=== PATIENT | female | born 1950 | race Caucasian/White ===

== ENCOUNTER 2020-04-09 02:31 | Emergency (ER) | payer OTHER, SELFPAY ==
--- NOTE | ~2020-04-09 | XR_ITS ---
XR chest 1V portable 04/09/2020 03:16 Indication: Midsternal chest pain Procedure: AP portable chest Comparison: 09/28/2016 Findings: Heart size normal. Shallow inspiration. No focal air space disease, pulmonary edema, pleura l effusion or suspected pneumothorax. Impression: 1: No acute cardiopulmonary disease. Reviewed, dictated and finalized at location A. Impression: 1: No acute cardiopulmonary disease.
[2020-04-09 02:35] VITALS: BP 103/73; PULSE 100; RESP 18; TEMP 36.3; O2SAT 99
--- NOTE | 2020-04-09 02:39 | ECG_ITS ---
Measurements Intervals [place] Rate: 94 P: 70 MS: 160 QRS: -9 QRSD: 154 T: 108 QT: 347 QTc: 434 Interpretive Statements SINUS RHYTHM LEFT BUNDLE BRANCH BLOCK BASELINE WANDER- V6 ABNORMAL ECG Electronically Signed On 04-09-2020 7:41:33 CDT by Rick Ibarra D.O.
[2020-04-09 02:54] LABS: Basophils Percent Auto 0.4 % (0.2-1.2); Eosinophils Absolute Auto 0.1 K/mm3 (0-0.3); Eosinophils Percent Auto 1.7 % (0-4.4); Hemoglobin 14.9 g/dL (12.0-15.0); Immature Granulocyte Absolute 0.04 K/mm3 (0.00-0.031); Immature Granulocyte Percent A 0.5 % (0-0.5); Lymphocytes Absolute Auto 1.58 K/mm3 (0.9-3.2); Lymphocytes Percent Auto 18.8 % (18.3-44.2); Mean Corpuscular HGB Conc 33.1 g/dl (32-36); Mean Corpuscular Hemoglobin 30.5 pg (26-34); Mean Platelet Volume 10.3 fl (7.4-10.4); Monocytes Absolute Auto 0.7 K/mm3 (0.1-0.6); Monocytes Percent Auto 8.1 % (2.6-8.5); Neutrophils Absolute Auto 5.9 K/mm3 (1.3-6.7); Neutrophils Percent Auto 70.5 % (45.5-73.1); Platelet Count Result 167 k/mm3 (150-375); Red Blood Count 4.89 M/mm3 (4.2-5.4); Red Cell Distribution Width 13.2 % (11.5-14.5); White Blood Count 8.4 K/mm3 (4.5-10.0)
--- NOTE | 2020-04-09 02:56 | ED.CHESTPAIN ---
HPI - Chest Pain General Chief Complaint: Chest Pain Stated Complaint: chest pain Time Seen by Provider: 04/09/20 02:33 History of Present Illness HPI narrative: Awoken from sleep by epigastric pain radiating into her chest around 0130 today. Feels like indigetion, which is not abnormal for her. She tried pepcid. She became concerned when it did not relieve her symptoms. On my evaluation her symptoms have resolved. No SOB. Related Data Home Medications Medication Instructions Recorded Confirmed Calcium 600 + D(3) 1,000 mg PO 04/09/20 alendronate-vitamin D3 1 tablet PO WEEKLY 04/09/20 hydrochlorothiazide 25 mg PO DAILY 04/09/20 lisinopril 40 mg PO DAILY 04/09/20 magnesium 400 mg PO DAILY 04/09/20 metformin mg PO 04/09/20 metoprolol succinate 50 mg PO DAILY 04/09/20 pyridoxine (vitamin B6) 100 mg PO DAILY 04/09/20 rosuvastatin 10 mg PO DAILY 04/09/20 vitamin B complex [B 1 tablet PO DAILY 04/09/20 Complex-Vitamin B12] Allergies Allergy/AdvReac Type Severity Reaction Status Date / Time No Known Allergies Allergy Verified 04/09/20 03:48 Review of Systems Review of Systems: All systems reviewed & are unremarkable except as noted in HPI and below Constitutional: Constitutional: Denies fever(s) and Denies weakness Cardiovascular: Cardiovascular: Reports chest pain and Denies radiating jaw, neck or arm pain Respiratory: Respiratory: Denies dyspnea Exam Const: General: healthy appearing, no acute distress and alert Orientation/consciousness: patient oriented x3 HENMT: Head: normal to inspection Neck: Neck: normal visual inspection and no lymphadenopathy Chest: Chest palpation & inspection: no tenderness Resp: Effort & Inspection: normal respiratory effort Auscultation: clear to auscultation bilaterally, no rales, no rhonchi and no wheezes Cardio: Jugular venous distension: no JVD Rate: regular rate Rhythm: regular rhythm Heart sounds: no murmurs GI: Inspection: non-distended GI Palp: Yes Soft to palpation and No Tenderness to palpation present (GI) Skin: General skin exam: normal color Neuro: General: patient oriented x3 and moves all extremities Speech: normal speech Extrem: General: no edema Psych: Appearance: well kempt Affect: normal affect Course Vital Signs Vital signs: Vital Signs Temperature 36.3 C L 04/09/20 02:35 Pulse Rate 100 04/09/20 02:35 Respiratory Rate 18 04/09/20 02:35 Blood Pressure 103/73 04/09/20 02:35 Pulse Oximetry 99 04/09/20 02:35 Temperature 36.3 C L 04/09/20 02:35 Pulse Rate 84 04/09/20 06:33 Respiratory Rate 20 04/09/20 06:33 Blood Pressure 118/74 04/09/20 06:33 Pulse Oximetry 98 04/09/20 06:33 MDM - Chest Pain MDM Narrative Medical decision making narrative: Pain resolved. EKG does not show anything acute. Troponin negative x2. Pain most likely GI in origin. Medical Records Data Attestation: I reviewed the patient's medical records. Lab Data Attestation: I reviewed the patient's lab results. Result diagrams: 04/09/20 02:46 04/09/20 02:46 Labs: Lab Results 04/09/20 04/09/20 04/09/20 Range/Units 02:46 02:46 05:27 WBC 8.4 (4.5-10.0) K/mm3 RBC 4.89 (4.2-5.4) M/mm3 Hgb 14.9 (12.0-15.0) g/dL Hct 45.0 (37.0-47.0) % MCV 92.0 (80-100) fl MCH 30.5 (26-34) pg MCHC 33.1 (32-36) g/dl RDW 13.2 (11.5-14.5) % Plt Count 167 (150-375) k/mm3 MPV 10.3 (7.4-10.4) fl Immature Gran % (Auto) 0.5 (0-0.5) % Neut % (Auto) 70.5 (45.5-73.1) % Lymph % (Auto) 18.8 (18.3-44.2) % [place] % (Auto) 8.1 (2.6-8.5) % Eos % (Auto) 1.7 (0-4.4) % Baso % (Auto) 0.4 (0.2-1.2) % Lymph # (Auto) 1.58 (0.9-3.2) K/mm3 [place] # (Auto) 0.7 H (0.1-0.6) K/mm3 Eos # (Auto) 0.1 (0-0.3) K/mm3 Baso # (Auto) 0.0 (0.0-0.1) K/mm3 Abs Immat Gran (auto) 0.04 H (0.00-0.031) K/mm3 Absolute Neuts (auto) 5.9 (1.3-6.7) K/mm3 Ab
[2020-04-09 03:10] LABS: Alanine Aminotransferase 34 U/L (4-35); Albumin Level 4.2 g/dL (3.5-5.1); Alkaline Phosphatase 54 U/L (38-126); Anion Gap 6 mmol/L (8-16); Aspartate Amino Transferase 24 U/L (14-36); Bilirubin,Total 0.4 mg/dL (0.2-1.3); Blood Urea Nitrogen 18 mg/dL (7-17); Calcium 9.9 mg/dL (8.4-10.2); Carbon Dioxide 30 mmol/L (22-30); Chloride 97 mmol/L (98-107); Estimated Glomerular Filt Rate > 60; Glucose 189 mg/dL (65-105); Potassium 3.7 mmol/L (3.4-5.0); Sodium 133 mmol/L (137-145)
[2020-04-09 03:21] LABS: Troponin I < 0.012 ng/mL (0.000-0.034)
[2020-04-09 04:33] VITALS: BP 128/50; PULSE 81; RESP 22; O2SAT 96
[2020-04-09 06:03] LABS: Troponin I < 0.012 ng/mL (0.000-0.034)
[2020-04-09 06:33] VITALS: BP 118/74; PULSE 84; RESP 20; O2SAT 98
== END 2020-04-09 06:45 | disposition home or self-care (01) ==
PROVIDERS: Emergency Provider Emergency Medicine
DX: R07.9 Chest pain, unspecified (principal)
CPT/HCPCS: 36415; 71045; 80053; 84484; 85025; 93005; 99284

== ENCOUNTER 2025-04-11 15:00 | Observation (INO) | payer OTHER, SELFPAY ==
--- OUTSIDE RECORDS SUMMARY | 2001-09-20 06:15 | XMS_ITS | Continuity of Care Document ---
Author Organization Located within [facility] Address [id number] [place] [address] [address] [place] [address] Phone Care Team Providers Care Newspaper Copy Editor Name Role Phone Kurtz OD, Jackson Unavailable Unavailable Advance Directives Directive Yes / No Effective Date File Name No Information Encounters Encounter Description Practice Location Reason(s) For Visit Diagnoses Date Provider Providers Copied on Encounter [facility], [address], [place], [place], [id number], [place] tel:[phone] [facility] No Information Aug- 3-200 2 Kurtz OD Jackson. [address] , [address], [place], [address], [place]. tel:[phone] Family History Family Member Type Diagnosis Age At Onset No Information Payers Payer name Insurance type Covered green party ID Authoriza tion(s) No Information Social History Type Description Quantity Date Captured Comments Sex Female Smoking Status No Information Chief Complaint And Reason For Visit No Information Reason For Referral Reason For Referral No Information History Of Present Illness Encounter Date Complaint History Of Prese nt Illness No Information Functional Status Date Functional Assessmen t No Information Instructions Date Instruction Additional Infor mation No Information Assessments Type Assessment Date No Information Patient Care Teams Name Effective Dates (start - stop) Status Members No Information
--- OUTSIDE RECORDS SUMMARY | 2001-09-20 06:15 | XMS_ITS | Continuity of Care Document ---
Author Organization [facility] Address [address] [place] [address] [address] [place] [address] Phone Care Team Providers Care Manufacturing Development Engineer Name Role Phone Kurtz OD, Jackson Unavailable Unavailable Advance Directives Directive Yes / No Effective Date File Name No Information Encounters Encounter Description Practice Location Reason(s) For Visit Diagnoses Date Provider Providers Copied on Encounter [facility], [address], [place], [place], [id number], [place] tel:[phone] [facility] No Information Aug- 3-200 2 Kurtz OD Jackson. [address] , [address], [place], [address], [place]. tel:[phone] Family History Family Member Type Diagnosis Age At Onset No Information Payers Payer name Insurance type Covered constitution party ID Authoriza tion(s) No Information Social [...]
--- OUTSIDE RECORDS SUMMARY | 2003-07-28 19:00 | XMS_ITS | Continuity of Care Document ---
Author Name [facility] Address [address] [place] [address] Organization [facility] Care Team Providers Care Software Sales Manager Name Role Phone [facility] Unavailable Unavailable Problems Problem Status Onset Date Problem Type Date of Resolution Comme nts Source Body mass index 30+ - obesity (finding) Active Condition
--- OUTSIDE RECORDS SUMMARY | 2003-07-28 19:00 | XMS_ITS | Continuity of Care Document ---
Author Name [facility] Address [address] [place] [address] Organization [facility] Care Team Providers Care Tester/Lift Trucker Name Role Phone [facility] Unavailable Unavailable Problems Problem Status Onset Date Problem Type Date of Resolution Comme nts Source Body mass index 30+ - obesity (finding) Active Condition
[2025-04-11] VITALS (31 sets, daily range): BP systolic 102–153; BP diastolic 52–74; PULSE 61–83; RESP 14–25; TEMP 36.7–36.8; O2SAT 92–99; BMI 27.4
--- NOTE | ~2025-04-11 | NM_ITS ---
EXAMINATION: NM chantale stress w perfusion DATE: 04/12/2025 12:33 INDICATION: Chest pain TECHNIQUE: Rest images were obtained following intravenous administration of 10.2 mCi Tc99m tetrofosmin (Myoview). The patient was infused intravenously with Lexiscan (Regadenoson). Then, 32.7 mCi Tc99m tetrofosmin (Myoview) was administered intravenously, and stress images were obtained. Data was madelaine nstructed into short axis and horizontal and vertical long axis SPECT images. Gated SPECT images were also obtained. COMPARISON: None. FINDINGS: Small mild nonreversible perfusion defect at the apical septal segment consistent with infarct and adjacent small mild reversible perfusion defect at the apex consistent with ischemia. There is normal left ventricular chamber size, wall motion and ejection fraction. Left ventricular ejection fraction measures >70%. IMPRESSION: 1. Mild reversible ischemia at the apical segment with small mild nonreversible infarct at the apical septal segment.. 2. Left ventricular ejection fraction measuring >70%. Reviewed, dictated and finalized at location A.
--- NOTE | ~2025-04-11 | XR_ITS ---
EXAMINATION: XR chest 2V, 04/11/2025 15:31 CDT HISTORY: CP COMPARISON: No comparisons available. Technique: 2 views obtained. Findings: The lungs are clear, no effusion. No pneumothorax. Heart is normal size. Mediastinal and hilar contours are within normal limits. Bony thorax no acute abnormality. Impression: No acute cardiopulmonary abnormality. Reviewed, dictated and finalized at location A. Impression: No acute cardiopulmonary abnormality.
--- NOTE | 2025-04-11 15:02 | ECG_ITS ---
Test Date: 2025-04-11 15:11:47 Measurements Intervals [place] Rate: 74 P: 63 NM: 174 QRS: -22 QRSD: 149 T: 101 QT: 402 QTc: 447 Interpretive Statements SINUS RHYTHM LEFT BUNDLE BRANCH BLOCK [120+ ms QRS DURATION, 80+ ms Q/S IN V1/V2, 85+ ms R IN I/aVL/V5/V6] ABNORMAL ECG No previous ECG available for comparison Electronically Signed On 04-12-2025 07:47:10 CDT by Enrico Rust M.D.
--- OUTSIDE RECORDS SUMMARY | 2025-04-11 15:02 | XMS_ITS | Encounter Summary ---
Author Organization [facility] Address [address] [facility] Attn: Epic Prelude ADT ENOCHROXY GUERREROBLANCA [address] Care Team Providers Care Manager Animation Name Role Phone Philipp Pizarro MD Primary Care Provid er Encounter Details Date Type Department Care Team (Late st Contact Info) Description 06/21/1997 Outpatient Historical Conversion, History Naldo Santos Social History Tobacco Use Types Packs/Day Years Used Date Smoking Tobacco: Never Assessed Comments Unknown Sex and Gender Information Value Date Recorded Sex Assigned at Not on file Legal Sex Female 3:43 AM BEEF CATTLE FARMER Gender Identity Not on file Sexual Orientation Not on file documented as of this encounter Plan of Treatment Upcoming Encounters Date Type Department Care Team (Late st Contact Info) Description 04/26/2025 1:20 PM CDT Office Visit [facility] Primary Care - [facility], [facility] [address] [address] [address] [address] Philipp Pizarro MD [address] [place] [address] [place] [address] documented as of this encounter Visit Diagnoses Not on filedocumented in this encounter Additional Health Concerns Infection Onset Date Last Indicated Resolved Time R/O COVID-19 03/07/2020 03/07/2020 03/09/2020 4:45 AM CDT COVID-19 07/31/2021 07/31/2021 08/30/2021 1:16 AM BEEF CATTLE FARMER documented as of this encounter Care Teams Manager Animation Relationship Specialty Start Date End Date Philipp Pizarro MD [address] [place] [phone] PCP - General Internal Medicine 08/21/13 documented as of this encounter
--- OUTSIDE RECORDS SUMMARY | 2025-04-11 15:02 | XMS_ITS | Encounter Summary ---
Author Organization [facility] Address [address] [place] [address] Care Team Providers Care Network Support Engineer Name Role Phone Philipp Pizarro MD Primary Care Provid er Encounter Details Date Type Department Care Team (Late st Contact Info) Description 12/20/2000 Outpatient Historical HIS [facility] Naldo Devine Social History Tobacco Use Types Packs/Day Years Used Date Smoking Tobacco: Never Assessed Comments Unknown Sex and Gender Information Value Date Recorded Sex Assigned at Not on file Legal Sex Female 3:43 AM OIL REFINER Gender Identity Not on file Sexual Orientation Not on file documented as of this encounter Plan of Treatment Upcoming Encounters Date Type Department Care Team (Late st Contact Info) Description 04/26/2025 1:20 PM CDT [facility] Visit [facility] Primary Care - [facility], [facility] [address] [place] [address] [address] [address] Philipp Pizarro MD [address] [place] [address] [place] [phone] documented as of this encounter Visit Diagnoses Not on filedocumented in this encounter Additional Health Concerns Infection Onset Date Last Indicated Resolved Time R/O COVID-19 03/07/2020 03/07/2020 03/09/2020 4:45 AM CDT COVID-19 07/31/2021 07/31/2021 08/30/2021 1:16 AM OIL REFINER documented as of this encounter Care Teams Network Support Engineer Relationship Specialty Start Date End Date Philipp Pizarro MD [address] [place] [phone] PCP - General Internal Medicine 08/21/13 documented as of this encounter
--- OUTSIDE RECORDS SUMMARY | 2025-04-11 15:02 | XMS_ITS | Encounter Summary ---
Author Organization [facility] Address 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 BASEBOARD HEATING INSTALLER Gender Identity Not on file Sexual Orientation Not on file documented as of this encounter Plan of Treatment Upcoming Encounters Date Type Department Care Team (Late st Contact Info) Description 04/26/2025 1:20 PM CDT Office Visit [facility] Primary Care - [facility], [facility] [address] [place] [address] [address] [address] Philipp Pizarro MD [address] [place] [address] [place] [phone] documented as of this encounter Visit Diagnoses Not on filedocumented in this encounter Additional Health Concerns Infection Onset Date Last Indicated Resolved Time R/O COVID-19 03/07/2020 03/07/2020 03/09/2020 4:45 AM CDT COVID-19 07/31/2021 07/31/2021 08/30/2021 1:16 AM BASEBOARD HEATING INSTALLER documented as of this encounter Care Teams Ticket Maker Relationship Specialty Start Date End Date Philipp Pizarro MD [address] [place] [phone] PCP - General Internal Medicine 08/21/13 documented as of this encounter
--- OUTSIDE RECORDS SUMMARY | 2025-04-11 15:02 | XMS_ITS | Encounter Summary ---
Author Organization [facility] Address [address] [place] [address] Care Team Providers Care Reducing Salon Attendant Name Role Phone Philipp Pizarro MD Primary Care Provid er Encounter Details Date Type Department Care Team (Latest Contact Info) Description 08/31/1998 Outpatient Historical HIS [facility] Naldo Santos Other and unspecified hyperlipidemia (Primary Dx) Social History Tobacco Use Types Packs/Day Years Used Date Smoking Tobacco: Never Assessed Comments Unknown Sex and Gender Information Value Date Recorded Sex Assigned at Not on file Legal Sex Female 3:43 AM INTEGRATED CIRCUIT IC LAYOUT DESIGNER Gender Identity Not on file Sexual Orientation Not on file documented as of this encounter Plan of Treatment Upcoming Encounters Date Type Department Care Team (Late st Contact Info) Description 04/26/2025 1:20 PM CDT Office Visit [facility] Primary Care - [facility], [address] [place] [address] [address] [address] Philipp Pizarro MD [address] [place] [address] [place] [phone] documented as of this encounter Visit Diagnoses Diagnosis Other and unspecified hyperlipidemia- Primary documented in this encounter Additional Health Concerns Infection Onset Date Last Indicated Resolved Time R/O COVID-19 03/07/2020 03/07/2020 03/09/2020 4:45 AM CDT COVID-19 07/31/2021 07/31/2021 08/30/2021 1:16 AM INTEGRATED CIRCUIT IC LAYOUT DESIGNER documented as of this encounter Care Teams Reducing Salon Attendant Relationship Specialty Start Date End Date Philipp Pizarro MD [address] [place] [phone] PCP - General Internal Medicine 08/21/13 documented as of this encounter
--- OUTSIDE RECORDS SUMMARY | 2025-04-11 15:02 | XMS_ITS | Encounter Summary ---
Author Organization [facility] Address [address] [facility] Attn: Epic Prelude ADT ENOCHROXY GUERREROBLANCA [address] Care Team Providers Care Nuclear Equipment Research Engineer Name Role Phone Philipp Pizarro MD Primary Care Provid er Encounter Details Date Type Department Care Team (Late st Contact Info) Description 01/21/1998 Outpatient Historical Conversion, History Naldo Santos Social History Tobacco Use Types Packs/Day Years Used Date Smoking Tobacco: Never Assessed Comments Unknown Sex and Gender Information Value Date Recorded Sex Assigned at Not on file Legal Sex Female 3:43 AM BLUE CRABBER Gender Identity Not on file Sexual Orientation Not on file documented as of this encounter Plan of Treatment Upcoming Encounters Date Type Department Care Team (Late st Contact Info) Description 04/26/2025 1:20 PM CDT Office Visit [facility] Primary Care - [facility], [facility] [address] [place] [address] [address] [address] Philipp Pizarro MD [address] [place] [address] [place] [phone] documented as of this encounter Visit Diagnoses Not on filedocumented in this encounter Additional Health Concerns Infection Onset Date Last Indicated Resolved Time R/O COVID-19 03/07/2020 03/07/2020 03/09/2020 4:45 AM CDT COVID-19 07/31/2021 07/31/2021 08/30/2021 1:16 AM BLUE CRABBER documented as of this encounter Care Teams Nuclear Equipment Research Engineer Relationship Specialty Start Date End Date Philipp Pizarro MD [address] [place] [phone] PCP - General Internal Medicine 08/21/13 documented as of this encounter
--- OUTSIDE RECORDS SUMMARY | 2025-04-11 15:02 | XMS_ITS | Encounter Summary ---
Author Organization [facility] Address [address] [facility] Attn: Epic Prelude ADT SAYRA [place] [address] Care Team Providers Care Belly Dump Driver Name Role Phone Philipp Pizarro MD Primary Care Provid er Encounter Details Date Type Department Care Team (Late st Contact Info) Description 06/21/1998 Outpatient Historical Naldo Santos Social History Tobacco Use Types Packs/Day Years Used Date Smoking Tobacco: Never Assessed Comments Unknown Sex and Gender Information Value Date Recorded Sex Assigned at Not on file Legal Sex Female 3:43 AM MAINTENANCE JOB TITLES Gender Identity Not on file Sexual Orientation Not on file documented as of this encounter Plan of Treatment Upcoming Encounters Date Type Department Care Team (Late st Contact Info) Description 04/26/2025 1:20 PM CDT Office Visit [facility] Primary Care - [facility], [facility] [address] [place] [address] [address] [address] Philipp Pizarro MD [address] [place] [address] [place] [phone] documented as of this encounter Visit Diagnoses Not on filedocumented in this encounter Additional Health Concerns Infection Onset Date Last Indicated Resolved Time R/O COVID-19 03/07/2020 03/07/2020 03/09/2020 4:45 AM CDT COVID-19 07/31/2021 07/31/2021 08/30/2021 1:16 AM MAINTENANCE JOB TITLES documented as of this encounter Care Teams Belly Dump Driver Relationship Specialty Start Date End Date Philipp Pizarro MD [address] [place] [phone] PCP - General Internal Medicine 08/21/13 documented as of this encounter
--- OUTSIDE RECORDS SUMMARY | 2025-04-11 15:02 | XMS_ITS | Encounter Summary ---
Author Organization [facility] Address [address] [place] [address] Care Team Providers Care Field Hockey Coach Name Role Phone Philipp Pizarro MD Primary Care Provid er Encounter Details Date Type Department Care Team (Late st Contact Info) Description 09/05/2001 Outpatient Historical HIS [facility] Naldo Devine Social History Tobacco Use Types Packs/Day Years Used Date Smoking Tobacco: Never Assessed Comments Unknown Sex and Gender Information Value Date Recorded Sex Assigned at Not on file Legal Sex Female 3:43 AM CADASTRAL ENGINEER Gender Identity Not on file Sexual Orientation Not on file documented as of this encounter Plan of Treatment Upcoming Encounters Date Type Department Care Team (Late st Contact Info) Description 04/26/2025 1:20 PM CDT Office Visit [facility] Primary Care - [facility], [facility] [address] [place] [address] [address] [address] Philipp Pizarro MD [address] [place] [address] [place] [phone] documented as of this encounter Visit Diagnoses Not on filedocumented in this encounter Additional Health Concerns Infection Onset Date Last Indicated Resolved Time R/O COVID-19 03/07/2020 03/07/2020 03/09/2020 4:45 AM CDT COVID-19 07/31/2021 07/31/2021 08/30/2021 1:16 AM CADASTRAL ENGINEER documented as of this encounter Care Teams Field Hockey Coach Relationship Specialty Start Date End Date Philipp Pizarro MD [address] [place] [phone] PCP - General Internal Medicine 08/21/13 documented as of this encounter
--- OUTSIDE RECORDS SUMMARY | 2025-04-11 15:02 | XMS_ITS | Encounter Summary ---
Author Organization [facility] Address [address] [place] [address] Care Team Providers Care Finisher Fine Diamond Dies Name Role Phone Philipp Pizarro MD Primary Care Provid er Encounter Details Date Type Department Care Team (Latest Contact Info) Description 12/20/2000 Outpatient Historical HIS [facility] Naldo Devine Other screening mammogram (Primary Dx) Social History Tobacco Use Types Packs/Day Years Used Date Smoking Tobacco: Never Assessed Comments Unknown Sex and Gender Information Value Date Recorded Sex Assigned at Not on file Legal Sex Female 3:43 AM RN TRANSITION Gender Identity Not on file Sexual Orientation Not on file documented as of this encounter Plan of Treatment Upcoming Encounters Date Type Department Care Team (Late st Contact Info) Description 04/26/2025 1:20 PM CDT Office Visit [facility] Primary Care - [facility], [facility] [address] [place] [address] [address] [address] hPilipp Pizarro MD [address] [place] [address] [place] [phone] documented as of this encounter Visit Diagnoses Diagnosis Other screening mammogram- Primary documented in this encounter Additional Health Concerns Infection Onset Date Last Indicated Resolved Time R/O COVID-19 03/07/2020 03/07/2020 03/09/2020 4:45 AM CDT COVID-19 07/31/2021 07/31/2021 08/30/2021 1:16 AM RN TRANSITION documented as of this encounter Care Teams Finisher Fine Diamond Dies Relationship Specialty Start Date End Date Philipp Pizarro MD [address] [place] [phone] PCP - General Internal Medicine 08/21/13 documented as of this encounter
--- OUTSIDE RECORDS SUMMARY | 2025-04-11 15:03 | XMS_ITS | Encounter Summary ---
Author Organization [facility] Address [address] [place] [address] Care Team Providers Care Exchange Teller Name Role Phone Philipp Pizarro MD Primary Care Provid er Encounter Details Date Type Department Care Team (Latest Contact Info) Description 08/20/2006 Outpatient Historical HIS CARDIOPULMONARY Naldo Santos Palpitations (Primary Dx) Social History Tobacco Use Types Packs/Day Years Used Date Smoking Tobacco: Never Assessed Comments Unknown Sex and Gender Information Value Date Recorded Sex Assigned at Not on file Legal Sex Female 3:43 AM CONSTRUCTION SAFETY CONSULTANT Gender Identity Not on file Sexual Orientation Not on file documented as of this encounter Plan of Treatment Upcoming Encounters Date Type Department Care Team (Late st Contact Info) Description 04/26/2025 1:20 PM CDT Office Visit [facility] Primary Care - [facility], [address] [place] [address] Rd[address] [place] [phone] Philipp Pizarro MD [address] [place] [address] [place] [phone] documented as of this encounter Procedures Procedure Name Priority Date/Time Associated Diagnosis Comments CBC WITH DIFFERENTIAL Routine 08/20/2006 11:55 AM CONSTRUCTION SAFETY CONSULTANT CBC WITH DIFFERENTIAL Routine 08/20/2006 11:55 AM CONSTRUCTION SAFETY CONSULTANT TSH Routine 08/20/2006 11:55 AM CONSTRUCTION SAFETY CONSULTANT COMPREHENSIVE METABOLIC PANEL Routine 08/20/2006 11:55 AM CONSTRUCTION SAFETY CONSULTANT documented in this encounter Results * CBC WITH DIFFERENTIAL (08/20/2006 11:55 AM CONSTRUCTION SAFETY CONSULTANT) NEUTROPHILS 60 45 - 70 % INTERFAC E SYSTEM LYMPHOCYTES 34 16 - 45 % INTERFAC E SYSTEM MONOCYTES 6 3 - 13 % INTERFACE SYSTEM EOSINOPHILS 1 0 - 7 % INTERFAC E SYSTEM BASOPHILS 0 0 - 2 % INTERFACE SYSTEM NEUTROPHIL ABSOLUTE 3.84 1.90 - 7.00 K/uL INTERFACE SYSTEM LYMPHOCYTE ABSOLUTE 2.16 0.70 - 4.50 K/uL INTERFACE SYSTEM MONOCYTE ABSOLUTE 0.37 0.10 - 1.30 K/uL INTERFACE SYSTEM EOSINOPHIL ABSOLUTE 0.04 0.00 - 0.70 K/uL INTERFACE SYSTEM BASOPHILS ABSOLUTE 0.01 0.00 - 0.20 K/uL INTERFACE SYSTEM 08/20/2006 11:5 5 AM CONSTRUCTION SAFETY CONSULTANT Naldo Santos HEMATOLOGY ORDERABLES Edited INTERFACE SYSTEM Refer to clinic/hospital department * (ABNORMAL) CBC WITH DIFFERENTIAL (08/20/2006 11:55 AM CONSTRUCTION SAFETY CONSULTANT) WBC 6.4 4.0 - 9.8 K/uL INTERFACE SYSTEM RBC 5.15(H) 3.90 - 4.90 M/uL INTERFACE SYSTEM HEMOGLOBIN 15.4(H) 11.8 - 14.8 g/dL INTERFACE SYSTEM HEMATOCRIT 44.1(H) 35.5 - 44.0 % INTERFACE SYSTEM MCV 85.6 82.0 - 99.0 fL INTERFACE SYSTEM MCH 29.9 27.2 - 32.6 pg INTERFACE SYSTEM MCHC 34.9 31.5 - 35.5 % INTERFACE SYSTEM RDW 12.3 11.5 - 14.5 % INTERFACE SYSTEM RDW-STDEV 38.5 37.1 - 48.7 fL INTERFACE SYSTEM PLATELETS 193 140 - 350 K/uL INTERFACE SYSTEM MPV 11.3 9.3 - 12.4 fL INTERFACE SYSTEM 08/20/2006 11:5 5 AM CONSTRUCTION SAFETY CONSULTANT Naldo Santos HEMATOLOGY ORDERABLES Edited INTERFACE SYSTEM Refer to clinic/hospital department * TSH (08/20/2006 11:55 AM CONSTRUCTION SAFETY CONSULTANT) TSH 2.43 0.27 - 4.20 uU/mL INTERFACE SYSTEM 08/20/2006 11:5 5 AM CONSTRUCTION SAFETY CONSULTANT Naldo Santos CHEMISTRY ORDERABLES Edited INTERFACE SYSTEM Refer to clinic/hospital department * (ABNORMAL) COMPREHENSIVE METABOLIC PANEL (08/20/2006 11:55 AM CONSTRUCTION SAFETY CONSULTANT) GLUCOSE 131(H) 65 - 99 mg/dL INTERFACE SYSTEM CREATININE 0.61 0.51 - 0.95 mg/dL INTERFACE SYSTEM CALCIUM 9.0 8.4 - 10.2 mg/dL INTERFACE SYSTEM ALKALINE PHOSPHATASE 76 35 - 104 U/L INTERFACE SYSTEM AST 24 12 - 32 U/L INTERFACE SYSTEM ALT 28 0 - 31 U/L INTERFACE SYSTEM TOTAL PROTEIN 7.9 6.3 - 8.6 g/dL INTERFACE SYSTEM ALBUMIN 4.9(H) 3.4 - 4.8 g/dL INTERFACE SYSTEM BILIRUBIN TOTAL 0.5 0.2 - 1.0 mg/dL INTERFACE SYSTEM BUN 9 6 - 20 mg/dL INTERFACE SYSTEM SODIUM 139 135 - 145 mmol/L INTERFACE SYSTEM POTASSIUM 4.1 3.5 - 4.9 mmol/L INTERFACE SYSTEM CHLORIDE 102 96 - 108 mmol/L INTERFACE SYSTEM CO2 28 22 - 30 mmol/L INTERFACE SYSTEM GFR, >60 >=60 mL/min/1. 7 sq meter INTERFACE SYSTEM GFR >60 >=60 mL/min/1. 7 sq meter INTERFACE SYSTEM Comment: Estimated GFR rate interpretative information for both Americans and non- Americans is available on the [facility] Intranet at: [email or web address] Select: Lab Policies and Procedures Select: Reference Ranges - GFR 08/20/2006 11:5 5 AM CONSTRUCTION SAFETY CONSULTANT us Naldo Santos CHEMISTRY ORDERABLES Edited INTERFACE SYSTEM Refer to clinic/hospital department documented in this encounter Visit Diagnoses Diagnosis Palpitations- Primary documented in this encounter Additional Health Concerns Infection Onset Date Last Indicated Resolved Time R/O COVID-19 03/07/2020 03/07/2020 03/09/2020 4:45 AM CDT COVID-19 07/31/2021 07/31/2021 08/30/2021 1:16 AM CONSTRUCTION SAFETY CONSULTANT documented as of this encounter Care Teams Exchange Teller Relationship Specialty Start Date End Date Philipp Pizarro MD [address] [place] [phone] PCP - General Internal Medicine 08/21/13 documented as of this encounter
--- OUTSIDE RECORDS SUMMARY | 2025-04-11 15:03 | XMS_ITS | Clinical Summary ---
Author Organization [facility] Address [address] [place] [address] Phone Care Team Providers Care Job Estimator Name Role Phone Philipp Pizarro MD Primary Care Provid er Allergies No known active allergies Medications aspirin (MICHELLE) 81 mg Oral Tab Take 81 mg by mouth daily. Active calcium-cholecalci ferol (OS-CARROLL 500+D) 500 mg(1,250mg) -200 unit tablet Take 1 Tablet by mouth 2 times daily with meals. Active psyllium (FIBER-CAP) 0.52 gram CapsuleIndications :Irregular bowel habits Take 1 Capsule by mouth daily. 30 Capsule 3 05/11/20 21 Active Additional Information Patient not taking.Reported on 04/24/2024 Cholecalciferol, Vitamin D3, 50 mcg (2,000 unit) CapsuleIndications :Hyperparathyroidi sm Take 4,000 Units by mouth daily. 90 Capsule 3 05/11/20 21 Active risedronate (ACTONEL) 150 mg TabletIndications: Age-related osteoporosis without current pathological fracture Take 1 Tablet (150 mg) by mouth every 30 days. 3 Tablet 3 04/24/20 24 Active rosuvastatin (CRESTOR) 10 mg tabletIndications: Mixed hyperlipidemia TAKE 1 TABLET BY MOUTH ON MONDAYS, WEDNESDAYS AND FRIDAYS 50 Tablet 3 04/24/20 24 Active metoprolol succinate (TOPROL XL) 50 mg Extended Release 24 hour tabletIndications: HTN (hypertension), benign take 1 tablet by mouth every day 100 Tablet 3 05/22/20 24 Active hydroCHLOROthiazid e 25 mg tabletIndications: HTN (hypertension), benign take 1 tablet by mouth daily 100 Tablet 3 05/22/20 24 Active lisinopriL (PRINIVIL) 40 mg tabletIndications: HTN (hypertension), benign take 1 tablet by mouth every day 100 Tablet 3 05/22/20 24 Active metFORMIN (GLUCOPHAGE XR) 500 mg Extended Release 24 hour tabletIndications: Type 2 diabetes mellitus without complication, without long-term current use of insulin ([facility]) TAKE 2 TABLETS BY MOUTH TWICE DAILY WITH MEALS 400 Tablet 3 08/20/19 25 Active Active Problems Problem Noted Date Diagnosed Date Hyperparathyroidism 08/07/2015 Colon polyp 08/21/2013 Anxiety state 01/04/2012 Essential hypertension 01/04/2012 Other left bundle branch block 01/04/2012 Unspecified arthropathy, ankle and foot 04/06/20 11 Type 2 diabetes mellitus with hyperglycemia 03/2011 Mixed dyslipidemia 04/06/2011 Resolved Problems Problem Noted Date Diagnosed Date Resolved Date Osteopenia 01/16/2016 07/17/2016 Encounters Date Type Department Care Team Description 03/24/2025 External Device Data STL ABSTRACTION Provider, Abstract 02/10/2025 External Device Data STL ABSTRACTION Provider, Abstract 02/10/2025 External Device Data STL ABSTRACTION Provider, Abstract 01/13/2025 External Device Data STL ABSTRACTION Provider, Abstract from Last 3 Months Immunizations Immunization Administration Dates Next Due (ADACEL/BOOSTRIX)(10 YR UP) TDAP VACCINE, 0.5ML, IM 09/26/2007 (PNEUMOVAX 23)(50 YRS UP) PN EUMOCOCCAL POLYSACCHARIDE (PPV23) 0.5 ML, IM 03/10/2014 (PREVNAR 13)(6 WKS UP) PNEUM OCOCCAL CONJUGATE (PCV13) 0.5 ML, IM 07/20/2015 (TDVAX)(7 YRS UP) TETANUS AN D DIPHTHERIA TOXOIDS, ADSORBED (2 LF OF TETANUS TOXOID AND 2 LF OF DIPHTHERIA TOXOID), 0.5ML (PF), IM 04/18/1995 INFLUENZA VACCINE HIGH DOSE QUADRIVALENT 65 YR UP PF IM 04/12/2023,05/11/2021,04/19/2020 INFLUENZA VACCINE QUADRIVALE NT 6 MOS UP PF IM 05/14/2022 Influenza Seasonal Unspecifi ed Formulation IM 05/19/2013,04/06/2011 Influenza Vaccine High Dose 65+ Yrs IM 9,03/28/2016,07/20/2015 Zoster Vaccine Live SQ 01/27/2013 Family History Medical History Relation Name Comments Colon Cancer Father Breast Cancer Maternal Grandmother late 7 0s Hypertension Maternal Grandmother Depression Mother Respiratory Disease Mother COPD Ovarian Cancer Neg Hx Relation Name Status Comments Father Maternal Grandmother Mother Social History Tobacco Use Types Packs/Day Years Used Date Smoking Tobacco: Former Cigarettes Q uit: 11/11/1983 Passive Smoke Exposure: Never Smokeless Tobacco: Never Tobacco Cessation:Counseling Given: Not Answered Alcohol Use Standard Drinks/Week Comments No 0 (1 standard drink = 0.6 oz pur e alcohol) Financial Resource Strain Answer Date R ecorded How hard is it for you to pa y for the very basics like food, housing, medical care, and heating? Not hard at all 04/12/2023 Food Insecurity Answer Date Recorded In the past 12 months, have you worried that your food would run out before you had money to buy more? Never true 2022 Ran Out of Food in the Last Year Not on file 04/12/2023 Transportation Needs Answer Date Record ed In the past 12 months, has l ack of transportation kept you from medical appointments or from getting medications? No 04/12/2023 Lack of Transportation (Non-Medical) Not on file 04/12/2023 Comments No Sex and Gender Information Value Date Recorded Sex Assigned at Not on file Legal Sex Female 3:43 AM FLAT BED OPERATOR Gender Identity Not on file Sexual Orientation Not on file Occupation Industry Job Start Date Job End Date Not on file Not on file Not on file Not on file Last Filed Vital Signs Vital Sign Reading Time Taken Comments Blood Pressure 126/78 06/02/2024 3:45 PM FLAT BED OPERATOR Pulse 76 04/24/2024 11:24 AM CDT Temperature 36.9 C (98.5 F) 04/24/2024 11:24 AM CDT Respiratory Rate 12 03/23/2013 12:43 PM CDT Oxygen Saturation 97% 04/24/2024 11:24 AM CDT Inhaled Oxygen Concentration - - Weight 70.8 kg (156 lb) 06/02/2024 3:45 PM FLAT BED OPERATOR Height 160 cm (5' 3) 06/02/2024 3:45 PM FLAT BED OPERATOR Body Mass Index 27.63 06/02/2024 3:45 PM FLAT BED OPERATOR Plan of Treatment Upcoming Encounters Date Type Department Care Team (Late st Contact Info) Description 04/26/2025 1:20 PM CDT Office Visit [facility] Care - [facility], [address] [place] [address] Philipp Pizarro MD [address] [facility] [address] [place] [address] Health Maintenance Due Date Last Done Comments ZOSTER VACCINE (2 of 3) 03/24/2013 01/27/2013 DTAP/TDAP/TD VACCINES (2 - T d or Tdap) 09/25/2017 09/26/2007, 04/18/1995 RSV VACCINE (60+ or ) (1 - 1-dose 75+ series) 11/02/2023 DIABETES ANNUAL RETINAL EXAM 05/22/2024, 05/22/2023, 04/11/2020, Additional history exists KHE eGFR (Auto Order) 07/29/2024 04/22/2024 , 01/22/2024, 01/22/2024, Additional history exists KHE uACR (Auto Order) 07/29/2024 10/22/2023 , 04/12/2023, 05/24/2022, Additional history exists Medicare Advantage ([place]) Preventative Visit/Annual Wellness Visit 07/29/2024 06/02/2024, 04/24/2024, 04/12/2023, Additional history exists DIABETES HBA1C Q 6 MONTHS 10/20/20242023, 01/22/2024, 10/22/2023, Additional history exists DIABETES MICROALBUMIN ANNUAL SCREEN 10/21/2024 10/22/2023, 04/12/2023, 05/24/2022, Additional history exists INFLUENZA VACCINE (#1) 2025 , 05/14/2022, 05/11/2021, Additional history exists DIABETES: A1C (Auto Order) 04/22/202504/22, 01/22/2024, 10/22/2023, Additional history exists LDL CHOLESTEROL ANNUAL 04/22/2025 4, 04/12/2023, 05/24/2022, Additional history exists DIABETES ANNUAL FOOT EXAM 04/24/20252023, 05/14/2022, 11/09/2021, Additional history exists COLORECTAL SCREENING 05/20/2029 05/20/2024, 04/05/2021, 04/05/2021, Additional history exists OSTEOPOROSIS SCREENING 06/02/2029 4, 12/06/2022, 12/06/2022, Additional history exists PNEUMOCOCCAL VACCINE 50+ YEARS Completed 07/20/2015 , 03/10/2014 Procedures Procedure Name Priority Date/Time Associated Diagnosis Comments XR DEXA BONE DENSITY AXIAL 1 OR MORE SITES Routine 06/02/2024 3:48 PM FLAT BED OPERATOR Age-related osteoporosis without current pathological fracture Encounter for bone density measurement for therapeutic drug monitoring Encounter for monitoring risedronate therapy Fracture Risk Assessment Score (FRAX) indicating greater than 3% risk for hip fracture Fracture Risk Assessment Score (FRAX) indicating greater than 20% risk for major osteoporosis-related fracture Family history of fracture of hip in mother COLONOSCOPY REPORT Routine 05/20/2024 3: 45 PM CDT COMPREHENSIVE METABOLIC PANEL Routine 04/22/2024 8:40 AM CDT Type 2 diabetes mellitus with hyperglycemia, without long-term current use of insulin ([facility]) LIPID PANEL Routine 04/22/2024 8:40 AM CDT Type 2 diabetes mellitus with hyperglycemia, without long-term current use of insulin ([facility]) HEMOGLOBIN A1C Routine 04/22/2024 8:40 AM CDT Type 2 diabetes mellitus with hyperglycemia, without long-term current use of insulin ([facility]) MICROALBUMIN/CREATINI NE RATIO, RANDOM UR Routine 10/22/2023 11:46 AM CDT Type 2 diabetes mellitus with hyperglycemia, without long-term current use of insulin ([facility]) DIABETES EYE EXAM Routine 05/22/2023 from Last 3 Months or Most Recently Relevant to Health Maintenance Results * XR DEXA BONE DENSITY AXIAL 1 OR MORE SITES (06/02/2024 3:48 PM FLAT BED OPERATOR) Anatomical Region Laterality Modality Computed Radiogr aphy Impressions 06/02/2024 3:54 PM FLAT BED OPERATOR : Patient has been on Actonel since August 2023 positive FRAX calculation. Her bone density is stable. She needs to discontinue the Actonel at the end of the year for a drug holiday. Repeat the bone density in 1 year and restart the medication then. us Skyler Vasques MD DIAGNOSTIC IMAGING ORDERABLE S Final Result * COLONOSCOPY REPORT (05/20/2024 3:45 PM CDT) us Abstract Provider GI PROCEDURE ORDERABLES Final Result Performing Organization Address City/State/[facility] Co de Phone Number [facility] [id number] [address] [place] [address], [address] [place] [address] * (ABNORMAL) HEMOGLOBIN A1C (04/22/2024 8:40 AM CDT) HEMOGLOBIN A1C 6.8(H) <5.7 % of total Hgb Angeline Borrego Comment: For someone without known diabetes, a hemoglobin A1c value of 6.5% or greater indicates that they may have diabetes and this should be confirmed with a follow-up test. For someone with known diabetes, a value <7% indicates that their diabetes is well controlled and a value greater than or equal to 7% indicates suboptimal control. A1c targets should be individualized based on duration of diabetes, age, comorbid conditions, and other considerations. Currently, no consensus exists regarding use of hemoglobin A1c for diagnosis of diabetes for children. ESTIMATED AVERAGE GLUCOSE (MG/DL) 148 mg/dL Angeline Borrego ESTIMATED AVERAGE GLUCOSE (MMOL/L) 8.2 mmol/L Angeline Borrego Comment: This test was performed on the Rashid feliciano c503 platform. Effective 10/14/23, a change in test platforms from the Carrasquillo Senior Animal Trainer to the Rashid feliciano c503 may have shifted HbA1c results compared to historical results. Based on laboratory validation testing conducted at [facility], the Rashid platform relative to the Carrasquillo platform had an average increase in HbA1c value of < or = 0.3%. This difference is within accepted variability established by the National Glycohemoglobin Standardization Program. Note that not all individuals will have had a shift in their results and direct comparisons between historical and current results for testing conducted on different platforms is not recommended. FASTING:YES FASTING: YES Test Performed at: [place] [address] [address] [id number] GayleJose Goldberg Vo Blood 04/22/2024 8:40 AM CDT 04/22/2024 8:41 AM CDT us Philipp Pizarro MD CHEMISTRY ORDERABLES Final Result [facility] [phone] [place] [address] [address] [id number] * (ABNORMAL) LIPID PANEL (04/22/2024 8:40 AM CDT) CHOLESTEROL 155 <200 mg/dL [facility]Doreen Borrego HDL 54 > OR = 50 mg/dL [facility] PulsantDoreen Borrego TRIGLYCERIDE 190(H) <150 mg/dL [facility] PulsantDoreen Borrego LDL CALCULATED 73 mg/dL (calc) [facility] TechnologiesDoreen Borrego Comment: Reference range: <100 Desirable range <100 mg/dL for primary prevention; <70 mg/dL for patients with CHD or diabetic patients with > or = 2 CHD risk factors. LDL-C is now calculated using the Danilo-Evan calculation, which is a validated novel method providing better accuracy than the Friedewald equation in the estimation of LDL-C. Danilo SS et al. MARIEL. 2013;310(19): 3354-7308 (http://education.[place]/faq/AJE417) CHOL/HDL RATIO 2.9 <5.0 (calc) [facility] TechnologiesMelissa Borrego NON-HDL CHOLESTEROL 101 <130 mg/dL (calc) [facility] TechnologiesMelissa Borrego Comment: For patients with diabetes plus 1 major ASCVD risk factor, treating to a non-HDL-C goal of <100 mg/dL (LDL-C of <70 mg/dL) is considered a therapeutic option. Test Performed at: [facility] [place] [address] [address] [id number] Moy Ibarra Blood 04/22/2024 8:40 AM CDT 04/22/2024 8:41 AM CDT us Philipp Pizarro MD CHEMISTRY ORDERABLES Final Result [facility] [phone] [place] [place] [address] [address] [id number] * (ABNORMAL) COMPREHENSIVE METABOLIC PANEL (04/22/2024 8:40 AM CDT) GLUCOSE 135(H) 65 - 99 mg/dL [facility] [place] Comment: Fasting reference interval For someone without known diabetes, a glucose value >125 mg/dL indicates that they may have diabetes and this should be confirmed with a follow-up test. BUN 15 7 - 25 mg/dL [facility] CREATININE 0.54(L) 0.60 - 1.00 mg/dL [email or web address] [place] GFR 96 > OR = 60 mL/min/1. 73m2 [facility] BUN/CREAT RATIO 28(H) 6 - 22 (calc) [email or web address] [place] SODIUM 138 135 - 146 mmol/L [facility] POTASSIUM 3.8 3.5 - 5.3 mmol/L [facility] [place] CHLORIDE 100 98 - 110 mmol/L [email or web address] [place] CO2 32 20 - 32 mmol/L [email or web address] [place] CALCIUM 10.1 8.6 - 10.4 mg/dL [facility] TOTAL PROTEIN 6.6 6.1 - 8.1 g/dL [facility] ALBUMIN 4.4 3.6 - 5.1 g/dL [email or web address] [place] GLOBULIN 2.2 1.9 - 3.7 g/dL (calc) [facility] ALBUMIN/GLOBULIN RATIO 2.0 1.0 - 2.5 (calc) [facility] carlin Borrego BILIRUBIN TOTAL 0.5 0.2 - 1.2 mg/dL [facility] Borreg[facility] ALKALINE PHOSPHATASE 40 37 - 153 U/L [facility] AST 15 10 - 35 U/L [facility] ALT 19 6 - 29 U/L [facility] Borrego Comment: FASTING:YES FASTING: YES Test Performed at: [facility] [place] [address] [place] [address] Moy Ibarra Blood 04/22/2024 8:40 AM CDT 04/22/2024 8:41 AM CDT Philipp Pizarro MD CHEMISTRY ORDERABLES Final Result Performing Organization Address City/[facility]/ZIP Code Phone Number [facility] [phone] [facility] [place] [address] [place] [address] * MICROALBUMIN/CREATININE RATIO, RANDOM UR (10/22/2023 11:46 AM CDT) Creatinine, Urine 36 20 - 275 mg/dL [facility] MICROALBUMIN, URINE 0.4 See Note: mg/dL [facility] Comment: Reference Range: Reference Range Not established MICROALBUMIN/CREAT RATIO, UR 11 <30 mg/g creat [facility] Comment: The ADA defines abnormalities in albumin excretion as follows: Albuminuria Category Result (mg/g creatinine) Normal to Mildly increased <30 Moderately increased 30-299 Severely increased > OR = 300 The ADA recommends that at least two of three specimens collected within a 3-6 month period be abnormal before considering a patient to be within a diagnostic category. FASTING:NO FASTING: NO Test Performed at: [facility] [address] [address] [address] Moy Ibarra MD Urine URINE SPECIMEN OBTAINED BY CLEAN CATCH PROCEDURE / Unknown 10/22/2023 11:46 AM CDT 10/22/2023 11:46 AM CDT us Iveth King INSPECTOR URINE ORDERABLES Final Res ult [facility] [phone] [facility] [address] [address] [phone] * (ABNORMAL) DIABETES EYE EXAM (05/22/2023) us Abstract Provider HEALTH MAINTENANCE Final Resul t [facility] [id number] [address] [place] [address], [address] [place] [address] from Last 3 Months or Most Recently Relevant to Health Maintenance Insurance [facility] PPO MCR Advance Directives For more information, please contact: [phone] * Full Code (Latest Code Status on File) Date Activated Date Inactivated Comments 02/22/2010 8:28 AM 02/23/2010 2:31 AM Care Teams Job Estimator Relationship Specialty Start Date End Date Philipp Pizarro MD [address] [place] [address] [place] [phone] PCP - General Internal Medicine 08/21/13
--- OUTSIDE RECORDS SUMMARY | 2025-04-11 15:03 | XMS_ITS | Encounter Summary ---
Author Organization [facility] Address [address] [place] [address] Care Team Providers Care Visitor Services Associate Name Role Phone Philipp Pizarro MD Primary Care Provid er Encounter Details Date Type Department Care Team (Latest Contact Info) Description 06/29/2004 Outpatient Historical HIS [facility] Naldo Devine SCREENING MAMM-MAILG NEOPL-OTHER (Primary Dx) Social History Tobacco Use Types Packs/Day Years Used Date Smoking Tobacco: Never Assessed Comments Unknown Sex and Gender Information Value Date Recorded Sex Assigned at Not on file Legal Sex Female 3:43 AM PERSONAL LOAN SPECIALIST Gender Identity Not on file Sexual Orientation Not on file documented as of this encounter Plan of Treatment Upcoming Encounters Date Type Department Care Team (Late st Contact Info) Description 04/26/2025 1:20 PM CDT Office Visit [facility] Primary Care - [facility], [address] [place] [address] [address] [address] Philipp Pizarro MD [address] [place] [address] [place] [phone] documented as of this encounter Visit Diagnoses Diagnosis Other screening mammogram- Primary documented in this encounter Additional Health Concerns Infection Onset Date Last Indicated Resolved Time R/O COVID-19 03/07/2020 03/07/2020 03/09/2020 4:45 AM CDT COVID-19 07/31/2021 07/31/2021 08/30/2021 1:16 AM PERSONAL LOAN SPECIALIST documented as of this encounter Care Teams Visitor Services Associate Relationship Specialty Start Date End Date Philipp Pizarro MD [address] [phone] PCP - General Internal Medicine 08/21/13 documented as of this encounter
--- OUTSIDE RECORDS SUMMARY | 2025-04-11 15:03 | XMS_ITS | Encounter Summary ---
Author Organization [facility] Address [address] [facility] Attn: Epic Prelude ADT [place] [address] Care Team Providers Care Deburrer Strip Name Role Phone Philipp Pizarro MD Primary Care Provid er Encounter Details Date Type Department Care Team (Late st Contact Info) Description 12/10/1995 Outpatient Historical Naldo Santos Social History Tobacco Use Types Packs/Day Years Used Date Smoking Tobacco: Never Assessed Comments Unknown Sex and Gender Information Value Date Recorded Sex Assigned at Not on file Legal Sex Female 3:43 AM MEDICAL APPOINTMENT SCHEDULER Gender Identity Not on file Sexual Orientation Not on file documented as of this encounter Plan of Treatment Upcoming Encounters Date Type Department Care Team (Late st Contact Info) Description 04/26/2025 1:20 PM CDT Office Visit [facility] Primary Care - [facility], [place] [address] [place] [address] [address] [address] Philipp Pizarro MD [address] [place] [address] [place] [phone] documented as of this encounter Visit Diagnoses Not on filedocumented in this encounter Additional Health Concerns Infection Onset Date Last Indicated Resolved Time R/O COVID-19 03/07/2020 03/07/2020 03/09/2020 4:45 AM CDT COVID-19 07/31/2021 07/31/2021 08/30/2021 1:16 AM MEDICAL APPOINTMENT SCHEDULER documented as of this encounter Care Teams Deburrer Strip Relationship Specialty Start Date End Date Philipp Pizarro MD [address] [place] [phone] PCP - General Internal Medicine 08/21/13 documented as of this encounter
--- OUTSIDE RECORDS SUMMARY | 2025-04-11 15:03 | XMS_ITS | Encounter Summary ---
Author Organization [facility] Address [address] [place] [address] Care Team Providers Care Wardrobe Manager Name Role Phone Philipp Pizarro MD Primary Care Provid er Encounter Details Date Type Department Care Team (Latest Contact Info) Description 09/26/2007 Outpatient Historical HIS [facility] Naldo Devine Other Screening Mammogram Social History Tobacco Use Types Packs/Day Years Used Date Smoking Tobacco: Never Assessed Comments Unknown Sex and Gender Information Value Date Recorded Sex Assigned at Not on file Legal Sex Female 3:43 AM TELEGRAPH PLANT MAINTAINER Gender Identity Not on file Sexual Orientation Not on file documented as of this encounter Plan of Treatment Upcoming Encounters Date Type Department Care Team (Late st Contact Info) Description 04/26/2025 1:20 PM CDT Office Visit [facility] Primary Care - [facility], Frank [address] [place] [address] Rd[address] [address] Philipp Pizarro MD [address] [place] [address] [place] [phone] documented as of this encounter Procedures Procedure Name Priority Date/Time Associated Diagnosis Comments MAMMO SCREEN BILAT W OR WO CAD Routine 09/26/2007 8:20 AM TELEGRAPH PLANT MAINTAINER documented in this encounter Results * MAMMO DIGITAL SCREEN BILAT (09/26/2007 8:20 AM TELEGRAPH PLANT MAINTAINER) Anatomical Region Laterality Modality Breast Bilateral Other 09/26/2007 8:20 AM TELEGRAPH PLANT MAINTAINER Narrative 09/26/2007 11:09 PM TELEGRAPH PLANT MAINTAINER [place] [address] [place], [place] [address] Admit Date: 09/26/2007 KRISTINA HUTSON Sex: F Admit Prov: NALDO SANTOS Date: 1950 Primary Care Prov: NALDO SANTOS; CMRN: [id number] NALDO SANTOS SSN: [id number] Room: MDB-A IMAGING SERVICES Ordering Prov: NALDO SANTOS Accession Number: [id number] Interpretation BILATERAL SCREENING DIGITAL MAMMOGRAMS WITH COMPUTER ASSISTED DIAGNOSIS 09/26/2007 Comparison mammograms dating back to 2003 Findings: The parenchyma is moderately dense bilaterally. There is no mass, malignant calcification, lymphadenopathy or other sign of malignancy. Summary: No mammographic evidence of malignancy. The films were reviewed using the CAD system. Assessment BIRADS: 1-Negative Recommendation: Normal interval follow-up Dictated by: SHELL CARRENO Electronically signed by: SHELL CARRENO 09/26/2007 23:09 Transcribed: 09/26/2007 19:50 AMK Procedure Note Shell Carreno MD - 09/26/[address] [address] Admit Date: 09/26/2007 KRISTINA HUTSON Sex: F Admit Prov: NALDO SANTOS J Date: 1950 Primary Care Prov: NALDO SANTOS; CMRN: [id number] NALDO SANTOS SSN: [id number] Room: [facility]DB-A IMAGING SERVICES Ordering Prov: NALDO SANTOS Interpretation BILATERAL SCREENING DIGITAL MAMMOGRAMS WITH COMPUTER ASSISTEDDIAGNOSIS 09/26/2007 Comparison mammograms dating back to 2003 Findings: The parenchyma is moderately dense bilaterally. There isno mass, malignant calcification, lymphadenopathy or other sign ofmalignancy. Summary: No mammographic evidence of malignancy. The films were reviewed using the CAD system. Assessment BIRADS: 1-Negative Recommendation: Normal interval follow-up Dictated by: SHELL CARRENO Electronically signed by: SHELL CARRENO 09/26/2007 23:09 Transcribed: 09/26/2007 19:50 AMK us Naldo Santos MAMMO ORDERABLES Final Result documented in this encounter Visit Diagnoses Diagnosis Other screening mammogram documented in this encounter Additional Health Concerns Infection Onset Date Last Indicated Resolved Time R/O COVID-19 03/07/2020 03/07/2020 03/09/2020 4:45 AM CDT COVID-19 07/31/2021 07/31/2021 08/30/2021 1:16 AM TELEGRAPH PLANT MAINTAINER documented as of this encounter Care Teams Wardrobe Manager Relationship Specialty Start Date End Date Philipp Pizarro MD [address] [place] [phone] PCP - General Internal Medicine 08/21/13 documented as of this encounter
--- OUTSIDE RECORDS SUMMARY | 2025-04-11 15:03 | XMS_ITS | Encounter Summary ---
Author Organization [facility] Address [address] [place] [address] Care Team Providers Care Non Cdl Driver Name Role Phone Philipp Pizarro MD Primary Care Provid er Reason for Visit * Reason Comments Needs Orders Written Encounter Details Date Type Department Care Team (Late st Contact Info) Description 02/07/2024 Telephone [facility] Primary Care - [facility], [address], [address] [place] [address] Philipp Pizarro MD [address] [place] [address] [place] [phone] Needs Orders Written Social History Tobacco Use Types Packs/Day Years Used Date Smoking Tobacco: Former Cigarettes Q uit: 11/11/1983 Passive Smoke Exposure: Never Smokeless Tobacco: Never Alcohol Use Standard Drinks/Week Comments No 0 [...] on file Legal Sex Female 3:43 AM SNOW GROOMER Gender Identity Not on file Sexual Orientation Not on file Occupation Industry Job Start Date Job End Date Not on file Not on file Not on file Not on file documented as of this encounter Miscellaneous Notes * Result Encounter Note - Margoth Tinoco FNP - 02/10/2024 3:29 PM CDT [facility] * Telephone Encounter - Ghazala Plummer RN - 02/07/2024 4:31 PM CDT Spoke w/ pt re: provider notes. Pt verbalized understanding. Pt denies any respiratory symptoms, states I feel good!. * Telephone Encounter - Jaycee Bryant ANP - 02/07/2024 4:28 PM CDT Can you please let Jessica know that the coronary calcium total score was 79? This is considered mildly increased risk for developing coronary artery stenosis. The score is less than 100, so it's perfectly reasonable to continue her statin at the current dose. There's mild calcification of the thoracic aorta (not uncommon!), so I do recommend continuing the aspirin at this time. The imaging incidentally captured some signs of inflammation in the lower lobes. This is not anything we need to address further unless she is having symptoms (cough, windedness, wheezes, etc). Please let me know if questions/concerns! * Telephone Encounter - Nilsa Singh FNP - 02/07/2024 11:03 AM CDT U/A ordered. * Telephone Encounter - Ghazala Plummer, RN - 02/07/2024 10:56 AM CDT Spoke w/ pt who states she was out of town at the time she was last treated. Pt happy to proceed toQuest. Please place orders. * Telephone Encounter - Nilsa Singh FNP - 02/07/2024 10:49 AM CDT She needs to submit a U/A. She was just treated with no U/A or culture, so we need to see what is growing and what ABx will cover. Thanks. * Telephone Encounter - Annette Lucas - 02/07/2024 9:38 AM CDT Copied from [facility] #[id number]. Topic: CPA Information Request - Order or Referral Request >> Feb 07, 2024 9:36 AM Annette Barksdale wrote: Caller is requesting: New Lab Systems Designer Name: Jessica Saldana Patient/Caregiver Callback Number: [phone] (home) Order: Urinalysis Reason for Request: Patient stated that her UTI came back. Patient stated that she has pressure andfrequent urination. Please advise documented in this encounter Plan of Treatment Upcoming Encounters Date Type Department Care Team (Late st Contact Info) Description 04/26/2025 1:20 PM CDT Office Visit [facility] Care - [facility], [address] [place] [phone] Philipp Pizarro MD 1000 [facility] [address] [place] [phone] documented as of this encounter Procedures Procedure Name Priority Date/Time Associated Diagnosis Comments URINALYSIS WITH REFLEX CULTURE Routine 02/07/2024 2:13 PM CDT UTI symptoms URINE CULTURE Routine 02/07/2024 2:13 PM CDT documented in this encounter Results * URINE CULTURE (02/07/2024 2:13 PM CDT) URINE CULTURE SEE NOTE [employer] carlin Borrego Comment: CULTURE, URINE, ROUTINE Micro Number: [id number] Test Status: Final Specimen Source: Urine Specimen Quality: Adequate Result: Mixed genital esteban isolated. These superficial bacteria are not indicative of a urinary tract infection. No further organism identification is warranted on this specimen. If clinically indicated, recollect clean-catch, mid-stream urine and transfer immediately to Urine Culture Transport Tube. FASTING:NO FASTING: NO Test Performed at: [place] [address] [address] [place] [phone] [facility] Vo 02/07/2024 2:13 PM CDT 02/07/2024 2:14 PM CDT Nilsa Singh EQUINE SCIENCE INSTRUCTOR MICROBIOLOGY - GENERAL ORDERABLES Final Result [facility] [phone] [employer] [facility] [address] [address] [place] [id number] * (ABNORMAL) URINALYSIS WITH REFLEX CULTURE (02/07/2024 2:13 PM CDT) COLOR UA YELLOW YELLOW [employer] CLARITY UA CLOUDY(A) CLEAR [employer] SPECIFIC GRAVITY UA 1.017 1.001 - 1.035 [employer] PH UA 6.0 5.0 - 8.0 [employer] GLUCOSE UA 3+(A) NEGATIVE [employer] BILIRUBIN UA NEGATIVE NEGATIVE [employer] KETONES UA NEGATIVE NEGATIVE [employer] [facility] BLOOD UA 2+(A) NEGATIVE [facility] PROTEIN UA 1+(A) NEGATIVE [facility] NITRITE UA NEGATIVE NEGATIVE [facility] LEUKOCYTE ESTERASE UA 2+(A) NEGATIVE [facility] WBC UA > OR = 60(A) < OR = 5 /HPF [facility] RBC UA 3-10(A) < OR = 2 /HPF [facility] EPITHELIAL CELLS, URINE 20-40(A) < OR = 5 /HPF [facility] BACTERIA UA NONE SEEN NONE SEEN /HPF [facility] HYALINE CAST NONE SEEN NONE SEEN /LPF [facility] URINE NOTE [facility] Comment: This urine was analyzed for the presence of WBC, RBC, bacteria, casts, and other formed elements. Only those elements seen were reported. URINE CULTURE [facility] Comment: CULTURE INDICATED - RESULTS TO FOLLOW FASTING:NO FASTING: NO HARESH JESSICA R [address] [place] [address] Urine URINE SPECIMEN OBTAINED BY CLEAN CATCH PROCEDURE / Unknown 02/07/2024 2:13 PM CDT 02/07/2024 2:14 PM CDT Nilsa Singh EQUINE SCIENCE INSTRUCTOR URINE ORDERABLES Final Result [facility] [phone] [facility] [address] [place] [address] documented in this encounter Visit Diagnoses Diagnosis UTI symptoms- Primary documented in this encounter Additional Health Concerns Assessment Noted Time PHQ-9 Depression Total Score: 1 10/22/19 24 11:05 AM CDT documented as of this encounter Care Teams Non Cdl Driver Relationship Specialty Start Date End Date Philipp Pizarro MD [address] [place] [address] [place] [phone] PCP - General Internal Medicine 08/21/13 documented as of this encounter
--- OUTSIDE RECORDS SUMMARY | 2025-04-11 15:03 | XMS_ITS | Encounter Summary ---
Author Organization [facility] Address [address] [place] [address] Care Team Providers Care Survey Chief Name Role Phone Philipp Pizarro MD Primary Care Provid er Reason for Visit * Reason Comments Medication Assistance Encounter Details Date Type Department Care Team (Late st Contact Info) Description 01/31/2024 Telephone [facility] Primary Care - [facility], [place] [address] [place] [address], [address] [address] Philipp Pizarro MD [address] [place] [address] [place] [phone] Medication Assistance Social History Tobacco Use Types Packs/Day Years [...] on file Legal Sex Female 3:43 AM MAPPER Gender Identity Not on file Sexual Orientation Not on file Occupation Industry Job Start Date Job End Date Not on file Not on file Not on file Not on file documented as of this encounter Miscellaneous Notes * Telephone Encounter - Ghazala Plummer RN - 02/03/2024 9:46 AM CDT Spoke w/ pt reporting symp resolution w/ 3 days of abx. Advised to c/b for symp return and stressed the importance of U/A. Pt verbalized understanding. * Telephone Encounter - Misty Jha RN - 01/31/2024 10:58 AM CDT Left message on preferred line @ [phone] asking pt to contact office at earliest convenience. * Telephone Encounter - Margoth Tinoco FNP - 01/31/2024 10:52 AM CDT What symptoms is she having? Will send in abx but if no improvement in symptoms, seek care at local near where she is * Telephone Encounter - Sandy Goodwin - 01/31/2024 9:43 AM CDT Copied from [facility] #[id number]. Topic: Medication Request >> Jan 31, 2024 9:40 AM Sandy Ann wrote: Caller is requesting: Medication - New Request (Not Currently Taking) Medication (Ask patient/caregiver to spell if possible): MED FOR UTI Preferred Pharmacy: [address] [place] [address] [address] [facility] [place] [address] Patient/Caregiver Callback Number: Telephone Information: Call Notes: states she is out of town and cannot come in but wants a prescription sent to pharmacy for uti. documented in this encounter Plan of Treatment Upcoming Encounters Date Type Department Care Team (Late st Contact Info) Description 04/26/2025 1:20 PM CDT Office Visit [facility] Primary Care - [facility], [address] [place] [address] Philipp Pizarro MD [address] [place] [address] [place] [phone] documented as of this encounter Visit Diagnoses Not on filedocumented in this encounter Additional Health Concerns Assessment Noted Time PHQ-9 Depression Total Score: 1 10/22/19 24 11:05 AM CDT documented as of this encounter Care Teams Survey Chief Relationship Specialty Start Date End Date Philipp Pizarro MD [address] [place] [address] [place] [phone] PCP - General Internal Medicine 08/21/13 documented as of this encounter
--- OUTSIDE RECORDS SUMMARY | 2025-04-11 15:03 | XMS_ITS | Encounter Summary ---
Author Organization [facility] Address [address] [place] [address] Care Team Providers Care Building Custodial Supervisor Name Role Phone Philipp Pizarro MD Primary Care Provid er Encounter Details Date Type Department Care Team (Latest Contact Info) Description 09/11/2002 Outpatient Historical [facility] Naldo Santos SCREENING FOR OSTEOPOROSIS (Primary Dx) Social History Tobacco Use Types Packs/Day Years Used Date Smoking Tobacco: Never Assessed Comments Unknown Sex and Gender Information Value Date Recorded Sex Assigned at Not on file Legal Sex Female 3:43 AM FLAVORING MAKER Gender Identity Not on file Sexual Orientation Not on file documented as of this encounter Plan of Treatment Upcoming Encounters Date Type Department Care Team (Late st Contact Info) Description 04/26/2025 1:20 PM CDT Office Visit [facility] Primary Care - [facility], [place] [address] [place] [address] [address] [address] Philipp Pizarro MD [address] [place] [address] [place] [phone] documented as of this encounter Visit Diagnoses Diagnosis Special screening for osteoporosis- Primary documented in this encounter Additional Health Concerns Infection Onset Date Last Indicated Resolved Time R/O COVID-19 03/07/2020 03/07/2020 03/09/2020 4:45 AM CDT COVID-19 07/31/2021 07/31/2021 08/30/2021 1:16 AM FLAVORING MAKER documented as of this encounter Care Teams Building Custodial Supervisor Relationship Specialty Start Date End Date Philipp Pizarro MD [address] [place] [phone] PCP - General Internal Medicine 08/21/13 documented as of this encounter
--- OUTSIDE RECORDS SUMMARY | 2025-04-11 15:03 | XMS_ITS | Encounter Summary ---
Author Organization [facility] Address [address] [facility] Attn: Epic Prelude ADT [place] [address] Care Team Providers Care Panel Machine Operator Name Role Phone Philipp Pizarro MD Primary Care Provid er Encounter Details Date Type Department Care Team (Late st Contact Info) Description 02/19/1992 Outpatient Historical Naldo Santos Social History Tobacco Use Types Packs/Day Years Used Date Smoking Tobacco: Never Assessed Comments Unknown Sex and Gender Information Value Date Recorded Sex Assigned at Not on file Legal Sex Female 3:43 AM LIFE SUPPORT TECHNICIAN Gender Identity Not on file Sexual Orientation Not on file documented as of this encounter Plan of Treatment Upcoming Encounters Date Type Department Care Team (Late st Contact Info) Description 04/26/2025 1:20 PM CDT Office Visit [facility] Primary Care - [facility] [address] [place] [address] [address] [address] Philipp Pizarro MD [address] [place] [address] [place] [phone] documented as of this encounter Visit Diagnoses Not on filedocumented in this encounter Additional Health Concerns Infection Onset Date Last Indicated Resolved Time R/O COVID-19 03/07/2020 03/07/2020 03/09/2020 4:45 AM CDT COVID-19 07/31/2021 07/31/2021 08/30/2021 1:16 AM LIFE SUPPORT TECHNICIAN documented as of this encounter Care Teams Panel Machine Operator Relationship Specialty Start Date End Date Philipp Pizarro MD [address] [place] [phone] PCP - General Internal Medicine 08/21/13 documented as of this encounter
--- OUTSIDE RECORDS SUMMARY | 2025-04-11 15:03 | XMS_ITS | Encounter Summary ---
Author Organization [facility] Address [address] [place] [address] Care Team Providers Care Fire Control Technician G Name Role Phone Philipp Pizarro MD Primary Care Provid er Encounter Details Date Type Department Care Team (Late st Contact Info) Description 09/25/2002 Outpatient Historical [facility] Pino Parry MD [address] [place] [address] SCREENING MAL NEOP-COLON (Primary Dx) Social History Tobacco Use Types Packs/Day Years Used Date Smoking Tobacco: Never Assessed Comments Unknown Sex and Gender Information Value Date Recorded Sex Assigned at Not on file Legal Sex Female 3:43 AM LIBRARY ACQUISITIONS TECHNICIAN Gender Identity Not on file Sexual Orientation Not on file documented as of this encounter Plan of Treatment Upcoming Encounters Date Type Department Care Team (Late st Contact Info) Description 04/26/2025 1:20 PM CDT Office Visit [facility] Primary Care - [facility], [address] [place] [address] Philipp Pizarro MD [address] [facility] [address] [place] [address] documented as of this encounter Visit Diagnoses Diagnosis Special screening for malignant neoplasms, colon- Primary documented in this encounter Additional Health Concerns Infection Onset Date Last Indicated Resolved Time R/O COVID-19 03/07/2020 03/07/2020 03/09/2020 4:45 AM CDT COVID-19 07/31/2021 07/31/2021 08/30/2021 1:16 AM LIBRARY ACQUISITIONS TECHNICIAN documented as of this encounter Care Teams Fire Control Technician G Relationship Specialty Start Date End Date Philipp Pizarro MD [address] [place] [phone] PCP - General Internal Medicine 08/21/13 documented as of this encounter
--- OUTSIDE RECORDS SUMMARY | 2025-04-11 15:03 | XMS_ITS | Encounter Summary ---
Author Organization [facility] Address [address] [place] [address] Care Team Providers Care Wage And Salary Administrator Name Role Phone Philipp Pizarro MD Primary Care Provid er Encounter Details Date Type Department Care Team (Late st Contact Info) Description 08/20/2006 Outpatient Historical [facility] [place] [facility] ([facility]t Cardiology-[facility]) [address] [place] [address] David Mckeon MD [address] [address] Social History Tobacco Use Types Packs/Day Years Used Date Smoking Tobacco: Never Assessed Comments Unknown Sex and Gender Information Value Date Recorded Sex Assigned at Not on file Legal Sex Female 3:43 AM ENGINE MONITOR Gender Identity Not on file Sexual Orientation Not on file documented as of this encounter Plan of Treatment Upcoming Encounters Date Type Department Care Team (Late st Contact Info) Description 04/26/2025 1:20 PM CDT Office Visit [facility] Primary Care - [facility], [address] [place] [address] Philipp Pizarro MD [address] [facility] [address] [place] [address] documented as of this encounter Visit Diagnoses Not on filedocumented in this encounter Additional Health Concerns Infection Onset Date Last Indicated Resolved Time R/O COVID-19 03/07/2020 03/07/2020 03/09/2020 4:45 AM CDT COVID-19 07/31/2021 07/31/2021 08/30/2021 1:16 AM ENGINE MONITOR documented as of this encounter Care Teams Wage And Salary Administrator Relationship Specialty Start Date End Date Philipp Pizarro MD [address] [place] [phone] PCP - General Internal Medicine 08/21/13 documented as of this encounter
--- OUTSIDE RECORDS SUMMARY | 2025-04-11 15:03 | XMS_ITS | Encounter Summary ---
Author Organization [facility] Address [address] [place] [address] Care Team Providers Care Rotary Drum Tanner Name Role Phone Philipp Pizarro MD Primary Care Provid er Encounter Details Date Type Department Care Team (Latest Contact Info) Description 11/21/1999 Outpatient Historical HIS [facility] Naldo Devine Nonspecific abnormal findings on radiological or other examinations of the breast (Primary Dx) Social History Tobacco Use Types Packs/Day Years Used Date Smoking Tobacco: Never Assessed Comments Unknown Sex and Gender Information Value Date Recorded Sex Assigned at Not on file Legal Sex Female 3:43 AM EDITORIAL SPECIALIST Gender Identity Not on file Sexual Orientation Not on file documented as of this encounter Plan of Treatment Upcoming Encounters Date Type Department Care Team (Late st Contact Info) Description 04/26/2025 1:20 PM CDT Office Visit [facility] Primary Care - [facility], [address] [place] [address] [address] [address] Philipp Pizarro MD [address] [place] [address] [place] [address] documented as of this encounter Visit Diagnoses Diagnosis Nonspecific abnormal findings on radiological or other examinations of the breast- Primary documented in this encounter Additional Health Concerns Infection Onset Date Last Indicated Resolved Time R/O COVID-19 03/07/2020 03/07/2020 03/09/2020 4:45 AM CDT COVID-19 07/31/2021 07/31/2021 08/30/2021 1:16 AM EDITORIAL SPECIALIST documented as of this encounter Care Teams Rotary Drum Tanner Relationship Specialty Start Date End Date Philipp Pizarro MD [address] [place] [phone] PCP - General Internal Medicine 08/21/13 documented as of this encounter
--- OUTSIDE RECORDS SUMMARY | 2025-04-11 15:03 | XMS_ITS | Encounter Summary ---
Author Organization [facility] Address [address] [facility] Attn: Epic Prelude ADT SAYRA [place] [address] Care Team Providers Care Firing Pin Gauger Name Role Phone Philipp Pizarro MD Primary Care Provid er Encounter Details Date Type Department Care Team (Late st Contact Info) Description 04/18/1995 Outpatient Historical Naldo Santos Social History Tobacco Use Types Packs/Day Years Used Date Smoking Tobacco: Never Assessed Comments Unknown Sex and Gender Information Value Date Recorded Sex Assigned at Not on file Legal Sex Female 3:43 AM BABY NURSE Gender Identity Not on file Sexual Orientation Not on file documented as of this encounter Plan of Treatment Upcoming Encounters Date Type Department Care Team (Late st Contact Info) Description 04/26/2025 1:20 PM CDT Office Visit [facility] Primary Care - [facility], [facility] [address] [place] [address] [address] [address] Philipp Pizarro MD [address] [place] [address] [place] [address] documented as of this encounter Visit Diagnoses Not on filedocumented in this encounter Additional Health Concerns Infection Onset Date Last Indicated Resolved Time R/O COVID-19 03/07/2020 03/07/2020 03/09/2020 4:45 AM CDT COVID-19 07/31/2021 07/31/2021 08/30/2021 1:16 AM BABY NURSE documented as of this encounter Care Teams Firing Pin Gauger Relationship Specialty Start Date End Date Philipp Pizarro MD [address] [place] [phone] PCP - General Internal Medicine 08/21/13 documented as of this encounter
--- OUTSIDE RECORDS SUMMARY | 2025-04-11 15:03 | XMS_ITS | Encounter Summary ---
Author Organization [facility] Address [address] [facility] Attn: Epic Prelude ADT ENOCHROXY [place]ERRERO[place] [address] Care Team Providers Care Delivery Consultant Name Role Phone Philipp Pizarro MD Primary Care Provid er Encounter Details Date Type Department Care Team (Late st Contact Info) Description 11/17/1996 Outpatient Historical Conversion, History Naldo Santos Social History Tobacco Use Types Packs/Day Years Used Date Smoking Tobacco: Never Assessed Comments Unknown Sex and Gender Information Value Date Recorded Sex Assigned at Not on file Legal Sex Female 3:43 AM ADVISOR ADVOC[employer] FOUNDER Gender Identity Not on file Sexual Orientation Not on file documented as of this encounter Plan of Treatment Upcoming Encounters Date Type Department Care Team (Late st Contact Info) Description 04/26/2025 1:20 PM CDT Office Visit [facility] Primary Care - [facility], [facility] [address] [place] [address] [address] [address] Philipp Pizarro MD [address] [place] [address] [place] [address] documented as of this encounter Visit Diagnoses Not on filedocumented in this encounter Additional Health Concerns Infection Onset Date Last Indicated Resolved Time R/O COVID-19 03/07/2020 03/07/2020 03/09/2020 4:45 AM CDT COVID-19 07/31/2021 07/31/2021 08/30/2021 1:16 AM ADVISOR [employer] documented as of this encounter Care Teams Delivery Consultant Relationship Specialty Start Date End Date Philipp Pizarro MD [address] [place] [phone] PCP - General Internal Medicine 08/21/13 documented as of this encounter
--- OUTSIDE RECORDS SUMMARY | 2025-04-11 15:03 | XMS_ITS | Encounter Summary ---
Author Organization [facility] Address [address] [place] [address] Care Team Providers Care Freight Delivery Driver Name Role Phone Philipp Pizarro MD Primary Care Provid er Encounter Details Date Type Department Care Team (Latest Contact Info) Description 12/02/2007 Outpatient Historical [facility] Al[facility] Carvalho, [address] [place] [address] DM w/o Complication Type II (CMS/HCC) Social History Tobacco Use Types Packs/Day Years Used Date Smoking Tobacco: Never Assessed Comments Unknown Sex and Gender Information Value Date Recorded Sex Assigned at Not on file Legal Sex Female 3:43 AM TOE CLOSING MACHINE TENDER Gender Identity Not on file Sexual Orientation Not on file documented as of this encounter Plan of Treatment Upcoming Encounters Date Type Department Care Team (Late st Contact Info) Description 04/26/2025 1:20 PM CDT Office Visit [facility] Primary Care - [facility], [address] [place] [address] Philipp Pizarro MD [address] [facility] [address] [place] [address] documented as of this encounter Visit Diagnoses Diagnosis Type II or unspecified type diabetes mellitus without mention of complication, not stated as uncontrolled documented in this encounter Additional Health Concerns Infection Onset Date Last Indicated Resolved Time R/O COVID-19 03/07/2020 03/07/2020 03/09/2020 4:45 AM CDT COVID-19 07/31/2021 07/31/2021 08/30/2021 1:16 AM TOE CLOSING MACHINE TENDER documented as of this encounter Care Teams Freight Delivery Driver Relationship Specialty Start Date End Date Philipp Pizarro MD [address] [place] [phone] PCP - General Internal Medicine 08/21/13 documented as of this encounter
--- OUTSIDE RECORDS SUMMARY | 2025-04-11 15:03 | XMS_ITS | Encounter Summary ---
Author Organization [facility] Address [address] [facility] Attn: Epic Prelude ADT SAYRA [place] [address] Care Team Providers Care Radiology Equipment Servicer Name Role Phone Philipp Pizarro MD Primary Care Provid er Encounter Details Date Type Department Care Team (Late st Contact Info) Description 03/11/1989 Outpatient Historical Naldo Santos Social History Tobacco Use Types Packs/Day Years Used Date Smoking Tobacco: Never Assessed Comments Unknown Sex and Gender Information Value Date Recorded Sex Assigned at Not on file Legal Sex Female 3:43 AM DIE ENGRAVING SUPERVISOR Gender Identity Not on file Sexual Orientation Not on file documented as of this encounter Plan of Treatment Upcoming Encounters Date Type Department Care Team (Late st Contact Info) Description 04/26/2025 1:20 PM CDT Office Visit [facility] Primary Care - [facility], [facility] [address] [place] [address] [address] [address] Philipp Pizarro MD [address] [place] [address] [place] [phone] documented as of this encounter Visit Diagnoses Not on filedocumented in this encounter Additional Health Concerns Infection Onset Date Last Indicated Resolved Time R/O COVID-19 03/07/2020 03/07/2020 03/09/2020 4:45 AM CDT COVID-19 07/31/2021 07/31/2021 08/30/2021 1:16 AM DIE ENGRAVING SUPERVISOR documented as of this encounter Care Teams Radiology Equipment Servicer Relationship Specialty Start Date End Date Philipp Pizarro MD [address] [place] [phone] PCP - General Internal Medicine 08/21/13 documented as of this encounter
--- OUTSIDE RECORDS SUMMARY | 2025-04-11 15:03 | XMS_ITS | Encounter Summary ---
Author Organization [facility] Address [address] [place] [address] Care Team Providers Care Community Action Worker Name Role Phone Philipp Pizarro MD Primary Care Provid er Encounter Details Date Type Department Care Team (Late st Contact Info) Description 05/02/1999 Outpatient Historical [facility] Social History Tobacco Use Types Packs/Day Years Used Date Smoking Tobacco: Never Assessed Comments Unknown Sex and Gender Information Value Date Recorded Sex Assigned at Not on file Legal Sex Female 3:43 AM DETECTIVE CHIEF Gender Identity Not on file Sexual Orientation Not on file documented as of this encounter Plan of Treatment Upcoming Encounters Date Type Department Care Team (Late st Contact Info) Description 04/26/2025 1:20 PM CDT Office Visit [facility] Primary Care - [facility], [facility] [address] [place] [address] [address] [address] Philipp Pizarro MD [address] [place] [address] [place] [address] documented as of this encounter Visit Diagnoses Not on filedocumented in this encounter Additional Health Concerns Infection Onset Date Last Indicated Resolved Time R/O COVID-19 03/07/2020 03/07/2020 03/09/2020 4:45 AM CDT COVID-19 07/31/2021 07/31/2021 08/30/2021 1:16 AM DETECTIVE CHIEF documented as of this encounter Care Teams Community Action Worker Relationship Specialty Start Date End Date Philipp Pizarro MD [address] [place] [phone] PCP - General Internal Medicine 08/21/13 documented as of this encounter
--- OUTSIDE RECORDS SUMMARY | 2025-04-11 15:03 | XMS_ITS | Encounter Summary ---
Author Organization [facility] Address [address] [place] [address] Care Team Providers Care Breaster Name Role Phone Philipp Pizarro MD Primary Care Provid er Encounter Details Date Type Department Care Team (Latest Contact Info) Description 08/28/2005 Outpatient Historical HIS [facility] Naldo Devine SCREENING MAMM-MALIG NEOPL-HI RISK (Primary Dx) Social History Tobacco Use Types Packs/Day Years Used Date Smoking Tobacco: Never Assessed Comments Unknown Sex and Gender Information Value Date Recorded Sex Assigned at Not on file Legal Sex Female 3:43 AM TEACHER [place]ER[place]ARTEN Gender Identity Not on file Sexual Orientation Not on file documented as of this encounter Plan of Treatment Upcoming Encounters Date Type Department Care Team (Late st Contact Info) Description 04/26/2025 1:20 PM CDT Office Visit [facility] Primary Care - [facility], [address] [place] [address] [address] [address] Philipp Pizarro MD [address] [place] [address] [place] [address] documented as of this encounter Visit Diagnoses Diagnosis Screening mammogram for high-risk patient- Primary documented in this encounter Additional Health Concerns Infection Onset Date Last Indicated Resolved Time R/O COVID-19 03/07/2020 03/07/2020 03/09/2020 4:45 AM CDT COVID-19 07/31/2021 07/31/2021 08/30/2021 1:16 AM TEACHER KINDER[place]ARTEN documented as of this encounter Care Teams Breaster Relationship Specialty Start Date End Date Philipp Pizarro MD [address] [place] [phone] PCP - General Internal Medicine 08/21/13 documented as of this encounter
--- OUTSIDE RECORDS SUMMARY | 2025-04-11 15:03 | XMS_ITS | Encounter Summary ---
Author Organization [employer] Address [address] [place] [address] Care Team Providers Care Manufacturing Quality Engineer Name Role Phone Philipp Pizarro MD Primary Care Provid er Encounter Details Date Type Department Care Team (Late st Contact Info) Description 04/16/2015 Nurse Triage Report [facility]STRACTION Petty Rueda, RN Social History Tobacco Use Types Packs/Day Years Used Date Smoking Tobacco: Former Cigarettes Q uit: 11/11/1983 Smokeless Tobacco: Never Alcohol Use Standard Drinks/Week Comments No 0 (1 standard drink = 0.6 oz pur e alcohol) Comments No Sex and Gender Information Value Date Recorded Sex Assigned at Not on file Legal Sex Female 3:43 AM CHEESE PROCESSOR Gender Identity Not on file Sexual Orientation Not on file Occupation Industry Job Start Date Job End Date Not on file Not on file Not on file Not on file documented as of this encounter Progress Notes * Petty Rueda, RN - 04/16/2015 11:38 AM CDT CHART DOCUMENTATION ONLY Call Type: Triage Call Presenting Problem: , Ghulam Saldana She needs a refill of her Lisinopril. Report feedback to Dr. Philipp Pizarro <<<<<<<< TRIAGE NOTE >>>>>>>> Triage Note: Animal Cop Petty Rueda added this note on Apr 16 2015 11:37AM: Patients states he went to get wifes prescription and when he got there he was told Dr Pizarro was no longer at the clinic.Called pharmacy and they state they received a refusal for Lisinopril because Provider not part of this practice or location Assured them Dr Pizarro is still this patients PCP at [facility]. Resend and they will fill. <<<<<<<< TRIAGE/OUTCOME >>>>>>>> Guideline Title: Medication Questions - Adult Recommended Disposition: Call Dispensing Pharmacy or Provider Immediately Original Inclination: Call Provider/See in 24 Intended Action: Self Management Physician Contacted: No Unable to obtain prescribed medication related to available resources AND situation poses immediate clinical risk ? YES documented in this encounter Plan of Treatment Upcoming Encounters Date Type Department Care Team (Late st Contact Info) Description 04/26/2025 1:20 PM CDT Office Visit [facility] Primary Care - [facility], [address] [place] [address] [address] [place] [address] Philipp Pizarro MD [address] [facility] [address] [place] [address] documented as of this encounter Visit Diagnoses Not on filedocumented in this encounter Additional Health Concerns Infection Onset Date Last Indicated Resolved Time R/O COVID-19 03/07/2020 03/07/2020 03/09/2020 4:45 AM CDT COVID-19 07/31/2021 07/31/2021 08/30/2021 1:16 AM CHEESE PROCESSOR documented as of this encounter Care Teams Manufacturing Quality Engineer Relationship Specialty Start Date End Date Philipp Pizarro MD [address] [address] PCP - General Internal Medicine 08/21/13 documented as of this encounter
--- OUTSIDE RECORDS SUMMARY | 2025-04-11 15:03 | XMS_ITS | Encounter Summary ---
Author Organization [facility] Address [address] [place] [address] Care Team Providers Care Health And Safety Consultant Name Role Phone Philipp Pizarro MD Primary Care Provid er Encounter Details Date Type Department Care Team (Latest Contact Info) Description 11/13/1999 Outpatient Historical HIS [facility] Naldo Devine Other screening mammogram (Primary Dx) Social History Tobacco Use Types Packs/Day Years Used Date Smoking Tobacco: Never Assessed Comments Unknown Sex and Gender Information Value Date Recorded Sex Assigned at Not on file Legal Sex Female 3:43 AM INTERMEDIATE MANAGER Gender Identity Not on file Sexual Orientation Not on file documented as of this encounter Plan of Treatment Upcoming Encounters Date Type Department Care Team (Late st Contact Info) Description 04/26/2025 1:20 PM CDT Office Visit [facility] Primary Care - [facility], [facility] [address] [place] [address] [address] [address] Philipp Pizarro MD [address] [place] [address] [place] [address] documented as of this encounter Visit Diagnoses Diagnosis Other screening mammogram- Primary documented in this encounter Additional Health Concerns Infection Onset Date Last Indicated Resolved Time R/O COVID-19 03/07/2020 03/07/2020 03/09/2020 4:45 AM CDT COVID-19 07/31/2021 07/31/2021 08/30/2021 1:16 AM INTERMEDIATE MANAGER documented as of this encounter Care Teams Health And Safety Consultant Relationship Specialty Start Date End Date Philipp Pizarro MD [address] [place] [phone] PCP - General Internal Medicine 08/21/13 documented as of this encounter
--- OUTSIDE RECORDS SUMMARY | 2025-04-11 15:03 | XMS_ITS | Encounter Summary ---
Author Organization [facility] Address [address] [place] [address] Care Team Providers Care Pulmonary Specialist Name Role Phone Philipp Pizarro MD Primary Care Provid er Encounter Details Date Type Department Care Team (Late st Contact Info) Description 05/15/2006 Outpatient Historical [facility], [address] Naldo Santos Social History Tobacco Use Types Packs/Day Years Used Date Smoking Tobacco: Never Assessed Comments Unknown Sex and Gender Information Value Date Recorded Sex Assigned at Not on file Legal Sex Female 3:43 AM PSYCHIATRIC AIDE Gender Identity Not on file Sexual Orientation Not on file documented as of this encounter Plan of Treatment Upcoming Encounters Date Type Department Care Team (Late st Contact Info) Description 04/26/2025 1:20 PM CDT Office Visit [facility] Primary Care - [facility], [facility] [address] [place] [address] [address] [address] Philipp Pizarro MD [address] [place] [address] [place] [address] documented as of this encounter Procedures Procedure Name Priority Date/Time Associated Diagnosis Comments LIPID PANEL Routine 05/15/2006 10:55 AM CDT COMPREHENSIVE METABOLIC PANEL Routine 05/15/2006 10:55 AM CDT documented in this encounter Results * (ABNORMAL) LIPID PANEL (05/15/2006 10:55 AM CDT) CHOLESTEROL 249(H) 100 - 199 mg/dL INTERFACE SYSTEM TRIGLYCERIDE 206(H) 10 - 149 mg/dL INTERFACE SYSTEM HDL 55 40 - 59 mg/dL INTERFACE SYSTEM CHOL/HDL RATIO 4.5 2.0 - 5.0 INTER FACE SYSTEM LDL CALCULATED 153(H) <=99 mg/dL INTERFACE SYSTEM LIPID PANEL COMMENT See Below INTERFACE SYSTEM Comment: The adult ATP and pediatric NCEP classifications for lipids are available on the [facility] Intranet at: [email or web address] Select: Lab Policies and Procedures Select: Reference Ranges - Lipids 05/15/2006 10:5 5 AM CDT Naldo Santos CHEMISTRY ORDERABLES Final Resu lt INTERFACE SYSTEM Refer to clinic/hospital department * (ABNORMAL) COMPREHENSIVE METABOLIC PANEL (05/15/2006 10:55 AM CDT) GLUCOSE 125(H) 65 - 99 mg/dL INTERFACE SYSTEM CREATININE 0.6 0.4 - 1.2 mg/dL INTERFACE SYSTEM CALCIUM 8.7 8.4 - 10.2 mg/dL INTERFACE SYSTEM ALKALINE PHOSPHATASE 64 35 - 104 U/L INTERFACE SYSTEM AST 23 12 - 32 U/L INTERFACE SYSTEM ALT 35(H) 0 - 31 U/L INTERFACE SYSTEM TOTAL PROTEIN 7.4 6.3 - 8.6 g/dL INTERFACE SYSTEM ALBUMIN 4.4 3.4 - 4.8 g/dL INTERFACE SYSTEM BILIRUBIN TOTAL 0.5 0.2 - 1.0 mg/dL INTERFACE SYSTEM BUN 9 6 - 20 mg/dL INTERFACE SYSTEM SODIUM 140 135 - 145 mmol/L INTERFACE SYSTEM POTASSIUM 3.7 3.5 - 4.9 mmol/L INTERFACE SYSTEM CHLORIDE 105 96 - 108 mmol/L INTERFACE SYSTEM CO2 26 22 - 30 mmol/L INTERFACE SYSTEM 05/15/2006 10:5 5 AM CDT us Naldo Santos CHEMISTRY ORDERABLES Final Resu lt INTERFACE SYSTEM Refer to clinic/hospital department documented in this encounter Visit Diagnoses Not on filedocumented in this encounter Additional Health Concerns Infection Onset Date Last Indicated Resolved Time R/O COVID-19 03/07/2020 03/07/2020 03/09/2020 4:45 AM CDT COVID-19 07/31/2021 07/31/2021 08/30/2021 1:16 AM PSYCHIATRIC AIDE documented as of this encounter Care Teams Pulmonary Specialist Relationship Specialty Start Date End Date Philipp Pizarro MD [address] [place] [address] [place] [phone] PCP - General Internal Medicine 08/21/13 documented as of this encounter
--- OUTSIDE RECORDS SUMMARY | 2025-04-11 15:03 | XMS_ITS | Encounter Summary ---
Author Organization [employer] [facility] Address [address] [place] [address] Care Team Providers Care Snack Bar Cook Name Role Phone Philipp Pizarro MD Primary Care Provid er Encounter Details Date Type Department Care Team (Latest Contact Info) Description 10/24/2007 Outpatient Historical [facility] Alma O[address], [address] [place] [address] DM w/o Complication Type II (CMS/HCC) Social History Tobacco Use Types Packs/Day Years Used Date Smoking Tobacco: Never Assessed Comments Unknown Sex and Gender Information Value Date Recorded Sex Assigned at Not on file Legal Sex Female 3:43 AM MIXED LIVESTOCK FARMER Gender Identity Not on file Sexual Orientation Not on file documented as of this encounter Plan of Treatment Upcoming Encounters Date Type Department Care Team (Late st Contact Info) Description 04/26/2025 1:20 PM CDT Office Visit [facility] Primary Care - [facility], [address] [place] [phone] Philipp Pizarro MD [address] [facility] [address] [place] [phone] documented as of this encounter Visit Diagnoses Diagnosis Type II or unspecified type diabetes mellitus without mention of complication, not stated as uncontrolled documented in this encounter Additional Health Concerns Infection Onset Date Last Indicated Resolved Time R/O COVID-19 03/07/2020 03/07/2020 03/09/2020 4:45 AM CDT COVID-19 07/31/2021 07/31/2021 08/30/2021 1:16 AM MIXED LIVESTOCK FARMER documented as of this encounter Care Teams Snack Bar Cook Relationship Specialty Start Date End Date Philipp Pizarro MD [address] [place] [phone] PCP - General Internal Medicine 08/21/13 documented as of this encounter
--- OUTSIDE RECORDS SUMMARY | 2025-04-11 15:03 | XMS_ITS | Encounter Summary ---
Author Organization [facility] Address [address] [place] [address] Care Team Providers Care Sealing Machine Operator Name Role Phone Philipp Pizarro MD Primary Care Provid er Encounter Details Date Type Department Care Team (Late st Contact Info) Description 08/28/2005 Outpatient Historical [facility], [address] Naldo Santos Social History Tobacco Use Types Packs/Day Years Used Date Smoking Tobacco: Never Assessed Comments Unknown Sex and Gender Information Value Date Recorded Sex Assigned at Not on file Legal Sex Female 3:43 AM TUNNEL KILN REPAIRER Gender Identity Not on file Sexual Orientation Not on file documented as of this encounter Plan of Treatment Upcoming Encounters Date Type Department Care Team (Late st Contact Info) Description 04/26/2025 1:20 PM CDT Office Visit [facility] Primary Care - [facility], [facility] [address] [place] [address] [address] [address] Philipp Pizarro MD [address] [place] [address] [place] [phone] documented as of this encounter Procedures Procedure Name Priority Date/Time Associated Diagnosis Comments CBC WITH DIFFERENTIAL Routine 08/28/2005 10:45 AM TUNNEL KILN REPAIRER CBC WITH DIFFERENTIAL Routine 08/28/2005 10:45 AM TUNNEL KILN REPAIRER TSH Routine 08/28/2005 10:45 AM TUNNEL KILN REPAIRER LIPID PANEL Routine 08/28/2005 10:45 AM TUNNEL KILN REPAIRER COMPREHENSIVE METABOLIC PANEL Routine 08/28/2005 10:45 AM TUNNEL KILN REPAIRER documented in this encounter Results * CBC WITH DIFFERENTIAL (08/28/2005 10:45 AM TUNNEL KILN REPAIRER) NEUTROPHILS 57 45 - 70 % INTERFAC E SYSTEM LYMPHOCYTES 35 16 - 45 % INTERFAC E SYSTEM MONOCYTES 7 3 - 13 % INTERFACE SYSTEM EOSINOPHILS 1 0 - 7 % INTERFAC E SYSTEM BASOPHILS 0 0 - 2 % INTERFACE SYSTEM NEUTROPHIL ABSOLUTE 3.22 1.90 - 7.00 K/uL INTERFACE SYSTEM LYMPHOCYTE ABSOLUTE 2.01 0.70 - 4.50 K/uL INTERFACE SYSTEM MONOCYTE ABSOLUTE 0.38 0.10 - 1.30 K/uL INTERFACE SYSTEM EOSINOPHIL ABSOLUTE 0.04 0.00 - 0.70 K/uL INTERFACE SYSTEM BASOPHILS ABSOLUTE 0.02 0.00 - 0.20 K/uL INTERFACE SYSTEM 08/28/2005 10:4 5 AM TUNNEL KILN REPAIRER Naldo Santos HEMATOLOGY ORDERABLES Final Res ult INTERFACE SYSTEM Refer to clinic/hospital department * (ABNORMAL) CBC WITH DIFFERENTIAL (08/28/2005 10:45 AM TUNNEL KILN REPAIRER) WBC 5.7 4.0 - 9.8 K/uL INTERFACE SYSTEM RBC 5.14(H) 3.90 - 4.90 M/uL INTERFACE SYSTEM HEMOGLOBIN 15.5(H) 11.8 - 14.8 g/dL INTERFACE SYSTEM HEMATOCRIT 44.1(H) 35.5 - 44.0 % INTERFACE SYSTEM MCV 85.8 82.0 - 99.0 fL INTERFACE SYSTEM MCH 30.2 27.2 - 32.6 pg INTERFACE SYSTEM MCHC 35.1 31.5 - 35.5 % INTERFACE SYSTEM RDW 12.5 11.5 - 14.5 % INTERFACE SYSTEM RDW-STDEV 39.1 37.1 - 48.7 fL INTERFACE SYSTEM PLATELETS 166 140 - 350 K/uL INTERFACE SYSTEM MPV 11.3 9.3 - 12.4 fL INTERFACE SYSTEM 08/28/2005 10:4 5 AM TUNNEL KILN REPAIRER Naldo Santos HEMATOLOGY ORDERABLES Final Res ult Performing Organization Address [facility]/ZIP Co de Phone Number INTERFACE SYSTEM Refer to clinic/hospital department * TSH (08/28/2005 10:45 AM TUNNEL KILN REPAIRER) TSH 1.97 0.27 - 4.20 uU/mL INTERFACE SYSTEM 08/28/2005 10:4 5 AM TUNNEL KILN REPAIRER us aNldo Santos CHEMISTRY ORDERABLES Final Resu lt Performing Organization Address [facility] de Phone Number INTERFACE SYSTEM Refer to clinic/hospital department * (ABNORMAL) LIPID PANEL (08/28/2005 10:45 AM TUNNEL KILN REPAIRER) LIPID PANEL COMMENT See below INTERFACE SYSTEM Comment: Adult ATP III Classifications: Cholesterol (mg/dL) Triglyceride (mg/dL) Desirable <200 Normal <150 Borderline 200 - 239 Borderline High 150 - 199 High >=240 High 200 - 499 Very High >=500 HDL Cholesterol (mg/dL) LDL (mg/dL) Low (increased risk) <40 Optimal <100 High (reduced risk) >=60 Near or above optimal 100 - 129 Borderline 130 - 159 High 160 - 189 Very High >=190 LDL calculation is not accurate if Triglycerides are greater than 400 mg /dL Pediatric NCEP Classifications: Cholesterol(<20 years),(mg/dL) Triglyceride Desirable <170 Pediatric classification Borderline 170 - 199 not defined. High >=200 HDL (<5 years) LDL (mg/dL) No Reference Range Established Desirable <110 Borderline 110 - 129 High >=130 CHOLESTEROL 167 100 - 199 mg/dL INTERFACE SYSTEM TRIGLYCERIDE 151(H) 10 - 149 mg/dL INTERFACE SYSTEM HDL 60(H) 40 - 59 mg/dL INTERFACE SYSTEM LDL CALCULATED 77 <=99 mg/dL INTERFACE SYSTEM CHOL/HDL RATIO 2.8 2.0 - 5.0 INTER FACE SYSTEM Comment:See interpretive yony a section for risk classifications. 08/28/2005 10:4 5 AM TUNNEL KILN REPAIRER Naldo Santos CHEMISTRY ORDERABLES Final Resu lt Performing Organization Address [facility] Phone Number INTERFACE SYSTEM Refer to clinic/hospital department * (ABNORMAL) COMPREHENSIVE METABOLIC PANEL (08/28/2005 10:45 AM TUNNEL KILN REPAIRER) GLUCOSE 117(H) 65 - 109 mg/dL INTERFACE SYSTEM CREATININE 0.7 0.4 - 1.2 mg/dL INTERFACE SYSTEM CALCIUM 9.0 8.6 - 10.2 mg/dL INTERFACE SYSTEM AST 21 12 - 32 U/L INTERFACE SYSTEM ALKALINE PHOSPHATASE 65 35 - 104 U/L INTERFACE SYSTEM BILIRUBIN TOTAL 0.4 0.2 - 1.0 mg/dL INTERFACE SYSTEM ALBUMIN 4.4 3.4 - 4.8 g/dL INTERFACE SYSTEM TOTAL PROTEIN 7.4 6.3 - 8.6 g/dL INTERFACE SYSTEM ALT 34(H) 0 - 31 U/L INTERFACE SYSTEM BUN 12 6 - 20 mg/dL INTERFACE SYSTEM SODIUM 140 135 - 145 mmol/L INTERFACE SYSTEM POTASSIUM 3.7 3.5 - 4.9 mmol/L INTERFACE SYSTEM CHLORIDE 103 96 - 108 mmol/L INTERFACE SYSTEM CO2 27 22 - 30 mmol/L INTERFACE SYSTEM 08/28/2005 10:4 5 AM TUNNEL KILN REPAIRER Naldo Santos CHEMISTRY ORDERABLES Final Resu Performing Organization Address [facility] Phone Number INTERFACE SYSTEM Refer to clinic/hospital department documented in this encounter Visit Diagnoses Not on filedocumented in this encounter Additional Health Concerns Infection Onset Date Last Indicated Resolved Time R/O COVID-19 03/07/2020 03/07/2020 03/09/2020 4:45 AM CDT COVID-19 07/31/2021 07/31/2021 08/30/2021 1:16 AM TUNNEL KILN REPAIRER documented as of this encounter Care Teams Sealing Machine Operator Relationship Specialty Start Date End Date Philipp Pizarro MD [address] [place] [address] [place] [phone] PCP - General Internal Medicine 08/21/13 documented as of this encounter
--- OUTSIDE RECORDS SUMMARY | 2025-04-11 15:03 | XMS_ITS | Encounter Summary ---
Author Organization [facility] Address [address] [place] [address] Care Team Providers Care Construction Technician Name Role Phone Philipp Pizarro MD Primary Care Provid er Encounter Details Date Type Department Care Team (Late st Contact Info) Description 09/13/2004 Outpatient Historical [facility], [address] Naldo Santos Social History Tobacco Use Types Packs/Day Years Used Date Smoking Tobacco: Never Assessed Comments Unknown Sex and Gender Information Value Date Recorded Sex Assigned at Not on file Legal Sex Female 3:43 AM MORGUE TECHNICIAN Gender Identity Not on file Sexual Orientation Not on file documented as of this encounter Plan of Treatment Upcoming Encounters Date Type Department Care Team (Late st Contact Info) Description 04/26/2025 1:20 PM CDT [facility] Visit [facility] Care - [facility], [facility] [address] [place] [address] [address] [address] Philipp Pizarro MD [address] [place] [address] [place] [phone] documented as of this encounter Procedures Procedure Name Priority Date/Time Associated Diagnosis Comments URINALYSIS WITH MICROSCOPIC Routine 09/13/2004 10:55 AM MORGUE TECHNICIAN documented in this encounter Results * (ABNORMAL) URINALYSIS WITH MICROSCOPIC (09/13/2004 10:55 AM MORGUE TECHNICIAN) COLOR UA Yellow INTERFACE SYSTEM CLARITY UA Clear Clear INTERFACE SYSTEM SPECIFIC GRAVITY UA 1.020 1.001 - 1.035 INTERFACE SYSTEM PH UA 7.0 5.0 - 8.0 INTERFACE SYSTEM LEUKOCYTE ESTERASE UA Negative Negative INTERFACE SYSTEM NITRITE UA Negative Negative INTERFACE SYSTEM PROTEIN UA Negative Negative INTERFACE SYSTEM GLUCOSE UA Trace(A) Negative INTERFACE SYSTEM KETONES UA Negative Negative INTERFACE SYSTEM UROBILINOGEN UA <1 <1 EU INTE RFACE SYSTEM BILIRUBIN UA Negative Negative INTERFA CE SYSTEM BLOOD UA Negative Negative INTERFACE SYSTEM WBC UA 1 0 - 5 /HPF INTERFACE SYSTEM RBC UA 1 0 - 4 /HPF INTERFACE SYSTEM EPITHELIAL CELLS, URINE 5-10 /HPF INTERFACE SYSTEM 09/13/2004 10:5 5 AM MORGUE TECHNICIAN us Naldo Santos URINE ORDERABLES Final Result INTERFACE SYSTEM Refer to clinic/hospital department documented in this encounter Visit Diagnoses Not on filedocumented in this encounter Additional Health Concerns Infection Onset Date Last Indicated Resolved Time R/O COVID-19 03/07/2020 03/07/2020 03/09/2020 4:45 AM CDT COVID-19 07/31/2021 07/31/2021 08/30/2021 1:16 AM MORGUE TECHNICIAN documented as of this encounter Care Teams Construction Technician Relationship Specialty Start Date End Date Philipp Pizarro MD [address] [place] [phone] PCP - General Internal Medicine 08/21/13 documented as of this encounter
--- OUTSIDE RECORDS SUMMARY | 2025-04-11 15:03 | XMS_ITS | Encounter Summary ---
Author Organization [facility] Address [address] Attn: Epic Prelude ADT [place] [address] Care Team Providers Care Millinery Designer Name Role Phone Philipp Pizarro MD Primary Care Provid er Encounter Details Date Type Department Care Team (Late st Contact Info) Description 05/30/1990 Outpatient Historical Naldo Santos Social History Tobacco Use Types Packs/Day Years Used Date Smoking Tobacco: Never Assessed Comments Unknown Sex and Gender Information Value Date Recorded Sex Assigned at Not on file Legal Sex Female 3:43 AM STAFF CLIMATE SCIENTIST Gender Identity Not on file Sexual Orientation Not on file documented as of this encounter Plan of Treatment Upcoming Encounters Date Type Department Care Team (Late st Contact Info) Description 04/26/2025 1:20 PM CDT Office Visit [facility] Primary Care - [facility], [facility] [address] [place] [address] [address] [address] Philipp Pizarro MD [address] [place] [address] [place] [phone] documented as of this encounter Visit Diagnoses Not on filedocumented in this encounter Additional Health Concerns Infection Onset Date Last Indicated Resolved Time R/O COVID-19 03/07/2020 03/07/2020 03/09/2020 4:45 AM CDT COVID-19 07/31/2021 07/31/2021 08/30/2021 1:16 AM STAFF CLIMATE SCIENTIST documented as of this encounter Care Teams Millinery Designer Relationship Specialty Start Date End Date Philipp Pizarro MD [address] [place] [phone] PCP - General Internal Medicine 08/21/13 documented as of this encounter
--- OUTSIDE RECORDS SUMMARY | 2025-04-11 15:03 | XMS_ITS | Encounter Summary ---
Author Organization [facility] Address [address] [place] [address] Care Team Providers Care Cement Mason Apprentice Name Role Phone Philipp Pizarro MD Primary Care Provid er Encounter Details Date Type Department Care Team (Late st Contact Info) Description 09/26/2007 Outpatient Historical HIS [facility] Naldo Devine Lumbago Social History Tobacco Use Types Packs/Day Years Used Date Smoking Tobacco: Never Assessed Comments Unknown Sex and Gender Information Value Date Recorded Sex Assigned at Not on file Legal Sex Female 3:43 AM ZINC FURNACE CHARGER Gender Identity Not on file Sexual Orientation Not on file documented as of this encounter Plan of Treatment Upcoming Encounters Date Type Department Care Team (Late st Contact Info) Description 04/26/2025 1:20 PM CDT Office Visit [facility] Primary Care - [facility], [address] [place] [address] [address] [address] Philipp Pizarro MD [address] [place] [address] [place] [phone] documented as of this encounter Procedures Procedure Name Priority Date/Time Associated Diagnosis Comments XR LUMBAR SPINE 4+ VW Routine 09/26/2007 9:59 AM ZINC FURNACE CHARGER documented in this encounter Results * XR LUMBAR SPINE 4+ VW (09/26/2007 9:59 AM ZINC FURNACE CHARGER) Anatomical Region Laterality Modality Spine Other 09/26/2007 9:59 AM ZINC FURNACE CHARGER Narrative 09/26/2007 10:10 AM ZINC FURNACE CHARGER [place] [address] [place], [place] [address] Admit Date: 09/26/2007 KRISTINA HUTSON Sex: F Admit Prov: NALDO SANTOS Date: 1950 Primary Care Prov: NALDO SANTOS; CMRN: [id number] NALDO SANTOS SSN: [id number] Room: [facility] Ordering Prov: N/A Accession Number: [id number] Interpretation Examination: Lumbar spine 5 views Clinical History: Back pain. Findings: Examination of the lumbar spine fails to demonstrate fracture, dislocation, or subluxation. The disk spaces are preserved. The posterior elements are normal. Impression: Radiographically normal lumbar spine. . Dictated by: David RAIN 09/26/2007 10:10 Electronically signed by: David RAIN 09/26/2007 10:10 Procedure Note Provider, Historical - 09/26/[address] [address] Admit Date: 09/26/2007 KRISTINA HUTSON Sex: F Admit Prov: NALDO SANTOS Date: 1950 Primary Care Prov: NALDO SANTOS; CMRN: [id number] NALDO SANTOS SSN: [id number] Room: [facility] Ordering Prov: N/A Interpretation Examination: Lumbar spine 5 views Clinical History: Back pain. Findings: Examination of the lumbar spine fails to demonstratefracture, dislocation, or subluxation. The disk spaces are preserved. Theposterior elements are normal. Impression: Radiographically normal lumbar spine. . Dictated by: David RAIN 09/26/2007 10:10 Electronically signed by: David RAIN 09/26/2007 10:10 us Naldo Santos DIAGNOSTIC IMAGING ORDERABLES F inal Result documented in this encounter Visit Diagnoses Diagnosis Lumbago documented in this encounter Additional Health Concerns Infection Onset Date Last Indicated Resolved Time R/O COVID-19 03/07/2020 03/07/2020 03/09/2020 4:45 AM CDT COVID-19 07/31/2021 07/31/2021 08/30/2021 1:16 AM ZINC FURNACE CHARGER documented as of this encounter Care Teams Cement Mason Apprentice Relationship Specialty Start Date End Date Philipp Pizarro MD [address] [place] [phone] PCP - General Internal Medicine 08/21/13 documented as of this encounter
--- OUTSIDE RECORDS SUMMARY | 2025-04-11 15:03 | XMS_ITS | Encounter Summary ---
[facility] Organization [facility] Address [address] [place] [address] Care Team Providers Care Patient Relations Liaison Name Role Phone Philipp Pizarro MD Primary Care Provid er Encounter Details Date Type Department Care Team (Latest Contact Info) Description 09/26/2007 Outpatient Historical [facility], [address] Naldo Santos Mononeuritis of Unspecified Site; Lumbago Social History Tobacco Use Types Packs/Day Years Used Date Smoking Tobacco: Never Assessed Comments Unknown Sex and Gender Information Value Date Recorded Sex Assigned at Not on file Legal Sex Female 3:43 AM MANAGER CRITICAL CARE Gender Identity Not on file Sexual Orientation Not on file documented as of this encounter Plan of Treatment Upcoming Encounters Date Type Department Care Team (Late st Contact Info) Description 04/26/2025 1:20 PM CDT Office Visit [facility] Primary Care - [facility], Frank [address] [place] [address] [address] [address] Philipp Pizarro MD [address] [place] [address] [place] [phone] documented as of this encounter Procedures Procedure Name Priority Date/Time Associated Diagnosis Comments CBC WITH DIFFERENTIAL Routine 09/26/2007 10:36 AM MANAGER CRITICAL CARE TSH Routine 09/26/2007 10:36 AM MANAGER CRITICAL CARE HEMOGLOBIN A1C Routine 09/26/2007 10:36 AM MANAGER CRITICAL CARE VITAMIN B12 LEVEL Routine 09/26/2007 10: 36 AM MANAGER CRITICAL CARE LIPID PANEL Routine 09/26/2007 10:36 AM MANAGER CRITICAL CARE COMPREHENSIVE METABOLIC PANEL Routine 09/26/2007 10:36 AM MANAGER CRITICAL CARE documented in this encounter Results * VITAMIN B12 (09/26/2007 10:36 AM MANAGER CRITICAL CARE) VITAMIN B12 727 211 - 946 pg/mL [facility] Comment: It has been reported that between 5 to 10% of patients with values between 200 and 400 pg/mL may experience neuropsychiatric and hematologic abnormalities due to occult B12 deficiency. Less than 1% of patients with values above 400 pg/mL will have symptoms. Blood specimen (specimen) 09/26/2007 10:36 AM MANAGER CRITICAL CARE 09/26/2007 10:37 AM MANAGER CRITICAL CARE us Naldo Santos CHEMISTRY ORDERABLES Edited Performing Organization Address City/[facility]/ZIP Co de Phone Number [facility] [address] [facility] [place] [address] * TSH (09/26/2007 10:36 AM MANAGER CRITICAL CARE) TSH 2.01 0.27 - 4.20 uU/mL [facility] Blood specimen (specimen) 09/26/2007 10:36 AM MANAGER CRITICAL CARE 09/26/2007 10:36 AM MANAGER CRITICAL CARE Naldo Santos CHEMISTRY ORDERABLES Final Resu lt Performing Organization Address City/[facility]/ZIP Co de Phone Number [facility] [address] [facility] [place] [address] * (ABNORMAL) HEMOGLOBIN A1C (09/26/2007 10:36 AM MANAGER CRITICAL CARE) GLUCOSE, MEAN BLOOD 172 mg/dL [facility] HEMOGLOBIN A1C 7.0(H) 4.1 - 6.1 % of Hgb [facility] Blood specimen (specimen) 09/26/2007 10:36 AM MANAGER CRITICAL CARE 09/26/2007 10:36 AM MANAGER CRITICAL CARE Naldo Santos CHEMISTRY ORDERABLES Final Resu lt [facility] [address] [place], [place] [address] * (ABNORMAL) CBC WITH DIFFERENTIAL (09/26/2007 10:36 AM MANAGER CRITICAL CARE) [facility] RDW-STDEV 38.9 37.1 - 48.7 fL [facility] RBC 5.17(H) 3.90 - 4.90 M/uL [facility] MCHC 35.3 31.5 - 35.5 % [facility] MCV 85.5 82.0 - 99.0 fL [facility] PLATELETS 184 140 - 350 K/uL [facility] HEMOGLOBIN 15.6(H) 11.8 - 14.8 g/dL [facility] RDW 12.7 11.5 - 14.5 % [facility] WBC 5.9 4.0 - 9.8 K/uL [facility] MCH 30.2 27.2 - 32.6 pg [facility] MPV 11.0 9.3 - 12.4 fL [facility] HEMATOCRIT 44.2(H) 35.5 - 44.0 % [facility] MONOCYTES 7 3 - 13 % [facility] MONOCYTE ABSOLUTE 0.39 0.10 - 1.30 K/uL [facility] NEUTROPHILS 55 45 - 70 % [facility] NEUTROPHIL ABSOLUTE 3.23 1.90 - 7.00 K/uL [facility] EOSINOPHILS 2 0 - 7 % [facility] EOSINOPHIL ABSOLUTE 0.09 0.00 - 0.70 K/uL [facility] LYMPHOCYTES 37 16 - 45 % [facility] LYMPHOCYTE ABSOLUTE 2.16 0.70 - 4.50 K/uL [facility] BASOPHILS 0 0 - 2 % [facility] BASOPHILS ABSOLUTE 0.02 0.00 - 0.20 K/uL [facility] Blood specimen (specimen) 09/26/2007 10:36 AM MANAGER CRITICAL CARE 09/26/2007 10:36 AM MANAGER CRITICAL CARE us Naldo Santos HEMATOLOGY ORDERABLES Edited INTERFACE SYSTEM Refer to clinic/hospital department [facility] [address] [place] [address] * (ABNORMAL) LIPID PANEL (09/26/2007 10:36 AM MANAGER CRITICAL CARE) CHOL/HDL RATIO 4.5 2.0 - 5.0 [facility] HDL 56 40 - 59 mg/dL [facility] CHOLESTEROL 250(H) 100 - 199 mg/dL [facility] TRIGLYCERIDE 148 10 - 149 mg/dL [facility] LDL CALCULATED 164(H) <=99 mg/dL [facility] LIPID PANEL COMMENT See Below [facility] Comment: The adult ATP and pediatric NCEP classifications for lipids are available on the [facility] Intranet at: [email or web address] Select: Lab Policies and Procedures,Current Select: Lipid Panel Interpretation Blood specimen (specimen) 09/26/2007 10:36 AM MANAGER CRITICAL CARE 09/26/2007 10:36 AM MANAGER CRITICAL CARE us Naldo Santos CHEMISTRY ORDERABLES Edited [facility] [address] [place] [address] * (ABNORMAL) COMPREHENSIVE METABOLIC PANEL (09/26/2007 10:36 AM MANAGER CRITICAL CARE) POTASSIUM 3.7 3.5 - 4.9 mmol/L [facility] TOTAL PROTEIN 7.5 6.3 - 8.6 g/dL [facility] GLUCOSE 160(H) 65 - 99 mg/dL [facility] AST 23 12 - 32 U/L [facility] BUN 12 6 - 20 mg/dL [facility] CALCIUM 8.7 8.4 - 10.2 mg/dL [facility] ALBUMIN 4.6 3.4 - 4.8 g/dL [facility] CHLORIDE 102 96 - 108 mmol/L [facility] CREATININE 0.53 0.51 - 0.95 mg/dL [facility] ALT 35(H) 0 - 31 U/L [facility] SODIUM 138 135 - 145 mmol/L [facility] ALKALINE PHOSPHATASE 63 35 - 104 U/L [facility] CO2 25 22 - 30 mmol/L [facility] BILIRUBIN TOTAL 0.6 0.2 - 1.0 mg/dL [facility] GFR, >60 >=60 mL/min/1. 7 sq meter [facility] GFR >60 >=60 mL/min/1. 7 sq meter [facility] Comment: Estimated GFR rate interpretative information for both Americans and non- Americans is available on the [facility] Intranet at: [email or web address] Select: Lab Policies and Procedures Select: Reference Ranges - GFR Blood specimen (specimen) 09/26/2007 10:36 AM MANAGER CRITICAL CARE 09/26/2007 10:36 AM MANAGER CRITICAL CARE us Naldo Santos CHEMISTRY ORDERABLES Edited [facility] [address] [place] [address] documented in this encounter Visit Diagnoses Diagnosis Mononeuritis of unspecified site Lumbago documented in this encounter Additional Health Concerns Infection Onset Date Last Indicated Resolved Time R/O COVID-19 03/07/2020 03/07/2020 03/09/2020 4:45 AM CDT COVID-19 07/31/2021 07/31/2021 08/30/2021 1:16 AM MANAGER CRITICAL CARE documented as of this encounter Care Teams Patient Relations Liaison Relationship Specialty Start Date End Date Philipp Pizarro MD [address] [place] [address] [place] [phone] PCP - General Internal Medicine 08/21/13 documented as of this encounter
--- OUTSIDE RECORDS SUMMARY | 2025-04-11 15:03 | XMS_ITS | Encounter Summary ---
Author Organization [facility] Address [address] [place] [address] Care Team Providers Care Lawyers Name Role Phone Philipp Pizarro MD Primary Care Provid er Encounter Details Date Type Department Care Team (Late st Contact Info) Description 05/21/2006 Outpatient Historical [facility] Naldo Santos Goiter, Unspecified (Primary Dx) Social History Tobacco Use Types Packs/Day Years Used Date Smoking Tobacco: Never Assessed Comments Unknown Sex and Gender Information Value Date Recorded Sex Assigned at Not on file Legal Sex Female 3:43 AM COMMISSIONER CONSERVATION OF RESOURCES Gender Identity Not on file Sexual Orientation Not on file documented as of this encounter Plan of Treatment Upcoming Encounters Date Type Department Care Team (Late st Contact Info) Description 04/26/2025 1:20 PM CDT Office Visit [facility] Primary Care - [facility], [facility] [address] [place] [address] [address] [address] Philipp Pizarro MD [address] [place] [address] [place] [phone] documented as of this encounter Visit Diagnoses Diagnosis Goiter, unspecified- Primary documented in this encounter Additional Health Concerns Infection Onset Date Last Indicated Resolved Time R/O COVID-19 03/07/2020 03/07/202003/09/2020 4:45 AM CDT COVID-19 07/31/2021 07/31/2021 08/30/2021 1:16 AM COMMISSIONER CONSERVATION OF RESOURCES documented as of this encounter Care Teams Lawyers Relationship Specialty Start Date End Date Philipp Pizarro MD [address] [place] [phone] PCP - General Internal Medicine 08/21/13 documented as of this encounter
--- OUTSIDE RECORDS SUMMARY | 2025-04-11 15:03 | XMS_ITS | Encounter Summary ---
Author Organization [facility] Address [address] [place] [address] Care Team Providers Care Chief Fundraising Officer Name Role Phone Philipp Pizarro MD Primary Care Provid er Encounter Details Date Type Department Care Team (Latest Contact Info) Description 12/31/2002 Outpatient Historical HIS [facility] Naldo Devine SCREENING MAMM-MAILG NEOPL-OTHER (Primary Dx) Social History Tobacco Use Types Packs/Day Years Used Date Smoking Tobacco: Never Assessed Comments Unknown Sex and Gender Information Value Date Recorded Sex Assigned at Not on file Legal Sex Female 3:43 AM SHEET MUSIC SALESPERSON Gender Identity Not on file Sexual Orientation Not on file documented as of this encounter Plan of Treatment Upcoming Encounters Date Type Department Care Team (Late st Contact Info) Description 04/26/2025 1:20 PM CDT Office Visit [facility] Primary Care - [facility], Frank [address] [place] [address] [address] [address] Philipp Pizarro MD [address] [place] [address] [place] [phone] documented as of this encounter Visit Diagnoses Diagnosis Other screening mammogram- Primary documented in this encounter Additional Health Concerns Infection Onset Date Last Indicated Resolved Time R/O COVID-19 03/07/2020 03/07/2020 03/09/2020 4:45 AM CDT COVID-19 07/31/2021 07/31/2021 08/30/2021 1:16 AM SHEET MUSIC SALESPERSON documented as of this encounter Care Teams Chief Fundraising Officer Relationship Specialty Start Date End Date Philipp Pizarro MD [address] [phone] PCP - General Internal Medicine 08/21/13 documented as of this encounter
--- OUTSIDE RECORDS SUMMARY | 2025-04-11 15:03 | XMS_ITS | Encounter Summary ---
Author Organization [facility] Address [address] [place] [address] Care Team Providers Care Food Sales Clerk Name Role Phone Philipp Pizarro MD Primary Care Provid er Encounter Details Date Type Department Care Team (Latest Contact Info) Description 09/11/2002 Outpatient Historical HIS [facility] Naldo Devine BACKACHE NOS (Primary Dx) Social History Tobacco Use Types Packs/Day Years Used Date Smoking Tobacco: Never Assessed Comments Unknown Sex and Gender Information Value Date Recorded Sex Assigned at Not on file Legal Sex Female 3:43 AM FERTILIZER APPLICATOR Gender Identity Not on file Sexual Orientation Not on file documented as of this encounter Plan of Treatment Upcoming Encounters Date Type Department Care Team (Late st Contact Info) Description 04/26/2025 1:20 PM CDT Office Visit [facility] Primary Care - [facility], Frank [address] [place] [address] [address] [address] Philipp Pizarro MD [address] [place] [address] [place] [phone] documented as of this encounter Visit Diagnoses Diagnosis Backache, unspecified- Primary documented in this encounter Additional Health Concerns Infection Onset Date Last Indicated Resolved Time R/O COVID-19 03/07/2020 03/07/2020 03/09/2020 4:45 AM CDT COVID-19 07/31/2021 07/31/2021 08/30/2021 1:16 AM FERTILIZER APPLICATOR documented as of this encounter Care Teams Food Sales Clerk Relationship Specialty Start Date End Date Philipp Pizarro MD [address] [place] [phone] PCP - General Internal Medicine 08/21/13 documented as of this encounter
--- OUTSIDE RECORDS SUMMARY | 2025-04-11 15:03 | XMS_ITS | Encounter Summary ---
Author Organization [facility] Address [address] [facility] Attn: Epic Prelude ADT [place] [address] Care Team Providers Care Chief Service Dispatcher Name Role Phone Philipp Pizarro MD Primary Care Provid er Encounter Details Date Type Department Care Team (Late st Contact Info) Description 11/30/1993 Outpatient Historical Naldo Santos Social History Tobacco Use Types Packs/Day Years Used Date Smoking Tobacco: Never Assessed Comments Unknown Sex and Gender Information Value Date Recorded Sex Assigned at Not on file Legal Sex Female 3:43 AM CATERING STAFF MEMBER Gender Identity Not on file Sexual Orientation Not on file documented as of this encounter Plan of Treatment Upcoming Encounters Date Type Department Care Team (Late st Contact Info) Description 04/26/2025 1:20 PM CDT Office Visit [facility] Primary Care - [facility] [address] [place] [address] [address] [address] Philipp Pizarro MD [address] [place] [address] [place] [phone] documented as of this encounter Visit Diagnoses Not on filedocumented in this encounter Additional Health Concerns Infection Onset Date Last Indicated Resolved Time R/O COVID-19 03/07/2020 03/07/2020 03/09/2020 4:45 AM CDT COVID-19 07/31/2021 07/31/2021 08/30/2021 1:16 AM CATERING STAFF MEMBER documented as of this encounter Care Teams Chief Service Dispatcher Relationship Specialty Start Date End Date Philipp Pizarro MD [address] [place] [phone] PCP - General Internal Medicine 08/21/13 documented as of this encounter
--- OUTSIDE RECORDS SUMMARY | 2025-04-11 15:03 | XMS_ITS | Encounter Summary ---
Author Organization [facility] Address [address] [place] [address] Care Team Providers Care Ventilated Rib Fitter Name Role Phone Philipp Pizarro MD Primary Care Provid er Encounter Details Date Type Department Care Team (Late st Contact Info) Description 09/30/2007 Outpatient Historical [facility] Pino Parry MD [address] [place] [address] Social History Tobacco Use Types Packs/Day Years Used Date Smoking Tobacco: Never Assessed Comments Unknown Sex and Gender Information Value Date Recorded Sex Assigned at Not on file Legal Sex Female 3:43 AM MICROFILM CAMERA OPERATOR Gender Identity Not on file Sexual Orientation Not on file documented as of this encounter Plan of Treatment Upcoming Encounters Date Type Department Care Team (Late st Contact Info) Description 04/26/2025 1:20 PM CDT Office Visit [facility] Primary Care - [facility], Frank. [address] [place] [address] Philipp Pizarro MD [address] [facility] [address] [place] [address] documented as of this encounter Procedures Procedure Name Priority Date/Time Associated Diagnosis Comments POC GLUCOSE Routine 09/30/2007 8:44 AM MICROFILM CAMERA OPERATOR documented in this encounter Results * (ABNORMAL) POC GLUCOSE (09/30/2007 8:44 AM MICROFILM CAMERA OPERATOR) GLUCOSE POC 158(H) 65 - 99 mg/dL [facility] Venous blood specimen (specimen) 09/30/2007 8:44 AM MICROFILM CAMERA OPERATOR 09/30/2007 8:44 AM MICROFILM CAMERA OPERATOR us Pino Parry MD POINT OF CARE TESTING Final R esult [facility] [address] [facility] [place] [address] documented in this encounter Visit Diagnoses Not on filedocumented in this encounter Additional Health Concerns Infection Onset Date Last Indicated Resolved Time R/O COVID-19 03/07/2020 03/07/2020 03/09/2020 4:45 AM CDT COVID-19 07/31/2021 07/31/2021 08/30/2021 1:16 AM MICROFILM CAMERA OPERATOR documented as of this encounter Care Teams Ventilated Rib Fitter Relationship Specialty Start Date End Date Philipp Pizarro MD [address] [place] [address] [place], [place] [address], [place] [phone] PCP - General Internal Medicine 08/21/13 documented as of this encounter
--- OUTSIDE RECORDS SUMMARY | 2025-04-11 15:03 | XMS_ITS | Encounter Summary ---
Author Organization [facility] Address [address] [place] [address] Care Team Providers Care Etcher Aircraft Name Role Phone Philipp Pizarro MD Primary Care Provid er Encounter Details Date Type Department Care Team (Late st Contact Info) Description 09/13/2004 Outpatient Historical [facility], [address] Naldo Santos Social History Tobacco Use Types Packs/Day Years Used Date Smoking Tobacco: Never Assessed Comments Unknown Sex and Gender Information Value Date Recorded Sex Assigned at Not on file Legal Sex Female 3:43 AM AIRPORT BAGGAGE SCREENER Gender Identity Not on file Sexual Orientation Not on file documented as of this encounter Plan of Treatment Upcoming Encounters Date Type Department Care Team (Late st Contact Info) Description 04/26/2025 1:20 PM CDT Office Visit [facility] Primary Care - [facility], [facility] [address] [place] [address] [address] [phone] Philipp Pizarro MD [address] [place] [address] [place] [phone] documented as of this encounter Procedures Procedure Name Priority Date/Time Associated Diagnosis Comments CBC WITH DIFFERENTIAL Routine 09/13/2004 10:55 AM AIRPORT BAGGAGE SCREENER CBC WITH DIFFERENTIAL Routine 09/13/2004 10:55 AM AIRPORT BAGGAGE SCREENER LIPID PANEL Routine 09/13/2004 10:55 AM AIRPORT BAGGAGE SCREENER COMPREHENSIVE METABOLIC PANEL Routine 09/13/2004 10:55 AM AIRPORT BAGGAGE SCREENER documented in this encounter Results * CBC WITH DIFFERENTIAL (09/13/2004 10:55 AM AIRPORT BAGGAGE SCREENER) NEUTROPHILS 66 45 - 70 % INTERFAC E SYSTEM LYMPHOCYTES 27 16 - 45 % INTERFAC E SYSTEM MONOCYTES 7 3 - 13 % INTERFACE SYSTEM EOSINOPHILS 1 0 - 7 % INTERFAC E SYSTEM BASOPHILS 0 0 - 2 % INTERFACE SYSTEM NEUTROPHIL ABSOLUTE 4.45 1.90 - 7.00 K/uL INTERFACE SYSTEM LYMPHOCYTE ABSOLUTE 1.80 0.70 - 4.50 K/uL INTERFACE SYSTEM MONOCYTE ABSOLUTE 0.45 0.10 - 1.30 K/uL INTERFACE SYSTEM EOSINOPHIL ABSOLUTE 0.06 0.00 - 0.70 K/uL INTERFACE SYSTEM BASOPHILS ABSOLUTE 0.02 0.00 - 0.20 K/uL INTERFACE SYSTEM 09/13/2004 10:5 5 AM AIRPORT BAGGAGE SCREENER us Naldo Santos HEMATOLOGY ORDERABLES Final Res ult INTERFACE SYSTEM Refer to clinic/hospital department * CBC WITH DIFFERENTIAL (09/13/2004 10:55 AM AIRPORT BAGGAGE SCREENER) WBC 6.8 4.0 - 9.8 K/uL INTERFACE SYSTEM RBC 4.82 3.90 - 4.90 M/uL INTERFACE SYSTEM HEMOGLOBIN 14.8 11.8 - 14.8 g/dL INTERFACE SYSTEM HEMATOCRIT 43.4 35.5 - 44.0 % INTERFACE SYSTEM MCV 90.0 82.0 - 99.0 fL INTERFACE SYSTEM MCH 30.7 27.2 - 32.6 pg INTERFACE SYSTEM MCHC 34.1 31.5 - 35.5 % INTERFACE SYSTEM RDW 12.9 11.5 - 14.5 % INTERFACE SYSTEM RDW-STDEV 42.3 37.1 - 48.7 fL INTERFACE SYSTEM PLATELETS 184 140 - 350 K/uL INTERFACE SYSTEM MPV 11.2 9.3 - 12.4 fL INTERFACE SYSTEM 09/13/2004 10:5 5 AM AIRPORT BAGGAGE SCREENER us Naldo Santos HEMATOLOGY ORDERABLES Final Res ult INTERFACE SYSTEM Refer to clinic/hospital department * (ABNORMAL) LIPID PANEL (09/13/2004 10:55 AM AIRPORT BAGGAGE SCREENER) CHOLESTEROL 204(H) 100 - 199 mg/dL INTERFACE SYSTEM TRIGLYCERIDE 272(H) 10 - 149 mg/dL INTERFACE SYSTEM HDL 59 40 - 59 mg/dL INTERFACE SYSTEM LDL CALCULATED 91 <=99 mg/dL INTERFACE SYSTEM CHOL/HDL RATIO 3.5 2.0 - 5.0 INTER FACE SYSTEM Comment:See interpretive yony a section for risk classifications. LIPID PANEL COMMENT See below INTERFACE SYSTEM [...] <110 Borderline 110 - 129 High >=130 09/13/2004 10:5 5 AM AIRPORT BAGGAGE SCREENER us Naldo Santos CHEMISTRY ORDERABLES Final Resu lt Performing Organization Address City/[facility]/ZIP Co de Phone Number INTERFACE SYSTEM Refer to clinic/hospital department * (ABNORMAL) COMPREHENSIVE METABOLIC PANEL (09/13/2004 10:55 AM AIRPORT BAGGAGE SCREENER) GLUCOSE 114(H) 65 - 109 mg/dL INTERFACE SYSTEM CREATININE 0.7 0.4 - 1.2 mg/dL INTERFACE SYSTEM CALCIUM 9.1 8.6 - 10.2 mg/dL INTERFACE SYSTEM AST 22 12 - 32 U/L INTERFACE SYSTEM ALKALINE PHOSPHATASE 65 35 - 104 U/L INTERFACE SYSTEM BUN 11 6 - 20 mg/dL INTERFACE SYSTEM BILIRUBIN TOTAL 0.4 0.2 - 1.0 mg/dL INTERFACE SYSTEM ALBUMIN 4.6 3.4 - 4.8 g/dL INTERFACE SYSTEM TOTAL PROTEIN 7.8 6.3 - 8.6 g/dL INTERFACE SYSTEM ALT 37(H) 0 - 31 U/L INTERFACE SYSTEM SODIUM 140 135 - 145 mmol/L INTERFACE SYSTEM POTASSIUM 3.9 3.5 - 4.9 mmol/L INTERFACE SYSTEM CHLORIDE 105 96 - 108 mmol/L INTERFACE SYSTEM CO2 28 22 - 30 mmol/L INTERFACE SYSTEM 09/13/2004 10:5 5 AM AIRPORT BAGGAGE SCREENER us Naldo Santos CHEMISTRY ORDERABLES Final Resu lt INTERFACE SYSTEM Refer to clinic/hospital department documented in this encounter Visit Diagnoses Not on filedocumented in this encounter Additional Health Concerns Infection Onset Date Last Indicated Resolved Time R/O COVID-19 03/07/2020 03/07/2020 03/09/2020 4:45 AM CDT COVID-19 07/31/2021 07/31/2021 08/30/2021 1:16 AM AIRPORT BAGGAGE SCREENER documented as of this encounter Care Teams Etcher Aircraft Relationship Specialty Start Date End Date Philipp Pizarro MD [address] [place] [phone] PCP - General Internal Medicine 08/21/13 documented as of this encounter
--- OUTSIDE RECORDS SUMMARY | 2025-04-11 15:03 | XMS_ITS | Patient Health Record ---
Author Organization Facebook Address [address] [facility] [address] [place] [address] Care Team Providers Care Accounts Specialist Name Role Phone Philipp Pizarro MD Primary Care Provider Michelet garzonNavdeep De La Rosav Unavailable [phone] Results Component Value Reference Range Notes Pathology Report Reviewed date:06/11/2024 09:00:16 PM Interpretation: Performing Lab: Notes/Report: DIAGNOSES A. Ascending Colon Polyp, Snare: -Tubular adenoma. CLINICAL HISTORY Personal history of polyp. GROSSING DESCRIPTION A. The specimen is received in a Formalin-filled container labeled with the patient's name and designated Ascending Colon Polyp It contains 1 fragment of hancock tissue that measures 3x2x1 mm. The specimen was entirely submitted into a single cassette for processing. MICROSCOPIC DESCRIPTION Complete 100 microscopic examination is performed. The findings are included in the diagnosis rendered. Specimen A was evaluated with H&E stain. Textual Pathology Report SEE NOTES Reason For Referral No Information Medications Medication SIG (Take, Route, Fr equency, Duration) Notes Start Date End Date Status Suflave 178.7 GM ML Orally twice a da y, Follow Physician Instructions. for 1 days 04/20/2024 Active Problems Problem Type SNOMED Code ICD Code Onset Dates Problem Status W/U Status Risk Notes Problem [id number] Diverticulosis o f large intestine without perforation or abscess without bleeding (K57.30) Active confirmed Problem History of polyp of colon (situation) (427190342) History of colon polyps (Z86.010) Active confirmed Encounters Encounter Location Date Provider Diagnosis [address] [place] [phone] 05/20/2024 Rios Reza Encounter for screening for malignant neoplasm of colon Z12.11 ; Personal history of adenomatous and serrated colon polyps Z86.0101 ; Polyp of colon K63.5 and Diverticulosis of large intestine without perforation or abscess without bleeding K57.30 [facility] [place] [phone] 04/20/2024 [facility] [place] [address] 05/05/2024 Rios Reza Assessments Encounter Date Diagnosis (ICD Code) Assessment Notes Treatment Notes Treatment Clinical Notes Section Notes 05/20/2024 Encounter for screening for malignant neoplasm of colon (ICD-10 - Z12.11) 05/20/2024 Personal history of adenomatous and serrated colon polyps (ICD-10 - Z86.0101) 05/20/2024 Polyp of colon (ICD-10 - K63.5) 05/20/2024 Diverticulosis of large intestine without perforation or abscess without bleeding (ICD-10 - K57.30) Plan Of Treatment No Information Insurance Providers Payer Name Payer Address Payer Phone Subscriber Number Group Number Insured Name Patient Relationship to Insured Coverage Start Date Coverage End Date [employer] PPO [address] [place] [address] [id number] Jessica Saldana Self - patient is the insured Medical (General) History Medical History History ICD Code Hypertension Diabetes Colon Polyps
--- OUTSIDE RECORDS SUMMARY | 2025-04-11 15:03 | XMS_ITS | Encounter Summary ---
Author Organization [facility] Address [address] [place] [address] Care Team Providers Care Customer Service Attendant Name Role Phone Philipp Pizarro MD Primary Care Provid er Encounter Details Date Type Department Care Team (Latest Contact Info) Description 01/09/2002 Outpatient Historical [facility] Naldo Devine SCREENING MAMM-MAILG NEOPL-OTHER (Primary Dx) Social History Tobacco Use Types Packs/Day Years Used Date Smoking Tobacco: Never Assessed Comments Unknown Sex and Gender Information Value Date Recorded Sex Assigned at Not on file Legal Sex Female 3:43 AM JAW SKINNER Gender Identity Not on file Sexual Orientation Not on file documented as of this encounter Plan of Treatment Upcoming Encounters Date Type Department Care Team (Late st Contact Info) Description 04/26/2025 1:20 PM CDT Office Visit [facility] Primary Care - [facility] [place], [address] [place] [address] [address] [address] Philipp Pizarro MD [address] [place] [address] [place] [phone] documented as of this encounter Visit Diagnoses Diagnosis Other screening mammogram- Primary documented in this encounter Additional Health Concerns Infection Onset Date Last Indicated Resolved Time R/O COVID-19 03/07/2020 03/07/2020 03/09/2020 4:45 AM CDT COVID-19 07/31/2021 07/31/2021 08/30/2021 1:16 AM JAW SKINNER documented as of this encounter Care Teams Customer Service Attendant Relationship Specialty Start Date End Date Philipp Pizarro MD [address] [phone] PCP - General Internal Medicine 08/21/13 documented as of this encounter
--- OUTSIDE RECORDS SUMMARY | 2025-04-11 15:03 | XMS_ITS | Encounter Summary ---
Author Organization [facility] Address [address] [place] [address] Care Team Providers Care General Engineer Name Role Phone Philipp Pizarro MD Primary Care Provid er Encounter Details Date Type Department Care Team (Late st Contact Info) Description 09/11/2002 Outpatient Historical [facility] [address] Naldo Santos Social History Tobacco Use Types Packs/Day Years Used Date Smoking Tobacco: Never Assessed Comments Unknown Sex and Gender Information Value Date Recorded Sex Assigned at Not on file Legal Sex Female 3:43 AM DESIGN ENG Gender Identity Not on file Sexual Orientation Not on file documented as of this encounter Plan of Treatment Upcoming Encounters Date Type Department Care Team (Late st Contact Info) Description 04/26/2025 1:20 PM CDT Office Visit [facility] Primary Care - [facility] [address] [place] [address] [address] [address] Philipp Pizarro MD [address] [place] [address] [place] [phone] documented as of this encounter Visit Diagnoses Not on filedocumented in this encounter Additional Health Concerns Infection Onset Date Last Indicated Resolved Time R/O COVID-19 03/07/2020 03/07/2020 03/09/2020 4:45 AM CDT COVID-19 07/31/2021 07/31/2021 08/30/2021 1:16 AM DESIGN ENG documented as of this encounter Care Teams General Engineer Relationship Specialty Start Date End Date Philipp Pizarro MD [address] [place] [phone] PCP - General Internal Medicine 08/21/13 documented as of this encounter
--- OUTSIDE RECORDS SUMMARY | 2025-04-11 15:04 | XMS_ITS | Encounter Summary ---
Author Organization [facility] Address [address] [place] [address] Care Team Providers Care Mechanic Helper Name Role Phone Philipp Pizarro MD Primary Care Provid er Reason for Visit * Reason Comments Needs Orders Written Encounter Details Date Type Department Care Team (Late st Contact Info) Description 04/20/2024 Telephone [facility] Primary Care - [facility], [address], [place] [place] [phone] Philipp Pizarro MD [address] [place] [address] [place] [phone] Needs Orders Written Social History Tobacco [...] on file Legal Sex Female 3:43 AM YARD SPOTTER Gender Identity Not on file Sexual Orientation Not on file Occupation Industry Job Start Date Job End Date Not on file Not on file Not on file Not on file documented as of this encounter Miscellaneous Notes * Telephone Encounter - Philipp Pizarro MD - 04/20/2024 12:58 PM CDT Ordered * Telephone Encounter - Pato Simon - 04/20/2024 12:51 PM CDT Copied from [facility] #[id number]. Topic: CPA Information Request - Order or Referral Request >> Apr 20, 2024 12:50 PM Pato Campos wrote: Caller is requesting: New Lab Line Palletizer Name: Jessica Saldana Patient/Caregiver Callback Number: Telephone Information: Order: Blood work Reason for Request: For upcoming appointment on 04/24/24 documented in this encounter Plan of Treatment Upcoming Encounters Date Type Department Care Team (Late st Contact Info) Description 04/26/2025 1:20 PM CDT Office Visit [facility] Primary Care - [facility], [place] [place] [place] [address] Philipp Pizarro MD 1000 [facility] [address] [place], [place] documented as of this encounter Procedures Procedure Name Priority Date/Time Associated Diagnosis Comments TSH REFLEXIVE Routine 04/22/2024 8:40 AM CDT Type 2 diabetes mellitus with hyperglycemia, without long-term current use of insulin (CMS/HCC) CBC WITH DIFFERENTIAL Routine 04/22/2024 8:40 AM CDT Type 2 diabetes mellitus with hyperglycemia, without long-term current use of insulin ([facility]/HCC) HEMOGLOBIN A1C Routine 04/22/2024 8:40 AM CDT Type 2 diabetes mellitus with hyperglycemia, without long-term current use of insulin ([facility]) LIPID PANEL Routine 04/22/2024 8:40 AM CDT Type 2 diabetes mellitus with hyperglycemia, without long-term current use of insulin ([facility]) COMPREHENSIVE METABOLIC PANEL Routine 04/22/2024 8:40 AM CDT Type 2 diabetes mellitus with hyperglycemia, without long-term current use of insulin ([facility]) documented in this encounter Results * TSH REFLEXIVE (04/22/2024 8:40 AM CDT) TSH 2.61 0.40 - 4.50 mIU/L [facility] Comment: FASTING:YES FASTING: YES Test Performed at: [place] [address] [address] [place] [id number] Moy Goldberg Blood 04/22/2024 8:40 AM CDT 04/22/2024 8:41 AM CDT us Philipp Pizarro MD CHEMISTRY ORDERABLES Final Result [facility] [phone] [place] [address] [address] [place] [id number] * (ABNORMAL) LIPID PANEL (04/22/2024 8:40 AM CDT) CHOLESTEROL 155 <200 mg/dL [facility] HDL 54 > OR = 50 mg/dL [facility] TRIGLYCERIDE 190(H) <150 mg/dL [facility] LDL CALCULATED 73 mg/dL (calc) [facility] Comment: Reference range: <100 Desirable range <100 mg/dL for primary prevention; <70 mg/dL for patients with CHD or diabetic patients with > or = 2 CHD risk factors. LDL-C is now calculated using the Shamir calculation, which is a validated novel method providing better accuracy than the Friedewald equation in the estimation of LDL-C. Danilo MARIE et al. MARIEL. 2013;310(19): 8211-1148 (http://education.SIFTSORT.COM/faq/PSL115) CHOL/HDL RATIO 2.9 <5.0 (calc) [facility] Borrego NON-HDL CHOLESTEROL 101 <130 mg/dL (calc) [facility] Comment: For patients with diabetes plus 1 major ASCVD risk factor, treating to a non-HDL-C goal of <100 mg/dL (LDL-C of <70 mg/dL) is considered a therapeutic option. Test Performed at: [place] [address] [address] [place] [id number] Moy Goldberg Blood 04/22/2024 8:40 AM CDT 04/22/2024 8:41 AM CDT Philipp Pizarro MD CHEMISTRY ORDERABLES Final Result [facility] [phone] [place] [address] [address] [place] [id number] * (ABNORMAL) HEMOGLOBIN A1C (04/22/2024 8:40 AM CDT) HEMOGLOBIN A1C 6.8(H) <5.7 % of total Hgb [facility] carlin Borrego Comment: For someone without known diabetes, [...] children. ESTIMATED AVERAGE GLUCOSE (MG/DL) 148 mg/dL [facility]issa [facility] ESTIMATED AVERAGE GLUCOSE (MMOL/L) 8.2 mmol/L [facility] Comment: This test was performed on the Rashid feliciano c503 platform. Effective 10/14/23, a change in test platforms from the Carrasquillo C Python Developer to the Rashid feliciano c503 may have shifted HbA1c results compared to historical results. Based on laboratory validation testing conducted at [facility], the Rashid platform relative to the Carrasquillo [...] recommended. FASTING:YES FASTING: YES Test Performed at: [place] [address] [address] [place] [id number] Moy Ibarra Blood 04/22/2024 8:40 AM CDT 04/22/2024 8:41 AM CDT Philipp Pizarro MD CHEMISTRY ORDERABLES Final Result [facility] [phone] [place] [address] [address] [place] [id number] * (ABNORMAL) COMPREHENSIVE METABOLIC PANEL (04/22/2024 8:40 AM CDT) GLUCOSE 135(H) 65 - 99 mg/dL [facility] Borrego Comment: Fasting reference interval For someone without known diabetes, a glucose value >125 mg/dL indicates that they may have diabetes and this should be confirmed with a follow-up test. BUN 15 7 - 25 mg/dL [facility] CREATININE 0.54(L) 0.60 - 1.00 mg/dL [facility] GFR 96 > OR = 60 mL/min/1. 73m2 [facility] Bor[facility] BUN/CREAT RATIO 28(H) 6 - 22 (calc) [facility] SODIUM 138 135 - 146 mmol/L [facility] POTASSIUM 3.8 3.5 - 5.3 mmol/L [facility] CHLORIDE 100 98 - 110 mmol/L [facility] CO2 32 20 - 32 mmol/L [facility] CALCIUM 10.1 8.6 - 10.4 mg/dL [facility] TOTAL PROTEIN 6.6 6.1 - 8.1 g/dL [facility] ALBUMIN 4.4 3.6 - 5.1 g/dL [facility] GLOBULIN 2.2 1.9 - 3.7 g/dL (calc) [facility] ALBUMIN/GLOBULIN RATIO 2.0 1.0 - 2.5 (calc) [facility] BILIRUBIN TOTAL 0.5 0.2 - 1.2 mg/dL [facility] ALKALINE PHOSPHATASE 40 37 - 153 U/L [facility] AST 15 10 - 35 U/L [facility] ALT 19 6 - 29 U/L [facility] Bor[facility] Comment: FASTING:YES FASTING: YES Test Performed at: [facility] [place] [address] [place] [address] Moy Ibarra Blood 04/22/2024 8:40 AM CDT 04/22/2024 8:41 AM CDT Philipp Pizarro MD CHEMISTRY ORDERABLES Final Result [facility] [phone] [facility] [place] [address] [place] [address] * CBC WITH DIFFERENTIAL (04/22/2024 8:40 AM CDT) WBC 6.2 3.8 - 10.8 Thousand/u L [facility] RBC 4.67 3.80 - 5.10 Million/uL [facility] HEMOGLOBIN 14.3 11.7 - 15.5 g/dL [facility] [place] HEMATOCRIT 44.2 35.0 - 45.0 % [facility] MCV 94.6 80.0 - 100.0 fL [facility] MCH 30.6 27.0 - 33.0 pg [facility] MCHC 32.4 32.0 - 36.0 g/dL [facility] RDW 12.6 11.0 - 15.0 % [facility] PLATELETS 187 140 - 400 Thousand/u L [facility] MPV 10.7 7.5 - 12.5 fL [facility] NEUTROPHIL ABSOLUTE 3,652 1,500 - 7,800 cells/uL [facility] LYMPHOCYTE ABSOLUTE 1,854 850 - 3,900 cells/uL [facility] MONOCYTE ABSOLUTE 465 200 - 950 cells/uL [facility] EOSINOPHIL ABSOLUTE 211 15 - 500 cells/uL [facility] BASOPHILS ABSOLUTE 19 0 - 200 cells/uL [facility] NEUTROPHIL 58.9 % [facility] LYMPHOCYTES 29.9 % [facility] MONOCYTE 7.5 % [facility] EOSINOPHILS 3.4 % [facility] BASOPHILS 0.3 % [facility] Comment: FASTING:YES FASTING: YES Test Performed at: [place] [address] [place] [address] Moy Ibarra Blood 04/22/2024 8:40 AM CDT 04/22/2024 8:41 AM CDT us Philipp Pizarro MD HEMATOLOGY ORDERABLE S Final Result [facility] [phone] [place] [address] [place] [address] documented in this encounter Visit Diagnoses Diagnosis Type 2 diabetes mellitus with hyperglycemia, without long-term current use of insulin ([facility])- Primary documented in this encounter Additional Health Concerns Assessment Noted Time PHQ-9 Depression Total Score: 1 10/22/19 24 11:05 AM CDT documented as of this encounter Care Teams Mechanic Helper Relationship Specialty Start Date End Date Philipp Pizarro MD [address] [place] [phone] PCP - General Internal Medicine 08/21/13 documented as of this encounter
--- OUTSIDE RECORDS SUMMARY | 2025-04-11 15:04 | XMS_ITS | Encounter Summary ---
Author Organization [facility] Healthcare Address [address] [place] [address] Care Team Providers Care Video Game Creator Name Role Phone Philipp Pizarro MD Primary Care Provid er Encounter Details Date Type Department Care Team (Late st Contact Info) Description 04/11/[address] [facility] Medical Group [facility] [address] [place] [address] Obinna Sullivan NP 2 [facility] [address] [place], [place] [phone] Social History Tobacco Use Types Packs/Day Years Used Date Smoking Tobacco: Never Assessed Comments Unknown Sex and Gender Information Value Date Recorded Sex Assigned at Not on file Legal Sex Female 5:01 PM ASTROPHYSICS PROFESSOR Gender Identity Not on file Sexual Orientation Not on file documented as of this encounter Plan of Treatment Not on file documented as of this encounter Visit Diagnoses Not on filedocumented in this encounter Care Teams Video Game Creator Relationship Specialty Start Date End Date Philipp Pizarro MD [address] [facility] [address] [place] [address] PCP - General Internal Medicine 10/13/23 documented as of this encounter
--- OUTSIDE RECORDS SUMMARY | 2025-04-11 15:04 | XMS_ITS | Clinical Summary ---
Author Organization [facility] [address] Address [address] [place] [address] Care Team Providers Care Tombstone Erector Name Role Phone Philipp Pizarro MD Primary Care Provid er Allergies No known active allergies Medications calcium carbonate-vitami n D3 1,250mg (500mg elemental) - 5 mcg (200 units) per tablet Take 1 tablet by mouth Active cholecalciferol (VITAMIN D-3) 2000 unit capsule Take 2 capsules (4,000 Units total) by mouth daily 1 Active hydroCHLOROthiaz walker (HYDRODIURIL) 25 mg tablet Take 1 tablet (25 mg total) by mouth daily Active lisinopriL (PRINIVIL,ZESTRI L) 40 mg tablet Take 1 tablet (40 mg total) by mouth daily Active metFORMIN XR (GLUCOPHAGE XR) 500 mg 24 hr tablet Take 2 tablets (1,000 mg total) by mouth 3 Active metoprolol XL (TOPROL-XL) 50 mg extended release tablet Take 1 tablet (50 mg total) by mouth daily Active predniSONE (DELTASONE) 5 mg tablet Take 1 tablet (5 mg) by mouth 4 Active psyllium 0.52 gram capsule Take 1 capsule (0.52 g total) by mouth daily 1 Active risedronate (ACTONEL) 150 mg tablet Take 1 tablet (150 mg total) by mouth every 4 (four) weeks 3 Active rosuvastatin (CRESTOR) 10 mg tablet TAKE 1 TABLET BY MOUTH ON MONDAYS, WEDNESDAYS AND Fridays 4 Active cephalexin (KEFLEX) 500 mg capsule 4 Active empagliflozin (JARDIANCE) 25 mg tablet Take 1 tablet (25 mg total) by mouth daily 4 Active nitrofurantoin monohydrate (MACROBID) 100 mg capsule 4 Active Active Problems Problem Noted Date Diagnosed Date COVID-19 08/01/2021 Hyperparathyroidism 08/07/2015 Colon polyp 08/21/2013 Anxiety state 01/04/2012 Essential hypertension 01/04/2012 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 Mixed dyslipidemia 04/06/2011 Type 2 diabetes mellitus with hyperglycemia 03/2011 Encounters Date Type Department Care Team Description 04/11/2025 Telephone [facility] Medical Group [facility] at [address] [address] Obinna Sullivan NP from Last 3 Months Social History Tobacco Use Types Packs/Day Years Used Date Smoking Tobacco: Never Assessed Comments Unknown Sex and Gender Information Value Date Recorded Sex Assigned at Not on file Legal Sex Female 5:01 PM TELETYPEWRITER INSTALLER Gender Identity Not on file Sexual Orientation Not on file Obstetrics History Last Filed Vital Signs Vital Sign Reading Time Taken Comments Blood Pressure 140/76 10/26/2024 1:54 PM CDT Pulse 71 10/26/2024 1:54 PM CDT Temperature 36.6 C (97.8 F) 10/26/2024 1:54 PM CDT Respiratory Rate 20 10/26/2024 1:54 PM CDT Oxygen Saturation 97% 10/26/2024 1:54 PM CDT Inhaled Oxygen Concentration - - Weight 71.2 kg (157 lb) 10/26/2024 1:54 PM CDT Height 160 cm (5' 3) 02/22/2024 4:33 PM CDT Body Mass Index 27.81 02/22/2024 4:33 PM CDT Plan of Treatment Health Maintenance Due Date Last Done Comments Albumin Creatinine Ratio, Urine 1948 Depression Screening 1948 Fall Risk Assessment 1948 Hepatitis C Screening 1950 eGFR 1948 Dilated Eye Exam 1948 Foot Exam 1948 Lipid Panel 1948 Hepatitis B Screening 1966 Zoster Vaccine (2 of 3) 03/24/2013 01/27/2013 Well Visit 65+ 2013 DTaP/Tdap/Td Vaccine (2 - Td or Tdap) 09/25/2017 09/26/2007, 04/18/1995 Hemoglobin A1C 10/20/2024 04/22/2024, 12/28, 10/22/2023, Additional history exists Covid-19 Vaccine (3 - 2024-2 6 season) 2025 11/19/2020, 09/29/2020 Influenza Vaccine (#1) 2025 , 05/11/2021, 07/04/2019, Additional history exists Osteoporosis Screening-Bone Density Scan 06/02/2026 06/02/2024, 06/02/2024, 12/06/2022, Additional history exists Pneumococcal vaccine 65+ Completed 07/20/2015, 02/26 Breast Cancer Screening-Mammogram Discontinued 05/18/2024, 03/05/2023, 03/05/2023, Additional history exists Insurance [employer] PPO Care Teams Tombstone Erector Relationship Specialty Start Date End Date Philipp Pizarro MD [address] [address] PCP - General Internal Medicine 10/13/23
--- OUTSIDE RECORDS SUMMARY | 2025-04-11 15:04 | XMS_ITS | Encounter Summary ---
Author Organization [facility] Address [address] [place] [address] Care Team Providers Care Bucket Operator Name Role Phone Philipp Pizarro MD Primary Care Provid er Reason for Visit * Reason Onset Date Comments Results 02/01/2017 Encounter Details Date Type Department Care Team (Late st Contact Info) Description 02/01/2017 Telephone [facility] Endocrinology [address] [place] [address] Debra Roe MD [address] [place] [address] Results Social History Tobacco Use Types Packs/Day Years Used Date Smoking Tobacco: Former Cigarettes Q uit: 11/11/1983 Smokeless Tobacco: Never Alcohol Use Standard Drinks/Week Comments No 0 (1 standard drink = 0.6 oz pur e alcohol) Comments No Sex and Gender Information Value Date Recorded Sex Assigned at Not on file Legal Sex Female 3:43 AM FOREST PRODUCTS GATHERER Gender Identity Not on file Sexual Orientation Not on file Occupation Industry Job Start Date Job End Date Not on file Not on file Not on file Not on file documented as of this encounter Miscellaneous Notes * Telephone Encounter - Roxie Handleyskye Langford - 02/01/2017 3:41 PM CDT Talked to pt about results * Telephone Encounter - Donna Handley - 02/01/2017 3:40 PM CDT ----- Message from Debra Roe MD sent at 02/01/2017 3:20 PM CDT ----- Urine test for adrenal hormones not elevated . documented in this encounter Plan of Treatment Upcoming Encounters Date Type Department Care Team (Late st Contact Info) Description 04/26/2025 1:20 PM CDT Office Visit [facility] Primary Care - [facility], [address] [address] Philipp Pizarro MD [address] [place] [address] documented as of this encounter Visit Diagnoses Not on filedocumented in this encounter Additional Health Concerns Infection Onset Date Last Indicated Resolved Time R/O COVID-19 03/07/2020 03/07/2020 03/09/2020 4:45 AM CDT COVID-19 07/31/2021 07/31/2021 08/30/2021 1:16 AM FOREST PRODUCTS GATHERER documented as of this encounter Care Teams Bucket Operator Relationship Specialty Start Date End Date Philipp Pizarro MD [address] [place] [phone] PCP - General Internal Medicine 08/21/13 documented as of this encounter
[2025-04-11 15:28] LABS: Hematocrit 44.6 % (37.0-47.0); Hemoglobin 14.9 g/dL (12.0-15.0); Immature Granulocyte Percent A 0.3 % (0-0.5); Lymphocytes Absolute Auto 2.76 K/mm3 (0.9-3.2); Mean Corpuscular HGB Conc 33.4 g/dl (32-36); Mean Corpuscular Hemoglobin 30.1 pg (26-34); Mean Corpuscular Volume 90.1 fl (80-100); Nucleated Red Blood Cells Absolute Auto 0.000 K/mm3 (0.0-0.012); Nucleated Red Blood Cells Perc 0.0 % (0.0-0.2); Platelet Count Result 202 k/mm3 (150-375); Red Blood Count 4.95 M/mm3 (4.2-5.4); White Blood Count 7.9 K/mm3 (4.5-10.0)
[2025-04-11 15:44] LABS: INR 1.0; Prothrombin Time 12.9 Seconds (11.1-14.7)
[2025-04-11 15:45] LABS: Partial Thromboplastin Time 29.9 Seconds (22.3-36.8)
[2025-04-11 15:47] LABS: Alanine Aminotransferase 22 U/L (6-35); Albumin Level 4.6 g/dL (3.5-5.1); Alkaline Phosphatase 68 U/L (38-126); Anion Gap 7 mmol/L (4-12); Aspartate Amino Transferase 24 U/L (14-36); Bilirubin,Total 0.5 mg/dL (0.2-1.3); Blood Urea Nitrogen 13 mg/dL (7-17); Calcium 10.4 mg/dL (8.4-10.2); Carbon Dioxide 29 mmol/L (22-30); Chloride 101 mmol/L (98-107); Estimated CRCL calculation 66 ml/min; Estimated Glomerular Filt Rate > 60; Glucose 133 mg/dL (65-110); Lipase 91 U/L (23-300); Potassium 3.6 mmol/L (3.4-5.0); Sodium 137 mmol/L (137-145); Total Protein 7.7 g/dL (6.3-8.2)
--- OUTSIDE RECORDS SUMMARY | 2025-04-11 15:54 | XMS_ITS | Encounter Summary ---
Author Organization [facility] Address [address] [facility] Attn: Epic Prelude ADT SAYRA GUERRERO BLANCA [address] Care Team Providers Care Skate Maker Name Role Phone Philipp Pizarro MD Primary Care Provid er Encounter Details Date Type Department Care Team (Late st Contact Info) Description 06/21/1998 Outpatient Historical Naldo Santos Social History Tobacco Use Types Packs/Day Years Used Date Smoking Tobacco: Never Assessed Comments Unknown Sex and Gender Information Value Date Recorded Sex Assigned at Not on file Legal Sex Female 3:43 AM BERRY PICKER MACHINE OPERATOR Gender Identity Not on file Sexual Orientation Not on file documented as of this encounter Plan of Treatment Upcoming Encounters Date Type Department Care Team (Late st Contact Info) Description 04/26/2025 1:20 PM CDT Office Visit [facility] Primary Care - [facility], [facility] [address] [place] [address] [address] [address] Philipp Pizarro MD [address] [place] [address] [place] [phone] documented as of this encounter Visit Diagnoses Not on filedocumented in this encounter Additional Health Concerns Infection Onset Date Last Indicated Resolved Time R/O COVID-19 03/07/2020 03/07/2020 03/09/2020 4:45 AM CDT COVID-19 07/31/2021 07/31/2021 08/30/2021 1:16 AM BERRY PICKER MACHINE OPERATOR documented as of this encounter Care Teams Skate Maker Relationship Specialty Start Date End Date Philipp Pizarro MD [address] [place] [phone] PCP - General Internal Medicine 08/21/13 documented as of this encounter
--- OUTSIDE RECORDS SUMMARY | 2025-04-11 15:54 | XMS_ITS | Encounter Summary ---
Author Organization [email or web address] Address [address] [place] [address] Care Team Providers Care Information Strategist Name Role Phone Philipp Pizarro MD Primary Care Provid er Encounter Details Date Type Department Care Team (Late st Contact Info) Description 09/13/2004 Outpatient Historical [facility], [address] Naldo Santos Social History Tobacco Use Types Packs/Day Years Used Date Smoking Tobacco: Never Assessed Comments Unknown Sex and Gender Information Value Date Recorded Sex Assigned at Not on file Legal Sex Female 3:43 AM TOY PARTS FORMER SUPERVISOR Gender Identity Not on file Sexual Orientation Not on file documented as of this encounter Plan of Treatment Upcoming Encounters Date Type Department Care Team (Late st Contact Info) Description 04/26/2025 1:20 PM CDT Office Visit [facility] Primary Care - [facility], [facility] [address] [place] [address] [address] [address] Philipp Pizarro MD [address] [place] [address] [place] [phone] documented as of this encounter Procedures Procedure Name Priority Date/Time Associated Diagnosis Comments CBC WITH DIFFERENTIAL Routine 09/13/2004 10:55 AM TOY PARTS FORMER SUPERVISOR CBC WITH DIFFERENTIAL Routine 09/13/2004 10:55 AM TOY PARTS FORMER SUPERVISOR LIPID PANEL Routine 09/13/2004 10:55 AM TOY PARTS FORMER SUPERVISOR COMPREHENSIVE METABOLIC PANEL Routine 09/13/2004 10:55 AM TOY PARTS FORMER SUPERVISOR documented in this encounter Results * CBC WITH DIFFERENTIAL (09/13/2004 10:55 AM TOY PARTS FORMER SUPERVISOR) NEUTROPHILS 66 45 - 70 % INTERFAC [...] K/uL INTERFACE SYSTEM 09/13/2004 10:5 5 AM TOY PARTS FORMER SUPERVISOR us Naldo Santos HEMATOLOGY ORDERABLES Final Res ult INTERFACE SYSTEM Refer to clinic/hospital department * CBC WITH DIFFERENTIAL (09/13/2004 10:55 AM TOY PARTS FORMER SUPERVISOR) WBC 6.8 4.0 - 9.8 K/uL INTERFACE [...] fL INTERFACE SYSTEM 09/13/2004 10:5 5 AM TOY PARTS FORMER SUPERVISOR us Naldo Santos HEMATOLOGY ORDERABLES Final Res ult INTERFACE SYSTEM Refer to clinic/hospital department * (ABNORMAL) LIPID PANEL (09/13/2004 10:55 AM TOY PARTS FORMER SUPERVISOR) CHOLESTEROL 204(H) 100 - 199 mg/dL INTERFACE [...] 129 High >=130 09/13/2004 10:5 5 AM TOY PARTS FORMER SUPERVISOR us Naldo Santos CHEMISTRY ORDERABLES Final Resu lt Performing Organization Address City/[facility]/ZIP Co de Phone Number INTERFACE SYSTEM Refer to clinic/hospital department * (ABNORMAL) COMPREHENSIVE METABOLIC PANEL (09/13/2004 10:55 AM TOY PARTS FORMER SUPERVISOR) GLUCOSE 114(H) 65 - 109 mg/dL INTERFACE [...] mmol/L INTERFACE SYSTEM 09/13/2004 10:5 5 AM TOY PARTS FORMER SUPERVISOR us Naldo Santos CHEMISTRY ORDERABLES Final Resu lt INTERFACE SYSTEM Refer to clinic/hospital department documented in this encounter Visit Diagnoses Not on filedocumented in this encounter Additional Health Concerns Infection Onset Date Last Indicated Resolved Time R/O COVID-19 03/07/2020 03/07/2020 03/09/2020 4:45 AM CDT COVID-19 07/31/2021 07/31/2021 08/30/2021 1:16 AM TOY PARTS FORMER SUPERVISOR documented as of this encounter Care Teams Information Strategist Relationship Specialty Start Date End Date Philipp Pizarro MD [address] [place] [phone] PCP - General Internal Medicine 08/21/13 documented as of this encounter
--- OUTSIDE RECORDS SUMMARY | 2025-04-11 15:54 | XMS_ITS | Encounter Summary ---
Author Organization [facility] Address [address] [place] [address] Care Team Providers Care Wood Heel Flap Trimmer Name Role Phone Philipp Pizarro MD Primary Care Provid er Encounter Details Date Type Department Care Team (Late st Contact Info) Description 09/13/2004 Outpatient Historical [facility], [address] Naldo Santos Social History Tobacco Use Types Packs/Day Years Used Date Smoking Tobacco: Never Assessed Comments Unknown Sex and Gender Information Value Date Recorded Sex Assigned at Not on file Legal Sex Female 3:43 AM GIS MAPPING TECHNICIAN Gender Identity Not on file Sexual Orientation Not on file documented as of this encounter Plan of Treatment Upcoming Encounters Date Type Department Care Team (Late st Contact Info) Description 04/26/2025 1:20 PM CDT Office Visit [facility] Primary Care - [facility], [facility] [address] [place] [address] Rd[address] [address] Philipp Pizarro MD [address] [place] [address] [place] [phone] documented as of this encounter Procedures Procedure Name Priority Date/Time Associated Diagnosis Comments URINALYSIS WITH MICROSCOPIC Routine 09/13/2004 10:55 AM GIS MAPPING TECHNICIAN documented in this encounter Results * (ABNORMAL) URINALYSIS WITH MICROSCOPIC (09/13/2004 10:55 AM GIS MAPPING TECHNICIAN) COLOR UA Yellow INTERFACE SYSTEM CLARITY [...] /HPF INTERFACE SYSTEM 09/13/2004 10:5 5 AM GIS MAPPING TECHNICIAN us Naldo Santos URINE ORDERABLES Final Result INTERFACE SYSTEM Refer to clinic/hospital department documented in this encounter Visit Diagnoses Not on filedocumented in this encounter Additional Health Concerns Infection Onset Date Last Indicated Resolved Time R/O COVID-19 03/07/2020 03/07/2020 03/09/2020 4:45 AM CDT COVID-19 07/31/2021 07/31/2021 08/30/2021 1:16 AM GIS MAPPING TECHNICIAN documented as of this encounter Care Teams Wood Heel Flap Trimmer Relationship Specialty Start Date End Date Philipp Pizarro MD [address] [place] [phone] PCP - General Internal Medicine 08/21/13 documented as of this encounter
--- OUTSIDE RECORDS SUMMARY | 2025-04-11 15:54 | XMS_ITS | Encounter Summary ---
Author Organization [facility] Address [address] [place] [address] Care Team Providers Care Die Maintenance Name Role Phone Philipp Pizarro MD Primary Care Provid er Encounter Details Date Type Department Care Team (Latest Contact Info) Description 12/31/2002 Outpatient Historical HIS [facility] Naldo Devine SCREENING MAMM-MAILG NEOPL-OTHER (Primary Dx) Social History Tobacco Use Types Packs/Day Years Used Date Smoking Tobacco: Never Assessed Comments Unknown Sex and Gender Information Value Date Recorded Sex Assigned at Not on file Legal Sex Female 3:43 AM RADIOLOGICAL EQUIPMENT SPECIALIST Gender Identity Not on file Sexual Orientation Not on file documented as of this encounter Plan of Treatment Upcoming Encounters Date Type Department Care Team (Late st Contact Info) Description 04/26/2025 1:20 PM CDT Office Visit [facility] Primary Care - [facility], Frank [address] [place] [address] [address] [address] Philipp Pizarro MD [address] [place] [address] [place] [phone] documented as of this encounter Visit Diagnoses Diagnosis Other screening mammogram- Primary documented in this encounter Additional Health Concerns Infection Onset Date Last Indicated Resolved Time R/O COVID-19 03/07/2020 03/07/2020 03/09/2020 4:45 AM CDT COVID-19 07/31/2021 07/31/2021 08/30/2021 1:16 AM RADIOLOGICAL EQUIPMENT SPECIALIST documented as of this encounter Care Teams Die Maintenance Relationship Specialty Start Date End Date Philipp Pizarro MD [address] [phone] PCP - General Internal Medicine 08/21/13 documented as of this encounter
--- OUTSIDE RECORDS SUMMARY | 2025-04-11 15:54 | XMS_ITS | Encounter Summary ---
Author Organization [facility] Address [address] [place] [address] Care Team Providers Care Crowd Controller Name Role Phone Philipp Pizarro MD Primary Care Provid er Encounter Details Date Type Department Care Team (Latest Contact Info) Description 08/28/2005 Outpatient Historical HIS [facility] Naldo Devine SCREENING MAMM-MALIG NEOPL-HI RISK (Primary Dx) Social History Tobacco Use Types Packs/Day Years Used Date Smoking Tobacco: Never Assessed Comments Unknown Sex and Gender Information Value Date Recorded Sex Assigned at Not on file Legal Sex Female 3:43 AM BOBBIN MARKER Gender Identity Not on file Sexual Orientation Not on file documented as of this encounter Plan of Treatment Upcoming Encounters Date Type Department Care Team (Late st Contact Info) Description 04/26/2025 1:20 PM CDT Office Visit [facility] Primary Care - [facility], Frank [address] [place] [address] Rd[address] [address] Philipp Pizarro MD [address] [place] [address] [place] [phone] documented as of this encounter Visit Diagnoses Diagnosis Screening mammogram for high-risk patient- Primary documented in this encounter Additional Health Concerns Infection Onset Date Last Indicated Resolved Time R/O COVID-19 03/07/2020 03/07/2020 03/09/2020 4:45 AM CDT COVID-19 07/31/2021 07/31/2021 08/30/2021 1:16 AM BOBBIN MARKER documented as of this encounter Care Teams Crowd Controller Relationship Specialty Start Date End Date Philipp Pizarro MD [address] [place] [phone] PCP - General Internal Medicine 08/21/13 documented as of this encounter
--- OUTSIDE RECORDS SUMMARY | 2025-04-11 15:54 | XMS_ITS | Encounter Summary ---
Author Organization [facility] Address [address] [place] [address] Care Team Providers Care Surgical Services Director Name Role Phone Philipp Pizarro MD Primary Care Provid er Encounter Details Date Type Department Care Team (Latest Contact Info) Description 12/20/2000 Outpatient Historical HIS [facility] Naldo Devine Other screening mammogram (Primary Dx) Social History Tobacco Use Types Packs/Day Years Used Date Smoking Tobacco: Never Assessed Comments Unknown Sex and Gender Information Value Date Recorded Sex Assigned at Not on file Legal Sex Female 3:43 AM BANK PRESIDENT Gender Identity Not on file Sexual Orientation Not on file documented as of this encounter Plan of Treatment Upcoming Encounters Date Type Department Care Team (Late st Contact Info) Description 04/26/2025 1:20 PM CDT Office Visit [facility] Primary Care - [facility], [place] [address] [place] [address] [address] [address] Philipp Pizarro MD [address] [place] [address] [place] [phone] documented as of this encounter Visit Diagnoses Diagnosis Other screening mammogram- Primary documented in this encounter Additional Health Concerns Infection Onset Date Last Indicated Resolved Time R/O COVID-19 03/07/2020 03/07/2020 03/09/2020 4:45 AM CDT COVID-19 07/31/2021 07/31/2021 08/30/2021 1:16 AM BANK PRESIDENT documented as of this encounter Care Teams Surgical Services Director Relationship Specialty Start Date End Date Philipp Pizarro MD [address] [place] [phone] PCP - General Internal Medicine 08/21/13 documented as of this encounter
--- OUTSIDE RECORDS SUMMARY | 2025-04-11 15:54 | XMS_ITS | Encounter Summary ---
Author Organization [facility] Address [address] [place] [address] Care Team Providers Care Network Operations Center Technician Name Role Phone Philipp Pizarro MD Primary Care Provid er Encounter Details Date Type Department Care Team (Latest Contact Info) Description 09/11/2002 Outpatient Historical [facility] Naldo Santos SCREENING FOR OSTEOPOROSIS (Primary Dx) Social History Tobacco Use Types Packs/Day Years Used Date Smoking Tobacco: Never Assessed Comments Unknown Sex and Gender Information Value Date Recorded Sex Assigned at Not on file Legal Sex Female 3:43 AM CAREER TECHNICAL EDUCATION TEACHER Gender Identity Not on file Sexual Orientation Not on file documented as of this encounter Plan of Treatment Upcoming Encounters Date Type Department Care Team (Late st Contact Info) Description 04/26/2025 1:20 PM CDT Office Visit [facility] Primary Care - [facility], Frank [address] [place] [address] [address] [address] Philipp Pizarro MD [address] [place] [address] [place] [phone] documented as of this encounter Visit Diagnoses Diagnosis Special screening for osteoporosis- Primary documented in this encounter Additional Health Concerns Infection Onset Date Last Indicated Resolved Time R/O COVID-19 03/07/2020 03/07/2020 03/09/2020 4:45 AM CDT COVID-19 07/31/2021 07/31/2021 08/30/2021 1:16 AM CAREER TECHNICAL EDUCATION TEACHER documented as of this encounter Care Teams Network Operations Center Technician Relationship Specialty Start Date End Date Philipp Pizarro MD [address] [place] [phone] PCP - General Internal Medicine 08/21/13 documented as of this encounter
--- OUTSIDE RECORDS SUMMARY | 2025-04-11 15:54 | XMS_ITS | Encounter Summary ---
Author Organization [facility] Address [address] [facility] Attn: Epic Prelude ADT SAYRA GUERRERO BLANCA [address] Care Team Providers Care Interior Horticulturist Name Role Phone Philipp Pizarro MD Primary Care Provid er Encounter Details Date Type Department Care Team (Late st Contact Info) Description 04/18/1995 Outpatient Historical Naldo Santos Social History Tobacco Use Types Packs/Day Years Used Date Smoking Tobacco: Never Assessed Comments Unknown Sex and Gender Information Value Date Recorded Sex Assigned at Not on file Legal Sex Female 3:43 AM GROUND EQUIPMENT MECHANIC Gender Identity Not on file Sexual Orientation Not on file documented as of this encounter Plan of Treatment Upcoming Encounters Date Type Department Care Team (Late st Contact Info) Description 04/26/2025 1:20 PM CDT Office Visit [facility] Primary [facility] - [facility] [address] [place] [address] [address] [address] Philipp Pizarro MD [address] [place] [address] [place] [phone] documented as of this encounter Visit Diagnoses Not on filedocumented in this encounter Additional Health Concerns Infection Onset Date Last Indicated Resolved Time R/O COVID-19 03/07/2020 03/07/2020 03/09/2020 4:45 AM CDT COVID-19 07/31/2021 07/31/2021 08/30/2021 1:16 AM GROUND EQUIPMENT MECHANIC documented as of this encounter Care Teams Interior Horticulturist Relationship Specialty Start Date End Date Philipp Pizarro MD [address] [place] [phone] PCP - General Internal Medicine 08/21/13 documented as of this encounter
--- OUTSIDE RECORDS SUMMARY | 2025-04-11 15:54 | XMS_ITS | Encounter Summary ---
Author Organization [facility] Address [address] [place] [address] Care Team Providers Care Nuclear Unit Operator Name Role Phone Philipp Pizarro MD Primary Care Provid er Encounter Details Date Type Department Care Team (Latest Contact Info) Description 09/26/2007 Outpatient Historical [facility], [address] Naldo Santos Mononeuritis of Unspecified Site; Lumbago Social History Tobacco Use Types Packs/Day Years Used Date Smoking Tobacco: Never Assessed Comments Unknown Sex and Gender Information Value Date Recorded Sex Assigned at Not on file Legal Sex Female 3:43 AM HOSPITALIST NOCTURNIST PHYSICIAN Gender Identity Not on file Sexual Orientation Not on file documented as of this encounter Plan of Treatment Upcoming Encounters Date Type Department Care Team (Late st Contact Info) Description 04/26/2025 1:20 PM CDT Office Visit [facility] Primary Care - [facility], [address] [place] [address] [address] [address] Philipp Pizarro MD [address] [place] [address] [place] [phone] documented as of this encounter Procedures Procedure Name Priority Date/Time Associated Diagnosis Comments CBC WITH DIFFERENTIAL Routine 09/26/2007 10:36 AM HOSPITALIST NOCTURNIST PHYSICIAN TSH Routine 09/26/2007 10:36 AM HOSPITALIST NOCTURNIST PHYSICIAN HEMOGLOBIN A1C Routine 09/26/2007 10:36 AM HOSPITALIST NOCTURNIST PHYSICIAN VITAMIN B12 LEVEL Routine 09/26/2007 10: 36 AM HOSPITALIST NOCTURNIST PHYSICIAN LIPID PANEL Routine 09/26/2007 10:36 AM HOSPITALIST NOCTURNIST PHYSICIAN COMPREHENSIVE METABOLIC PANEL Routine 09/26/2007 10:36 AM HOSPITALIST NOCTURNIST PHYSICIAN documented in this encounter Results * VITAMIN B12 (09/26/2007 10:36 AM HOSPITALIST NOCTURNIST PHYSICIAN) VITAMIN B12 727 211 - 946 pg/mL [facility] Comment: It has been reported that between 5 to 10% of patients with values between 200 and 400 pg/mL may experience neuropsychiatric and hematologic abnormalities due to occult B12 deficiency. Less than 1% of patients with values above 400 pg/mL will have symptoms. Blood specimen (specimen) 09/26/2007 10:36 AM HOSPITALIST NOCTURNIST PHYSICIAN 09/26/2007 10:37 AM HOSPITALIST NOCTURNIST PHYSICIAN us Naldo Santos CHEMISTRY ORDERABLES Edited Performing Organization Address City/[facility]/ZIP Co de Phone Number [facility] [address] [facility] [place] [address] * TSH (09/26/2007 10:36 AM HOSPITALIST NOCTURNIST PHYSICIAN) TSH 2.01 0.27 - 4.20 uU/mL [facility] Blood specimen (specimen) 09/26/2007 10:36 AM HOSPITALIST NOCTURNIST PHYSICIAN 09/26/2007 10:36 AM HOSPITALIST NOCTURNIST PHYSICIAN Naldo Santos CHEMISTRY ORDERABLES Final Resu lt Performing Organization Address City/[facility]/ZIP Co de Phone Number [facility] [address] [facility] [place] [address] * (ABNORMAL) HEMOGLOBIN A1C (09/26/2007 10:36 AM HOSPITALIST NOCTURNIST PHYSICIAN) GLUCOSE, MEAN BLOOD 172 mg/dL [facility] HEMOGLOBIN A1C 7.0(H) 4.1 - 6.1 % of Hgb [facility] Blood specimen (specimen) 09/26/2007 10:36 AM HOSPITALIST NOCTURNIST PHYSICIAN 09/26/2007 10:36 AM HOSPITALIST NOCTURNIST PHYSICIAN Naldo Santos CHEMISTRY ORDERABLES Final Resu lt [facility] [address] [place], [place] [address] * (ABNORMAL) CBC WITH DIFFERENTIAL (09/26/2007 10:36 AM HOSPITALIST NOCTURNIST PHYSICIAN) [facility] RDW-STDEV 38.9 37.1 - 48.7 fL [facility] RBC 5.17(H) 3.90 - 4.90 M/uL [facility] MCHC 35.3 31.5 - 35.5 % [facility] MCV 85.5 82.0 - 99.0 fL [facility] PLATELETS 184 140 - 350 K/uL [facility] HEMOGLOBIN 15.6(H) 11.8 - 14.8 g/dL [facility] RDW 12.7 11.5 - 14.5 % [facility] WBC 5.9 4.0 - 9.8 K/uL [facility] MCH 30.2 27.2 - 32.6 pg [facility] MPV 11.0 9.3 - 12.4 fL [facility] HEMATOCRIT 44.2(H) 35.5 - 44.0 % [facility] MONOCYTES 7 3 - 13 % [facility] MONOCYTE ABSOLUTE 0.39 0.10 - 1.30 K/uL [facility] NEUTROPHILS 55 45 - 70 % [facility] NEUTROPHIL ABSOLUTE 3.23 1.90 - 7.00 K/uL [facility] EOSINOPHILS 2 0 - 7 % [facility] EOSINOPHIL ABSOLUTE 0.09 0.00 - 0.70 K/uL [facility] LYMPHOCYTES 37 16 - 45 % [facility] LYMPHOCYTE ABSOLUTE 2.16 0.70 - 4.50 K/uL [facility] BASOPHILS 0 0 - 2 % [facility] BASOPHILS ABSOLUTE 0.02 0.00 - 0.20 K/uL [facility] Blood specimen (specimen) 09/26/2007 10:36 AM HOSPITALIST NOCTURNIST PHYSICIAN 09/26/2007 10:36 AM HOSPITALIST NOCTURNIST PHYSICIAN us Naldo Santos HEMATOLOGY ORDERABLES Edited INTERFACE SYSTEM Refer to clinic/hospital department [facility] [address] [place] [address] * (ABNORMAL) LIPID PANEL (09/26/2007 10:36 AM HOSPITALIST NOCTURNIST PHYSICIAN) CHOL/HDL RATIO 4.5 2.0 - 5.0 [facility] HDL 56 40 - 59 mg/dL [facility] CHOLESTEROL 250(H) 100 - 199 mg/dL [facility] TRIGLYCERIDE 148 10 - 149 mg/dL [facility] LDL CALCULATED 164(H) <=99 mg/dL [facility] LIPID PANEL COMMENT See Below [facility] Comment: The adult ATP and pediatric NCEP classifications for lipids are available on the [facility] Intranet at: [email or web address] Select: Lab Policies and Procedures,Current Select: Lipid Panel Interpretation Blood specimen (specimen) 09/26/2007 10:36 AM HOSPITALIST NOCTURNIST PHYSICIAN 09/26/2007 10:36 AM HOSPITALIST NOCTURNIST PHYSICIAN us Naldo Santos CHEMISTRY ORDERABLES Edited [facility] [address] [place] [address] * (ABNORMAL) COMPREHENSIVE METABOLIC PANEL (09/26/2007 10:36 AM HOSPITALIST NOCTURNIST PHYSICIAN) POTASSIUM 3.7 3.5 - 4.9 mmol/L [facility] TOTAL PROTEIN 7.5 6.3 - 8.6 g/dL [facility] GLUCOSE 160(H) 65 - 99 mg/dL [facility] AST 23 12 - 32 U/L [facility] BUN 12 6 - 20 mg/dL [facility] CALCIUM 8.7 8.4 - 10.2 mg/dL [facility] ALBUMIN 4.6 3.4 - 4.8 g/dL [facility] CHLORIDE 102 96 - 108 mmol/L [facility] CREATININE 0.53 0.51 - 0.95 mg/dL [facility] ALT 35(H) 0 - 31 U/L [facility] SODIUM 138 135 - 145 mmol/L [facility] ALKALINE PHOSPHATASE 63 35 - 104 U/L [facility] CO2 25 22 - 30 mmol/L [facility] BILIRUBIN TOTAL 0.6 0.2 - 1.0 mg/dL [facility] GFR, >60 >=60 mL/min/1. 7 sq meter [facility] GFR >60 >=60 mL/min/1. 7 sq meter [facility] Comment: Estimated GFR rate interpretative information for both Americans and non- Americans is available on the [facility] Intranet at: [email or web address] Select: Lab Policies and Procedures Select: Reference Ranges - GFR Blood specimen (specimen) 09/26/2007 10:36 AM HOSPITALIST NOCTURNIST PHYSICIAN 09/26/2007 10:36 AM HOSPITALIST NOCTURNIST PHYSICIAN us Naldo Santos CHEMISTRY ORDERABLES Edited [facility] [address] [place] [address] documented in this encounter Visit Diagnoses Diagnosis Mononeuritis of unspecified site Lumbago documented in this encounter Additional Health Concerns Infection Onset Date Last Indicated Resolved Time R/O COVID-19 03/07/2020 03/07/2020 03/09/2020 4:45 AM CDT COVID-19 07/31/2021 07/31/2021 08/30/2021 1:16 AM HOSPITALIST NOCTURNIST PHYSICIAN documented as of this encounter Care Teams Nuclear Unit Operator Relationship Specialty Start Date End Date Philipp Pizarro MD [address] [place] [address] [place] [phone] PCP - General Internal Medicine 08/21/13 documented as of this encounter
--- OUTSIDE RECORDS SUMMARY | 2025-04-11 15:54 | XMS_ITS | Encounter Summary ---
Author Organization [facility] Address [address] [place] [address] Care Team Providers Care Hospital Security Officer Name Role Phone Philipp Pizarro MD Primary Care Provid er Encounter Details Date Type Department Care Team (Latest Contact Info) Description 09/26/2007 Outpatient Historical HIS [facility] Naldo Devine Other Screening Mammogram Social History Tobacco Use Types Packs/Day Years Used Date Smoking Tobacco: Never Assessed Comments Unknown Sex and Gender Information Value Date Recorded Sex Assigned at Not on file Legal Sex Female 3:43 AM MDS NURSE Gender Identity Not on file Sexual Orientation Not on file documented as of this encounter Plan of Treatment Upcoming Encounters Date Type Department Care Team (Late st Contact Info) Description 04/26/2025 1:20 PM CDT Office Visit [facility] Primary Care - [facility], [address] [place] [address] [address] [address] Philipp Pizarro MD [address] [place] [address] [place] [phone] documented as of this encounter Procedures Procedure Name Priority Date/Time Associated Diagnosis Comments MAMMO SCREEN BILAT W OR WO CAD Routine 09/26/2007 8:20 AM MDS NURSE documented in this encounter Results * MAMMO DIGITAL SCREEN BILAT (09/26/2007 8:20 AM MDS NURSE) Anatomical Region Laterality Modality Breast Bilateral Other 09/26/2007 8:20 AM MDS NURSE Narrative 09/26/2007 11:09 PM MDS NURSE [place] [address] [place], [place] [address] Admit Date: 09/26/2007 KRISTINA HUTSON Sex: F Admit Prov: NALOD SANTOS Date: 1950 Primary Care Prov: NALDO SANTOS; CMRN: [id number] NALDO SANTOS SSN: [id number] Room: [facility] Ordering Prov: NALDO SANTOS Accession Number: [id number] Interpretation BILATERAL SCREENING DIGITAL MAMMOGRAMS WITH COMPUTER [...] Procedure Note Shell Carreno MD - 09/26/[address] [address] Admit Date: 09/26/2007 KRISTINA HUTSON Sex: F Admit Prov: NALDO SANTOS J Date: 1950 Primary Care Prov: NALDO SANTOS; CMRN: [id number] NALDO SANTOS SSN: [id number] Room: [facility] Ordering Prov: NALDO [...] CDT COVID-19 07/31/2021 07/31/2021 08/30/2021 1:16 AM MDS NURSE documented as of this encounter Care Teams Hospital Security Officer Relationship Specialty Start Date End Date Philipp Pizarro MD [address] [place] [phone] PCP - General Internal Medicine 08/21/13 documented as of this encounter
--- OUTSIDE RECORDS SUMMARY | 2025-04-11 15:54 | XMS_ITS | Encounter Summary ---
Author Organization [facility] Address [address] [place] [address] Care Team Providers Care Clinical Services Manager Name Role Phone Philipp Pizarro MD Primary Care Provid er Encounter Details Date Type Department Care Team (Latest Contact Info) Description 09/11/2002 Outpatient Historical HIS [facility] Naldo Devine BACKACHE NOS (Primary Dx) Social History Tobacco Use Types Packs/Day Years Used Date Smoking Tobacco: Never Assessed Comments Unknown Sex and Gender Information Value Date Recorded Sex Assigned at Not on file Legal Sex Female 3:43 AM MODELING ANALYST Gender Identity Not on file Sexual Orientation Not on file documented as of this encounter Plan of Treatment Upcoming Encounters Date Type Department Care Team (Late st Contact Info) Description 04/26/2025 1:20 PM CDT Office Visit [facility] Primary Care - [facility], [address] [place] [address] [address] [address] Philipp Pizarro MD [address] [place] [address] [place] [phone] documented as of this encounter Visit Diagnoses Diagnosis Backache, unspecified- Primary documented in this encounter Additional Health Concerns Infection Onset Date Last Indicated Resolved Time R/O COVID-19 03/07/2020 03/07/2020 03/09/2020 4:45 AM CDT COVID-19 07/31/2021 07/31/2021 08/30/2021 1:16 AM MODELING ANALYST documented as of this encounter Care Teams Clinical Services Manager Relationship Specialty Start Date End Date Philipp Pizarro MD [address] [place] [phone] PCP - General Internal Medicine 08/21/13 documented as of this encounter
--- OUTSIDE RECORDS SUMMARY | 2025-04-11 15:54 | XMS_ITS | Encounter Summary ---
Author Organization [facility] Address [address] [place] [address] Care Team Providers Care Rigging Loft Mechanic Name Role Phone Philipp Pizarro MD Primary Care Provid er Encounter Details Date Type Department Care Team (Latest Contact Info) Description 12/02/2007 Outpatient Historical [facility] Naldo [place] Al[address], [address] [place] [address] DM w/o Complication Type II (CMS/HCC) Social History Tobacco Use Types Packs/Day Years Used Date Smoking Tobacco: Never Assessed Comments Unknown Sex and Gender Information Value Date Recorded Sex Assigned at Not on file Legal Sex Female 3:43 AM JOURNEYMAN POWERHOUSE OPERATOR Gender Identity Not on file Sexual Orientation Not on file documented as of this encounter Plan of Treatment Upcoming Encounters Date Type Department Care Team (Late st Contact Info) Description 04/26/2025 1:20 PM CDT Office Visit [facility] Primary Care - [facility], [address] [place] [address] Philipp Pizarro MD [address] [facility] [address] [place] [address] documented as of this encounter Visit Diagnoses Diagnosis Type II or unspecified type diabetes mellitus without mention of complication, not stated as uncontrolled documented in this encounter Additional Health Concerns Infection Onset Date Last Indicated Resolved Time R/O COVID-19 03/07/2020 03/07/2020 03/09/2020 4:45 AM CDT COVID-19 07/31/2021 07/31/2021 08/30/2021 1:16 AM JOURNEYMAN POWERHOUSE OPERATOR documented as of this encounter Care Teams Rigging Loft Mechanic Relationship Specialty Start Date End Date Philipp Pizarro MD [address] [place] [phone] PCP - General Internal Medicine 08/21/13 documented as of this encounter
--- OUTSIDE RECORDS SUMMARY | 2025-04-11 15:54 | XMS_ITS | Encounter Summary ---
Author Organization [facility] Address [address] [place] [address] Care Team Providers Care Lidder Name Role Phone Philipp Pizarro MD Primary Care Provid er Encounter Details Date Type Department Care Team (Late st Contact Info) Description 09/26/2007 Outpatient Historical HIS [facility] Naldo Devine Lumbago Social History Tobacco Use Types Packs/Day Years Used Date Smoking Tobacco: Never Assessed Comments Unknown Sex and Gender Information Value Date Recorded Sex Assigned at Not on file Legal Sex Female 3:43 AM HIGH SCHOOL BIOLOGY TEACHER Gender Identity Not on file Sexual Orientation Not on file documented as of this encounter Plan of Treatment Upcoming Encounters Date Type Department Care Team (Late st Contact Info) Description 04/26/2025 1:20 PM CDT Office Visit [facility] Primary Care - [facility], [address] [place] [address] [address] [address] Philipp Pizarro MD [address] [place] [address] [place] [phone] documented as of this encounter Procedures Procedure Name Priority Date/Time Associated Diagnosis Comments XR LUMBAR SPINE 4+ VW Routine 09/26/2007 9:59 AM HIGH SCHOOL BIOLOGY TEACHER documented in this encounter Results * XR LUMBAR SPINE 4+ VW (09/26/2007 9:59 AM HIGH SCHOOL BIOLOGY TEACHER) Anatomical Region Laterality Modality Spine Other 09/26/2007 9:59 AM HIGH SCHOOL BIOLOGY TEACHER Narrative 09/26/2007 10:10 AM HIGH SCHOOL BIOLOGY TEACHER [place] [address] [address] [place], [place] [address] Admit Date: 09/26/2007 KRISTINA HUTSON Sex: F Admit Prov: NALDO SANTOS Date: 1950 Primary Care Prov: NALDO SANTOS; CMRN: [id number] NALDO SANTOS SSN: [id number] Room: [facility] Ordering Prov: N/A Accession Number: [id number] Interpretation Examination: Lumbar spine 5 views Clinical History: Back pain. Findings: Examination of the lumbar spine fails to demonstrate fracture, dislocation, or subluxation. The disk spaces are preserved. The posterior elements are normal. Impression: Radiographically normal lumbar spine. . Dictated by: David RAIN 09/26/2007 10:10 Electronically signed by: David RAIN 09/26/2007 10:10 Procedure Note Provider, Historical - 09/26/[address] [address] Admit Date: 09/26/2007 KRISTINA HUTSON Sex: F Admit Prov: NALDO SANTOS Date: 1950 Primary Care Prov: NALDO SANTOS; CMRN: [id number] NALDO SANTOS SSN: [id number] Room: [facility] Ordering Prov: N/A Interpretation Examination: [...] CDT COVID-19 07/31/2021 07/31/2021 08/30/2021 1:16 AM HIGH SCHOOL BIOLOGY TEACHER documented as of this encounter Care Teams Lidder Relationship Specialty Start Date End Date Philipp Pizarro MD [address] [place] [phone] PCP - General Internal Medicine 08/21/13 documented as of this encounter
--- OUTSIDE RECORDS SUMMARY | 2025-04-11 15:54 | XMS_ITS | Encounter Summary ---
Author Organization [facility] Address [address] [place] [address] Care Team Providers Care Wind Turbine Mechanic Name Role Phone Philipp Pizarro MD Primary Care Provid er Encounter Details Date Type Department Care Team (Latest Contact Info) Description 10/24/2007 Outpatient Historical [facility] [address], [address] [place] [address] DM w/o Complication Type II (CMS/HCC) Social History Tobacco Use Types Packs/Day Years Used Date Smoking Tobacco: Never Assessed Comments Unknown Sex and Gender Information Value Date Recorded Sex Assigned at Not on file Legal Sex Female 3:43 AM BYPRODUCTS EXTRACTOR Gender Identity Not on file Sexual Orientation Not on file documented as of this encounter Plan of Treatment Upcoming Encounters Date Type Department Care Team (Late st Contact Info) Description 04/26/2025 1:20 PM CDT Office Visit [facility] Primary Care - [facility], [address] [place] [phone] Philipp Pizarro MD [address] [facility] [address] [place] [phone] documented as of this encounter Visit Diagnoses Diagnosis Type II or unspecified type diabetes mellitus without mention of complication, not stated as uncontrolled documented in this encounter Additional Health Concerns Infection Onset Date Last Indicated Resolved Time R/O COVID-19 03/07/2020 03/07/2020 03/09/2020 4:45 AM CDT COVID-19 07/31/2021 07/31/2021 08/30/2021 1:16 AM BYPRODUCTS EXTRACTOR documented as of this encounter Care Teams Wind Turbine Mechanic Relationship Specialty Start Date End Date Philipp Pizarro MD [address] [place] [phone] PCP - General Internal Medicine 08/21/13 documented as of this encounter
--- OUTSIDE RECORDS SUMMARY | 2025-04-11 15:54 | XMS_ITS | Encounter Summary ---
Author Organization [facility] Address [address] [place] [address] Care Team Providers Care Welding Process Specialist Name Role Phone Philipp Pizarro MD Primary Care Provid er Encounter Details Date Type Department Care Team (Late st Contact Info) Description 05/02/1999 Outpatient Historical [facility],NON-PATIENT DanielleNaldo Social History Tobacco Use Types Packs/Day Years Used Date Smoking Tobacco: Never Assessed Comments Unknown Sex and Gender Information Value Date Recorded Sex Assigned at Not on file Legal Sex Female 3:43 AM FOUNDRY HELPER Gender Identity Not on file Sexual Orientation Not on file documented as of this encounter Plan of Treatment Upcoming Encounters Date Type Department Care Team (Late st Contact Info) Description 04/26/2025 1:20 PM CDT Office Visit [facility] Primary Care - [facility] [address] [place] [address] [address] [address] Philipp Pizarro MD [address] [place] [address] [place] [phone] documented as of this encounter Visit Diagnoses Not on filedocumented in this encounter Additional Health Concerns Infection Onset Date Last Indicated Resolved Time R/O COVID-19 03/07/2020 03/07/2020 03/09/2020 4:45 AM CDT COVID-19 07/31/2021 07/31/2021 08/30/2021 1:16 AM FOUNDRY HELPER documented as of this encounter Care Teams Welding Process Specialist Relationship Specialty Start Date End Date Philipp Pizarro MD [address] [place] [phone] PCP - General Internal Medicine 08/21/13 documented as of this encounter
--- OUTSIDE RECORDS SUMMARY | 2025-04-11 15:54 | XMS_ITS | Encounter Summary ---
Author Organization [facility] Address [address] [place] [address] Care Team Providers Care Staff Antisubmarine Officer Name Role Phone Philipp Pizarro MD Primary Care Provid er Encounter Details Date Type Department Care Team (Latest Contact Info) Description 08/31/1998 Outpatient Historical HIS [facility] Nalod Santos Other and unspecified hyperlipidemia (Primary Dx) Social History Tobacco Use Types Packs/Day Years Used Date Smoking Tobacco: Never Assessed Comments Unknown Sex and Gender Information Value Date Recorded Sex Assigned at Not on file Legal Sex Female 3:43 AM CIGARETTE TESTER Gender Identity Not on file Sexual Orientation Not on file documented as of this encounter Plan of Treatment Upcoming Encounters Date Type Department Care Team (Late st Contact Info) Description 04/26/2025 1:20 PM CDT Office Visit [facility] Primary Care - [facility], [address] [place] [address] [address] [address] Philipp Pizarro MD [address] [place] [address] [place] [phone] documented as of this encounter Visit Diagnoses Diagnosis Other and unspecified hyperlipidemia- Primary documented in this encounter Additional Health Concerns Infection Onset Date Last Indicated Resolved Time R/O COVID-19 03/07/2020 03/07/2020 03/09/2020 4:45 AM CDT COVID-19 07/31/2021 07/31/2021 08/30/2021 1:16 AM CIGARETTE TESTER documented as of this encounter Care Teams Staff Antisubmarine Officer Relationship Specialty Start Date End Date Philipp Pizarro MD [address] [place] [phone] PCP - General Internal Medicine 08/21/13 documented as of this encounter
--- OUTSIDE RECORDS SUMMARY | 2025-04-11 15:54 | XMS_ITS | Encounter Summary ---
Author Organization [facility] Address [address] [place] [address] Care Team Providers Care Couture Alterations Dressmaker Name Role Phone Philipp Pizarro MD Primary Care Provid er Encounter Details Date Type Department Care Team (Latest Contact Info) Description 11/21/1999 Outpatient Historical HIS [facility] Naldo Devine Nonspecific abnormal findings on radiological or other examinations of the breast (Primary Dx) Social History Tobacco Use Types Packs/Day Years Used Date Smoking Tobacco: Never Assessed Comments Unknown Sex and Gender Information Value Date Recorded Sex Assigned at Not on file Legal Sex Female 3:43 AM FLOTATION OPERATOR Gender Identity Not on file Sexual Orientation Not on file documented as of this encounter Plan of Treatment Upcoming Encounters Date Type Department Care Team (Late st Contact Info) Description 04/26/2025 1:20 PM CDT Office Visit [facility] Primary Care - [facility], Frank [address] [place] [address] [address] [address] Philipp Pizarro MD [address] [place] [address] [place] [address] documented as of this encounter Visit Diagnoses Diagnosis Nonspecific abnormal findings on radiological or other examinations of the breast- Primary documented in this encounter Additional Health Concerns Infection Onset Date Last Indicated Resolved Time R/O COVID-19 03/07/2020 03/07/2020 03/09/2020 4:45 AM CDT COVID-19 07/31/2021 07/31/2021 08/30/2021 1:16 AM FLOTATION OPERATOR documented as of this encounter Care Teams Couture Alterations Dressmaker Relationship Specialty Start Date End Date Phliipp Pizarro MD [address] [place] [phone] PCP - General Internal Medicine 08/21/13 documented as of this encounter
--- OUTSIDE RECORDS SUMMARY | 2025-04-11 15:54 | XMS_ITS | Encounter Summary ---
Author Organization [facility] Address [address] [facility] Attn: Epic Prelude ADT ENO[place]ROXY [place]ERR[place] [address] Care Team Providers Care Dining Room Hostess Name Role Phone Philipp Pizarro MD Primary Care Provid er Encounter Details Date Type Department Care Team (Late st Contact Info) Description 01/21/1998 Outpatient Historical Conversion, History Naldo Santos Social History Tobacco Use Types Packs/Day Years Used Date Smoking Tobacco: Never Assessed Comments Unknown Sex and Gender Information Value Date Recorded Sex Assigned at Not on file Legal Sex Female 3:43 AM APARTMENT MAINTENANCE WORKER Gender Identity Not on file Sexual Orientation Not on file documented as of this encounter Plan of Treatment Upcoming Encounters Date Type Department Care Team (Late st Contact Info) Description 04/26/2025 1:20 PM CDT Office Visit [facility] Primary Care - [facility], [facility] [address] [place] [address] [address] [address] Philipp Pizarro MD [address] [place] [address] [place] [phone] documented as of this encounter Visit Diagnoses Not on filedocumented in this encounter Additional Health Concerns Infection Onset Date Last Indicated Resolved Time R/O COVID-19 03/07/2020 03/07/2020 03/09/2020 4:45 AM CDT COVID-19 07/31/2021 07/31/2021 08/30/2021 1:16 AM APARTMENT MAINTENANCE WORKER documented as of this encounter Care Teams Dining Room Hostess Relationship Specialty Start Date End Date Philipp Pizarro MD [address] [place] [phone] PCP - General Internal Medicine 08/21/13 documented as of this encounter
--- OUTSIDE RECORDS SUMMARY | 2025-04-11 15:54 | XMS_ITS | Encounter Summary ---
Author Organization [facility] Address [address] [place] [address] Care Team Providers Care Commutator Tester Name Role Phone Philipp Pizarro MD Primary Care Provid er Encounter Details Date Type Department Care Team (Late st Contact Info) Description 08/28/2005 Outpatient Historical [facility], [address] Naldo Santos Social History Tobacco Use Types Packs/Day Years Used Date Smoking Tobacco: Never Assessed Comments Unknown Sex and Gender Information Value Date Recorded Sex Assigned at Not on file Legal Sex Female 3:43 AM PURIFICATION OPERATOR HELPER Gender Identity Not on file Sexual Orientation Not on file documented as of this encounter Plan of Treatment Upcoming Encounters Date Type Department Care Team (Late st Contact Info) Description 04/26/2025 1:20 PM CDT Office Visit [facility] Primary Care - [facility], [facility] [address] [place] [address] [address] [address] Philipp Pizarro MD [address] [place] [address] [place] [phone] documented as of this encounter Procedures Procedure Name Priority Date/Time Associated Diagnosis Comments CBC WITH DIFFERENTIAL Routine 08/28/2005 10:45 AM PURIFICATION OPERATOR HELPER CBC WITH DIFFERENTIAL Routine 08/28/2005 10:45 AM PURIFICATION OPERATOR HELPER TSH Routine 08/28/2005 10:45 AM PURIFICATION OPERATOR HELPER LIPID PANEL Routine 08/28/2005 10:45 AM PURIFICATION OPERATOR HELPER COMPREHENSIVE METABOLIC PANEL Routine 08/28/2005 10:45 AM PURIFICATION OPERATOR HELPER documented in this encounter Results * CBC WITH DIFFERENTIAL (08/28/2005 10:45 AM PURIFICATION OPERATOR HELPER) NEUTROPHILS 57 45 - 70 % INTERFAC [...] K/uL INTERFACE SYSTEM 08/28/2005 10:4 5 AM PURIFICATION OPERATOR HELPER Naldo Santos HEMATOLOGY ORDERABLES Final Res ult INTERFACE SYSTEM Refer to clinic/hospital department * (ABNORMAL) CBC WITH DIFFERENTIAL (08/28/2005 10:45 AM PURIFICATION OPERATOR HELPER) WBC 5.7 4.0 - 9.8 K/uL INTERFACE [...] fL INTERFACE SYSTEM 08/28/2005 10:4 5 AM PURIFICATION OPERATOR HELPER Naldo Satnos HEMATOLOGY ORDERABLES Final Res ult Performing Organization Address City/[facility]/ZIP Co de Phone Number INTERFACE SYSTEM Refer to clinic/hospital department * TSH (08/28/2005 10:45 AM PURIFICATION OPERATOR HELPER) TSH 1.97 0.27 - 4.20 uU/mL INTERFACE SYSTEM 08/28/2005 10:4 5 AM PURIFICATION OPERATOR HELPER us Naldo Santos CHEMISTRY ORDERABLES Final Resu lt Performing Organization Address [facility] de Phone Number INTERFACE SYSTEM Refer to clinic/hospital department * (ABNORMAL) LIPID PANEL (08/28/2005 10:45 AM PURIFICATION OPERATOR HELPER) LIPID PANEL COMMENT See below INTERFACE SYSTEM [...] for risk classifications. 08/28/2005 10:4 5 AM PURIFICATION OPERATOR HELPER Naldo Santos CHEMISTRY ORDERABLES Final Resu lt Performing Organization Address [facility] Phone Number INTERFACE SYSTEM Refer to clinic/hospital department * (ABNORMAL) COMPREHENSIVE METABOLIC PANEL (08/28/2005 10:45 AM PURIFICATION OPERATOR HELPER) GLUCOSE 117(H) 65 - 109 mg/dL INTERFACE [...] mmol/L INTERFACE SYSTEM 08/28/2005 10:4 5 AM PURIFICATION OPERATOR HELPER Naldo Santos CHEMISTRY ORDERABLES Final Resu Performing Organization Address [facility] Phone Number INTERFACE SYSTEM Refer to clinic/hospital department documented in this encounter Visit Diagnoses Not on filedocumented in this encounter Additional Health Concerns Infection Onset Date Last Indicated Resolved Time R/O COVID-19 03/07/2020 03/07/2020 03/09/2020 4:45 AM CDT COVID-19 07/31/2021 07/31/2021 08/30/2021 1:16 AM PURIFICATION OPERATOR HELPER documented as of this encounter Care Teams Commutator Tester Relationship Specialty Start Date End Date Philipp Pizarro MD [address] [place] [address] [place] [phone] PCP - General Internal Medicine 08/21/13 documented as of this encounter
--- OUTSIDE RECORDS SUMMARY | 2025-04-11 15:54 | XMS_ITS | Encounter Summary ---
Author Organization [facility] Address [address] [place] [address] Care Team Providers Care Fur Sorter Name Role Phone Philipp Pizarro MD Primary Care Provid er Encounter Details Date Type Department Care Team (Late st Contact Info) Description 08/20/2006 Outpatient Historical [facility] [address] [place] [address] David Mckeon MD [address] [address] Social History Tobacco Use Types Packs/Day Years Used Date Smoking Tobacco: Never Assessed Comments Unknown Sex and Gender Information Value Date Recorded Sex Assigned at Not on file Legal Sex Female 3:43 AM DISHWASHER BUSSER Gender Identity Not on file Sexual Orientation Not on file documented as of this encounter Plan of Treatment Upcoming Encounters Date Type Department Care Team (Late st Contact Info) Description 04/26/2025 1:20 PM CDT Office Visit [facility] Primary Care - [facility], Frank. [address] [place] [address] Philipp Pizarro MD [address] [facility] [address] [place] [address] documented as of this encounter Visit Diagnoses Not on filedocumented in this encounter Additional Health Concerns Infection Onset Date Last Indicated Resolved Time R/O COVID-19 03/07/2020 03/07/2020 03/09/2020 4:45 AM CDT COVID-19 07/31/2021 07/31/2021 08/30/2021 1:16 AM DISHWASHER BUSSER documented as of this encounter Care Teams Fur Sorter Relationship Specialty Start Date End Date Philipp Pizarro MD [address] [place] [phone] PCP - General Internal Medicine 08/21/13 documented as of this encounter
--- OUTSIDE RECORDS SUMMARY | 2025-04-11 15:54 | XMS_ITS | Encounter Summary ---
Author Organization [email or web address] Address [address] [place] [address] Care Team Providers Care Auto Headlight Mechanic Name Role Phone Philipp Pizarro MD [...] on file Legal Sex Female 3:43 AM RADIATION CONTROL TECHNICIAN Gender Identity Not on file Sexual [...] Pizarro <<<<<<<< TRIAGE NOTE >>>>>>>> Triage Note: Mechanical Door Repairer Petty Rueda added this note on Apr 16 2015 11:37AM: Patients states he went to get wifes prescription and when he got there he was told Dr Pizarro was no longer at the clinic.Called pharmacy and they state they received a refusal for Lisinopril because Provider not part of this practice or location Assured them Dr Pizarro is still this patients PCP at [facility]. Resend and they will fill. <<<<<<<< [...] Visit [facility] Primary Care - [facility], Frank. [address] [place] [address] Rd[address] [place] [address] Philipp Pizarro MD 1000 [facility] [address] [place] [address] documented as of this encounter Visit Diagnoses Not on filedocumented in this encounter Additional Health Concerns Infection Onset Date Last Indicated Resolved Time R/O COVID-19 03/07/2020 03/07/2020 03/09/2020 4:45 AM CDT COVID-19 07/31/2021 07/31/2021 08/30/2021 1:16 AM RADIATION CONTROL TECHNICIAN documented as of this encounter Care Teams Auto Headlight Mechanic Relationship Specialty Start Date End Date Philipp Pizarro MD [address] [phone] PCP - General Internal Medicine 08/21/13 documented as of this encounter
--- OUTSIDE RECORDS SUMMARY | 2025-04-11 15:54 | XMS_ITS | Encounter Summary ---
Author Organization [facility] Address [address] [place] [address] Care Team Providers Care Mold Engraver Name Role Phone Philipp Pizarro MD Primary Care Provid er Encounter Details Date Type Department Care Team (Latest Contact Info) Description 11/13/1999 Outpatient Historical HIS [facility] Naldo Devine Other screening mammogram (Primary Dx) Social History Tobacco Use Types Packs/Day Years Used Date Smoking Tobacco: Never Assessed Comments Unknown Sex and Gender Information Value Date Recorded Sex Assigned at Not on file Legal Sex Female 3:43 AM EQUAL OPPORTUNITY ASSISTANT Gender Identity Not on file Sexual Orientation Not on file documented as of this encounter Plan of Treatment Upcoming Encounters Date Type Department Care Team (Late st Contact Info) Description 04/26/2025 1:20 PM CDT Office Visit [facility] Primary Care - [facility], [facility] [address] [place] [address] [address] [address] Philipp Pizarro MD [address] [place] [address] [place] [address] documented as of this encounter Visit Diagnoses Diagnosis Other screening mammogram- Primary documented in this encounter Additional Health Concerns Infection Onset Date Last Indicated Resolved Time R/O COVID-19 03/07/2020 03/07/2020 03/09/2020 4:45 AM CDT COVID-19 07/31/2021 07/31/2021 08/30/2021 1:16 AM EQUAL OPPORTUNITY ASSISTANT documented as of this encounter Care Teams Mold Engraver Relationship Specialty Start Date End Date Philipp Pizarro MD [address] [place] [phone] PCP - General Internal Medicine 08/21/13 documented as of this encounter
--- OUTSIDE RECORDS SUMMARY | 2025-04-11 15:54 | XMS_ITS | Encounter Summary ---
Author Organization [facility] Address [address] [place] [address] Care Team Providers Care Medical Superintendent Name Role Phone Philipp Pizarro MD Primary [...] on file Legal Sex Female 3:43 AM CHART READER Gender Identity Not on file Sexual Orientation Not on file documented as of this encounter Plan of Treatment Upcoming Encounters Date Type Department Care Team (Late st Contact Info) Description 04/26/2025 1:20 PM CDT Office Visit [facility] Primary Care - [facility], Frank [address] [place] [address] [address] [place] [address] Philipp Pizarro MD [address] [place] [address] [place] [phone] documented as of this encounter Procedures Procedure Name Priority Date/Time Associated Diagnosis Comments CBC WITH DIFFERENTIAL Routine 08/20/2006 11:55 AM CHART READER CBC WITH DIFFERENTIAL Routine 08/20/2006 11:55 AM CHART READER TSH Routine 08/20/2006 11:55 AM CHART READER COMPREHENSIVE METABOLIC PANEL Routine 08/20/2006 11:55 AM CHART READER documented in this encounter Results * CBC WITH DIFFERENTIAL (08/20/2006 11:55 AM CHART READER) NEUTROPHILS 60 45 - 70 % INTERFAC [...] K/uL INTERFACE SYSTEM 08/20/2006 11:5 5 AM CHART READER Naldo Santos HEMATOLOGY ORDERABLES Edited INTERFACE SYSTEM Refer to clinic/hospital department * (ABNORMAL) CBC WITH DIFFERENTIAL (08/20/2006 11:55 AM CHART READER) WBC 6.4 4.0 - 9.8 K/uL INTERFACE [...] fL INTERFACE SYSTEM 08/20/2006 11:5 5 AM CHART READER Naldo Santos HEMATOLOGY ORDERABLES Edited INTERFACE SYSTEM Refer to clinic/hospital department * TSH (08/20/2006 11:55 AM CHART READER) TSH 2.43 0.27 - 4.20 uU/mL INTERFACE SYSTEM 08/20/2006 11:5 5 AM CHART READER Naldo Santos CHEMISTRY ORDERABLES Edited INTERFACE SYSTEM Refer to clinic/hospital department * (ABNORMAL) COMPREHENSIVE METABOLIC PANEL (08/20/2006 11:55 AM CHART READER) GLUCOSE 131(H) 65 - 99 mg/dL INTERFACE [...] and non- Americans is available on the [facility] Intranet at: [email or web address] Select: Lab Policies and Procedures Select: Reference Ranges - GFR 08/20/2006 11:5 5 AM CHART READER us Naldo Santos CHEMISTRY ORDERABLES Edited INTERFACE SYSTEM Refer to clinic/hospital department documented in this encounter Visit Diagnoses Diagnosis Palpitations- Primary documented in this encounter Additional Health Concerns Infection Onset Date Last Indicated Resolved Time R/O COVID-19 03/07/2020 03/07/2020 03/09/2020 4:45 AM CDT COVID-19 07/31/2021 07/31/2021 08/30/2021 1:16 AM CHART READER documented as of this encounter Care Teams Medical Superintendent Relationship Specialty Start Date End Date Philipp Pizarro MD [address] [place] [phone] PCP - General Internal Medicine 08/21/13 documented as of this encounter
--- OUTSIDE RECORDS SUMMARY | 2025-04-11 15:54 | XMS_ITS | Encounter Summary ---
Author Organization [facility] Address [address] [place] [address] Care Team Providers Care Steam Engineer Name Role Phone Philipp Pizarro MD Primary Care Provid er Encounter Details Date Type Department Care Team (Late st Contact Info) Description 09/05/2001 Outpatient Historical HIS [facility] Naldo Devine Social History Tobacco Use Types Packs/Day Years Used Date Smoking Tobacco: Never Assessed Comments Unknown Sex and Gender Information Value Date Recorded Sex Assigned at Not on file Legal Sex Female 3:43 AM DREDGE PIPE INSTALLER Gender Identity Not on file Sexual Orientation Not on file documented as of this encounter Plan of Treatment Upcoming Encounters Date Type Department Care Team (Late st Contact Info) Description 04/26/2025 1:20 PM CDT Office Visit [facility] Primary Care - [facility], [facility] [address] [place] [address] [address] [address] Philipp Pizarro MD [address] [place] [address] [place] [phone] documented as of this encounter Visit Diagnoses Not on filedocumented in this encounter Additional Health Concerns Infection Onset Date Last Indicated Resolved Time R/O COVID-19 03/07/2020 03/07/2020 03/09/2020 4:45 AM CDT COVID-19 07/31/2021 07/31/2021 08/30/2021 1:16 AM DREDGE PIPE INSTALLER documented as of this encounter Care Teams Steam Engineer Relationship Specialty Start Date End Date Philipp Pizarro MD [address] [place] [phone] PCP - General Internal Medicine 08/21/13 documented as of this encounter
--- OUTSIDE RECORDS SUMMARY | 2025-04-11 15:54 | XMS_ITS | Encounter Summary ---
Author Organization [facility] Address [address] [place] [address] Care Team Providers Care Roll Forming Supervisor Name Role Phone Philipp Pizarro MD Primary Care Provid er Encounter Details Date Type Department Care Team (Late st Contact Info) Description 01/09/2002 Outpatient Historical HIS [facility] Naldo Devine Social History Tobacco Use Types Packs/Day Years Used Date Smoking Tobacco: Never Assessed Comments Unknown Sex and Gender Information Value Date Recorded Sex Assigned at Not on file Legal Sex Female 3:43 AM UPSTREAM BIOMANUFACTURING TECHNICIAN Gender Identity Not on file Sexual Orientation Not on file documented as of this encounter Plan of Treatment Upcoming Encounters Date Type Department Care Team (Late st Contact Info) Description 04/26/2025 1:20 PM CDT Office Visit [facility] Primary Care - [facility], [facility] [address] [place] [address] [address] [address] Philipp Pizarro MD [address] [place] [address] [place] [phone] documented as of this encounter Visit Diagnoses Not on filedocumented in this encounter Additional Health Concerns Infection Onset Date Last Indicated Resolved Time R/O COVID-19 03/07/2020 03/07/2020 03/09/2020 4:45 AM CDT COVID-19 07/31/2021 07/31/2021 08/30/2021 1:16 AM UPSTREAM BIOMANUFACTURING TECHNICIAN documented as of this encounter Care Teams Roll Forming Supervisor Relationship Specialty Start Date End Date Philipp Pizarro MD [address] [place] [phone] PCP - General Internal Medicine 08/21/13 documented as of this encounter
--- OUTSIDE RECORDS SUMMARY | 2025-04-11 15:54 | XMS_ITS | Encounter Summary ---
Author Organization [facility] Address [address] [place] [address] Care Team Providers Care Art Manager Name Role Phone Philipp Pizarro MD Primary Care Provid er Encounter Details Date Type Department Care Team (Latest Contact Info) Description 01/09/2002 Outpatient Historical HIS [facility] Naldo Devine SCREENING MAMM-MAILG NEOPL-OTHER (Primary Dx) Social History Tobacco Use Types Packs/Day Years Used Date Smoking Tobacco: Never Assessed Comments Unknown Sex and Gender Information Value Date Recorded Sex Assigned at Not on file Legal Sex Female 3:43 AM BIOFUELS PRODUCT DEVELOPMENT MANAGER Gender Identity Not on file Sexual Orientation Not on file documented as of this encounter Plan of Treatment Upcoming Encounters Date Type Department Care Team (Late st Contact Info) Description 04/26/2025 1:20 PM CDT Office Visit [facility] Primary Care - [facility], Frank [address] [place] [address] [address] [address] Philipp Pizarro MD [address] [place] [address] [place] [phone] documented as of this encounter Visit Diagnoses Diagnosis Other screening mammogram- Primary documented in this encounter Additional Health Concerns Infection Onset Date Last Indicated Resolved Time R/O COVID-19 03/07/2020 03/07/2020 03/09/2020 4:45 AM CDT COVID-19 07/31/2021 07/31/2021 08/30/2021 1:16 AM BIOFUELS PRODUCT DEVELOPMENT MANAGER documented as of this encounter Care Teams Art Manager Relationship Specialty Start Date End Date Philipp Pizarro MD [address] [phone] PCP - General Internal Medicine 08/21/13 documented as of this encounter
--- OUTSIDE RECORDS SUMMARY | 2025-04-11 15:54 | XMS_ITS | Encounter Summary ---
Author Organization [facility] Address [address] [place] [address] Care Team Providers Care Waiter/Waitress Take Out Name Role Phone Philipp Pizarro MD Primary Care Provid er Encounter Details Date Type Department Care Team (Latest Contact Info) Description 06/29/2004 Outpatient Historical HIS [facility] Naldo Devine SCREENING MAMM-MAILG NEOPL-OTHER (Primary Dx) Social History Tobacco Use Types Packs/Day Years Used Date Smoking Tobacco: Never Assessed Comments Unknown Sex and Gender Information Value Date Recorded Sex Assigned at Not on file Legal Sex Female 3:43 AM HADOOP CONSULTANT Gender Identity Not on file Sexual Orientation Not on file documented as of this encounter Plan of Treatment Upcoming Encounters Date Type Department Care Team (Late st Contact Info) Description 04/26/2025 1:20 PM CDT Office Visit [facility] Primary Care - [facility], Frank [address] [place] [address] [address] [address] Philipp Pizarro MD [address] [place] [address] [place] [phone] documented as of this encounter Visit Diagnoses Diagnosis Other screening mammogram- Primary documented in this encounter Additional Health Concerns Infection Onset Date Last Indicated Resolved Time R/O COVID-19 03/07/2020 03/07/2020 03/09/2020 4:45 AM CDT COVID-19 07/31/2021 07/31/2021 08/30/2021 1:16 AM HADOOP CONSULTANT documented as of this encounter Care Teams Waiter/Waitress Take Out Relationship Specialty Start Date End Date Philipp Pizarro MD [address] [phone] PCP - General Internal Medicine 08/21/13 documented as of this encounter
--- OUTSIDE RECORDS SUMMARY | 2025-04-11 15:54 | XMS_ITS | Encounter Summary ---
Author Organization [facility] Address [address] [place] [address] Care Team Providers Care Conference Services Director Name Role Phone Philipp Pizarro MD Primary Care Provid er Encounter Details Date Type Department Care Team (Late st Contact Info) Description 09/11/2002 Outpatient Historical [facility], [address] Naldo Santos Social History Tobacco Use Types Packs/Day Years Used Date Smoking Tobacco: Never Assessed Comments Unknown Sex and Gender Information Value Date Recorded Sex Assigned at Not on file Legal Sex Female 3:43 AM LABORATORY EQUIPMENT CLEANER Gender Identity Not on file Sexual Orientation Not on file documented as of this encounter Plan of Treatment Upcoming Encounters Date Type Department Care Team (Late st Contact Info) Description 04/26/2025 1:20 PM CDT Office Visit [facility] Primary Care - [facility], [facility] [address] [place] [address] [address] [address] Philipp Pizarro MD [address] [place] [address] [place] [address] documented as of this encounter Visit Diagnoses Not on filedocumented in this encounter Additional Health Concerns Infection Onset Date Last Indicated Resolved Time R/O COVID-19 03/07/2020 03/07/2020 03/09/2020 4:45 AM CDT COVID-19 07/31/2021 07/31/2021 08/30/2021 1:16 AM LABORATORY EQUIPMENT CLEANER documented as of this encounter Care Teams Conference Services Director Relationship Specialty Start Date End Date Philipp Pizarro MD [address] [place] [phone] PCP - General Internal Medicine 08/21/13 documented as of this encounter
--- OUTSIDE RECORDS SUMMARY | 2025-04-11 15:54 | XMS_ITS | Encounter Summary ---
Author Organization [facility] Address [address] [place] [address] Care Team Providers Care Training And Development Head Name Role Phone Philipp Pizarro MD Primary Care Provid er Encounter Details Date Type Department Care Team (Late st Contact Info) Description 09/30/2007 Outpatient Historical [facility] Pino Parry MD [address] [facility] [address] [place] [address] Social History Tobacco Use Types Packs/Day Years Used Date Smoking Tobacco: Never Assessed Comments Unknown Sex and Gender Information Value Date Recorded Sex Assigned at Not on file Legal Sex Female 3:43 AM SOLICITOR PATENT Gender Identity Not on file Sexual Orientation Not on file documented as of this encounter Plan of Treatment Upcoming Encounters Date Type Department Care Team (Late st Contact Info) Description 04/26/2025 1:20 PM CDT Office Visit [facility] Primary Care - [facility], [address] [place] [address] [place] [address] Philipp Pizarro MD [address] [facility] [address] [place] [address] documented as of this encounter Procedures Procedure Name Priority Date/Time Associated Diagnosis Comments POC GLUCOSE Routine 09/30/2007 8:44 AM SOLICITOR PATENT documented in this encounter Results * (ABNORMAL) POC GLUCOSE (09/30/2007 8:44 AM SOLICITOR PATENT) GLUCOSE POC 158(H) 65 - 99 mg/dL [facility] Venous blood specimen (specimen) 09/30/2007 8:44 AM SOLICITOR PATENT 09/30/2007 8:44 AM SOLICITOR PATENT us Pino Parry MD POINT OF CARE TESTING Final R esult [facility] [address] [facility] [place] [address] documented in this encounter Visit Diagnoses Not on filedocumented in this encounter Additional Health Concerns Infection Onset Date Last Indicated Resolved Time R/O COVID-19 03/07/2020 03/07/2020 03/09/2020 4:45 AM CDT COVID-19 07/31/2021 07/31/2021 08/30/2021 1:16 AM SOLICITOR PATENT documented as of this encounter Care Teams Training And Development Head Relationship Specialty Start Date End Date Philipp Pizarro MD [address] [place] [address] [place], [place] [address] [phone] PCP - General Internal Medicine 08/21/13 documented as of this encounter
--- OUTSIDE RECORDS SUMMARY | 2025-04-11 15:54 | XMS_ITS | Clinical Summary ---
Author Organization [facility] Address [address] [place] [address] Phone Care Team Providers Care Ben Day Artist Name Role Phone Philipp Pizarro MD Primary [...] complication, without long-term current use of insulin ([facility]) TAKE 2 TABLETS BY MOUTH TWICE DAILY [...] on file Legal Sex Female 3:43 AM COMPENSATION ADJUSTER Gender Identity Not on file Sexual Orientation Not on file Occupation Industry Job Start Date Job End Date Not on file Not on file Not on file Not on file Last Filed Vital Signs Vital Sign Reading Time Taken Comments Blood Pressure 126/78 06/02/2024 3:45 PM COMPENSATION ADJUSTER Pulse 76 04/24/2024 11:24 AM CDT Temperature 36.9 C (98.5 F) 04/24/2024 11:24 AM CDT Respiratory Rate 12 03/23/2013 12:43 PM CDT Oxygen Saturation 97% 04/24/2024 11:24 AM CDT Inhaled Oxygen Concentration - - Weight 70.8 kg (156 lb) 06/02/2024 3:45 PM COMPENSATION ADJUSTER Height 160 cm (5' 3) 06/02/2024 3:45 PM COMPENSATION ADJUSTER Body Mass Index 27.63 06/02/2024 3:45 PM COMPENSATION ADJUSTER Plan of Treatment Upcoming Encounters Date Type Department Care Team (Late st Contact Info) Description 04/26/2025 1:20 PM CDT Office Visit [facility] Care - [facility], [address] [place] [address] Philipp Pizarro MD [address] [facility] [address] [place] [address] Health Maintenance Due Date Last [...] OR MORE SITES Routine 06/02/2024 3:48 PM COMPENSATION ADJUSTER Age-related osteoporosis without current pathological fracture Encounter [...] hyperglycemia, without long-term current use of insulin ([facility]) LIPID PANEL Routine 04/22/2024 8:40 AM CDT Type 2 diabetes mellitus with hyperglycemia, without long-term current use of insulin ([facility]) HEMOGLOBIN A1C Routine 04/22/2024 8:40 AM CDT Type 2 diabetes mellitus with hyperglycemia, without long-term current use of insulin ([facility]) MICROALBUMIN/CREATINI NE RATIO, RANDOM UR Routine 10/22/2023 11:46 AM CDT Type 2 diabetes mellitus with hyperglycemia, without long-term current use of insulin ([facility]) DIABETES EYE EXAM Routine 05/22/2023 from Last 3 Months or Most Recently Relevant to Health Maintenance Results * XR DEXA BONE DENSITY AXIAL 1 OR MORE SITES (06/02/2024 3:48 PM COMPENSATION ADJUSTER) Anatomical Region Laterality Modality Computed Radiogr aphy Impressions 06/02/2024 3:54 PM COMPENSATION ADJUSTER : Patient has been on Actonel since [...] PROCEDURE ORDERABLES Final Result Performing Organization Address City/State/[facility] Co de Phone Number [facility] [id number] [address] [place] [address], [address] [place] [address] * (ABNORMAL) HEMOGLOBIN A1C (04/22/2024 8:40 AM [...] change in test platforms from the Carrasquillo Nut Tightener to the Rashid feliciano c503 may have shifted HbA1c results compared to historical results. Based on laboratory validation testing conducted at [facility], the Rashid platform relative to [...] recommended. FASTING:YES FASTING: YES Test Performed at: [place] [address] [address] [place] [id number] GayleJose Goldberg Vo Blood 04/22/2024 8:40 AM CDT 04/22/2024 8:41 AM CDT us Philipp Pizarro MD CHEMISTRY ORDERABLES Final Result [facility] [phone] [place] [address] [address] [place] [id number] * (ABNORMAL) LIPID PANEL (04/22/2024 8:40 AM CDT) CHOLESTEROL 155 <200 mg/dL [facility] HDL 54 > OR = 50 mg/dL [facility] PlatformDoreen Borrego TRIGLYCERIDE 190(H) <150 mg/dL [facility] PlatformDoreen Borrego LDL CALCULATED 73 mg/dL (calc) [facility]oreen Borrego Comment: Reference range: <100 Desirable range <100 mg/dL for primary prevention; <70 mg/dL for patients with CHD or diabetic patients with > or = 2 CHD risk factors. LDL-C is now calculated using the Danilo-Evan calculation, which is a validated novel method providing better accuracy than the Friedewald equation in the estimation of LDL-C. Danilo SS et al. MARIEL. 2013;310(19): 6874-4754 (http://education.Fileforce/faq/NUA529) CHOL/HDL RATIO 2.9 <5.0 (calc) [facility]rapeuticsMelissa Borrego NON-HDL CHOLESTEROL 101 <130 mg/dL (calc) [facility]Melissa Borrego Comment: For patients with diabetes plus 1 major ASCVD risk factor, treating to a non-HDL-C goal of <100 mg/dL (LDL-C of <70 mg/dL) is considered a therapeutic option. Test Performed at: [facility] [place] [address] [address] [place] [id number] Moy Ibarra Blood 04/22/2024 8:40 AM CDT 04/22/2024 8:41 AM CDT us Philipp Pizarro MD CHEMISTRY ORDERABLES Final Result [facility] [phone] [facility] [address] [address] [place] [id number] * (ABNORMAL) COMPREHENSIVE METABOLIC PANEL (04/22/2024 8:40 AM CDT) GLUCOSE 135(H) 65 - 99 mg/dL [facility] Comment: Fasting reference interval For someone without known diabetes, a glucose value >125 mg/dL indicates that they may have diabetes and this should be confirmed with a follow-up test. BUN 15 7 - 25 mg/dL [facility] CREATININE 0.54(L) 0.60 - 1.00 mg/dL [facility] GFR 96 > OR = 60 mL/min/1. 73m2 [facility] BUN/CREAT RATIO 28(H) 6 - 22 (calc) [facility] SODIUM 138 135 - 146 mmol/L [facility] POTASSIUM 3.8 3.5 - 5.3 mmol/L [facility] CHLORIDE 100 98 - 110 mmol/L [facility] CO2 32 20 - 32 mmol/L [facility] CALCIUM 10.1 8.6 - 10.4 mg/dL [facility] TOTAL PROTEIN 6.6 6.1 - 8.1 g/dL [facility] ALBUMIN 4.4 3.6 - 5.1 g/dL [facility] GLOBULIN 2.2 1.9 - 3.7 g/dL (calc) [facility] ALBUMIN/GLOBULIN RATIO 2.0 1.0 - 2.5 (calc) Active EndpointsS carlin Borrego BILIRUBIN TOTAL 0.5 0.2 - 1.2 mg/dL [facility] Borreg[facility] ALKALINE PHOSPHATASE 40 37 - 153 U/L [facility] AST 15 10 - 35 U/L [facility] ALT 19 6 - 29 U/L [facility] Comment: FASTING:YES FASTING: YES Test Performed at: [employer] [place] [address] [place] [address] Moy Ibarra Blood 04/22/2024 8:40 AM CDT 04/22/2024 8:41 AM CDT Philipp Pizarro MD CHEMISTRY ORDERABLES Final Result Performing Organization Address City/[facility]/ZIP Code Phone Number [facility] [phone] [facility] [place] [address] [place] [address] * MICROALBUMIN/CREATININE RATIO, RANDOM UR (10/22/2023 11:46 AM CDT) Creatinine, Urine 36 20 - 275 mg/dL [facility] MICROALBUMIN, URINE 0.4 See Note: mg/dL [...] category. FASTING:NO FASTING: NO Test Performed at: [facility] [place] [address] [address] [address] Moy Ibarra MD Urine URINE SPECIMEN OBTAINED BY CLEAN CATCH PROCEDURE / Unknown 10/22/2023 11:46 AM CDT 10/22/2023 11:46 AM CDT us Iveth King SOLID WASTE DIVISION SUPERVISOR URINE ORDERABLES Final Res ult [facility] [phone] [facility] [address] [address] [phone] * (ABNORMAL) DIABETES EYE EXAM (05/22/2023) us Abstract Provider HEALTH MAINTENANCE Final Resul t [facility] [id number] [address] [place] [address], [address] [place] [address] from Last 3 Months or Most Recently Relevant to Health Maintenance Insurance [facility] PPO MCR Advance Directives For more information, please contact: [phone] * Full Code (Latest Code Status on File) Date Activated Date Inactivated Comments 02/22/2010 8:28 AM 02/23/2010 2:31 AM Care Teams Ben Day Artist Relationship Specialty Start Date End Date Philipp Pizarro MD [address] [place] [address] [place] [phone] PCP - General Internal Medicine 08/21/13
--- OUTSIDE RECORDS SUMMARY | 2025-04-11 15:54 | XMS_ITS | Encounter Summary ---
Author Organization [facility] Address [address] [place] [address] Care Team Providers Care Vamp Throater Name Role Phone Philipp Pizarro MD Primary Care Provid er Encounter Details Date Type Department Care Team (Late st Contact Info) Description 09/25/2002 Outpatient Historical [facility] Pino Parry MD [address] [place] [address] SCREENING MAL NEOP-COLON (Primary Dx) Social History Tobacco Use Types Packs/Day Years Used Date Smoking Tobacco: Never Assessed Comments Unknown Sex and Gender Information Value Date Recorded Sex Assigned at Not on file Legal Sex Female 3:43 AM COMMISSIONED SALES ASSOCIATE Gender Identity Not on file Sexual Orientation Not on file documented as of this encounter Plan of Treatment Upcoming Encounters Date Type Department Care Team (Late st Contact Info) Description 04/26/2025 1:20 PM CDT Office Visit [facility] Primary Care - [facility], [address] [place] [address] Philipp Pizarro MD [address] [facility] [address] [place] [address] documented as of this encounter Visit Diagnoses Diagnosis Special screening for malignant neoplasms, colon- Primary documented in this encounter Additional Health Concerns Infection Onset Date Last Indicated Resolved Time R/O COVID-19 03/07/2020 03/07/2020 03/09/2020 4:45 AM CDT COVID-19 07/31/2021 07/31/2021 08/30/2021 1:16 AM COMMISSIONED SALES ASSOCIATE documented as of this encounter Care Teams Vamp Throater Relationship Specialty Start Date End Date Philipp Pizarro MD [address] [place] [phone] PCP - General Internal Medicine 08/21/13 documented as of this encounter
--- OUTSIDE RECORDS SUMMARY | 2025-04-11 15:54 | XMS_ITS | Encounter Summary ---
Author Organization [facility] Address [address] [facility] Attn: Epic Prelude ADT [place] [address] Care Team Providers Care Embedded Systems Software Engineer Name Role Phone Philipp Pizarro MD Primary Care Provid er Encounter Details Date Type Department Care Team (Late st Contact Info) Description 06/21/1997 Outpatient Historical Conversion, History Naldo Santos Social History Tobacco Use Types Packs/Day Years Used Date Smoking Tobacco: Never Assessed Comments Unknown Sex and Gender Information Value Date Recorded Sex Assigned at Not on file Legal Sex Female 3:43 AM ORNAMENT STAPLER Gender Identity Not on file Sexual Orientation Not on file documented as of this encounter Plan of Treatment Upcoming Encounters Date Type Department Care Team (Late st Contact Info) Description 04/26/2025 1:20 PM CDT Office Visit [facility] - [facility] [address] [place] [address] [address] [address] Philipp Pizarro MD [address] [place] [address] [place] [address] documented as of this encounter Visit Diagnoses Not on filedocumented in this encounter Additional Health Concerns Infection Onset Date Last Indicated Resolved Time R/O COVID-19 03/07/2020 03/07/2020 03/09/2020 4:45 AM CDT COVID-19 07/31/2021 07/31/2021 08/30/2021 1:16 AM ORNAMENT STAPLER documented as of this encounter Care Teams Embedded Systems Software Engineer Relationship Specialty Start Date End Date Philipp Pizarro MD [address] [place] [phone] PCP - General Internal Medicine 08/21/13 documented as of this encounter
--- OUTSIDE RECORDS SUMMARY | 2025-04-11 15:54 | XMS_ITS | Encounter Summary ---
Author Organization [facility] Address [address] [place] [address] Care Team Providers Care Major Appliance Assembly Supervisor Name Role Phone Philipp Pizarro MD [...] on file Legal Sex Female 3:43 AM SOFTWARE SUPPORT ENGINEER Gender Identity Not on file Sexual Orientation Not on file documented as of this encounter Plan of Treatment Upcoming Encounters Date Type Department Care Team (Late st Contact Info) Description 04/26/2025 1:20 PM CDT Office Visit [facility] Primary Care - [facility], [facility] [address] [place] [address] [address] [address] Philipp Pizarro MD [address] [place] [address] [place] [address] documented as of this encounter Visit Diagnoses Diagnosis Goiter, unspecified- Primary documented in this encounter Additional Health Concerns Infection Onset Date Last Indicated Resolved Time R/O COVID-19 03/07/2020 03/07/202003/09/2020 4:45 AM CDT COVID-19 07/31/2021 07/31/2021 08/30/2021 1:16 AM SOFTWARE SUPPORT ENGINEER documented as of this encounter Care Teams Major Appliance Assembly Supervisor Relationship Specialty Start Date End Date Philipp Pizarro MD [address] [place] [phone] PCP - General Internal Medicine 08/21/13 documented as of this encounter
--- OUTSIDE RECORDS SUMMARY | 2025-04-11 15:54 | XMS_ITS | Encounter Summary ---
Author Organization [facility] Address [address] [place] [address] Care Team Providers Care Financial Brokers Name Role Phone Philipp Pizarro MD Primary Care Provid er Encounter Details Date Type Department Care Team (Late st Contact Info) Description 05/15/2006 Outpatient Historical [facility], [address] Naldo Santos Social History Tobacco Use Types Packs/Day Years Used Date Smoking Tobacco: Never Assessed Comments Unknown Sex and Gender Information Value Date Recorded Sex Assigned at Not on file Legal Sex Female 3:43 AM COMMISSIONING SPECIALIST Gender Identity Not on file Sexual Orientation Not on file documented as of this encounter Plan of Treatment Upcoming Encounters Date Type Department Care Team (Late st Contact Info) Description 04/26/2025 1:20 PM CDT Office Visit [facility] Primary Care - [facility] [address] [place] [address] [address] [address] Philipp Pizarro MD [address] [place] [address] [place] [address] documented as of this encounter Procedures [...] classifications for lipids are available on the [facility] Intranet at: [email or web address] Select: Lab Policies and Procedures Select: Reference [...] CDT COVID-19 07/31/2021 07/31/2021 08/30/2021 1:16 AM COMMISSIONING SPECIALIST documented as of this encounter Care Teams Financial Brokers Relationship Specialty Start Date End Date Philipp Pizarro MD [address] [place] [address] [place] [address] PCP - General Internal Medicine 08/21/13 documented as of this encounter
--- OUTSIDE RECORDS SUMMARY | 2025-04-11 15:55 | XMS_ITS | Encounter Summary ---
Author Organization [facility] Address [address] [place] [address] Care Team Providers Care Oyster Preparer Name Role Phone Philipp Pizarro MD Primary Care Provid er Reason for Visit * Reason Comments Medication Assistance Encounter Details Date Type Department Care Team (Late st Contact Info) Description 01/31/2024 Telephone [facility] Primary Care - [facility], [address] [place] [address], [address] [address] Philipp Pizarro MD [address] [place] [address] [place] [address] Medication Assistance Social History Tobacco Use [...] on file Legal Sex Female 3:43 AM EFFICIENCY MINER BLASTING Gender Identity Not on file Sexual Orientation [...] - 01/31/2024 9:43 AM CDT Copied from [facility] #[id number]. Topic: Medication Request >> Jan 31, 2024 9:40 AM Sandy Ann wrote: Caller is requesting: Medication - New Request (Not Currently Taking) Medication (Ask patient/caregiver to spell if possible): MED FOR UTI Preferred Pharmacy: [facility] [address] [place] [address] [address] [facility] [address] Patient/Caregiver Callback Number: Telephone Information: Call Notes: states she is out of town and cannot come in but wants a prescription sent to pharmacy for uti. documented in this encounter Plan of Treatment Upcoming Encounters Date Type Department Care Team (Late st Contact Info) Description 04/26/2025 1:20 PM CDT Office Visit [facility] Primary Care - [facility], [address] [place] [address] Philipp Pizarro MD [address] [place] [address] [place] [phone] documented as of this encounter Visit Diagnoses Not on filedocumented in this encounter Additional Health Concerns Assessment Noted Time PHQ-9 Depression Total Score: 1 10/22/19 24 11:05 AM CDT documented as of this encounter Care Teams Oyster Preparer Relationship Specialty Start Date End Date Philipp Pizarro MD [address] [place] [address] [place] [phone] PCP - General Internal Medicine 08/21/13 documented as of this encounter
--- OUTSIDE RECORDS SUMMARY | 2025-04-11 15:55 | XMS_ITS | Encounter Summary ---
Author Organization [facility] Address [address] [facility] Attn: Epic Prelude ADT [place] [address] Care Team Providers Care Pipe Caulker Name Role Phone Philipp Pizarro MD Primary Care Provid er Encounter Details Date Type Department Care Team (Late st Contact Info) Description 02/19/1992 Outpatient Historical Naldo Santos Social History Tobacco Use Types Packs/Day Years Used Date Smoking Tobacco: Never Assessed Comments Unknown Sex and Gender Information Value Date Recorded Sex Assigned at Not on file Legal Sex Female 3:43 AM DOG BOARDER Gender Identity Not on file Sexual Orientation Not on file documented as of this encounter Plan of Treatment Upcoming Encounters Date Type Department Care Team (Late st Contact Info) Description 04/26/2025 1:20 PM CDT Office Visit [facility] Primary Care - [facility], [facility] [address] [place] [address] [address] [address] Philipp Pizarro MD [address] [place] [address] [place] [address] documented as of this encounter Visit Diagnoses Not on filedocumented in this encounter Additional Health Concerns Infection Onset Date Last Indicated Resolved Time R/O COVID-19 03/07/2020 03/07/2020 03/09/2020 4:45 AM CDT COVID-19 07/31/2021 07/31/2021 08/30/2021 1:16 AM DOG BOARDER documented as of this encounter Care Teams Pipe Caulker Relationship Specialty Start Date End Date Philipp Pizarro MD [address] [place] [phone] PCP - General Internal Medicine 08/21/13 documented as of this encounter
--- OUTSIDE RECORDS SUMMARY | 2025-04-11 15:55 | XMS_ITS | Encounter Summary ---
Author Organization [facility] Address [address] [place] [address] Care Team Providers Care Patient Access Name Role Phone Philipp Pizarro MD Primary Care Provid er Reason for Visit * Reason Comments Needs Orders Written Encounter Details Date Type Department Care Team (Late st Contact Info) Description 02/07/2024 Telephone [facility] Primary [facility] - [facility], [address], [place] [place] [phone] Philipp Pizarro MD [address] [place] [address] [place] [phone] Needs Orders Written Social History Tobacco [...] on file Legal Sex Female 3:43 AM ANESTHESIOLOGIST PHYSICIAN Gender Identity Not on file Sexual Orientation Not on file Occupation Industry Job Start Date Job End Date Not on file Not on file Not on file Not on file documented as of this encounter Miscellaneous Notes * Result Encounter Note - Margoth Tinoco FNP - 02/10/2024 3:29 PM CDT Result received in [facility] * Telephone Encounter - Ghazala Plummer RN [...] - 02/07/2024 9:38 AM CDT Copied from [facility] #[id number]. Topic: CPA Information Request - Order or Referral Request >> Feb 07, 2024 9:36 AM Annette Barksdale wrote: Caller is requesting: New Lab Stock Counter Name: Jessica Saldana Patient/Caregiver Callback Number: [phone] (home) Order: Urinalysis Reason for Request: Patient stated that her UTI came back. Patient stated that she has pressure andfrequent urination. Please advise documented in this encounter Plan of Treatment Upcoming Encounters Date Type Department Care Team (Late st Contact Info) Description 04/26/2025 1:20 PM CDT Office Visit [facility] Care - [facility], [place] [place] [phone] Philipp Pizarro MD [address] [facility] [address] [place] [phone] documented as of this encounter Procedures Procedure Name Priority Date/Time Associated Diagnosis Comments URINALYSIS WITH REFLEX CULTURE Routine 02/07/2024 2:13 PM CDT UTI symptoms URINE CULTURE Routine 02/07/2024 2:13 PM CDT documented in this encounter Results * URINE CULTURE (02/07/2024 2:13 PM CDT) URINE CULTURE SEE NOTE [employer] carlin Borrego Comment: CULTURE, URINE, ROUTINE Micro Number: [id number] Test Status: Final Specimen Source: Urine Specimen Quality: Adequate Result: Mixed genital esteban isolated. These superficial bacteria are not indicative of a urinary tract infection. No further organism identification is warranted on this specimen. If clinically indicated, recollect clean-catch, mid-stream urine and transfer immediately to Urine Culture Transport Tube. FASTING:NO FASTING: NO Test Performed at: [facility] [place] [address] [address] [place] [id number] [facility] Vo 02/07/2024 2:13 PM CDT 02/07/2024 2:14 PM CDT Nilsa Singh HEALTH SCIENCE SPECIALIST MICROBIOLOGY - GENERAL ORDERABLES Final Result [facility] [phone] [facility] [address] [address] [place] [id number] * (ABNORMAL) URINALYSIS WITH REFLEX CULTURE (02/07/2024 2:13 PM CDT) COLOR UA YELLOW YELLOW [employer] [place] CLARITY UA CLOUDY(A) CLEAR [employer] [facility] SPECIFIC GRAVITY UA 1.017 1.001 - 1.035 [employer] [facility] PH UA 6.0 5.0 - 8.0 [employer] [place] GLUCOSE UA 3+(A) NEGATIVE [employer] [facility] BILIRUBIN UA NEGATIVE NEGATIVE [employer] [place] KETONES UA NEGATIVE NEGATIVE [employer] [place] BLOOD UA 2+(A) NEGATIVE [facility] PROTEIN UA 1+(A) NEGATIVE [facility] NITRITE UA NEGATIVE NEGATIVE [facility] LEUKOCYTE ESTERASE UA 2+(A) NEGATIVE [facility] WBC UA > OR = 60(A) < OR = 5 /HPF [facility] RBC UA 3-10(A) < OR = 2 /HPF [facility] EPITHELIAL CELLS, URINE 20-40(A) < OR = 5 /HPF [facility] BACTERIA UA NONE SEEN NONE SEEN /HPF [facility] HYALINE CAST NONE SEEN NONE SEEN /LPF [facility] URINE NOTE [facility] Comment: This urine was analyzed for the presence of WBC, RBC, bacteria, casts, and other formed elements. Only those elements seen were reported. URINE CULTURE [facility] Comment: CULTURE INDICATED - RESULTS TO FOLLOW FASTING:NO FASTING: NO HARESH JESSICA [address] [place] [address] Urine URINE SPECIMEN OBTAINED BY CLEAN CATCH PROCEDURE / Unknown 02/07/2024 2:13 PM CDT 02/07/2024 2:14 PM CDT Nilsa Singh HEALTH SCIENCE SPECIALIST URINE ORDERABLES Final Result [facility] [phone] [facility] [address] [place] [address] documented in this encounter Visit Diagnoses Diagnosis UTI symptoms- Primary documented in this encounter Additional Health Concerns Assessment Noted Time PHQ-9 Depression Total Score: 1 10/22/19 24 11:05 AM CDT documented as of this encounter Care Teams Patient Access Relationship Specialty Start Date End Date Philipp Pizarro MD [address] [place] [address] [place] [phone] PCP - General Internal Medicine 08/21/13 documented as of this encounter
--- OUTSIDE RECORDS SUMMARY | 2025-04-11 15:55 | XMS_ITS | Clinical Summary ---
Author Organization [facility] [address] Address [address] [place] [phone] Care Team Providers Care Bandmill Operator Name Role Phone Philipp Pizarro MD [...] Type Department Care Team Description 04/11/[address] [facility] Medical Group Convenient Care at [address] [phone] Obinna Sullivan NP from Last 3 Months Social History Tobacco Use Types Packs/Day Years Used Date Smoking Tobacco: Never Assessed Comments Unknown Sex and Gender Information Value Date Recorded Sex Assigned at Not on file Legal Sex Female 5:01 PM TRASH COLLECTOR Gender Identity Not on file Sexual Orientation [...] 05/18/2024, 03/05/2023, 03/05/2023, Additional history exists Insurance [employer] PPO Care Teams Bandmill Operator Relationship Specialty Start Date End Date Philipp Pizarro MD [address] [address] PCP - General Internal Medicine 10/13/23
--- OUTSIDE RECORDS SUMMARY | 2025-04-11 15:55 | XMS_ITS | Encounter Summary ---
Author Organization [facility] Address [address] [place] [address] Care Team Providers Care Corporate Trainer Name Role Phone Philipp Pizarro MD Primary Care Provid er Reason for Visit * Reason Onset Date Comments Results 02/01/2017 Encounter Details Date Type Department Care Team (Late st Contact Info) Description 02/01/2017 Telephone [facility] Endocrinology [address] [place] [address] Debra Roe MD [address] [place] [address] Results Social History Tobacco Use Types Packs/Day Years Used Date Smoking Tobacco: Former Cigarettes Q uit: 11/11/1983 Smokeless Tobacco: Never Alcohol Use Standard Drinks/Week Comments No 0 (1 standard drink = 0.6 oz pur e alcohol) Comments No Sex and Gender Information Value Date Recorded Sex Assigned at Not on file Legal Sex Female 3:43 AM TODDLER CAREGIVER Gender Identity Not on file Sexual Orientation [...] Visit [facility] Primary Care - [facility], [address] [address] Philipp Pizarro MD [address] [place] [phone] documented as of this encounter Visit Diagnoses Not on filedocumented in this encounter Additional Health Concerns Infection Onset Date Last Indicated Resolved Time R/O COVID-19 03/07/2020 03/07/2020 03/09/2020 4:45 AM CDT COVID-19 07/31/2021 07/31/2021 08/30/2021 1:16 AM TODDLER CAREGIVER documented as of this encounter Care Teams Corporate Trainer Relationship Specialty Start Date End Date Philipp Pizarro MD [address] [place] [phone] PCP - General Internal Medicine 08/21/13 documented as of this encounter
--- OUTSIDE RECORDS SUMMARY | 2025-04-11 15:55 | XMS_ITS | Encounter Summary ---
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 Gender Identity Not on file Sexual Orientation Not on file documented as of this encounter Plan of Treatment Upcoming Encounters Date Type Department Care Team (Late st Contact Info) Description 04/26/2025 1:20 PM CDT Office Visit [facility] Primary Care - [facility], [facility] [address] [place] [address] [address] [address] Philipp Pizarro MD [address] [place] [address] [place] [phone] documented as of this encounter Visit Diagnoses Not on filedocumented in this encounter Additional Health Concerns Infection Onset Date Last Indicated Resolved Time R/O COVID-19 03/07/2020 03/07/2020 03/09/2020 4:45 AM CDT COVID-19 07/31/2021 07/31/2021 08/30/2021 1:16 AM PAVING BED MAKER documented as of this encounter Care Teams Laboratory Asst Relationship Specialty Start Date End Date Philipp Pizarro MD [address] [place] [phone] PCP - General Internal Medicine 08/21/13 documented as of this encounter
--- OUTSIDE RECORDS SUMMARY | 2025-04-11 15:55 | XMS_ITS | Encounter Summary ---
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 Gender Identity Not on file Sexual Orientation Not on file documented as of this encounter Plan of Treatment Upcoming Encounters Date Type Department Care Team (Late st Contact Info) Description 04/26/2025 1:20 PM CDT Office Visit [facility] Primary Care - [facility], [facility] [address] [place] [address] [address] [address] Philipp Pizarro MD [address] [place] [address] [place] [phone] documented as of this encounter Visit Diagnoses Not on filedocumented in this encounter Additional Health Concerns Infection Onset Date Last Indicated Resolved Time R/O COVID-19 03/07/2020 03/07/2020 03/09/2020 4:45 AM CDT COVID-19 07/31/2021 07/31/2021 08/30/2021 1:16 AM CHEMISTRY LECTURER documented as of this encounter Care Teams Tool Crib Lead Relationship Specialty Start Date End Date Philipp Pizarro MD [address] [place] [phone] PCP - General Internal Medicine 08/21/13 documented as of this encounter
--- OUTSIDE RECORDS SUMMARY | 2025-04-11 15:55 | XMS_ITS | Encounter Summary ---
Author Organization [facility] Address [address] [facility] Attn: Epic Prelude ADT [address] [address] Care Team Providers Care Technical Illustrator Name Role Phone Philipp Pizarro MD Primary Care Provid er Encounter Details Date Type Department Care Team (Late st Contact Info) Description 03/11/1989 Outpatient Historical Naldo Santos Social History Tobacco Use Types Packs/Day Years Used Date Smoking Tobacco: Never Assessed Comments Unknown Sex and Gender Information Value Date Recorded Sex Assigned at Not on file Legal Sex Female 3:43 AM BROTH MIXER Gender Identity Not on file Sexual Orientation Not on file documented as of this encounter Plan of Treatment Upcoming Encounters Date Type Department Care Team (Late st Contact Info) Description 04/26/2025 1:20 PM CDT Office Visit [facility] Primary Care - [facility], [facility] [address] [place] [address] [address] [address] Philipp Pizarro MD [address] [place] [address] [place] [phone] documented as of this encounter Visit Diagnoses Not on filedocumented in this encounter Additional Health Concerns Infection Onset Date Last Indicated Resolved Time R/O COVID-19 03/07/2020 03/07/2020 03/09/2020 4:45 AM CDT COVID-19 07/31/2021 07/31/2021 08/30/2021 1:16 AM BROTH MIXER documented as of this encounter Care Teams Technical Illustrator Relationship Specialty Start Date End Date Philipp Pizarro MD [address] [place] [phone] PCP - General Internal Medicine 08/21/13 documented as of this encounter
--- OUTSIDE RECORDS SUMMARY | 2025-04-11 15:55 | XMS_ITS | Encounter Summary ---
Author Organization [facility] Address [address] [place] [address] Care Team Providers Care Pharmacy Assistant Name Role Phone Philipp Pizarro MD Primary Care Provid er Encounter Details Date Type Department Care Team (Late st Contact Info) Description 04/11/2025 Telephone [facility] Medical Group Convenient Care at [place] [address] [place] [address] Obinna Sullivan NP [address] [facility] [address] [place], [place] [phone] Social History Tobacco Use Types Packs/Day Years Used Date Smoking Tobacco: Never Assessed Comments Unknown Sex and Gender Information Value Date Recorded Sex Assigned at Not on file 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
--- OUTSIDE RECORDS SUMMARY | 2025-04-11 15:55 | XMS_ITS | Encounter Summary ---
Author Organization [facility] Address [address] [facility] Attn: Epic Prelude ADT [place] [address] Care Team Providers Care Alteration Tailor Apprentice Name Role Phone Philipp Pizarro MD Primary Care Provid er Encounter Details Date Type Department Care Team (Late st Contact Info) Description 11/17/1996 Outpatient Historical Conversion, History Naldo Santos Social History Tobacco Use Types Packs/Day Years Used Date Smoking Tobacco: Never Assessed Comments Unknown Sex and Gender Information Value Date Recorded Sex Assigned at Not on file Legal Sex Female 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 MARKETING SPECIALIST Gender Identity Not on file Sexual Orientation Not on file documented as of this encounter Plan of Treatment Upcoming Encounters Date Type Department Care Team (Late st Contact Info) Description 04/26/2025 1:20 PM CDT Office Visit [facility] Primary Care - [facility], [facility] [address] [place] [address] [address] [address] Philipp Pizarro MD [address] [place] [address] [place] [phone] documented as of this encounter Visit Diagnoses Not on filedocumented in this encounter Additional Health Concerns Infection Onset Date Last Indicated Resolved Time R/O COVID-19 03/07/2020 03/07/2020 03/09/2020 4:45 AM CDT COVID-19 07/31/2021 07/31/2021 08/30/2021 1:16 AM PRODUCT MARKETING SPECIALIST documented as of this encounter Care Teams Alteration Tailor Apprentice Relationship Specialty Start Date End Date Philipp Pizarro MD [address] [place] [phone] PCP - General Internal Medicine 08/21/13 documented as of this encounter
--- OUTSIDE RECORDS SUMMARY | 2025-04-11 15:55 | XMS_ITS | Encounter Summary ---
Author Organization [facility] Address [address] [place] [address] Care Team Providers Care Production Pattern Maker Name Role Phone Philipp Pizarro MD Primary Care Provid er Reason for Visit * Reason Comments Needs Orders Written Encounter Details Date Type Department Care Team (Late st Contact Info) Description 04/20/2024 Telephone [facility] Primary Care - [facility], [place] [address], 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 Topic: CPA Information Request - Order or Referral Request >> Apr 20, 2024 12:50 PM Pato Campso wrote: Caller is requesting: New Lab Electronic Component Processor Name: Jessica Saldana Patient/Caregiver Callback Number: Telephone Information: Order: Blood work Reason for Request: For upcoming appointment on 04/24/24 documented in this encounter Plan of Treatment Upcoming Encounters Date Type Department Care Team (Late st Contact Info) Description 04/26/2025 1:20 PM CDT Office Visit [facility] Primary Care - [facility], [place] [place] [place] [address] Philipp Pizarro MD [address] [facility] [address] [place], [place] documented as of this encounter Procedures Procedure Name Priority Date/Time Associated Diagnosis Comments TSH REFLEXIVE Routine 04/22/2024 8:40 AM CDT Type 2 diabetes mellitus with hyperglycemia, without long-term current use of insulin (CMS/HCC) CBC WITH DIFFERENTIAL Routine 04/22/2024 8:40 AM CDT Type 2 diabetes mellitus with hyperglycemia, without long-term current use of insulin ([facility]/HCC) HEMOGLOBIN A1C Routine 04/22/2024 8:40 AM CDT Type 2 diabetes mellitus with hyperglycemia, without long-term current use of insulin ([facility]) LIPID PANEL Routine 04/22/2024 8:40 AM CDT Type 2 diabetes mellitus with hyperglycemia, without long-term current use of insulin ([facility]) COMPREHENSIVE METABOLIC PANEL Routine 04/22/2024 8:40 AM CDT Type 2 diabetes mellitus with hyperglycemia, without long-term current use of insulin ([facility]) documented in this encounter Results * TSH REFLEXIVE (04/22/2024 8:40 AM CDT) TSH 2.61 0.40 - 4.50 mIU/L [facility] [employer] [facility] Plan[facility]oreen Borrego Comment: FASTING:YES FASTING: YES Test Performed at: [facility] [place] [address] [address] [place] [phone] Moy Goldberg Blood 04/22/2024 8:40 AM CDT 04/22/2024 8:41 AM CDT us Philipp Pizarro MD CHEMISTRY ORDERABLES Final Result [facility] [phone] [place] [address] [address] [place] [id number] * (ABNORMAL) LIPID PANEL (04/22/2024 8:40 AM CDT) CHOLESTEROL 155 <200 mg/dL [facility] Doctor[facility]issa Borrego HDL 54 > OR = 50 mg/dL [employer] [facility]-Doreen Borrego TRIGLYCERIDE 190(H) <150 mg/dL [employer] [facility]-Doreen Borrego LDL CALCULATED 73 mg/dL (calc) [facility] [employer] Comment: Reference range: <100 Desirable range <100 mg/dL for primary prevention; <70 mg/dL for patients with CHD or diabetic patients with > or = 2 CHD risk factors. LDL-C is now calculated using the Shamir calculation, which is a validated novel method providing better accuracy than the Friedewald equation in the estimation of LDL-C. Danilo MARIE et al. MARIEL. 2013;310(19): 3189-1533 (http://education.[employer]/faq/LKW351) CHOL/HDL RATIO 2.9 <5.0 (calc) [facility] [employer] Borrego NON-HDL CHOLESTEROL 101 <130 mg/dL (calc) [facility] [employer] Bor[facility] Comment: For patients with diabetes plus 1 major ASCVD risk factor, treating to a non-HDL-C goal of <100 mg/dL (LDL-C of <70 mg/dL) is considered a therapeutic option. Test Performed at: [facility] [facility] [place] [address] [address] [place] [id number] Moy Goldberg Blood 04/22/2024 8:40 AM CDT 04/22/2024 8:41 AM CDT Philipp Pizarro MD CHEMISTRY ORDERABLES Final Result [facility] [phone] [facility] [employer] [facility] [place] [address] [address] [place] [phone] * (ABNORMAL) HEMOGLOBIN A1C (04/22/2024 8:40 AM CDT) HEMOGLOBIN A1C 6.8(H) <5.7 % of total Hgb [facility] [employer]en carlin Borrego Comment: For someone without known [...] children. ESTIMATED AVERAGE GLUCOSE (MG/DL) 148 mg/dL [facility] [employer] [facility] PlanMelissa Borrego ESTIMATED AVERAGE GLUCOSE (MMOL/L) 8.2 mmol/L [facility] DoctorMel[facility] Borrego Comment: This test was performed on the Rashid feliciano c503 platform. Effective 10/14/23, a change in test platforms from the [employer] to the Rashid feliciano c503 may have shifted HbA1c results compared to historical results. Based on laboratory validation testing conducted at [facility], the Rashid platform relative to the [...] recommended. FASTING:YES FASTING: YES Test Performed at: [place] [address] [address] [place] [id number] Moy Ibarra Blood 04/22/2024 8:40 AM CDT 04/22/2024 8:41 AM CDT Philipp Pizarro MD CHEMISTRY ORDERABLES Final Result [facility] [phone] [place] [address] [address] [place] [phone] * (ABNORMAL) COMPREHENSIVE METABOLIC PANEL (04/22/2024 8:40 [...] RATIO 2.0 1.0 - 2.5 (calc) [facility] carlin Borrego BILIRUBIN TOTAL 0.5 0.2 - 1.2 mg/dL [employer] [facility]-S carlin Borrego ALKALINE PHOSPHATASE 40 37 - 153 U/L [employer] [facility]-S carlin Borrego AST 15 10 - 35 U/L [facility] carlin Borrego ALT 19 6 - 29 U/L [employer] [facility]-S carlin Borrego Comment: FASTING:YES FASTING: YES Test Performed at: [facility] [place] [address] [place] [phone] Moy Ibarra Blood 04/22/2024 8:40 AM CDT 04/22/2024 8:41 AM CDT Philipp Pizarro MD CHEMISTRY ORDERABLES Final Result [facility] [phone] [facility] [place] [address] [place] [phone] * CBC WITH DIFFERENTIAL (04/22/2024 8:40 AM CDT) WBC 6.2 3.8 - 10.8 Thousand/u L [facility] [employer] [facility]-S carlin Borrego RBC 4.67 3.80 - 5.10 Million/uL [facility] carlin Borrego HEMOGLOBIN 14.3 11.7 - 15.5 g/dL [facility] carlin Elmo HEMATOCRIT 44.2 35.0 - 45.0 % [facility] car[facility] [place] MCV 94.6 80.0 - 100.0 fL [facility] car[facility] MCH 30.6 27.0 - 33.0 pg [facility] car[facility] [place] MCHC 32.4 32.0 - 36.0 g/dL [facility] t [facility] RDW 12.6 11.0 - 15.0 [...] Comment: FASTING:YES FASTING: YES Test Performed at: [facility] [place] [address] [place] [phone] Moy Ibarra Blood 04/22/2024 8:40 AM CDT 04/22/2024 8:41 AM CDT us Philipp Pizarro MD HEMATOLOGY ORDERABLE S Final Result [facility] [phone] [facility] [employer] [employer] [facility] [place] [address] [place] [phone] documented in this encounter Visit Diagnoses Diagnosis Type 2 diabetes mellitus with hyperglycemia, without long-term current use of insulin ([facility])- Primary documented in this encounter Additional Health Concerns Assessment Noted Time PHQ-9 Depression Total Score: 1 10/22/19 24 11:05 AM CDT documented as of this encounter Care Teams Production Pattern Maker Relationship Specialty Start Date End Date Philipp Pizarro MD [address] [place] [phone] PCP - General Internal Medicine 08/21/13 documented as of this encounter
--- OUTSIDE RECORDS SUMMARY | 2025-04-11 15:55 | XMS_ITS | Encounter Summary ---
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 Gender Identity Not on file Sexual Orientation Not on file documented as of this encounter Plan of Treatment Upcoming Encounters Date Type Department Care Team (Late st Contact Info) Description 04/26/2025 1:20 PM CDT Office Visit [facility] Primary Care - [facility], [facility] [address] [place] [address] [address] [phone] Philipp Pizarro MD [address] [place] [address] [place] [phone] documented as of this encounter Visit Diagnoses Not on filedocumented in this encounter Additional Health Concerns Infection Onset Date Last Indicated Resolved Time R/O COVID-19 03/07/2020 03/07/2020 03/09/2020 4:45 AM CDT COVID-19 07/31/2021 07/31/2021 08/30/2021 1:16 AM FUR BLOWER OPERATOR documented as of this encounter Care Teams Beadworker Relationship Specialty Start Date End Date Philipp Pizarro MD [address] [place] [phone] PCP - General Internal Medicine 08/21/13 documented as of this encounter
[2025-04-11] MEDS: ASPIRIN 81 MG CHEWABLE TABLET 324 MG PO (15:58)
[2025-04-11 15:59] LABS: Troponin I < 0.012 ng/mL (0.000-0.034)
--- NOTE | 2025-04-11 15:59 | ED_ITS ---
HPI - Chest Pain General Chief Complaint: Chest Pain <Samantha Fair PA-C - Last Filed: 04/11/25 18:40> Stated Complaint: Chest pain since yesterday-intermittant <Samantha Fair PA-C - Last Filed: 04/11/25 18:40> Time Seen by Provider: 04/11/25 15:08 <ACOSTA Lechuga Last Filed: 04/11/25 18:40> Source: patient <ACOSTA Lechuga Last Filed: 04/11/25 18:40> Mode of arrival: ambulatory <ACOSTA Lechuga Last Filed: 04/11/25 18:40> Limitations: no limitations <ACOSTA Lechuga Last Filed: 04/11/25 18:40> History of Present Illness HPI narrative: Patient is a 74 y/o female, with PMH of HTN, HLD, DM, who presents to the ED with c/o CP. Patient reports she has had intermittent a left- sided/midsternal chest pain since yesterday. Pain resolved on its own last night, but began again around 9:00 a.m. today. Has been persistent since then. Described as a heaviness. Denies signficant aggravating or alleviating factors. Does feel the need to belch, states this feels somewhat like indigestion. She tried taking Tums without improvement. Denies shortness of breath, pain or swelling in legs, cough, fevers, hx of cardiac disease. <Samantha Fair PA-C - Last Filed: 04/11/25 18:40> Related Data Home Medications: Home Medications ?Medication ?Instructions ?Recorded ?Confirmed ?Last Taken ?Type Calcium 600 + D(3) 1,000 mg PO 04/09/20 Unknow n History alendronate 70 mg-cholecalciferol 1 tablet PO WEEKLY 0 04/09/20 Unknown History (vitamin D3) 2,800 unit tablet hydrochlorothiazide 25 mg tablet 25 mg PO DAILY Unknown History lisinopril 40 mg tablet 40 mg PO DAILY 04/09/20 Unk nown History magnesium 200 mg tablet 400 mg PO DAILY 04/09/20 Un known History metformin 500 mg tablet,extended mg PO 04/09/20 Unkno wn History release 24 hr metoprolol succinate 50 mg 50 mg PO DAILY 04/09/20 Un known History tablet,extended release 24 hr pyridoxine (vitamin B6) 100 mg 100 mg PO DAILY 0 Unknown History tablet rosuvastatin 10 mg tablet 10 mg PO DAILY 04/09/20 Unk nown History vitamin B complex (B 1 tablet PO DAILY 04/09/20 Unknown History Complex-Vitamin B12 tablet) <Samantha Fair PA-C - Last Filed: 04/11/25 18:40> Allergies/Adverse Reactions: Allergies Allergy/AdvReac Type Severity Reaction Status Date / Time No Known Allergies Allergy Verified 04/11/25 15:01 <Samantha Fair PA-C - Last Filed: 04/11/25 18:40> Review of Systems 2 Review of Systems: All systems reviewed & are unremarkable except as noted in HPI. <Samantha Fair PA-C - Last Filed: 04/11/25 18:40> All systems reviewed & are unremarkable except as noted in HPI and below < ACOSTA Lechuga Last Filed: 04/11/25 18:40> PMFSH Past Medical History Medical History: Medical History Diabetes Hyperlipidemia Hypertension <ACOSTA Lechuga Last Filed: 04/11/25 18:40> Exam 2 Narrative: GENERAL: Well appearing, well-nourished, non-toxic, in no acute distress. HEAD: Normocephalic, atraumatic. RESPIRATORY: Airway patent, respirations nonlabored. Clear to auscultation bilaterally, no rales, rhonchi, wheezing. CARDIOVASCULAR: Regular rate and rhythm without murmurs, rubs, or gallops. ABDOMINAL: Soft, nontender, nondistended. Normoactive BS. MUSCULOSKELETAL: Moves all extremities. No gross deformities. No peripheral edema. No chest wall tenderness to palpation. SKIN: Warm, dry, normal color. NEURO: A&O X3. Speech clear. Cranial nerves II-XII grossly intact. Steady gait. No ataxic movements. PSYCHIATRIC: Appropriate mood and affect. Normal interaction. <Samantha Fair PA-C - Last Filed: 04/11/25 18:40> Course HOT STAMP OPERATOR/PA Physician Supervision This visit was performed by both a physician and an APC. I performed all aspects of the MDM as documented. <Henok Santoyo MD - Last Filed: 04/11/25 20:00> Vital Signs Vital signs: Vital Signs Temperature 98.0 F 04/11/25 15:12 Pulse Rate 77 04/11/25 15:12 Respiratory Rate 19 04/11/25 15:12 Blood Pressure 153/69 H 04/11/25 15:12 Pulse Oximetry 98 04/11/25 15:12 Oxygen Delivery Room Air 04/11/25 15:12 Temperature 98.0 F 04/11/25 15:12 Pulse Rate 67 04/11/25 19:46 Respiratory Rate 17 04/11/25 19:46 Blood Pressure 113/64 04/11/25 19:46 Pulse Oximetry 95 04/11/25 19:46 Oxygen Delivery Room Air 04/11/25 15:21 <Samantha Fair PA-C - Last Filed: 04/11/25 18:40> Vital Signs Temperature 98.0 F 04/11/25 15:12 Pulse Rate 77 04/11/25 15:12 Respiratory Rate 19 04/11/25 15:12 Blood Pressure 153/69 H 04/11/25 15:12 Pulse Oximetry 98 04/11/25 15:12 Oxygen Delivery Room Air 04/11/25 15:12 Temperature 98.0 F 04/11/25 15:12 Pulse Rate 67 04/11/25 19:46 Respiratory Rate 17 04/11/25 19:46 Blood Pressure 113/64 04/11/25 19:46 Pulse Oximetry 95 04/11/25 19:46 Oxygen Delivery Room Air 04/11/25 15:21 <Henok Santoyo MD - Last Filed: 04/11/25 20:00> MDM - Chest Pain MDM Narrative Medical decision making narrative: EKG with left bundle-branch block, this appears chronic per previous records. Baseline troponin undetectable Chest x-ray clear Heart score 6 Initially tried a GI cocktail as patient reported pain felt somewhat similar to indigestion. She denies any improvement after GI cocktail. Persistent midsternal chest having given 2 doses of sublingual nitro reports pain has since resolved after 2nd dose. Will be admitted for further evaluation and cardiac eval. Discussed case with Elizabet Thompson NP hospitalist, accepted patient for admission. Patient and family in agreement with plan and admission. Will continue to trend troponins. <Samantha Fair PA-C - Last Filed: 04/11/25 18:40> Medical Records Data Attestation: I reviewed the patient's medical records. <Samantha Fair PA-C - Last Filed: 04/11/25 18:40> Lab Data Attestation: I reviewed the patient's lab results. <Samantha Fair PA-C - Last Filed: 04/11/25 18:40> Result diagrams: 04/11/25 15:19 04/11/25 15:19 <ACOSTA Lechuga Last Filed: 04/11/25 18:40> Labs: Lab Results 04/11/25 04/11/25 Range/Units 15:19 18:03 WBC 7.9 (4.5-10.0) K/mm3 RBC 4.95 (4.2-5.4) M/mm3 Hgb 14.9 (12.0-15.0) g/dL Hct 44.6 (37.0-47.0) % MCV 90.1 (80-100) fl MCH 30.1 (26-34) pg MCHC 33.4 (32-36) g/dl RDW 13.0 (11.5-14.5) % Plt Count 202 (150-375) k/mm3 MPV 10.5 H (7.4-10.4) fl Immature Gran % (Auto) 0.3 (0-0.5) % Neut % (Auto) 57.6 (45.5-73.1) % Lymph % (Auto) 34.8 (18.3-44.2) % [place] % (Auto) 6.0 (2.6-8.5) % Eos % (Auto) 0.9 (0-4.4) % Baso % (Auto) 0.4 (0.2-1.2) % Lymph # (Auto) 2.76 (0.9-3.2) K/mm3 [place] # (Auto) 0.5 (0.1-0.6) K/mm3 Eos # (Auto) 0.1 (0-0.3) K/mm3 Baso # (Auto) 0.0 (0.0-0.1) K/mm3 Abs Immat Gran (auto) 0.02 (0.00-0.031) K/mm3 Absolute Neuts (auto) 4.6 (1.3-6.7) K/mm3 Absolute Nucleated RBC 0.000 (0.0-0.012) K/mm3 Nucleated RBC % 0.0 (0.0-0.2) % PT 12.9 (11.1-14.7) Seconds INR 1.0 APTT 29.9 (22.3-36.8) Seconds Sodium 137 (137-145) mmol/L Potassium 3.6 (3.4-5.0) mmol/L Chloride 101 (98-107) mmol/L Carbon Dioxide 29 (22-30) mmol/L Anion Gap 7 (4-12) mmol/L BUN 13 D (7-17) mg/dL Creatinine 0.58 L (0.7-1.0) mg/dL Estim Creat Clear Calc 66 ml/min Estimated GFR > 60 (59 - ) Glucose 133 H (65-110) mg/dL Calcium 10.4 H (8.4-10.2) mg/dL Total Bilirubin 0.5 (0.2-1.3) mg/dL AST 24 (14-36) U/L ALT 22 (6-35) U/L Alkaline Phosphatase 68 (38-126) U/L Troponin I < 0.012 < 0.012 (0.000-0.034) ng/mL Total Protein 7.7 (6.3-8.2) g/dL Albumin 4.6 (3.5-5.1) g/dL Lipase 91 (23-300) U/L <Samantha Fair PA-C - Last Filed: 04/11/25 18:40> Lab Results 04/11/25 04/11/25 Range/Units 15:19 18:03 WBC 7.9 (4.5-10.0) K/mm3 RBC 4.95 (4.2-5.4) M/mm3 Hgb 14.9 (12.0-15.0) g/dL Hct 44.6 (37.0-47.0) % MCV 90.1 (80-100) fl MCH 30.1 (26-34) pg MCHC 33.4 (32-36) g/dl RDW 13.0 (11.5-14.5) % Plt Count 202 (150-375) k/mm3 MPV 10.5 H (7.4-10.4) fl Immature Gran % (Auto) 0.3 (0-0.5) % Neut % (Auto) 57.6 (45.5-73.1) % Lymph % (Auto) 34.8 (18.3-44.2) % [place] % (Auto) 6.0 (2.6-8.5) % Eos % (Auto) 0.9 (0-4.4) % Baso % (Auto) 0.4 (0.2-1.2) % Lymph # (Auto) 2.76 (0.9-3.2) K/mm3 [place] # (Auto) 0.5 (0.1-0.6) K/mm3 Eos # (Auto) 0.1 (0-0.3) K/mm3 Baso # (Auto) 0.0 (0.0-0.1) K/mm3 Abs Immat Gran (auto) 0.02 (0.00-0.031) K/mm3 Absolute Neuts (auto) 4.6 (1.3-6.7) K/mm3 Absolute Nucleated RBC 0.000 (0.0-0.012) K/mm3 Nucleated RBC % 0.0 (0.0-0.2) % PT 12.9 (11.1-14.7) Seconds INR 1.0 APTT 29.9 (22.3-36.8) Seconds Sodium 137 (137-145) mmol/L Potassium 3.6 (3.4-5.0) mmol/L Chloride 101 (98-107) mmol/L Carbon Dioxide 29 (22-30) mmol/L Anion Gap 7 (4-12) mmol/L BUN 13 D (7-17) mg/dL Creatinine 0.58 L (0.7-1.0) mg/dL Estim Creat Clear Calc 66 ml/min Estimated GFR > 60 (59 - ) Glucose 133 H (65-110) mg/dL Calcium 10.4 H (8.4-10.2) mg/dL Total Bilirubin 0.5 (0.2-1.3) mg/dL AST 24 (14-36) U/L ALT 22 (6-35) U/L Alkaline Phosphatase 68 (38-126) U/L Troponin I < 0.012 < 0.012 (0.000-0.034) ng/mL Total Protein 7.7 (6.3-8.2) g/dL Albumin 4.6 (3.5-5.1) g/dL Lipase 91 (23-300) U/L <Henok Santoyo MD - Last Filed: 04/11/25 20:00> Imaging Data Attestation: I personally reviewed and interpreted this imaging study as follows: < Samantha Fair PA-C - Last Filed: 04/11/25 18:40> Radiologist's impression: ITS Impressions Chest X-Ray 04/11/25 15:53 Impression: No acute cardiopulmonary abnormality. <Samantha Fair PA-C - Last Filed: 04/11/25 18:40> ECG Data EKG #1: Attestation: I personally reviewed and interpreted this ECG as follows: <Samantha Fair PA-C - Last Filed: 04/11/25 18:40> ECG completion date: 04/11/25 <Samantha Fair PA-C - Last Filed: 04/11/25 18:40> ECG completion time: 15:11 <Samantha Fair PA-C - Last Filed: 04/11/25 18:40> EKG Interpretation: normal rate (74), sinus rhythm, non-specific ST changes and LBBB (chronic per previous records) <Samantha Fair PA-C - Last Filed: 04/11/25 18:40> Discharge Plan Discharge Clinical Impression: LBBB (left bundle branch block) Chest pain Qualifiers: Chest pain type: unspecified Qualified Code(s): R07.9 - Chest pain, unspecified <Samantha Fair PA-C - Last Filed: 04/11/25 18:40> Patient Disposition: Still a Patient <Samantha Fair PA-C - Last Filed: 04/11/25 18:40> Condition: Stable <Samantha Fair PA-C - Last Filed: 04/11/25 18:40> Quality HEART score for chest pain patients History: moderately suspicious <Samantha Fair PA-C - Last Filed: 04/11/25 18:40> ECG: non specific repolarization disturbance/LBTB/PM <PETER Lechuga - Last Filed: 04/11/25 18:40> Age: > or = to 65 years <Samantha Fair PA-C - Last Filed: 04/11/25 18:40> Risk factors: > or = to 3 risk factors of atherosclerotic disease <Samantha Fair PA-C - Last Filed: 04/11/25 18:40> Troponin: < or = to 1x normal limit <Samantha Fair PA-C - Last Filed: 04/11/25 18:40> Heart score: 6 <Samantha Fair PA-C - Last Filed: 04/11/25 18:40> 6 <Henok Santoyo MD - Last Filed: 04/11/25 20:00>
[2025-04-11] MEDS: BELLADONNA ALK/PHENOB ELIX 10 ML, MAG HYDROX/ALUMINUM HYD/SIMETH 30 ML, LIDOCAINE 2% VI... PO (16:33)
[2025-04-11] MEDS: NITROGLYCERIN SL 0.4 MG TABLET SUBLINGUAL (17:40)
--- NOTE | 2025-04-11 17:48 | PC.NURSE ---
Second dose of Nitro given r/t chest chest pain. Not much relief with the fist dose.
--- NOTE | 2025-04-11 17:55 | ECG_ITS ---
Test Date: 2025-04-11 18:02:39 Measurements Intervals Amigo Rate: 60 P: 54 NE: 178 QRS: -19 QRSD: 149 T: 113 QT: 422 QTc: 422 Interpretive Statements SINUS RHYTHM LEFT BUNDLE BRANCH BLOCK [120+ ms QRS DURATION, 80+ ms Q/S IN V1/V2, 85+ ms R IN I/aVL/V5/V6] ABNORMAL ECG Compared to ECG 04/11/2025 15:11:47 No significant changes Electronically Signed On 04-12-2025 07:49:34 CDT by Enrico Rust M.D.
[2025-04-11 18:50] LABS: Troponin I < 0.012 ng/mL (0.000-0.034)
--- NOTE | 2025-04-11 19:05 | PM.IMHP ---
H&P: HPI History of Present Illness Date/Time: 04/11/25 19:05 Chief Complaint: Chest Pain Narrative: 74 y/o F with PMH of hypertension, hyperlipidemia, and diabetes presents here with chest pain. The patient presents here from home on 04/11 for further evaluation of chest pain. She reports onset of chest pain yesterday, early afternoon after she had gone to the movie while she was at home at rest. Chest pain initially resolved last night but returned this morning around 9:00 a.m. Pain is now more constant in nature, was intermittent yesterday. She described the chest pain as pressure, heaviness, indigestion (like she needed to belch), radiation into her back, and no aggravating or alleviating factors. She initially took Tylenol and 2 Tums to try to treat her symptoms, denies relief. She denies associated shortness of breath, nausea, vomiting, diaphoresis, dizziness, or palpitations. She does not typically have issues with acid reflux and rarely has to take Pepcid or Tums. In the emergency department she was given a GI cocktail x1, however this did not provide any relief. She was additional given sublingual nitro x2, initial dose did not provided relief and the 2nd dose helped her pain. Currently reporting chest pain/pressure like she needs to belch and now pain is back to a 5/10 which is where it was originally before the nitro. She denies any significant cardiac history or cardiac disease. Last stress test was 15+ years ago and normal. Initial VS at presentation: 98? F, HR 77, R 19, 153/69, and 98% on RA. ED workup showed: No leukocytosis, no anemia, normal coags, no significant electrolyte derangements, creatinine 0.58 and GFR >60, glucose 133, initial troponin negative x2. CXR showed no acute cardiopulmonary abnormality. EKG showed sinus rhythm, left bundle branch block, rate 74. Review of Systems Review of Systems: All systems reviewed & are unremarkable except as noted in HPI and below [facility] Past Medical History Medical History Diabetes Hyperlipidemia Hypertension Family History Family History (Updated 04/11/25 @ 22:11 by Asya Ching RN) Mother Acute myocardial infarction Father Cerebrovascular accident Social History Social History Smoking packs per day: 1 Smoking cigarettes per day: 20.0 Years smoked: 15 Smoking pack-years: 15.00 Smoking status: Former smoker Tobacco type: cigarettes Alcohol intake: never Substance use: never Lack of Transportation: No Lack of Food: Never True Current Housing: I Have Housing Concerned About Future Housing: No Difficulty Paying Gas/Electric Bills: No Difficulty Paying for Meds: No Currently Unemployed: No Education: High School Diploma/GED Difficulty w/ Childcare or Family Care: No Spiritual care concerns: No Meds Home Medications and Allergies Home Medications ?Medication ?Instructions ?Recorded ?Confirmed ?Type alendronate 70 mg-cholecalciferol 1 tablet PO WEEKLY 04/09/20 04/11/25 History (vitamin D3) 2,800 unit tablet hydrochlorothiazide 25 mg tablet 25 mg PO DAILY 04/09/20 04/11/25 History lisinopril 40 mg tablet 40 mg PO DAILY 04/09/20 04/11/25 History magnesium 200 mg tablet 400 mg PO DAILY 04/09/20 04/11/25 History metformin 500 mg tablet,extended 1,000 mg PO BID 04/09/20 04/11/25 History release 24 hr metoprolol succinate 50 mg 50 mg PO DAILY 04/09/20 04/11/25 History tablet,extended release 24 hr pyridoxine (vitamin B6) 100 mg 100 mg PO DAILY 04/09/20 04/11/25 History tablet rosuvastatin 10 mg tablet 10 mg PO .COMPLEX 04/09/20 04/11/25 History vitamin B complex (B 1 tablet PO DAILY 04/09/20 04/11/25 History Complex-Vitamin B12 tablet) aspirin 81 mg tablet,delayed 81 mg PO DAILY 04/11/25 04/11/25 History release (Adult Aspirin Regimen) Allergies Allergy/AdvReac Type Severity Reaction Status Date / Time No Known Allergies Allergy Verified 04/11/25 15:01 Vital Signs Vital Signs - 24 hr 04/11/25 15:12 04/11/25 15:13 04/11/25 15:14 Temperature 98.0 F Pulse Rate 77 Respiratory Rate 19 24 H 21 H Blood Pressure 153/69 H 153/69 H Pulse Oximetry 98 97 97 Oxygen Delivery Room Air 04/11/25 15:15 04/11/25 15:16 04/11/25 15:21 Temperature Pulse Rate 77 Respiratory Rate 17 20 Blood Pressure 130/74 Pulse Oximetry 98 97 Oxygen Delivery 04/11/25 15:21 04/11/25 15:37 04/11/25 15:45 Temperature Pulse Rate 77 Respiratory Rate 17 Blood Pressure Pulse Oximetry 99 97 95 Oxygen Delivery Room Air 04/11/25 16:00 04/11/25 16:15 04/11/25 16:30 Temperature Pulse Rate 83 69 70 Respiratory Rate 21 H 23 H 20 Blood Pressure Pulse Oximetry 97 95 98 Oxygen Delivery 04/11/25 16:45 04/11/25 16:46 04/11/25 17:00 Temperature Pulse Rate 74 69 68 Respiratory Rate 17 19 18 Blood Pressure 132/65 Pulse Oximetry 99 97 Oxygen Delivery 04/11/25 17:01 04/11/25 17:15 04/11/25 17:16 Temperature Pulse Rate 66 66 71 Respiratory Rate 19 18 16 Blood Pressure 124/58 L 123/60 Pulse Oximetry 93 94 96 Oxygen Delivery 04/11/25 17:30 04/11/25 17:31 04/11/25 17:44 Temperature Pulse Rate 70 70 82 Respiratory Rate 24 H 19 19 Blood Pressure 125/60 117/67 Pulse Oximetry 96 98 96 Oxygen Delivery 04/11/25 17:45 04/11/25 17:47 04/11/25 18:02 Temperature Pulse Rate 79 78 65 Respiratory Rate 25 H 21 H 17 Blood Pressure 125/70 Pulse Oximetry 92 95 97 Oxygen Delivery 04/11/25 18:56 Temperature Pulse Rate 72 Respiratory Rate 20 Blood Pressure 116/56 L Pulse Oximetry 96 Oxygen Delivery Exam Const: General: comfortable and no acute distress Other: , female, elderly, nontoxic appearance HENMT: Face/Nose/Sinus: Normal nares present Mouth: Yes moist mucous membranes Eyes: General: appearance normal, both eyes and all related structures Sclera: sclerae normal Pupils: Equal, round and reactive pupils present EOM: EOMs intact bilaterally Resp: Effort & Inspection: normal respiratory effort Auscultation: clear to auscultation bilaterally Cardio: Rate: regular rate Rhythm: regular rhythm Other: S1-S2 present without murmur, rub, ectopy GI: Other: Abdomen soft, nondistended, nontender. Normoactive bowel sounds in all quadrants. Skin: General skin exam: normal color and no rashes or lesions noted Wounds: no wounds Neuro: Speech: normal speech Motor exam (neuro): 5/5 motor strength present throughout Sensory Exam: normal sensation Other: A&O x4 Extrem: General: normal to inspection Psych: Mental Status: mental status grossly normal Affect: normal affect Other: Good insight and judgment, very pleasant H&P: Results Labs Labs: Short CBC 04/11/25 Range/Units 15:19 WBC 7.9 (4.5-10.0) K/mm3 Hgb 14.9 (12.0-15.0) g/dL Hct 44.6 (37.0-47.0) % Plt Count 202 (150-375) k/mm3 BMP 04/11/25 15:19 Sodium 137 Potassium 3.6 Chloride 101 Carbon Dioxide 29 BUN 13 D Creatinine 0.58 L Glucose 133 H Calcium 10.4 H Cardiac Enzymes 04/11/25 04/11/25 Range/Units 15:19 18:03 Troponin I < 0.012 < 0.012 (0.000-0.034) ng/mL Liver Function 04/11/25 Range/Units 15:19 Total Bilirubin 0.5 (0.2-1.3) mg/dL AST 24 (14-36) U/L ALT 22 (6-35) U/L Alkaline Phosphatase 68 (38-126) U/L Albumin 4.6 (3.5-5.1) g/dL Assessment and Plan Assessment and plan (1) Chest pain: Qualifiers: Chest pain type: unspecified Qualified Code(s): R07.9 - Chest pain, unspecified Code(s): R07.9 - Chest pain, unspecified Status: Acute Assessment and Plan: Initially experiencing intermittent chest pain yesterday (04/10) which resolved yesterday evening. Return today and has been more constant in nature. No change with Tums or GI cocktail. Was relieved with nitro SL x2. - EKG, initial: sinus rhythm, left bundle branch block, rate 74. (reviewed EKG impression compared to previous in 2019, unable to review image, similar read -> sinus rhythm, left bundle branch block, baseline water V6, rate 94) - EKG, repeat (1): No significant changes compared to prior EKG done earlier same day - CXR: No acute cardiopulmonary abnormality - Troponin: < 0.012 x3 - ASA 324 given, continue as 81 daily - SL nitro PRN - stress test ordered, if abnormal consult cardiology - no previous stress test, cardiac catheterization, or echo on file - differential does include uncontrolled GERD, however has no previous history of significant acid reflux. Starting PPI b.i.d.. - telemetry monitoring (2) Diabetes: Qualifiers: Diabetes mellitus complication status: without complication Diabetes mellitus exterminator termite insulin use: without exterminator termite use Diabetes mellitus type: type 2 Qualified Code(s): E11.9 - Type 2 diabetes mellitus without complications Code(s): E11.9 - Type 2 diabetes mellitus without complications Status: Chronic Assessment and Plan: - hypoglycemia protocol - POC blood glucose ACHS - home medication: Hold metformin in case of need for contrast - correct regimen ordered - moderate dose TIDWM, based off BMI (3) Hyperlipidemia: Qualifiers: Hyperlipidemia type: unspecified Qualified Code(s): E78.5 - Hyperlipidemia, unspecified Code(s): E78.5 - Hyperlipidemia, unspecified Status: Chronic Assessment and Plan: - continue rosuvastatin (4) Hypertension: Qualifiers: Hypertension type: primary hypertension Qualified Code(s): I10 - Essential (primary) hypertension Code(s): I10 - Essential (primary) hypertension Status: Chronic Assessment and Plan: - chronic, currently 116/56 - continue home medications: HCTZ, lisinopril, metoprolol - monitor Plan Diet: Heart healthy GI Prophylaxis: N/a DVT Prophylaxis: SCDs IV fluids: None Lines/Tubes: Peripheral IV Code Status: Full code Quality VTE Prophylaxis VTE prophylaxis: mechanical ordered Hospitalist MIPS Advance Care Plan I have confirmed that the patient's Advanced Care Plan is present, code status is documented, or surrogate decision maker is listed in patient medical record.: Yes Medication Reconciliation I have utilized all available resources to obtain, update and review the patients current medications (includes all prescriptions, OTC, herbals, cannabis, and nutritional supplements).: Yes
--- NOTE | 2025-04-11 19:16 | ECG_ITS ---
Test Date: 2025-04-12 09:03:50 Measurements Intervals [place] Rate: 61 P: 59 MA: 183 QRS: -22 QRSD: 148 T: 81 QT: 437 QTc: 441 Interpretive Statements SINUS RHYTHM LEFT BUNDLE BRANCH BLOCK [120+ ms QRS DURATION, 80+ ms Q/S IN V1/V2, 85+ ms R IN I/aVL/V5/V6] ABNORMAL ECG Compared to ECG 04/11/2025 18:02:39 No significant changes Electronically Signed On 04-12-2025 11:15:57 CDT by Enrico Rust M.D.
[2025-04-11 21:23] LABS: Troponin I < 0.012 ng/mL (0.000-0.034)
--- NOTE | 2025-04-11 22:00 | ADMGEN ---
This patient, Jessica Saldana, was admitted to IMU Room 211-01. Patient/family oriented to hospital policies and general routines including ID bracelet, bed and alarms, visiting hours, pain management, procedures, bathroom and other care routines, personal items, smoking policy, room service/diet, and visiting hours. Information on how to activate the Rapid Response Team has been discussed. Patient/Family are encouraged to report perceived risks to care and to ask questions if they do not understand what they are told or what they should do.
[2025-04-11] MEDS: PANTOPRAZOLE SODIUM IV 40 MG VIAL IV PUSH (23:25)
[2025-04-12] VITALS (11 sets, daily range): BP systolic 116–123; BP diastolic 49–65; PULSE 55–84; RESP 16; TEMP 36.4–37.1; O2SAT 96–97
--- NOTE | 2025-04-12 | EST_ITS ---
Patient Info Name: Jessica Saldana Age: 74 years : 1950 Gender: Female Ht: 63 in Wt: 154 lbs BSA: 1.78 m2 HR: 61 bpm BP: 142 / 77 mmHg Technical Quality: Good Exam Date: 04/12/2025 11:43 AM Patient Status: I Admit Date: 04/11/2025 Exam Type: CA stress chantale w NM A regadenoson stress test was performed. Staff Referring Physician: Elizabet Thompson Attending Provider: [place] [employer] Exercise Technologist: Maryam Keating Exercise Physician: Danika Coello Protocol: Lexiscan Stress ECG Details Stage: REST Duration (min): 0 min : 35 sec HR (bpm): 71 SBP (mmHg): 142 DBP (mmHg): 77 Stage: REST Duration (min): 0 min : 49 sec HR (bpm): 69 SBP (mmHg): 142 DBP (mmHg): 77 Stage: STAGE 1 Duration (min): 1 min : 0 sec HR (bpm): 98 SBP (mmHg): 144 DBP (mmHg): 81 Stage: RECOVERY Duration (min): 1 min : 0 sec HR (bpm): 111 SBP (mmHg): 144 DBP (mmHg): 81 Stage: RECOVERY Duration (min): 2 min : 0 sec HR (bpm): 92 SBP (mmHg): 144 DBP (mmHg): 81 Stage: RECOVERY Duration (min): 3 min : 0 sec HR (bpm): 92 SBP (mmHg): 159 DBP (mmHg): 68 Stage: RECOVERY Duration (min): 4 min : 0 sec HR (bpm): 85 SBP (mmHg): 159 DBP (mmHg): 68 Stage: RECOVERY Duration (min): 4 min : 2 sec HR (bpm): 84 SBP (mmHg): 159 DBP (mmHg): 68 Rest HR: 69 bpm Peak HR: 114 bpm Rest Sys BP: 142 mmHg Peak Sys BP: 159 mmHg Max Pred HR: 144 bpm % Max Pred HR: 79 % Target HR: 122 bpm Max RPP: 18,126 bpm*mmHg BP Response: Normal blood pressure response Termination Reason: Completed protocol Cardiac Symptoms: None Total Time: 1 min : 0 sec Rest Steinberg BP: 77 mmHg Peak Steinberg BP: 68 mmHg Total Dose: 0.4 mg Resting ECG Left bundle-branch block. Stress ECG Patient developed additional [address] segment depression in lateral leads. This is suggestive of ischemia but the specificity is reduced because of baseline ST segment changes correlate clinically. Arrhythmias None. Report Signatures
[2025-04-12 04:41] LABS: Hematocrit 41.4 % (37.0-47.0); Hemoglobin 13.7 g/dL (12.0-15.0); Immature Granulocyte Percent A 0.1 % (0-0.5); Lymphocytes Absolute Auto 2.93 K/mm3 (0.9-3.2); Mean Corpuscular HGB Conc 33.1 g/dl (32-36); Mean Corpuscular Hemoglobin 30.2 pg (26-34); Mean Corpuscular Volume 91.2 fl (80-100); Nucleated Red Blood Cells Absolute Auto 0.000 K/mm3 (0.0-0.012); Nucleated Red Blood Cells Perc 0.0 % (0.0-0.2); Platelet Count Result 171 k/mm3 (150-375); Red Blood Count 4.54 M/mm3 (4.2-5.4); White Blood Count 7.3 K/mm3 (4.5-10.0)
[2025-04-12 05:07] LABS: Anion Gap 6 mmol/L (4-12); Blood Urea Nitrogen 14 mg/dL (7-17); Calcium 10.1 mg/dL (8.4-10.2); Carbon Dioxide 31 mmol/L (22-30); Chloride 102 mmol/L (98-107); Estimated CRCL calculation 64 ml/min; Estimated Glomerular Filt Rate > 60; Glucose 106 mg/dL (65-110); Potassium 3.8 mmol/L (3.4-5.0); Sodium 139 mmol/L (137-145)
--- NOTE | 2025-04-12 08:42 | P.PNIM_ITS ---
Progress Note: A&P Assessment and Plan (1) Chest pain: Qualifiers: Chest pain type: unspecified Qualified Code(s): R07.9 - Chest pain, unspecified Code(s): R07.9 - Chest pain, unspecified Status: Acute Assessment and Plan: Initially experiencing intermittent chest pain yesterday (04/10) which resolved yesterday evening. Return today and has been more constant in nature. No change with Tums or GI cocktail. Was relieved with nitro SL x2. - EKG, initial: sinus rhythm, left bundle branch block, rate 74. (reviewed EKG impression compared to previous in 2019, unable to review image, similar read -> sinus rhythm, left bundle branch block, baseline water V6, rate 94) - EKG, repeat (1): No significant changes compared to prior EKG done earlier same day - CXR: No acute cardiopulmonary abnormality - Troponin: < 0.012 x3 - ASA 324 given, continue as 81 daily - SL nitro PRN - stress test ordered, if abnormal consult cardiology - no previous stress test, cardiac catheterization, or echo on file - differential does include uncontrolled GERD, however has no previous history of significant acid reflux. Starting PPI b.i.d.. - telemetry monitoring stress test and re eval (2) Diabetes: Qualifiers: Diabetes mellitus complication status: without complication Diabetes mellitus half-way insulin use: without long line teamster use Diabetes mellitus type: type 2 Qualified Code(s): E11.9 - Type 2 diabetes mellitus without complications Code(s): E11.9 - Type 2 diabetes mellitus without complications Status: Chronic Assessment and Plan: - hypoglycemia protocol - POC blood glucose ACHS - home medication: Hold metformin in case of need for contrast - correct regimen ordered - moderate dose TIDWM, based off BMI (3) Hyperlipidemia: Qualifiers: Hyperlipidemia type: unspecified Qualified Code(s): E78.5 - Hyperlipidemia, unspecified Code(s): E78.5 - Hyperlipidemia, unspecified Status: Chronic Assessment and Plan: - continue rosuvastatin she normaly takes it min sat may have to start daily to reduce ASCVD risk factors (4) Hypertension: Qualifiers: Hypertension type: primary hypertension Qualified Code(s): I10 - Essential (primary) hypertension Code(s): I10 - Essential (primary) hypertension Status: Chronic Assessment and Plan: - chronic, currently 116/56 - continue home medications: HCTZ, lisinopril, metoprolol - monitor Plan Diet: Heart healthy GI Prophylaxis: N/a DVT Prophylaxis: SCDs IV fluids: None Lines/Tubes: Peripheral IV Code Status: Full code Time Spent With Patient Time with patient: 25 - 35 minutes Subjective Date/time seen: 04/12/25 08:42 Interval history: 74 y/o F with PMH of hypertension, hyperlipidemia, and diabetes presents here with chest pain. The patient presents here from home on 04/11 for further evaluation of chest pain. She reports onset of chest pain yesterday, early afternoon after she had gone to the movie while she was at home at rest. Chest pain initially resolved last night but returned this morning around 9:00 a.m. Pain is now more constant in nature, was intermittent yesterday. She described the chest pain as pressure, heaviness, indigestion (like she needed to belch), radiation into her back, and no aggravating or alleviating factors. She initially took Tylenol and 2 Tums to try to treat her symptoms, denies relief. She denies associated shortness of breath, nausea, vomiting, diaphoresis, dizziness, or palpitations. She does not typically have issues with acid reflux and rarely has to take Pepcid or Tums. In the emergency department she was given a GI cocktail x1, however this did not provide any relief. She was additional given sublingual nitro x2, initial dose did not provided relief and the 2nd dose helped her pain. Currently reporting chest pain/pressure like she needs to belch and now pain is back to a 5/10 which is where it was originally before the nitro. She denies any significant cardiac history or cardiac disease. Last stress test was 15+ years ago and normal. Initial VS at presentation: 98? F, HR 77, R 19, 153/69, and 98% on RA. ED workup showed: No leukocytosis, no anemia, normal coags, no significant electrolyte derangements, creatinine 0.58 and GFR >60, glucose 133, initial troponin negative x2. CXR showed no acute cardiopulmonary abnormality. EKG showed sinus rhythm, left bundle branch block, rate 74. stress test to be done today. pt reports she has IBS and had been having issues with gerd lately. Review of Systems Review of Systems: All systems reviewed & are unremarkable except as noted in HPI and below Exam Const: General: comfortable and no acute distress Other: , female, elderly, nontoxic appearance HENMT: Face/Nose/Sinus: Normal nares present Mouth: Yes moist mucous membranes Eyes: General: appearance normal, both eyes and all related structures Sclera: sclerae normal Pupils: Equal, round and reactive pupils present EOM: EOMs intact bilaterally Resp: Effort & Inspection: normal respiratory effort Auscultation: clear to auscultation bilaterally Cardio: Rate: regular rate Rhythm: regular rhythm Other: S1-S2 present without murmur, rub, ectopy GI: Other: Abdomen soft, nondistended, nontender. Normoactive bowel sounds in all quadrants. Skin: General skin exam: normal color and no rashes or lesions noted Wounds: no wounds Neuro: Cranial nerves: Yes Equal, round and reactive pupils present Speech: normal speech Motor exam (neuro): 5/5 motor strength present throughout Sensory Exam: normal sensation Other: A&O x4 Extrem: General: normal to inspection Psych: Mental Status: mental status grossly normal Affect: normal affect Other: Good insight and judgment, very pleasant Objective Data Vital Signs Vital Signs: Vital Signs - 24 hr 04/11/25 15:12 04/11/25 15:13 04/11/25 15:14 Temperature 98.0 F Pulse Rate 77 Respiratory Rate 19 24 H 21 H Blood Pressure 153/69 H 153/69 H Pulse Oximetry 98 97 97 Oxygen Delivery Room Air 04/11/25 15:15 04/11/25 15:16 04/11/25 15:21 Temperature Pulse Rate 77 Respiratory Rate 17 20 Blood Pressure 130/74 Pulse Oximetry 98 97 Oxygen Delivery 04/11/25 15:21 04/11/25 15:37 04/11/25 15:45 Temperature Pulse Rate 77 Respiratory Rate 17 Blood Pressure Pulse Oximetry 99 97 95 Oxygen Delivery Room Air 04/11/25 16:00 04/11/25 16:15 04/11/25 16:30 Temperature Pulse Rate 83 69 70 Respiratory Rate 21 H 23 H 20 Blood Pressure Pulse Oximetry 97 95 98 Oxygen Delivery 04/11/25 16:45 04/11/25 16:46 04/11/25 17:00 Temperature Pulse Rate 74 69 68 Respiratory Rate 17 19 18 Blood Pressure 132/65 Pulse Oximetry 99 97 Oxygen Delivery 04/11/25 17:01 04/11/25 17:15 04/11/25 17:16 Temperature Pulse Rate 66 66 71 Respiratory Rate 19 18 16 Blood Pressure 124/58 L 123/60 Pulse Oximetry 93 94 96 Oxygen Delivery 04/11/25 17:30 04/11/25 17:31 04/11/25 17:44 Temperature Pulse Rate 70 70 82 Respiratory Rate 24 H 19 19 Blood Pressure 125/60 117/67 Pulse Oximetry 96 98 96 Oxygen Delivery 04/11/25 17:45 04/11/25 17:47 04/11/25 18:02 Temperature Pulse Rate 79 78 65 Respiratory Rate 25 H 21 H 17 Blood Pressure 125/70 Pulse Oximetry 92 95 97 Oxygen Delivery 04/11/25 18:17 04/11/25 18:31 04/11/25 18:56 Temperature Pulse Rate 65 66 72 Respiratory Rate 14 21 H 20 Blood Pressure 116/58 L 126/64 116/56 L Pulse Oximetry 98 96 96 Oxygen Delivery 04/11/25 19:46 04/11/25 19:55 04/11/25 20:02 Temperature 98.1 F Pulse Rate 67 64 65 Respiratory Rate 17 16 Blood Pressure 113/64 127/55 L Pulse Oximetry 95 97 Oxygen Delivery 04/11/25 20:30 04/11/25 22:00 04/11/25 23:53 Temperature 98.2 F Pulse Rate 62 61 Respiratory Rate 16 Blood Pressure 102/52 L Pulse Oximetry 95 Oxygen Delivery Room Air 04/12/25 00:00 04/12/25 00:00 04/12/25 02:00 Temperature Pulse Rate 64 58 L Respiratory Rate Blood Pressure Pulse Oximetry Oxygen Delivery Room Air 04/12/25 04:00 04/12/25 04:00 04/12/25 04:00 Temperature 98.4 F Pulse Rate 64 55 L Respiratory Rate 16 Blood Pressure 116/49 L Pulse Oximetry 96 Oxygen Delivery Room Air 04/12/25 06:00 04/12/25 07:54 Temperature 97.5 F L Pulse Rate 56 L 65 Respiratory Rate 16 Blood Pressure 123/65 Pulse Oximetry 96 Oxygen Delivery Intake/Output Intake/Output: Intake & Output 04/09/25 04/10/25 04/11/25 04/12/25 23:59 23:59 23:59 23:59 Intake Total 350 Balance 350 Meds/Results Medications: Active Medications Generic Name Dose Route Start Last Admin Trade Name Freq PRN Reason Stop Dose Admin Acetaminophen 650 mg 04/11/25 18:37 Acetaminophen 325 Mg Tablet PO Q4H PRN Mild Pain (1-3) or Fever Alendronate Sodium 70 mg 04/16/25 06:30 Alendronate Sodium 70 Mg Tablet PO Fr@0630 [facility] Aspirin 81 mg 04/12/25 09:00 Aspirin 81 Mg Enteric Tablet PO QAM [facility] Dextrose 12.5 gm 04/11/25 22:28 Dextrose 50% 25 Gm/50 Ml Syringe IV PUSH PRN PRN Hypoglycemia Protocol Glucagon 1 mg 04/11/25 22:28 Glucagon For Inj 1 Mg Vial IM PRN PRN Hypoglycemia Protocol Glucose 15 gm 04/11/25 22:28 Glucose Oral Gel 15 Gm Of Glucse In 37.5 Gm Tube PO PRN PRN Hypoglycemia Protocol Hydrochlorothiazide 25 mg 04/12/25 09:00 Hydrochlorothiazide 25 Mg Tablet PO DAILY [facility] Dextrose 1,000 mls @ 100 mls/hr 04/11/25 22:28 Dextrose 5% 1,000 Ml IVPB PRN PRN Hypoglycemia Protocol Insulin Aspart 3 - 6 units 04/12/25 08:00 Insulin Aspart (*Bkc) 100 Units/Ml SUB-Q TIDWM [facility] Protocol Lisinopril 40 mg 04/12/25 09:00 Lisinopril 20 Mg Tablet PO DAILY [facility] Magnesium Oxide 400 mg 04/12/25 09:00 Magnesium Oxide 400 Mg Tablet PO DAILY [facility] Metoprolol Succinate 50 mg 04/12/25 09:00 Metoprolol Succinate Ext Rel 50 Mg Tabcr PO DAILY [facility] Nitroglycerin 0.4 mg 04/11/25 18:37 Nitroglycerin Sl 0.4 Mg Tablet SUBLINGUAL Q5MIN PRN Chest Pain Ondansetron HCl 4 mg 04/11/25 19:17 Ondansetron Hcl Odt 4 Mg Tablet PO Q6H PRN Nausea And Vomiting Pantoprazole Sodium 40 mg 04/11/25 21:45 04/11/25 23:25 Pantoprazole Sodium Iv 40 Mg Vial IV PUSH 40 mg Q12HR [facility] Administration Pyridoxine HCl 100 mg 04/12/25 09:00 Pyridoxine Hcl 50 Mg Tablet PO QAM [facility] Rosuvastatin Calcium 10 mg 04/12/25 09:00 Rosuvastatin 10 Mg Tablet PO MoWeFr [facility] Vitamin B Complex 1 cap 04/12/25 09:00 Vitamin B Complex Capsule PO DAILY [facility] Vitamin D 50 mcg 04/16/25 06:30 Cholecalciferol (Vitamin D3) 25 Mcg (1,000 Units) Tablet PO Fr@0630 [facility] Vitamin D 20 mcg 04/16/25 06:30 Cholecalciferol (Vitamin D3) 10 Mcg (400 Units) Tablet PO Fr@0630 [facility] Radiology Results: ITS Impressions Chest X-Ray 04/11/25 15:53 Impression: No acute cardiopulmonary abnormality. Labs Labs: Laboratory Results - last 24 hr 04/11/25 04/11/25 04/11/25 15:19 18:03 20:53 WBC 7.9 RBC 4.95 Hgb 14.9 Hct 44.6 MCV 90.1 MCH 30.1 MCHC 33.4 RDW 13.0 Plt Count 202 MPV 10.5 H Immature Gran % (Auto) 0.3 Neut % (Auto) 57.6 Lymph % (Auto) 34.8 Sibley % (Auto) 6.0 Eos % (Auto) 0.9 Baso % (Auto) 0.4 Lymph # (Auto) 2.76 Sibley # (Auto) 0.5 Eos # (Auto) 0.1 Baso # (Auto) 0.0 Abs Immat Gran (auto) 0.02 Absolute Neuts (auto) 4.6 Absolute Nucleated RBC 0.000 Nucleated RBC % 0.0 PT 12.9 INR 1.0 APTT 29.9 Sodium 137 Potassium 3.6 Chloride 101 Carbon Dioxide 29 Anion Gap 7 BUN 13 D Creatinine 0.58 L Estim Creat Clear Calc 66 Estimated GFR > 60 Glucose 133 H Calcium 10.4 H Total Bilirubin 0.5 AST 24 ALT 22 Alkaline Phosphatase 68 Troponin I < 0.012 < 0.012 < 0.012 Total Protein 7.7 Albumin 4.6 Lipase 91 04/12/25 04:11 WBC 7.3 RBC 4.54 Hgb 13.7 Hct 41.4 MCV 91.2 MCH 30.2 MCHC 33.1 RDW 13.1 Plt Count 171 MPV 10.5 H Immature Gran % (Auto) 0.1 Neut % (Auto) 50.3 Lymph % (Auto) 40.1 Sibley % (Auto) 7.4 Eos % (Auto) 1.6 Baso % (Auto) 0.5 Lymph # (Auto) 2.93 Sibley # (Auto) 0.5 Eos # (Auto) 0.1 Baso # (Auto) 0.0 Abs Immat Gran (auto) 0.01 Absolute Neuts (auto) 3.7 Absolute Nucleated RBC 0.000 Nucleated RBC % 0.0 PT INR APTT Sodium 139 Potassium 3.8 Chloride 102 Carbon Dioxide 31 H Anion Gap 6 BUN 14 Creatinine 0.60 L Estim Creat Clear Calc 64 Estimated GFR > 60 Glucose 106 Calcium 10.1 Total Bilirubin AST ALT Alkaline Phosphatase Troponin I Total Protein Albumin Lipase Quality VTE Prophylaxis VTE prophylaxis: mechanical ordered
[2025-04-12] MEDS: ASPIRIN 81 MG ENTERIC TABLET PO (09:24)
[2025-04-12] MEDS: MAGNESIUM OXIDE 400 MG TABLET PO (09:24)
[2025-04-12] MEDS: VITAMIN B COMPLEX CAPSULE 1 CAP PO (09:24)
[2025-04-12] MEDS: METOPROLOL SUCCINATE EXT REL 50 MG TABCR PO (09:24)
[2025-04-12] MEDS: PANTOPRAZOLE SODIUM IV 40 MG VIAL IV PUSH (09:25)
[2025-04-12] MEDS: PYRIDOXINE HCL 50 MG TABLET 100 MG PO (09:28)
[2025-04-12] MEDS: ROSUVASTATIN 10 MG TABLET PO (09:29)
--- NOTE | 2025-04-12 17:38 | PC.NURSE ---
stress test resulted. discussed with imer WOODWARD. She agrees to d/c.
--- NOTE | 2025-04-13 08:01 | P.DS_ITS ---
DS: Admitting Diagnosis Discharge Date 04/12/25 Admitting Diagnosis chest pain DS: Discharge Diagnosis Discharge Diagnosis (1) Chest pain: Qualifiers: Chest pain type: unspecified Qualified Code(s): R07.9 - Chest pain, unspecified Code(s): R07.9 - Chest pain, unspecified Status: Acute (2) Diabetes: Qualifiers: Diabetes mellitus type: type 2 Diabetes mellitus continuous churn buttermaker insulin use: without continuous churn buttermaker use Diabetes mellitus complication status: without complication Qualified Code(s): E11.9 - Type 2 diabetes mellitus without complications Code(s): E11.9 - Type 2 diabetes mellitus without complications Status: Chronic (3) Hyperlipidemia: Qualifiers: Hyperlipidemia type: unspecified Qualified Code(s): E78.5 - Hyperlipidemia, unspecified Code(s): E78.5 - Hyperlipidemia, unspecified Status: Chronic (4) Hypertension: Qualifiers: Hypertension type: primary hypertension Qualified Code(s): I10 - Essential (primary) hypertension Code(s): I10 - Essential (primary) hypertension Status: Chronic DS: Summary Hospital Course Hospital Course: 74 y/o F with PMH of hypertension, hyperlipidemia, and diabetes presents here with chest pain. The patient presents here from home on 04/11 for further evaluation of chest pain. She reports onset of chest pain yesterday, early afternoon after she had gone to the movie while she was at home at rest. Chest pain initially resolved last night but returned this morning around 9:00 a.m. Pain is now more constant in nature, was intermittent yesterday. She described the chest pain as pressure, heaviness, indigestion (like she needed to belch), radiation into her back, and no aggravating or alleviating factors. She initially took Tylenol and 2 Tums to try to treat her symptoms, denies relief. She denies associated shortness of breath, nausea, vomiting, diaphoresis, dizziness, or palpitations. She does not typically have issues with acid reflux and rarely has to take Pepcid or Tums. In the emergency department she was given a GI cocktail x1, however this did not provide any relief. She was additional given sublingual nitro x2, initial dose did not provided relief and the 2nd dose helped her pain. Currently reporting chest pain/pressure like she needs to belch and now pain is back to a 5/10 which is where it was originally before the nitro. She denies any significant cardiac history or cardiac disease. Last stress test was 15+ years ago and normal. Initial VS at presentation: 98? F, HR 77, R 19, 153/69, and 98% on RA. ED workup showed: No leukocytosis, no anemia, normal coags, no significant electrolyte derangements, creatinine 0.58 and GFR >60, glucose 133, initial troponin negative x2. CXR showed no acute cardiopulmonary abnormality. EKG showed sinus rhythm, left bundle branch block, rate 74. Initially experiencing intermittent chest pain yesterday (04/10) which resolved yesterday evening. Return today and has been more constant in nature. No change with Tums or GI cocktail. Was relieved with nitro SL x2. - EKG, initial: sinus rhythm, left bundle branch block, rate 74. (reviewed EKG impression compared to previous in 2019, unable to review image, similar read -> sinus rhythm, left bundle branch block, baseline water V6, rate 94). So unchanged. - EKG, repeat (1): No significant changes compared to prior EKG done earlier same day - CXR: No acute cardiopulmonary abnormality - Troponin: < 0.012 x3 - ASA 324 given, continue as 81 daily - SL nitro PRN - stress test ordered- unremarkable. - no previous stress test, cardiac catheterization, or echo on file - differential does include uncontrolled GERD, however has no previous history of significant acid reflux. However does have IBS with no treatment Pt was pain free, stress test unremarkable, trop neg. Wants to go home with a close f/u with PCP. She is currently taking statin 3 times a week and was advised to take it daily. She would discuss it with her PCP. Continue ASA. Status at Discharge Functional status at discharge: independent ambulation Overall status at discharge: patient is back to baseline Time Spent with Patient Time attestation: Total time spent providing and/or coordinating discharge services: Time spent: Greater than 30 minutes Exam Const: General: comfortable and no acute distress Other: , female, elderly, nontoxic appearance HENMT: Face/Nose/Sinus: Normal nares present Mouth: Yes moist mucous membranes Eyes: General: appearance normal, both eyes and all related structures Sclera: sclerae normal Pupils: Equal, round and reactive pupils present EOM: EOMs intact bilaterally Resp: Effort & Inspection: normal respiratory effort Auscultation: clear to auscultation bilaterally Cardio: Rate: regular rate Rhythm: regular rhythm Other: S1-S2 present without murmur, rub, ectopy GI: Other: Abdomen soft, nondistended, nontender. Normoactive bowel sounds in all quadrants. Skin: General skin exam: normal color and no rashes or lesions noted Wounds: no wounds Neuro: Cranial nerves: Yes Equal, round and reactive pupils present Speech: normal speech Motor exam (neuro): 5/5 motor strength present throughout Sensory Exam: normal sensation Other: A&O x4 Extrem: General: normal to inspection Psych: Mental Status: mental status grossly normal Affect: normal affect Other: Good insight and judgment, very pleasant DS: Data Data Completed and Pending Labs on day of discharge: Labs from last 24 hours 04/12/25 04/12/25 16:27 07:23 POC Capillary Glucose 139 H 117 H Discharge Plan Discharge Attending physician on discharge: [facility] Consulting providers: Dinesh Gomez; Henok Santoyo; Enrico Rust; Elizabet Thompson; Judy Dubois; Jakob Delcid; Edy Aggarwal; Magdi Yepez Discharging Clinician: Devonte Saul Patient Disposition: Home Activity: as tolerated Diet: heart healthy Discharge Instructions: patient to follow up with her primary care provider as soon as possible, patient is instructed if any symptoms redevelop to go to nearest ER. Patient Instructions: Antibiotic Form, Nitroglycerin (By mouth), Chest Pain (GEN), Cardiac Stress Test (GEN) Patient Language: Turkish Stand Alone Forms: General Discharge Information Follow-up/Referrals: Philipp Pizarro [Other] Discharge Medications: New nitroglycerin [Nitrostat] 0.4 mg Tablet, Sublingual 0.4 mg sublingual Q5MIN PRN (Reason: Chest Pain) Qty: 26 0RF cholecalciferol (vitamin D3) 25 mcg (1,000 unit) Tablet 50 mcg PO Fr@0630 Qty: 30 0RF pantoprazole [Protonix] 40 mg tablet,delayed release (DR/EC) 40 mg PO BID Qty: 60 0RF Continued aspirin [Adult Aspirin Regimen] 81 mg tablet,delayed release (DR/EC) 81 mg PO DAILY metoprolol succinate 50 mg tablet extended release 24 hr 50 mg PO DAILY vitamin B complex [B Complex-Vitamin B12] Tablet 1 tablet PO DAILY hydrochlorothiazide 25 mg tablet 25 mg PO DAILY lisinopril 40 mg tablet 40 mg PO DAILY metformin 500 mg tablet extended release 24 hr 1,000 mg PO BID magnesium 200 mg Tablet 400 mg PO DAILY rosuvastatin 10 mg Tablet 10 mg PO .COMPLEX Patient Comments: Only takes M, W, F Rx Instructions: 10 mg orally 3 times a week alendronate-vitamin D3 70 mg- 2,800 unit Tablet 1 tablet PO WEEKLY Patient Comments: Fridays pyridoxine (vitamin B6) 100 mg Tablet 100 mg PO DAILY Date of admission: 04/11/25 18:37 Primary Care Provider: Philipp Pizarro Admitting Provider: [facility] Attending physician on admission: [place] [facility] Condition: Stable Quality VTE Prophylaxis VTE prophylaxis: mechanical ordered Hospitalist MIPS Heart Failure (Exclusion) Patient has history of Heart Transplant or Left Ventricular Assistive Device?: No IF YES, STOP HERE Heart Failure (Qualifier) Patient has current or prior documentation of LVEF less than or equal to 40%, or mod/servere depressed LVSF?: No IF NO, STOP HERE
== END 2025-04-12 18:04 | disposition home or self-care (01) ==
LOC: ANHED 19:31 → ANHIMU 19:35
PROVIDERS: Emergency Medicine; Student in an Organized Health Care Education/Training Program; Admitting Provider General Practice; Emergency Provider Physician Assistant; Visit Provider General Practice
DX: R07.9 Chest pain, unspecified (principal); I44.7 Left bundle-branch block, unspecified; I10 Essential (primary) hypertension; E78.5 Hyperlipidemia, unspecified; E11.9 Type 2 diabetes mellitus without complications; Z79.84 Long term (current) use of oral hypoglycemic drugs; Z79.899 Other long term (current) drug therapy; Z87.891 Personal history of nicotine dependence
CPT/HCPCS: 36415; 71046; 78452; 80048; 80053; 82948; 83690; 84484; 85025; 85610; 85730; 93005; 93017; 96374; 96375; 96376; 99285; A9270; A9502; G0378; J2470

== ENCOUNTER 2025-06-21 19:33 | Emergency (ER) | payer OTHER, SELFPAY ==
--- NOTE | ~2025-06-21 | CT_ITS ---
CT HEAD NON-CONTRAST Clinical History: HTN/headache Comparison: 08/19/2013 Technique: Unenhanced axial images skull base to vertex Coronal, sagittal reformats CT images acquired with automatic exposure control for dose reduction DLP: 605 mGy-cm Findings: Age-related atrophy and chronic white matter microvascular ischemic changes. Sulci, ventricles: Unremarkable. No intracerebral hemorrhage. No evidence acute territorial infarct. No mass effect, midline shift. Bony calvarium intact. Visualized paranasal sinuses: Clear. Mastoid air cells: Clear. IMPRESSION: 1. No acute intracranial findings. Reviewed, dictated and finalized at location [facility]
--- OUTSIDE RECORDS SUMMARY | 2025-06-21 19:36 | XMS_ITS | Encounter Summary ---
Author Organization [facility] Address [address] [place] [address] Care Team Providers Care Director Of Occupational Health Name Role Phone Philipp Pizarro MD Primary Care Provid er Encounter Details Date Type Department Care Team (Late st Contact Info) Description 09/26/2007 Outpatient Historical HIS [facility] Naldo Devine Lumbago Social History Tobacco Use Types Packs/Day Years Used Date Smoking Tobacco: Never Assessed Comments Unknown Sex and Gender Information Value Date Recorded Sex Assigned at Not on file Legal Sex Female 3:43 AM BOAT ASSEMBLER Gender Identity Female 06/16/2025 8:03 AM BOAT ASSEMBLER Sexual Orientation Not on file documented as of this encounter Plan of Treatment Upcoming Encounters Date Type Department Care Team (Late st Contact Info) Description 10/26/2025 2:40 PM CDT Office Visit [facility], [address] [place] [address] Philipp Pizarro MD [address] [facility] [address] [place] [address] 03/31/2026 1:00 PM CDT Office Visit [facility], [address] [place] [address] Philipp Pizarro MD [address] [facility] [address] [place] [address] documented as of this encounter Procedures Procedure Name Priority Date/Time Associated Diagnosis Comments XR LUMBAR SPINE 4+ VW Routine 09/26/2007 9:59 AM BOAT ASSEMBLER documented in this encounter Results * XR LUMBAR SPINE 4+ VW (09/26/2007 9:59 AM BOAT ASSEMBLER) Anatomical Region Laterality Modality Spine Other 09/26/2007 9:59 AM BOAT ASSEMBLER Narrative 09/26/2007 10:10 AM BOAT ASSEMBLER [address] [address] Admit Date: 09/26/2007 KRISTINA HUTSON Sex: F Admit Prov: NALDO SANTOS Date: 1950 Primary Care Prov: NALDO SANTOS; CMRN: [id number] NALDO SANTOS SSN: [id number] Room: [facility] Ordering Prov: N/A Accession Number: [id number] Interpretation Examination: Lumbar spine 5 views Clinical History: Back pain. Findings: Examination of the lumbar spine fails to demonstrate fracture, dislocation, or subluxation. The disk spaces are preserved. The posterior elements are normal. Impression: Radiographically normal lumbar spine. . Dictated by: David RAIN 09/26/2007 10:10 Electronically signed by: David RAIN 09/26/2007 10:10 Procedure Note Provider, Historical - 09/26/[address] [address] Admit Date: 09/26/2007 KRISTINA HUTSON Sex: F Admit Prov: NALDO SANTOS Date: 1950 Primary Care Prov: NALDO SANTOS; CMRN: [id number] NALDO SANTOS SSN: [id number] Room: [facility] Ordering Prov: N/A Interpretation Examination: Lumbar spine 5 views Clinical History: Back pain. Findings: Examination of the lumbar spine fails to demonstratefracture, dislocation, or subluxation. The disk spaces are preserved. Theposterior elements are normal. Impression: Radiographically normal lumbar spine. . Dictated by: David RAIN 09/26/2007 10:10 Electronically signed by: David RAIN 09/26/2007 10:10 Naldo Santos DIAGNOSTIC IMAGING ORDERABLES F inal Result documented in this encounter Visit Diagnoses Diagnosis Lumbago documented in this encounter Additional Health Concerns Infection Onset Date Last Indicated Resolved Time R/O COVID-19 03/07/2020 03/07/2020 03/09/2020 4:45 AM CDT COVID-19 07/31/2021 07/31/2021 08/30/2021 1:16 AM BOAT ASSEMBLER documented as of this encounter Care Teams Director Of Occupational Health Relationship Specialty Start Date End Date Philipp Pizarro MD [address] [place] [id number] PCP - General Internal Medicine 08/21/13 documented as of this encounter
--- OUTSIDE RECORDS SUMMARY | 2025-06-21 19:36 | XMS_ITS | Encounter Summary ---
Author Organization [facility] Address [address] [place] [address] Care Team Providers Care Automation Controls Engineer Name Role Phone Philipp Pizarro MD Primary Care Provid er Encounter Details Date Type Department Care Team (Latest Contact Info) Description 08/28/2005 Outpatient Historical HIS [facility] Naldo Devine SCREENING MAMM-MALIG NEOPL-HI RISK (Primary Dx) Social History Tobacco Use Types Packs/Day Years Used Date Smoking Tobacco: Never Assessed Comments Unknown Sex and Gender Information Value Date Recorded Sex Assigned at Not on file Legal Sex Female 3:43 AM CORPORATE SERVICES MANAGER Gender Identity Female 06/16/2025 8:03 AM CORPORATE SERVICES MANAGER Sexual Orientation Not on file documented as of this encounter Plan of Treatment Upcoming Encounters Date Type Department Care Team (Late st Contact Info) Description 10/26/2025 2:40 PM CDT Office Visit [facility], [address] [place] [address] Philipp Pizarro MD [address] [place] [address] [address] [place] [address] 03/31/2026 1:00 PM CDT Office Visit [facility], [address] [place] [address] Philipp Pizarro MD [address] [place] [address] [address] [place] [address] documented as of this encounter Visit Diagnoses Diagnosis Screening mammogram for high-risk patient- Primary documented in this encounter Additional Health Concerns Infection Onset Date Last Indicated Resolved Time R/O COVID-19 03/07/2020 03/07/2020 03/09/2020 4:45 AM CDT COVID-19 07/31/2021 07/31/2021 08/30/2021 1:16 AM CORPORATE SERVICES MANAGER documented as of this encounter Care Teams Automation Controls Engineer Relationship Specialty Start Date End Date Philipp Pizarro MD [address] [place] [phone] PCP - General Internal Medicine 08/21/13 documented as of this encounter
--- OUTSIDE RECORDS SUMMARY | 2025-06-21 19:36 | XMS_ITS | Encounter Summary ---
Author Organization [facility] Address [address] [facility] Attn: [place] [address] Care Team Providers Care Bale Sewer Name Role Phone Philipp Pizarro MD Primary Care Provid er Encounter Details Date Type Department Care Team (Late st Contact Info) Description 11/30/1993 Outpatient Historical Naldo Santos Social History Tobacco Use Types Packs/Day Years Used Date Smoking Tobacco: Never Assessed Comments Unknown Sex and Gender Information Value Date Recorded Sex Assigned at Not on file Legal Sex Female 3:43 AM CHILDREN'S INSTITUTION ATTENDANT Gender Identity Female 06/16/2025 8:03 AM CHILDREN'S INSTITUTION ATTENDANT Sexual Orientation Not on file documented as of this encounter Plan of Treatment Upcoming Encounters Date Type Department Care Team (Late st Contact Info) Description 10/26/2025 2:40 PM CDT Office Visit [facility], [address] [place] [address] Philipp Pizarro MD [address] [facility] [address] [place] [address] 03/31/2026 1:00 PM CDT Office Visit [facility], [address] [place] [address] Philipp Pizarro MD [address] [place] [phone] documented as of this encounter Visit Diagnoses Not on filedocumented in this encounter Additional Health Concerns Infection Onset Date Last Indicated Resolved Time R/O COVID-19 03/07/2020 03/07/2020 03/09/2020 4:45 AM CDT COVID-19 07/31/2021 07/31/2021 08/30/2021 1:16 AM CHILDREN'S INSTITUTION ATTENDANT documented as of this encounter Care Teams Bale Sewer Relationship Specialty Start Date End Date Philipp Pizarro MD [address] [place] [phone] PCP - General Internal Medicine 08/21/13 documented as of this encounter
--- OUTSIDE RECORDS SUMMARY | 2025-06-21 19:36 | XMS_ITS | Encounter Summary ---
Author Organization [facility] Address [address] [facility] Attn: [place] [address] Care Team Providers Care Computer Consultant Name Role Phone Philipp Pizarro MD Primary Care Provid er Encounter Details Date Type Department Care Team (Late st Contact Info) Description 06/21/1997 Outpatient Historical Conversion, History Naldo Santos Social History Tobacco Use Types Packs/Day Years Used Date Smoking Tobacco: Never Assessed Comments Unknown Sex and Gender Information Value Date Recorded Sex Assigned at Not on file Legal Sex Female 3:43 AM DAY HABILITATION SPECIALIST Gender Identity Female 06/16/2025 8:03 AM DAY HABILITATION SPECIALIST Sexual Orientation Not on file documented as of this encounter Plan of Treatment Upcoming Encounters Date Type Department Care Team (Late st Contact Info) Description 10/26/2025 2:40 PM CDT Office Visit [facility], [address] [place] [address] Philipp Pizarro MD [address] [place] [address] 03/31/2026 1:00 PM CDT Office Visit [facility], [address] [place] [address] Philipp Pizarro MD [address] [place] [address] [address] [place] [address] documented as of this encounter Visit Diagnoses Not on filedocumented in this encounter Additional Health Concerns Infection Onset Date Last Indicated Resolved Time R/O COVID-19 03/07/2020 03/07/2020 03/09/2020 4:45 AM CDT COVID-19 07/31/2021 07/31/2021 08/30/2021 1:16 AM DAY HABILITATION SPECIALIST documented as of this encounter Care Teams Computer Consultant Relationship Specialty Start Date End Date Philipp Pizarro MD [address] [place] [phone] PCP - General Internal Medicine 08/21/13 documented as of this encounter
--- OUTSIDE RECORDS SUMMARY | 2025-06-21 19:36 | XMS_ITS | Encounter Summary ---
Author Organization [facility] Address [address] [facility] Attn: [place] [address] Care Team Providers Care Kiss Mixer Name Role Phone Philipp Pizarro MD Primary Care Provid er Encounter Details Date Type Department Care Team (Late st Contact Info) Description 06/21/1998 Outpatient Historical Naldo Santos Social History Tobacco Use Types Packs/Day Years Used Date Smoking Tobacco: Never Assessed Comments Unknown Sex and Gender Information Value Date Recorded Sex Assigned at Not on file Legal Sex Female 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ION EXPEDITER Gender Identity Female 06/16/2025 8:03 AM PRODUCTION EXPEDITER Sexual Orientation Not on file documented as of this encounter Plan of Treatment Upcoming Encounters Date Type Department Care Team (Late st Contact Info) Description 10/26/2025 2:40 PM CDT Office Visit [facility], [address] [place] [address] Philipp Pizarro MD [address] [facility] [address] [place] [address] 03/31/2026 1:00 PM CDT Office Visit [facility], [address] [place] [address] Philipp Pizarro MD [address] [place] [address] documented as of this encounter Visit Diagnoses Not on filedocumented in this encounter Additional Health Concerns Infection Onset Date Last Indicated Resolved Time R/O COVID-19 03/07/2020 03/07/2020 03/09/2020 4:45 AM CDT COVID-19 07/31/2021 07/31/2021 08/30/2021 1:16 AM PRODUCTION EXPEDITER documented as of this encounter Care Teams Kiss Mixer Relationship Specialty Start Date End Date Philipp Pizarro MD [address] [place] [phone] PCP - General Internal Medicine 08/21/13 documented as of this encounter
--- OUTSIDE RECORDS SUMMARY | 2025-06-21 19:36 | XMS_ITS | Encounter Summary ---
Author Organization [facility] Address [address] [place] [address] Care Team Providers Care Wicker Molded Candles Name Role Phone Philipp Pizarro MD Primary Care Provid er Encounter Details Date Type Department Care Team (Late st Contact Info) Description 05/02/1999 Outpatient Historical [facility]-PATIENT Naldo Santos J Social History Tobacco Use Types Packs/Day Years Used Date Smoking Tobacco: Never Assessed Comments Unknown Sex and Gender Information Value Date Recorded Sex Assigned at Not on file Legal Sex Female 3:43 AM EVENT MARKETING ASSISTANT Gender Identity Female 06/16/2025 8:03 AM EVENT MARKETING ASSISTANT Sexual Orientation Not on file documented as of this encounter Plan of Treatment Upcoming Encounters Date Type Department Care Team (Late st Contact Info) Description 10/26/2025 2:40 PM CDT Office Visit [facility], [address] [place] [address] Philipp Pizarro MD [address] [facility] [address] [place] [address] 03/31/2026 1:00 PM CDT Office Visit [facility], [address] [place] [address] Philipp Pizarro MD [address] [place] [address] documented as of this encounter Visit Diagnoses Not on filedocumented in this encounter Additional Health Concerns Infection Onset Date Last Indicated Resolved Time R/O COVID-19 03/07/2020 03/07/2020 03/09/2020 4:45 AM CDT COVID-19 07/31/2021 07/31/2021 08/30/2021 1:16 AM EVENT MARKETING ASSISTANT documented as of this encounter Care Teams Wicker Molded Candles Relationship Specialty Start Date End Date Philipp Pizarro MD [address] [place] [phone] PCP - General Internal Medicine 08/21/13 documented as of this encounter
--- OUTSIDE RECORDS SUMMARY | 2025-06-21 19:36 | XMS_ITS | Encounter Summary ---
Author Organization [facility] Address [address] [facility] Attn: [place] [address] Care Team Providers Care Appraisal Technician Name Role Phone Philipp Pizarro MD Primary Care Provid er Encounter Details Date Type Department Care Team (Late st Contact Info) Description 05/30/1990 Outpatient Historical Naldo Santos Social History Tobacco Use Types Packs/Day Years Used Date Smoking Tobacco: Never Assessed Comments Unknown Sex and Gender Information Value Date Recorded Sex Assigned at Not on file Legal Sex Female 3:43 AM INDEPENDENT LIVING SPECIALIST Gender Identity Female 06/16/2025 8:03 AM INDEPENDENT LIVING SPECIALIST Sexual Orientation Not on file documented as of this encounter Plan of Treatment Upcoming Encounters Date Type Department Care Team (Late st Contact Info) Description 10/26/2025 2:40 PM CDT Office Visit [facility], [address] [place] [address] Philipp Pizarro MD [address] [facility] [address] [place] [address] 03/31/2026 1:00 PM CDT Office Visit [facility], [address] [place] [address] Philipp Pizarro MD [address] [place] [address] documented as of this encounter Visit Diagnoses Not on filedocumented in this encounter Additional Health Concerns Infection Onset Date Last Indicated Resolved Time R/O COVID-19 03/07/2020 03/07/2020 03/09/2020 4:45 AM CDT COVID-19 07/31/2021 07/31/2021 08/30/2021 1:16 AM INDEPENDENT LIVING SPECIALIST documented as of this encounter Care Teams Appraisal Technician Relationship Specialty Start Date End Date Philipp Pizarro MD [address] [place] [phone] PCP - General Internal Medicine 08/21/13 documented as of this encounter
--- OUTSIDE RECORDS SUMMARY | 2025-06-21 19:36 | XMS_ITS | Encounter Summary ---
Author Organization [facility] Address [address] [facility] Attn: [place] [address] Care Team Providers Care Litigation Support Analyst Name Role Phone Philipp Pizarro MD Primary Care Provid er Encounter Details Date Type Department Care Team (Late st Contact Info) Description 02/19/1992 Outpatient Historical Naldo Santos Social History Tobacco Use Types Packs/Day Years Used Date Smoking Tobacco: Never Assessed Comments Unknown Sex and Gender Information Value Date Recorded Sex Assigned at Not on file Legal Sex Female 3:43 AM VICE PRESIDENT SAFETY Gender Identity Female 06/16/2025 8:03 AM VICE PRESIDENT SAFETY Sexual Orientation Not on file documented as of this encounter Plan of Treatment Upcoming Encounters Date Type Department Care Team (Late st Contact Info) Description 10/26/2025 2:40 PM CDT Office Visit [facility], [address] [place] [address] Philipp Pizarro MD [address] [facility] [address] [place] [address] 03/31/2026 1:00 PM CDT Office Visit [facility], [address] [place] [address] Philipp Pizarro MD [address] [place] [address] documented as of this encounter Visit Diagnoses Not on filedocumented in this encounter Additional Health Concerns Infection Onset Date Last Indicated Resolved Time R/O COVID-19 03/07/2020 03/07/2020 03/09/2020 4:45 AM CDT COVID-19 07/31/2021 07/31/2021 08/30/2021 1:16 AM VICE PRESIDENT SAFETY documented as of this encounter Care Teams Litigation Support Analyst Relationship Specialty Start Date End Date Philipp Pizarro MD [address] [place] [phone] PCP - General Internal Medicine 08/21/13 documented as of this encounter
--- OUTSIDE RECORDS SUMMARY | 2025-06-21 19:36 | XMS_ITS | Clinical Summary ---
Author Organization [facility] [address] [place] Address [address] [place] [address] Care Team Providers Care Computer Systems Security Administrator Name Role Phone Philipp Pizarro MD [...] Type Department Care Team Description 04/11/2025 Telephone [facility] at [address] [address] Obinna Sullivan NP from Last 3 Months Social History Tobacco Use Types Packs/Day Years Used Date Smoking Tobacco: Never Assessed Comments Unknown Sex and Gender Information Value Date Recorded Sex Assigned at Not on file Legal Sex Female 5:01 PM OVAL OR CIRCULAR GLASS CUTTER Gender Identity Not on file Sexual Orientation Not on file Last Filed Vital Signs [...] 05/18/2024, 03/05/2023, 03/05/2023, Additional history exists Insurance [employer] CHO[employer] PPO Care Teams Computer Systems Security Administrator Relationship Specialty Start Date End Date Philipp Pizarro MD [address] [facility] [address] [address] PCP - General Internal Medicine 10/13/23
--- OUTSIDE RECORDS SUMMARY | 2025-06-21 19:36 | XMS_ITS | Encounter Summary ---
Author Organization [facility] Address [address] [place] [address] Care Team Providers Care Carpentry Foreman Name Role Phone Philipp Pizarro MD Primary [...] on file Legal Sex Female 3:43 AM POWER SYSTEM OPERATOR Gender Identity Female 06/16/2025 8:03 AM POWER SYSTEM OPERATOR Sexual Orientation Not on file documented as of this encounter Plan of Treatment Upcoming Encounters Date Type Department Care Team (Late st Contact Info) Description 10/26/2025 2:40 PM CDT Office Visit [facility], [address] [place] [address] Philipp Pizarro MD [address] [facility] [address] [place] [address] 03/31/2026 1:00 PM CDT Office Visit [facility], [address] [place] [address] Philipp Pizarro MD [address] [place] [address] [address] [place] [address] documented as of this encounter Visit Diagnoses Diagnosis Goiter, unspecified- Primary documented in this encounter Additional Health Concerns Infection Onset Date Last Indicated Resolved Time R/O COVID-19 03/07/2020 03/07/2020 03/09/2020 4:45 AM CDT COVID-19 07/31/2021 07/31/2021 08/30/2021 1:16 AM POWER SYSTEM OPERATOR documented as of this encounter Care Teams Carpentry Foreman Relationship Specialty Start Date End Date Philipp Pizarro MD [address] [place] [address] PCP - General Internal Medicine 08/21/13 documented as of this encounter
--- OUTSIDE RECORDS SUMMARY | 2025-06-21 19:36 | XMS_ITS | Encounter Summary ---
Author Organization [facility] Address [address] [place] [address] Care Team Providers Care Casino Dealer Name Role Phone Phiilpp Pizarro MD Primary Care Provid er Encounter Details Date Type Department Care Team (Late st Contact Info) Description 04/16/2015 Nurse Triage Report [facility]STRACTION Petty Rueda, RN Social History Tobacco Use Types Packs/Day Years Used Date Smoking Tobacco: Former Cigarettes 0 Q uit: 11/11/1983 Smokeless Tobacco: Never Alcohol Use Standard Drinks/Week Comments No 0 (1 standard drink = 0.6 oz pur e alcohol) Comments No Sex and Gender Information Value Date Recorded Sex Assigned at Not on file Legal Sex Female 3:43 AM FIREBOAT OPERATOR Gender Identity Female 06/16/2025 8:03 AM FIREBOAT OPERATOR Sexual Orientation Not on file Occupation Industry [...] Pizarro <<<<<<<< TRIAGE NOTE >>>>>>>> Triage Note: Electric Well Logging Operator Petty Rueda added this note on Apr 16 2015 11:37AM: Patients states he went to get wifes prescription and when he got there he was told Dr Pizarro was no longer at the clinic.Called pharmacy and they state they received a refusal for Lisinopril because Provider not part of this practice or location Assured them Dr Pizarro is still this patients PCP at [facility]. Resend and they will fill. <<<<<<<< TRIAGE/OUTCOME [...] Description 10/26/2025 2:40 PM CDT Office Visit [facility], [address] [place] [address] Philipp Pizarro MD [address] [place] [address] [place] [address] 03/31/2026 1:00 PM CDT Office Visit [facility], [address] [place] [address] Philipp Pizarro MD [address] [place] [address] [place] [phone] documented as of this encounter Visit Diagnoses Not on filedocumented in this encounter Additional Health Concerns Infection Onset Date Last Indicated Resolved Time R/O COVID-19 03/07/2020 03/07/2020 03/09/2020 4:45 AM CDT COVID-19 07/31/2021 07/31/2021 08/30/2021 1:16 AM FIREBOAT OPERATOR documented as of this encounter Care Teams Casino Dealer Relationship Specialty Start Date End Date Philipp Pizarro MD [address] [place] [address] [place] [phone] PCP - General Internal Medicine 08/21/13 documented as of this encounter
--- OUTSIDE RECORDS SUMMARY | 2025-06-21 19:36 | XMS_ITS | Clinical Summary ---
Author Organization [facility] Address [address] [place] [address] Phone Care Team Providers Care Mortgage Protection Sales Name Role Phone Philipp Pizarro MD Primary Care Provid er Allergies No known active allergies Medications calcium-cholecalc iferol (OS-CARROLL 500+D) 500 mg(1,250mg) -200 unit tablet Take 1 Tablet by mouth 2 times daily with meals. Active Cholecalciferol, Vitamin D3, 50 mcg (2,000 unit) CapsuleIndication s:Hyperparathyroi dism Take 4,000 Units by mouth daily. 90 Capsule 3 021 Active aspirin (MICHELLE) 81 mg Tablet Take 1 Tablet (81 mg) by mouth daily. 100 Tablet 3 025 Active lisinopriL (PRINIVIL) 40 mg tabletIndications :HTN (hypertension), benign Take 1 Tablet (40 mg) by mouth daily. 100 Tablet 3 025 Active metFORMIN (GLUCOPHAGE XR) 500 mg Extended Release 24 hour tabletIndications :Type 2 diabetes mellitus without complication, without long-term current use of insulin (CMS/HCC) Take 2 Tablets (1,000 mg) by mouth 2 times daily with meals. 400 Tablet 3 025 Active metoprolol succinate (TOPROL XL) 50 mg Extended Release 24 hour tabletIndications :HTN (hypertension), benign Take 1 Tablet (50 mg) by mouth daily. 100 Tablet 3 025 Active risedronate (ACTONEL) 150 mg TabletIndications :Age-related osteoporosis without current pathological fracture Take 1 Tablet (150 mg) by mouth every 30 days. 3 Tablet 3 025 Active rosuvastatin (CRESTOR) 10 mg tabletIndications :Mixed hyperlipidemia TAKE 1 TABLET BY MOUTH ON MONDAYS, WEDNESDAYS AND FRIDAYS 50 Tablet 3 025 Active Blood-Glucose Sensor (Dexcom G7 Sensor) DeviceIndications :Type 2 diabetes mellitus without complication, without long-term current use of insulin ([facility]) Use to monitor glucose continuously. Replace sensor every 10 days. 9 Each 3 Active Additional Information Patient not taking.Reported on 06/16/2025 Blood-Glucose Meter,Continuous (Dexcom G7 Irrigator Overhead)Indicati ons:Type 2 diabetes mellitus without complication, without long-term current use of insulin ([facility]) Use with sensor to monitor glucose continuously. 1 Each Active Additional Information Patient not taking.Reported on 06/16/2025 hydroCHLOROthiazi de 50 mg tabletIndications :HTN (hypertension), benign Take 1 Tablet (50 mg) by mouth daily. 100 Tablet 3 025 Active hydroCHLOROthiazi de 25 mg tabletIndications :HTN (hypertension), benign Take 1 Tablet (25 mg) by mouth daily. 100 Tablet 3 025 2024 Discontinued Active Problems Problem Noted Date Diagnosed Date Hyperparathyroidism 08/07/2015 Colon polyp 08/21/2013 Anxiety state 01/04/2012 Essential hypertension 01/04/2012 Other left bundle branch block 01/04/2012 Unspecified arthropathy, ankle and foot 04/06/20 11 Type 2 diabetes mellitus with hyperglycemia 03/2011 Mixed dyslipidemia 04/06/2011 Resolved Problems Problem Noted Date Diagnosed Date Resolved Date Osteopenia 01/16/2016 07/17/2016 Encounters Date Type Department Care Team Description 06/21/2025 Nurse Triage [facility] Care - [facility] [address] [place] [address] Rd[address] [place] [address] Philipp Pizarro MD HTN (hypertension), benign 06/16/2025 2:00 PM DELI COOK Office Visit [facility], [address] [place] [address] Marck Yanez NP HTN (hypertension), benign (Primary Dx); Mixed hyperlipidemia; Atherosclerosis of aorta 06/16/2025 Orders Only [facility] [address] [place] [address] Aditi Alarcon RN 06/16/2025 Nurse Triage [facility], [address] [place] [address] Philipp Pizarro MD 06/16/2025 Patient Self-Triage [place] [address] [address] [place] [address] 04/30/2025 Abstract STL ABSTRACTION Provider, Abstract 04/27/2025 Results Follow-Up [facility], [address] [place] [address] Philipp Pizarro MD HEMOGLOBIN A1C, COMPREHENSIVE METABOLIC PANEL, CBC WITH DIFFERENTIAL, Additional followed-up results: 4 04/26/2025 1:20 PM CDT Office Visit [facility], [address] [place] [address] Philipp Pizarro MD Encounter for routine adult health examination with abnormal findings (Primary Dx); HTN (hypertension), benign; Type 2 diabetes mellitus without complication, without long-term current use of insulin ([facility]); Age-related osteoporosis without current pathological fracture; Mixed hyperlipidemia; Family history of fragile X syndrome 04/13/2025 External Device Data STL ABSTRACTION Provider, Abstract 03/24/2025 External Device Data STL ABSTRACTION Provider, [...] History Relation Name Comments Colon Cancer Father Jeremi Breast Cancer Maternal Grandmother Angela late 7 0s Hypertension Maternal Grandmother Angela Depression Mother Thania andres Respiratory Disease Mother Thania andres COPD Breast Cancer Paternal Grandmother Katerina Sweeney Ovarian Cancer Neg Hx Relation Name Status Comments Father Jeremi Maternal Grandmother Angela Mother Thania andres Paternal Grandmother Katerina Sweeney Alive Social History Tobacco Use Types Packs/Day Years Used Date Smoking Tobacco: Former Cigarettes 0 Q uit: 11/11/1983 Passive Smoke Exposure: Never [...] on file Legal Sex Female 3:43 AM DELI COOK Gender Identity Female 06/16/2025 8:03 AM DELI COOK Sexual Orientation Not on file Occupation Industry Job Start Date Job End Date Not on file Not on file Not on file Not on file Last Filed Vital Signs Vital Sign Reading Time Taken Comments Blood Pressure 158/82 06/16/2025 2:10 PM DELI COOK Pulse 69 06/16/2025 1:55 PM DELI COOK Temperature 36.6 C (97.9 F) 06/16/2025 1:55 PM DELI COOK Respiratory Rate 12 03/23/2013 12:43 PM CDT Oxygen Saturation 98% 06/16/2025 1:55 PM DELI COOK Inhaled Oxygen Concentration - - Weight 71.7 kg (158 lb) 06/16/2025 1:55 PM DELI COOK Height 160 cm (5' 3) 06/16/2025 1:55 PM DELI COOK Body Mass Index 27.99 06/16/2025 1:55 PM DELI COOK Plan of Treatment Upcoming Encounters Date Type Department Care Team (Late st Contact Info) Description 10/26/2025 2:40 PM CDT Office Visit [facility], [address] [place] [address] Philipp Pizarro MD [address] [place] [address] [place] [phone] 03/31/2026 1:00 PM CDT Office Visit [facility], [address] [place] [address] Philipp Pizarro MD [address] [place] [address] [place] [phone] Health Maintenance Due Date Last Done Comments ZOSTER VACCINE (2 of 3) 03/24/2013 01/27/2013 DTAP/TDAP/TD VACCINES (2 - T d or Tdap) 09/25/2017 09/26/2007, 04/18/1995 RSV VACCINE (60+ or ) (1 - 1-dose 75+ series) 11/02/2023 INFLUENZA VACCINE (#1) 2025 3, 05/14/2022, 05/11/2021, Additional history exists DIABETES ANNUAL RETINAL EXAM 10/13/2025, 05/22/2023, 05/22/2023, Additional history exists DIABETES HBA1C Q 6 MONTHS 10/24/20252024, 04/22/2024, 01/22/2024, Additional history exists DIABETES ANNUAL FOOT EXAM 04/26/20262024, 04/24/2024, 05/14/2022, Additional history exists DIABETES MICROALBUMIN ANNUAL SCREEN 04/26/2026 04/26/2025, 10/22/2023, 04/12/2023, Additional history exists DIABETES: A1C (Auto Order) 04/26/202604/26, 04/22/2024, 01/22/2024, Additional history exists LDL CHOLESTEROL ANNUAL 04/26/2026 , 04/22/2024, 04/12/2023, Additional history exists COLORECTAL SCREENING 05/20/2029 05/20/2024, 04/05/2021, 04/05/2021, Additional history exists OSTEOPOROSIS SCREENING 06/02/2029 , 12/06/2022, 12/06/2022, Additional history exists PNEUMOCOCCAL VACCINE 50+ YEARS Completed 07/20/2015 , 03/10/2014 KHE eGFR (Auto Order) Completed 04/26/2025 , 04/22/2024, 01/22/2024, Additional history exists KHE uACR (Auto Order) Completed 04/26/2025 , 10/22/2023, 04/12/2023, Additional history exists Medicare Advantage ([place]) Preventative Visit/Annual Wellness Visit Completed 04/26/2025, 06/02/2024, 04/24/2024, Additional history exists Procedures Procedure Name Priority Date/Time Associated Diagnosis Comments MICROALBUMIN/CREATINI NE RATIO, RANDOM UR Routine 04/26/2025 2:28 PM CDT Type 2 diabetes mellitus without complication, without long-term current use of insulin (CMS/HCC) VITAMIN D 25 HYDROXY Routine 04/26/2025 2:25 PM CDT Age-related osteoporosis without current pathological fracture TSH REFLEXIVE Routine 04/26/2025 2:25 PM CDT Type 2 diabetes mellitus without complication, without long-term current use of insulin (CMS/HCC) LIPID PANEL Routine 04/26/2025 2:25 PM CDT Type 2 diabetes mellitus without complication, without long-term current use of insulin (CMS/HCC) CBC WITH DIFFERENTIAL Routine 04/26/2025 2:25 PM CDT Type 2 diabetes mellitus without complication, without long-term current use of insulin (CMS/HCC) COMPREHENSIVE METABOLIC PANEL Routine 04/26/2025 2:25 PM CDT Type 2 diabetes mellitus without complication, without long-term current use of insulin (CMS/HCC) HEMOGLOBIN A1C Routine 04/26/2025 2:25 PM CDT Type 2 diabetes mellitus without complication, without long-term current use of insulin (CMS/HCC) HM DIABETES EYE EXAM Routine 10/13/2024 XR DEXA BONE DENSITY AXIAL 1 OR MORE SITES Routine 06/02/2024 3:48 PM DELI COOK Age-related osteoporosis without current pathological fracture Encounter for bone density measurement for therapeutic drug monitoring Encounter for monitoring risedronate therapy Fracture Risk Assessment Score (FRAX) indicating greater than 3% risk for hip fracture Fracture Risk Assessment Score (FRAX) indicating greater than 20% risk for major osteoporosis-related fracture Family history of fracture of hip in mother COLONOSCOPY REPORT Routine 05/20/2024 3: 45 PM CDT from Last 3 Months or Most Recently Relevant to Health Maintenance Results * MICROALBUMIN/CREATININE RATIO, RANDOM UR (04/26/2025 2:28 PM CDT) CREATININE, URINE 72 20 - 275 mg/dL [facility] ALBUMIN, URINE 0.7 See Note: mg/dL [facility] Comment: Reference Range: Reference Range Not established ALB/CREAT RATIO, URINE 10 <30 mg/g creat [facility] Comment: The ADA defines abnormalities in albumin excretion as follows: Albuminuria Category Result (mg/g creatinine) Normal to Mildly increased <30 Moderately increased 30-299 Severely increased > OR = 300 The ADA recommends that at least two of three specimens collected within a 3-6 month period be abnormal before considering a patient to be within a diagnostic category. Test Performed at: [facility] [place] [address] [address] [facility] [place] [address] Moy Ibarra MD Urine URINE SPECIMEN OBTAINED BY CLEAN CATCH PROCEDURE / Unknown 04/26/2025 2:28 PM CDT 04/26/2025 2:29 PM CDT Philipp Pizarro MD URINE ORDERABLES Fin al Result [facility] [phone] [facility] [address] [place] [address] * TSH REFLEXIVE (04/26/2025 2:25 PM CDT) Pathologist [facility] TSH 1.32 0.40 - 4.50 mIU/L [facility] Comment: FASTING:NO FASTING: NO Test Performed at: [employer] [place] [address] [place] [address] Moy Ibarra Blood 04/26/2025 2:25 PM CDT 04/26/2025 2:27 PM CDT Philipp Pizarro MD CHEMISTRY ORDERABLES Final Result [facility] [phone] [place] [address] [place] [address] * (ABNORMAL) CBC WITH DIFFERENTIAL (04/26/2025 2:25 PM CDT) WBC 5.9 3.8 - 10.8 Thousand/ uL [facility] RBC 4.90 3.80 - 5.10 Million/u L [facility] HEMOGLOBIN 15.1 11.7 - 15.5 g/dL [facility] HEMATOCRIT 46.0(H) 35.0 - 45.0 % [facility] MCV 93.9 80.0 - 100.0 fL [facility] MCH 30.8 27.0 - 33.0 pg [facility] MCHC 32.8 32.0 - 36.0 g/dL [facility] Comment: For adults, a slight decrease in the calculated MCHC value (in the range of 30 to 32 g/dL) is most likely not clinically significant; however, it should be interpreted with caution in correlation with other red cell parameters and the patient's clinical condition. RDW 13.0 11.0 - 15.0 % [facility] PLATELETS 235 140 - 400 Thousand/ uL [facility] MPV 10.4 7.5 - 12.5 fL [facility] NEUTROPHIL ABSOLUTE 3,133 1,500 - 7,800 cells/uL [facility] LYMPHOCYTE ABSOLUTE 2,207 850 - 3,900 cells/uL [facility] MONOCYTE ABSOLUTE 419 200 - 950 cells/uL [facility] EOSINOPHIL ABSOLUTE 100 15 - 500 cells/uL [facility] BASOPHILS ABSOLUTE 41 0 - 200 cells/uL [facility] NEUTROPHIL 53.1 % [facility] LYMPHOCYTES 37.4 % [facility] MONOCYTE 7.1 % [facility] EOSINOPHILS 1.7 % [facility] BASOPHILS 0.7 % [facility] Comment: FASTING:NO FASTING: NO Test Performed at: [facility] [address] [place] [address] Moy Ibarra Blood 04/26/2025 2:25 PM CDT 04/26/2025 2:27 PM CDT us Philipp Pizarro MD HEMATOLOGY ORDERABLE S Final Result [facility] [phone] [facility] [address] [place] [address] * VITAMIN D 25 HYDROXY (04/26/2025 2:25 PM CDT) VITAMIN D, 25 OH, TOTAL 34 30 - 100 ng/mL [facility] Comment: Vitamin D Status 25-OH Vitamin D: Deficiency: <20 ng/mL Insufficiency: 20 - 29 ng/mL Optimal: > or = 30 ng/mL For 25-OH Vitamin D testing on patients on D2-supplementation and patients for whom quantitation of D2 and D3 fractions is required, the [facility]TM) 25-OH VIT D, (D2,D3), LC/MS/MS is recommended: order code 18495 (patients >2yrs). See Note 1 Note 1 For additional information, please refer to http://education.Decisyon/faq/MRR578 (This link is being provided for informational/ educational purposes only.) FASTING:NO FASTING: NO Test Performed at: [facility] [id number] [address] [phone] Moy Ibarra MD Blood 04/26/2025 2:25 PM CDT 04/26/2025 2:27 PM CDT us Philipp Pizarro MD CHEMISTRY ORDERABLES Final Result Performing Organization Address City/State/ZIP Co al Phone Number [facility] [phone] [facility] [address] [address] [place] [address] * (ABNORMAL) HEMOGLOBIN A1C (04/26/2025 2:25 PM CDT) HEMOGLOBIN A1C 6.3(H) <5.7 % of total Hgb [facility] Comment: For someone without known diabetes, a hemoglobin A1c value between 5.7% and 6.4% is consistent with prediabetes and should be confirmed with a follow-up test. For someone with known diabetes, a value <7% indicates that their diabetes is well controlled. A1c targets should be individualized based on duration of diabetes, age, comorbid conditions, and other considerations. This assay result is consistent with an increased risk of diabetes. Currently, no consensus exists regarding use of hemoglobin A1c for diagnosis of diabetes for children. ESTIMATED AVERAGE GLUCOSE (MG/DL) 134 mg/dL [facility] ESTIMATED AVERAGE GLUCOSE (MMOL/L) 7.4 mmol/L [facility] Comment: FASTING:NO FASTING: NO Test Performed at: [facility] [address] [place] [address] GayleJose Ibarra Blood 04/26/2025 2:25 PM CDT 04/26/2025 2:27 PM CDT us Philipp Pizarro MD CHEMISTRY ORDERABLES Final Result [facility] [phone] [facility] [address] [place] [address] * (ABNORMAL) LIPID PANEL (04/26/2025 2:25 PM CDT) CHOLESTEROL 212(H) <200 mg/dL [facility] HDL 63 > OR = 50 mg/dL [facility] TRIGLYCERIDE 512(H) <150 mg/dL [facility] Comment: If a non-fasting specimen was collected, consider repeat triglyceride testing on a fasting specimen if clinically indicated. Moralez et al. J. of Clin. Lipidol. 2015;9:129-169. There is increased risk of pancreatitis when the triglyceride concentration is very high (> or = 500 mg/dL, especially if > or = 1000 mg/dL). Moralez et al. J. of Clin. Lipidol. 2015;9:129-169. LDL CALCULATED mg/dL (calc) [facility] Comment: LDL cholesterol not calculated. Triglyceride levels greater than 400 mg/dL invalidate calculated LDL results. Reference range: <100 Desirable range <100 mg/dL for primary prevention; <70 mg/dL for patients with CHD or diabetic patients with > or = 2 CHD risk factors. LDL-C is now calculated using the Danilo-Gordon calculation, which is a validated novel method providing better accuracy than the Friedewald equation in the estimation of LDL-C. Danilo SS et al. MARIEL. 2013;310(19): 7752-3691 (http://education.Decisyon/faq/YNU256) CHOL/HDL RATIO 3.4 <5.0 (calc) [facility] [place] NON-HDL CHOLESTEROL 149(H) <130 mg/dL (calc) [facility] Comment: For patients with diabetes plus 1 major ASCVD risk factor, treating to a non-HDL-C goal of <100 mg/dL (LDL-C of <70 mg/dL) is considered a therapeutic option. Test Performed at: [place] [address] [place] [address] Moy Ibarra Blood 04/26/2025 2:25 PM CDT 04/26/2025 2:27 PM CDT us Philipp Pizarro MD CHEMISTRY ORDERABLES Final Result [facility] [phone] [place] [address] [address] [place] [phone] * (ABNORMAL) COMPREHENSIVE METABOLIC PANEL (04/26/2025 2:25 PM CDT) GLUCOSE 180(H) 65 - 139 mg/dL [facility] [place] Comment: Non-fasting reference interval BUN 11 7 - 25 mg/dL [facility] CREATININE 0.52(L) 0.60 - 1.00 mg/dL [facility] GFR 96 > OR = 60 mL/min/1. 73m2 [facility] BUN/CREAT RATIO 21 6 - 22 (calc) [facility] [place] SODIUM 139 135 - 146 mmol/L [facility] [place] POTASSIUM 3.8 3.5 - 5.3 mmol/L [facility] [place] CHLORIDE 101 98 - 110 mmol/L [facility] CO2 29 20 - 32 mmol/L [facility] [place] CALCIUM 10.9(H) 8.6 - 10.4 mg/dL [facility] [place] TOTAL PROTEIN 6.9 6.1 - 8.1 g/dL [employer] [facility] ALBUMIN 4.8 3.6 - 5.1 g/dL [facility] GLOBULIN 2.1 1.9 - 3.7 g/dL (calc) [facility] ALBUMIN/GLOBULIN RATIO 2.3 1.0 - 2.5 (calc) [facility] BILIRUBIN TOTAL 0.3 0.2 - 1.2 mg/dL [facility] [place] ALKALINE PHOSPHATASE 56 37 - 153 U/L [facility] AST 16 10 - 35 U/L [facility] ALT 18 6 - 29 U/L [facility] Comment: FASTING:NO FASTING: NO Test Performed at: [place] [address] [place] [address] Moy Ibarra Blood 04/26/2025 2:25 PM CDT 04/26/2025 2:27 PM CDT Philipp Pizarro MD CHEMISTRY ORDERABLES Final Result Performing Organization Address City/[facility] Phone Number [facility] [phone] [place] [address] [place] [address] * (ABNORMAL) DIABETES EYE EXAM (10/13/2024) DIABETIC RETINOPATHY SCREENING Positive [facility] Abstract Provider HEALTH MAINTENANCE Final Resul t Performing Organization Address City/[facility] Phone Number [facility] [id number] [address] [place] [address], [address] [place] [address] * XR DEXA BONE DENSITY AXIAL 1 OR MORE SITES (06/02/2024 3:48 PM DELI COOK) Anatomical Region Laterality Modality Computed Radiogr aphy Impressions 06/02/2024 3:54 PM DELI COOK : Patient has been on Actonel since [...] Abstract Provider GI PROCEDURE ORDERABLES Final Result [facility] [id number] [address] [place] [address], [address] [place] [phone] from Last 3 Months or Most Recently Relevant to Health Maintenance Insurance [facility] Advance Directives For more information, please contact: [phone] * Full Code (Latest Code Status on File) Date Activated Date Inactivated Comments 02/22/2010 8:28 AM 02/23/2010 2:31 AM Care Teams Mortgage Protection Sales Relationship Specialty Start Date End Date Philipp Pizarro MD [address] [place] [address] [place] [phone] PCP - General Internal Medicine 08/21/13
--- OUTSIDE RECORDS SUMMARY | 2025-06-21 19:36 | XMS_ITS | Encounter Summary ---
Author Organization [facility] Address [address] [facility] Attn: [place] [address] Care Team Providers Care Instrument Maker Name Role Phone Philipp Pizarro MD Primary Care Provid er Encounter Details Date Type Department Care Team (Late st Contact Info) Description 11/17/1996 Outpatient Historical Conversion, History Naldo Santos Social History Tobacco Use Types Packs/Day Years Used Date Smoking Tobacco: Never Assessed Comments Unknown Sex and Gender Information Value Date Recorded Sex Assigned at Not on file Legal Sex Female 3:43 AM TELECOMMUNICATIONS MANAGER Gender Identity Female 06/16/2025 8:03 AM TELECOMMUNICATIONS MANAGER Sexual Orientation Not on file documented as of this encounter Plan of Treatment Upcoming Encounters Date Type Department Care Team (Late st Contact Info) Description 10/26/2025 2:40 PM CDT Office Visit [facility], [address] [place] [address] [place] [address] Philipp Pizarro MD [address] [place] [address] [place] [address] 03/31/2026 1:00 PM CDT Office Visit [facility], [address] [place] [address] Philipp Pizarro MD [address] [place] [address] [address] [place] [address] documented as of this encounter Visit Diagnoses Not on filedocumented in this encounter Additional Health Concerns Infection Onset Date Last Indicated Resolved Time R/O COVID-19 03/07/2020 03/07/2020 03/09/2020 4:45 AM CDT COVID-19 07/31/2021 07/31/2021 08/30/2021 1:16 AM TELECOMMUNICATIONS MANAGER documented as of this encounter Care Teams Instrument Maker Relationship Specialty Start Date End Date Philipp Pizarro MD [address] [place] [phone] PCP - General Internal Medicine 08/21/13 documented as of this encounter
--- OUTSIDE RECORDS SUMMARY | 2025-06-21 19:36 | XMS_ITS | Encounter Summary ---
Author Organization [facility] Address [address] [place] [address] Care Team Providers Care Auto Specialty Services Manager Name Role Phone Philipp Pizarro MD Primary Care Provid er Reason for Visit * Reason Comments Clinical Consult Before Scheduling Encounter Details Date Type Department Care Team (Late st Contact Info) Description 06/21/2025 Nurse Triage [facility] Primary Care - [facility], [address] [place] [address] Philipp Pizarro MD [address] [place] [address] [place] [address] HTN (hypertension), benign Social History Tobacco Use Types Packs/Day Years [...] on file Legal Sex Female 3:43 AM CAMERA MAKER Gender Identity Female 06/16/2025 8:03 AM CAMERA MAKER Sexual Orientation Not on file Occupation Industry Job Start Date Job End Date Not on file Not on file Not on file Not on file documented as of this encounter Miscellaneous Notes * Telephone Encounter - Ghazala Plummer RN - 06/21/2025 3:43 PM CST 06/21/2025 3:43 PM Returned call and spoke with patient. Discussed provider notes. Voiced understanding. Ghazala DAVEY RA MAKER * Telephone Encounter - Marck Yanez NP - 06/21/2025 3:06 PM CAMERA MAKER Increase hctz to 50mg RA MAKER * Telephone Encounter - Misty Jha RN - 06/21/2025 1:52 PM CST Adult patient complains of blood pressure or heart rate problems: Provider clinical input requested regarding elevated BP readings. Recent home blood pressure readings: 181/84 Recent home heart rate readings: 74 BP Readings from Last 3 Encounters: 06/16/25 (!) 158/82 04/26/25 132/82 06/02/24 126/78 Onset of new/worsening symptoms: Today The patient has the following symptoms or concerns: []Chest pain - /10 [] Pressure [] Sharp [] Dull [] Radiates to L arm [] Radiates to back [] Irregular heartbeat [] Palpitations [] Dyspnea or SOB [] Mild [] Moderate [] Severe [] Peripheral edema [] Headache [] Neck ache [] Slurred speech/difficulty speaking [] Focal weakness or deficit [] Pulsatile tinnitus [] Blurred vision [] Tiredness/fatigue [] Dizziness or lightheadedness [] Numbness/tingling Does the patient have any of the following: [x] Known history of hypertension [x] Taking blood pressure meds: lisinopril, HCTZ, metoprolol [] Recent change in medication (name and dose): Other pertinent information: [facility] 06/16/25 for elevated BP. She had run out of her BP medications soher BP was elevated and was having headaches and ear ringing. States BP has been normal since resuming medications. This morning she noted ringing in her ears. Checked BP this afternoon and it was 181/84. Has taken her medicine as prescribed today. Denies headache or any other symptoms. Asking if any changes to her medication dose are needed at this time. Please advise. Phone Management by Nurse: Confirm what BP medications patient is taking and when. Does this match what is prescribed? Educate patient on normal ranges for blood pressure: Blood Pressure Category Systolic mmHg (top number) Diastolic mmHg (bottom number) Normal Less than 120 AND Less than 80 Elevated 120-129 AND Less than 80 High Blood Pressure (Hypertension Stage 1) 130-139 OR 80-89 High Blood Pressure (Hypertension Stage 2) 140 or Higher OR 90 or Higher If patient is able, recheck at home using SMBP recommendations Educate patient on warning signs/symptoms when to seek treatment in ER. Advise patient to bring monitor to office to be checked for accuracy at next office visit. If patient active on [facility], order TM200 PATIENT SELF MEASURED BLOOD PRESSURE (SMBP) REPORTING THROUGH [facility] (aka [facility]). Additional notes for Phone Management by Nurse for Low Blood Pressure concerns: Advise that definition of ???low?? blood pressure is based on symptoms (e.g. loss of consciousness, signs of other end-organ malfunction), not an absolute BP number. Follow all of the above management guidelines for high or low BP If getting dizzy upon standing, have patient check sitting and standing BP???s Encourage patient to increase fluids, 8-10 glasses water daily if not on fluid restriction When and Why to Call Us Back: If BP (accurately measured as above) is >140/90 for more than 2 weeks - schedule office visit within 10-14 days or consult with provider regarding medication changes If BP is >180/120 for >4 hours - schedule OV ALEJO Patient develops symptoms RA MAKER * Telephone Encounter - Melva Booth - 06/21/2025 1:51 PM CST Copied from [facility] #[id number]. Topic: Symptomatic Care >> Jun 21, 2025 1:48 PM Melva Elmore wrote: Has this patient seen any provider (current or former) at the requested clinic in the past? Yes, Select the appropriate age range and symptom Patient has symptoms and is seeking care. Caller Name: Jessica Saldana Callback Number: Telephone Information: Call Notes: patient state she was laying own and started to hear ringing in her ears, and decided to take her BP. It was 181/84 @1:30 PM Age Range/Symptom: Adult: 18+ & not High Risk Blood pressure reading is greater than (>) or equal to 180 top number (systolic), less than (<) or equal to 90 top number (systolic) or greaterthan (>) or equal to 120 bottom number (diastolic) within the past 12 hours Caller reported patient's blood pressure was 181/84, last taken at 1:30 PM Is there an encounter open? No Transferred to [facility] Jose answered call. RA MAKER documented in this encounter Plan of Treatment Upcoming Encounters Date Type Department Care Team (Late st Contact Info) Description 10/26/2025 2:40 PM CDT Office Visit [facility] Primary Care - [facility], [address] [place] [address] Philipp Pizarro MD [address] [facility] [address] [place] [address] 03/31/2026 1:00 PM CDT Office Visit [facility] Primary Care - [facility], [address] [place] [address] Philipp Pizarro MD [address] [place] [address] [place] [phone] documented as of this encounter Visit Diagnoses Diagnosis HTN (hypertension), benign Essential hypertension, benign documented in this encounter Care Teams Auto Specialty Services Manager Relationship Specialty Start Date End Date Philipp Pizarro MD [address] [place] [address] PCP - General Internal Medicine 08/21/13 documented as of this encounter
--- OUTSIDE RECORDS SUMMARY | 2025-06-21 19:36 | XMS_ITS | Encounter Summary ---
Author Organization [facility] Address [address] [facility] Attn: [place] [address] Care Team Providers Care Director Mission Name Role Phone Philipp Pizarro MD Primary Care Provid er Encounter Details Date Type Department Care Team (Late st Contact Info) Description 01/21/1998 Outpatient Historical Conversion, History Naldo Santos Social History Tobacco Use Types Packs/Day Years Used Date Smoking Tobacco: Never Assessed Comments Unknown Sex and Gender Information Value Date Recorded Sex Assigned at Not on file Legal Sex Female 3:43 AM SAP BPC ARCHITECT Gender Identity Female 06/16/2025 8:03 AM SAP BPC ARCHITECT Sexual Orientation Not on file documented as of this encounter Plan of Treatment Upcoming Encounters Date Type Department Care Team (Late st Contact Info) Description 10/26/2025 2:40 PM CDT Office Visit [facility], [address] [place] [address] [place] [address] Philipp Pizarro MD [address] [place] [address] [place] [address] 03/31/2026 1:00 PM CDT Office Visit [facility], [address] [place] [address] [place] [address] Philipp Pizarro MD [address] [place] [address] [address] [place] [address] documented as of this encounter Visit Diagnoses Not on filedocumented in this encounter Additional Health Concerns Infection Onset Date Last Indicated Resolved Time R/O COVID-19 03/07/2020 03/07/2020 03/09/2020 4:45 AM CDT COVID-19 07/31/2021 07/31/2021 08/30/2021 1:16 AM SAP BPC ARCHITECT documented as of this encounter Care Teams Director Mission Relationship Specialty Start Date End Date Philipp Pizarro MD [address] [place] [address] PCP - General Internal Medicine 08/21/13 documented as of this encounter
--- OUTSIDE RECORDS SUMMARY | 2025-06-21 19:36 | XMS_ITS | Encounter Summary ---
Author Organization [facility] Address [address] [place] [address] Care Team Providers Care Tobacco Cutter Name Role Phone Philipp Pizarro MD Primary Care Provid er Encounter Details Date Type Department Care Team (Late st Contact Info) Description 12/20/2000 Outpatient Historical HIS [facility] Naldo Devine Social History Tobacco Use Types Packs/Day Years Used Date Smoking Tobacco: Never Assessed Comments Unknown Sex and Gender Information Value Date Recorded Sex Assigned at Not on file Legal Sex Female 3:43 AM PROTOCOL OFFICER Gender Identity Female 06/16/2025 8:03 AM PROTOCOL OFFICER Sexual Orientation Not on file documented as of this encounter Plan of Treatment Upcoming Encounters Date Type Department Care Team (Late st Contact Info) Description 10/26/2025 2:40 PM CDT Office Visit [facility], [address] [place] [address] Philipp Pizarro MD [address] [facility] [address] [place] [address] 03/31/2026 1:00 PM CDT Office Visit [facility], [address] [place] [address] Philipp Pizarro MD [address] [place] [address] documented as of this encounter Visit Diagnoses Not on filedocumented in this encounter Additional Health Concerns Infection Onset Date Last Indicated Resolved Time R/O COVID-19 03/07/2020 03/07/2020 03/09/2020 4:45 AM CDT COVID-19 07/31/2021 07/31/2021 08/30/2021 1:16 AM PROTOCOL OFFICER documented as of this encounter Care Teams Tobacco Cutter Relationship Specialty Start Date End Date Philipp Pizarro MD [address] [place] [address] PCP - General Internal Medicine 08/21/13 documented as of this encounter
--- OUTSIDE RECORDS SUMMARY | 2025-06-21 19:36 | XMS_ITS | Encounter Summary ---
Author Organization [facility] Address [address] [place] [address] Care Team Providers Care Nutrition Partner Name Role Phone Philipp Pizarro MD Primary Care Provid er Encounter Details Date Type Department Care Team (Latest Contact Info) Description 09/26/2007 Outpatient Historical HIS [facility] Naldo Devine Other Screening Mammogram Social History Tobacco Use Types Packs/Day Years Used Date Smoking Tobacco: Never Assessed Comments Unknown Sex and Gender Information Value Date Recorded Sex Assigned at Not on file Legal Sex Female 3:43 AM STRICKLER ATTENDANT Gender Identity Female 06/16/2025 8:03 AM STRICKLER ATTENDANT Sexual Orientation Not on file documented as of this encounter Plan of Treatment Upcoming Encounters Date Type Department Care Team (Late st Contact Info) Description 10/26/2025 2:40 PM CDT Office Visit [facility], [address] [place] [address] Philipp Pizarro MD [address] [facility] [address] [place] [address] 03/31/2026 1:00 PM CDT Office Visit [facility], [address] [place] [address] Philipp Pizarro MD [address] [place] [address] [address] [place] [address] documented as of this encounter Procedures Procedure Name Priority Date/Time Associated Diagnosis Comments MAMMO SCREEN BILAT W OR WO CAD Routine 09/26/2007 8:20 AM STRICKLER ATTENDANT documented in this encounter Results * MAMMO DIGITAL SCREEN BILAT (09/26/2007 8:20 AM STRICKLER ATTENDANT) Anatomical Region Laterality Modality Breast Bilateral Other 09/26/2007 8:20 AM STRICKLER ATTENDANT Narrative 09/26/2007 11:09 PM STRICKLER ATTENDANT [address] [address] Admit Date: 09/26/2007 KRISTINA HUTSON Sex: F Admit Prov: NALDO SANTOS Date: 1950 Primary Care Prov: THEA NALDO Harper; CMRN: [id number] THEANALDO SSN: [id number] Room: [facility] Ordering Prov: NALDO SANTOS J Accession Number: [id number] Interpretation BILATERAL SCREENING DIGITAL MAMMOGRAMS WITH COMPUTER [...] Procedure Note Shell Carreno MD - 09/26/[address] [address] Admit Date: 09/26/2007 KRISTINA HUTSON Sex: F Admit Prov: NALDO SANTOS Date: 1950 Primary Care Prov: NALDO SANTOS; CMRN: [id number] NALDO SANTOS SSN: [id number] Room: [facility] Ordering Prov: NALDO SANTOS Interpretation [...] CARRENO 09/26/2007 23:09 Transcribed: 09/26/2007 19:50 AMK Naldo Santos MAMMO ORDERABLES Final Result documented in this encounter Visit Diagnoses Diagnosis Other screening mammogram documented in this encounter Additional Health Concerns Infection Onset Date Last Indicated Resolved Time R/O COVID-19 03/07/2020 03/07/2020 03/09/2020 4:45 AM CDT COVID-19 07/31/2021 07/31/2021 08/30/2021 1:16 AM STRICKLER ATTENDANT documented as of this encounter Care Teams Nutrition Partner Relationship Specialty Start Date End Date Philipp Pizarro MD [address] [place] [phone] PCP - General Internal Medicine 08/21/13 documented as of this encounter
--- OUTSIDE RECORDS SUMMARY | 2025-06-21 19:36 | XMS_ITS | Encounter Summary ---
Author Organization [facility] Address [address] [facility] Attn: [place] [address] Care Team Providers Care Stained Glass Artist Name Role Phone Philipp Pizarro MD Primary Care Provid er Encounter Details Date Type Department Care Team (Late st Contact Info) Description 03/11/1989 Outpatient Historical Naldo Santos Social History Tobacco Use Types Packs/Day Years Used Date Smoking Tobacco: Never Assessed Comments Unknown Sex and Gender Information Value Date Recorded Sex Assigned at Not on file Legal Sex Female 3:43 AM BUCKLE AND BUTTON MAKER Gender Identity Female 06/16/2025 8:03 AM BUCKLE AND BUTTON MAKER Sexual Orientation Not on file documented as of this encounter Plan of Treatment Upcoming Encounters Date Type Department Care Team (Late st Contact Info) Description 10/26/2025 2:40 PM CDT Office Visit [facility], [address] [place] [address] Philipp Pizarro MD [address] [facility] [address] [place] [address] 03/31/2026 1:00 PM CDT Office Visit [facility], [address] [place] [address] Philipp Pizarro MD [address] [place] [address] documented as of this encounter Visit Diagnoses Not on filedocumented in this encounter Additional Health Concerns Infection Onset Date Last Indicated Resolved Time R/O COVID-19 03/07/2020 03/07/2020 03/09/2020 4:45 AM CDT COVID-19 07/31/2021 07/31/2021 08/30/2021 1:16 AM BUCKLE AND BUTTON MAKER documented as of this encounter Care Teams Stained Glass Artist Relationship Specialty Start Date End Date Philipp Pizarro MD [address] [place] [address] PCP - General Internal Medicine 08/21/13 documented as of this encounter
--- OUTSIDE RECORDS SUMMARY | 2025-06-21 19:36 | XMS_ITS | Encounter Summary ---
Author Organization [facility] Address [address] [facility] Attn: [place] [address] Care Team Providers Care Shellfish Sorter Name Role Phone Philipp Pizarro MD Primary Care Provid er Encounter Details Date Type Department Care Team (Late st Contact Info) Description 04/18/1995 Outpatient Historical Naldo Santos Social History Tobacco Use Types Packs/Day Years Used Date Smoking Tobacco: Never Assessed Comments Unknown Sex and Gender Information Value Date Recorded Sex Assigned at Not on file Legal Sex Female 3:43 AM TAX MAP TECHNICIAN Gender Identity Female 06/16/2025 8:03 AM TAX MAP TECHNICIAN Sexual Orientation Not on file documented as of this encounter Plan of Treatment Upcoming Encounters Date Type Department Care Team (Late st Contact Info) Description 10/26/2025 2:40 PM CDT Office Visit [facility], [address] [place] [address] Philipp Pizarro MD [address] [facility] [address] [place] [address] 03/31/2026 1:00 PM CDT Office Visit [facility], [address] [place] [address] Philipp Pizarro MD [address] [place] [address] documented as of this encounter Visit Diagnoses Not on filedocumented in this encounter Additional Health Concerns Infection Onset Date Last Indicated Resolved Time R/O COVID-19 03/07/2020 03/07/2020 03/09/2020 4:45 AM CDT COVID-19 07/31/2021 07/31/2021 08/30/2021 1:16 AM TAX MAP TECHNICIAN documented as of this encounter Care Teams Shellfish Sorter Relationship Specialty Start Date End Date Philipp Pizarro MD [address] [place] [address] PCP - General Internal Medicine 08/21/13 documented as of this encounter
--- OUTSIDE RECORDS SUMMARY | 2025-06-21 19:36 | XMS_ITS | Encounter Summary ---
Author Organization [facility] Address [address] [place] [address] Care Team Providers Care Modeling Instructor Name Role Phone Philipp Pizarro MD Primary Care Provid er Encounter Details Date Type Department Care Team (Latest Contact Info) Description 11/21/1999 Outpatient Historical HIS [facility] Naldo Devine Nonspecific abnormal findings on radiological or other examinations of the breast (Primary Dx) Social History Tobacco Use Types Packs/Day Years Used Date Smoking Tobacco: Never Assessed Comments Unknown Sex and Gender Information Value Date Recorded Sex Assigned at Not on file Legal Sex Female 3:43 AM MAINTENANCE DEPARTMENT TECHNICIAN Gender Identity Female 06/16/2025 8:03 AM MAINTENANCE DEPARTMENT TECHNICIAN Sexual Orientation Not on file documented as of this encounter Plan of Treatment Upcoming Encounters Date Type Department Care Team (Late st Contact Info) Description 10/26/2025 2:40 PM CDT Office Visit [facility], [address] [place] [address] Philipp Pizarro MD [address] [facility] [address] [place] [address] 03/31/2026 1:00 PM CDT Office Visit [facility], [address] [place] [address] Philipp Pizarro MD [address] [place] [address] [address] [place] [address] documented as of this encounter Visit Diagnoses Diagnosis Nonspecific abnormal findings on radiological or other examinations of the breast- Primary documented in this encounter Additional Health Concerns Infection Onset Date Last Indicated Resolved Time R/O COVID-19 03/07/2020 03/07/2020 03/09/2020 4:45 AM CDT COVID-19 07/31/2021 07/31/2021 08/30/2021 1:16 AM MAINTENANCE DEPARTMENT TECHNICIAN documented as of this encounter Care Teams Modeling Instructor Relationship Specialty Start Date End Date Philipp Pizarro MD [address] [place] [address] [address] [place] [address] PCP - General Internal Medicine 08/21/13 documented as of this encounter
--- OUTSIDE RECORDS SUMMARY | 2025-06-21 19:36 | XMS_ITS | Encounter Summary ---
Author Organization [facility] Address [address] [place] [address] Care Team Providers Care Practice Specialist Name Role Phone Philipp Pizarro MD Primary Care Provid er Encounter Details Date Type Department Care Team (Latest Contact Info) Description 09/26/2007 Outpatient Historical [facility], [address] Naldo Santos Mononeuritis of Unspecified Site; Lumbago Social History Tobacco Use Types Packs/Day Years Used Date Smoking Tobacco: Never Assessed Comments Unknown Sex and Gender Information Value Date Recorded Sex Assigned at Not on file Legal Sex Female 3:43 AM ELECTROMECHANICAL ENGINEER Gender Identity Female 06/16/2025 8:03 AM ELECTROMECHANICAL ENGINEER Sexual Orientation Not on file documented as of this encounter Plan of Treatment Upcoming Encounters Date Type Department Care Team (Late st Contact Info) Description 10/26/2025 2:40 PM CDT Office Visit [facility], [address] [place] [address] Philipp Pizarro MD [address] [place] [address] [place] [address] 03/31/2026 1:00 PM CDT Office Visit [facility], [address] [place] [address] [place] [address] Philipp Pizarro MD [address] [place] [address] documented as of this encounter Procedures Procedure Name Priority Date/Time Associated Diagnosis Comments CBC WITH DIFFERENTIAL Routine 09/26/2007 10:36 AM ELECTROMECHANICAL ENGINEER TSH Routine 09/26/2007 10:36 AM ELECTROMECHANICAL ENGINEER HEMOGLOBIN A1C Routine 09/26/2007 10:36 AM ELECTROMECHANICAL ENGINEER VITAMIN B12 LEVEL Routine 09/26/2007 10: 36 AM ELECTROMECHANICAL ENGINEER LIPID PANEL Routine 09/26/2007 10:36 AM ELECTROMECHANICAL ENGINEER COMPREHENSIVE METABOLIC PANEL Routine 09/26/2007 10:36 AM ELECTROMECHANICAL ENGINEER documented in this encounter Results * VITAMIN B12 (09/26/2007 10:36 AM ELECTROMECHANICAL ENGINEER) VITAMIN B12 727 211 - 946 pg/mL [facility] Comment: It has been reported that between 5 to 10% of patients with values between 200 and 400 pg/mL may experience neuropsychiatric and hematologic abnormalities due to occult B12 deficiency. Less than 1% of patients with values above 400 pg/mL will have symptoms. Blood specimen (specimen) 09/26/2007 10:36 AM ELECTROMECHANICAL ENGINEER 09/26/2007 10:37 AM ELECTROMECHANICAL ENGINEER us Naldo Santos CHEMISTRY ORDERABLES Edited [facility] [address] [facility] [address] [place] [address] * TSH (09/26/2007 10:36 AM ELECTROMECHANICAL ENGINEER) TSH 2.01 0.27 - 4.20 uU/mL [facility] Blood specimen (specimen) 09/26/2007 10:36 AM ELECTROMECHANICAL ENGINEER 09/26/2007 10:36 AM ELECTROMECHANICAL ENGINEER Naldo Santos CHEMISTRY ORDERABLES Final Resu lt Performing Organization Address City/[facility] Co de Phone Number [facility] [address] [place] [address] * (ABNORMAL) HEMOGLOBIN A1C (09/26/2007 10:36 AM ELECTROMECHANICAL ENGINEER) Pathologist [facility] GLUCOSE, MEAN BLOOD 172 mg/dL [facility] HEMOGLOBIN A1C 7.0(H) 4.1 - 6.1 % of Hgb [facility] Blood specimen (specimen) 09/26/2007 10:36 AM ELECTROMECHANICAL ENGINEER 09/26/2007 10:36 AM ELECTROMECHANICAL ENGINEER Naldo Santos [employer] ORDERABLES Final Resu lt Performing Organization Address City/[facility] Co de Phone Number [facility] [address] [place], [place] [address] * (ABNORMAL) CBC WITH DIFFERENTIAL (09/26/2007 10:36 AM ELECTROMECHANICAL ENGINEER) RDW-STDEV 38.9 37.1 - 48.7 fL [facility] RBC 5.17(H) 3.90 - 4.90 M/uL [facility] MCHC 35.3 31.5 - 35.5 % [facility] MCV 85.5 82.0 - 99.0 fL [facility] PLATELETS 184 140 - 350 K/uL [facility] HEMOGLOBIN 15.6(H) 11.8 - 14.8 g/dL [facility] RDW 12.7 11.5 - 14.5 % [facility] WBC 5.9 4.0 - 9.8 K/uL [facility] MCH 30.2 27.2 - 32.6 pg [facility] MPV 11.0 9.3 - 12.4 fL [facility] HEMATOCRIT 44.2(H) 35.5 - 44.0 % [facility] MONOCYTES 7 3 - 13 % [facility] MONOCYTE ABSOLUTE 0.39 0.10 - 1.30 K/uL [facility] NEUTROPHILS 55 45 - 70 % [facility] NEUTROPHIL ABSOLUTE 3.23 1.90 - 7.00 K/uL [facility] EOSINOPHILS 2 0 - 7 % [facility] EOSINOPHIL ABSOLUTE 0.09 0.00 - 0.70 K/uL [facility] LYMPHOCYTES 37 16 - 45 % [facility] LYMPHOCYTE ABSOLUTE 2.16 0.70 - 4.50 K/uL [facility] BASOPHILS 0 0 - 2 % [facility] BASOPHILS ABSOLUTE 0.02 0.00 - 0.20 K/uL [facility] Blood specimen (specimen) 09/26/2007 10:36 AM ELECTROMECHANICAL ENGINEER 09/26/2007 10:36 AM ELECTROMECHANICAL ENGINEER Naldo Santos HEMATOLOGY ORDERABLES Edited INTERFACE SYSTEM Refer to clinic/hospital department [facility] [address] [place] [address] * (ABNORMAL) LIPID PANEL (09/26/2007 10:36 AM ELECTROMECHANICAL ENGINEER) CHOL/HDL RATIO 4.5 2.0 - 5.0 [facility] HDL 56 40 - 59 mg/dL [facility] CHOLESTEROL 250(H) 100 - 199 mg/dL [facility] TRIGLYCERIDE 148 10 - 149 mg/dL [facility] LDL CALCULATED 164(H) <=99 mg/dL [facility] LIPID PANEL COMMENT See Below [facility] Comment: The adult ATP and pediatric NCEP classifications for lipids are available on the [facility] Intranet at: [email or web address] Select: Lab Policies and Procedures,Current Select: Lipid Panel Interpretation Blood specimen (specimen) 09/26/2007 10:36 AM ELECTROMECHANICAL ENGINEER 09/26/2007 10:36 AM ELECTROMECHANICAL ENGINEER us Naldo Santos CHEMISTRY ORDERABLES Edited [facility] [address] [place] [address] * (ABNORMAL) COMPREHENSIVE METABOLIC PANEL (09/26/2007 10:36 AM ELECTROMECHANICAL ENGINEER) POTASSIUM 3.7 3.5 - 4.9 mmol/L [facility] TOTAL PROTEIN 7.5 6.3 - 8.6 g/dL [facility] GLUCOSE 160(H) 65 - 99 mg/dL [facility] AST 23 12 - 32 U/L [facility] BUN 12 6 - 20 mg/dL [facility] CALCIUM 8.7 8.4 - 10.2 mg/dL [facility] ALBUMIN 4.6 3.4 - 4.8 g/dL [facility] CHLORIDE 102 96 - 108 mmol/L [facility] CREATININE 0.53 0.51 - 0.95 mg/dL [facility] ALT 35(H) 0 - 31 U/L [facility] SODIUM 138 135 - 145 mmol/L [facility] ALKALINE PHOSPHATASE 63 35 - 104 U/L [facility] CO2 25 22 - 30 mmol/L [facility] BILIRUBIN TOTAL 0.6 0.2 - 1.0 mg/dL [facility] GFR, >60 >=60 mL/min/1. 7 sq meter [facility] GFR >60 >=60 mL/min/1. 7 sq meter [facility] Comment: Estimated GFR rate interpretative information for both Americans and non- Americans is available on the [facility] Intranet at: [email or web address] Select: Lab Policies and Procedures Select: Reference Ranges - GFR Blood specimen (specimen) 09/26/2007 10:36 AM ELECTROMECHANICAL ENGINEER 09/26/2007 10:36 AM ELECTROMECHANICAL ENGINEER us Naldo Santos CHEMISTRY ORDERABLES Edited [facility] [address] [place] [address] documented in this encounter Visit Diagnoses Diagnosis Mononeuritis of unspecified site Lumbago documented in this encounter Additional Health Concerns Infection Onset Date Last Indicated Resolved Time R/O COVID-19 03/07/2020 03/07/2020 03/09/2020 4:45 AM CDT COVID-19 07/31/2021 07/31/2021 08/30/2021 1:16 AM ELECTROMECHANICAL ENGINEER documented as of this encounter Care Teams Practice Specialist Relationship Specialty Start Date End Date Philipp Pizarro MD [address] [place] [address] [address] [place] [phone] PCP - General Internal Medicine 08/21/13 documented as of this encounter
--- OUTSIDE RECORDS SUMMARY | 2025-06-21 19:36 | XMS_ITS | Encounter Summary ---
Author Organization [facility] Address [address] [place] [address] Care Team Providers Care Slag Dumper Name Role Phone Philipp Pizarro MD Primary Care Provid er Encounter Details Date Type Department Care Team (Late st Contact Info) Description 09/13/2004 Outpatient Historical [facility], [address] Danielle Valeriy Social History Tobacco Use Types Packs/Day Years Used Date Smoking Tobacco: Never Assessed Comments Unknown Sex and Gender Information Value Date Recorded Sex Assigned at Not on file Legal Sex Female 3:43 AM COTTON PRESSER Gender Identity Female 06/16/2025 8:03 AM COTTON PRESSER Sexual Orientation Not on file documented as of this encounter Plan of Treatment Upcoming Encounters Date Type Department Care Team (Late st Contact Info) Description 10/26/2025 2:40 PM CDT Office Visit [facility], [address] [place] [address] Philipp Pizarro MD [address] [facility] [address] [place] [address] 03/31/2026 1:00 PM CDT Office Visit [facility], [address] [place] [address] Philipp Pizarro MD [address] [facility] [address] [place] [address] documented as of this encounter Procedures Procedure Name Priority Date/Time Associated Diagnosis Comments CBC WITH DIFFERENTIAL Routine 09/13/2004 10:55 AM COTTON PRESSER CBC WITH DIFFERENTIAL Routine 09/13/2004 10:55 AM COTTON PRESSER LIPID PANEL Routine 09/13/2004 10:55 AM COTTON PRESSER COMPREHENSIVE METABOLIC PANEL Routine 09/13/2004 10:55 AM COTTON PRESSER documented in this encounter Results * CBC WITH DIFFERENTIAL (09/13/2004 10:55 AM COTTON PRESSER) NEUTROPHILS 66 45 - 70 % INTERFAC [...] K/uL INTERFACE SYSTEM 09/13/2004 10:5 5 AM COTTON PRESSER us Naldo Santos HEMATOLOGY ORDERABLES Final Res ult INTERFACE SYSTEM Refer to clinic/hospital department * CBC WITH DIFFERENTIAL (09/13/2004 10:55 AM COTTON PRESSER) WBC 6.8 4.0 - 9.8 K/uL INTERFACE [...] fL INTERFACE SYSTEM 09/13/2004 10:5 5 AM COTTON PRESSER us Naldo Santos HEMATOLOGY ORDERABLES Final Res ult INTERFACE SYSTEM Refer to clinic/hospital department * (ABNORMAL) LIPID PANEL (09/13/2004 10:55 AM COTTON PRESSER) CHOLESTEROL 204(H) 100 - 199 mg/dL INTERFACE [...] 129 High >=130 09/13/2004 10:5 5 AM COTTON PRESSER Naldo Santos CHEMISTRY ORDERABLES Final Resu lt Performing Organization Address City/[facility] Co de Phone Number INTERFACE SYSTEM Refer to clinic/hospital department * (ABNORMAL) COMPREHENSIVE METABOLIC PANEL (09/13/2004 10:55 AM COTTON PRESSER) GLUCOSE 114(H) 65 - 109 mg/dL INTERFACE [...] mmol/L INTERFACE SYSTEM 09/13/2004 10:5 5 AM COTTON PRESSER Naldo Santos CHEMISTRY ORDERABLES Final Resu Performing Organization Address [facility] Co de Phone Number INTERFACE SYSTEM Refer to clinic/hospital department documented in this encounter Visit Diagnoses Not on filedocumented in this encounter Additional Health Concerns Infection Onset Date Last Indicated Resolved Time R/O COVID-19 03/07/2020 03/07/2020 03/09/2020 4:45 AM CDT COVID-19 07/31/2021 07/31/2021 08/30/2021 1:16 AM COTTON PRESSER documented as of this encounter Care Teams Slag Dumper Relationship Specialty Start Date End Date Philipp Pizarro MD [address] [place] [address] PCP - General Internal Medicine 08/21/13 documented as of this encounter
--- OUTSIDE RECORDS SUMMARY | 2025-06-21 19:36 | XMS_ITS | Encounter Summary ---
Author Organization [facility] Address [address] [place] [address] Care Team Providers Care Strategic Client Executive Name Role Phone Philipp Pizarro MD Primary Care Provid er Encounter Details Date Type Department Care Team (Late st Contact Info) Description 05/15/2006 Outpatient Historical [facility], [address] Danielle Valeriy Social History Tobacco Use Types Packs/Day Years Used Date Smoking Tobacco: Never Assessed Comments Unknown Sex and Gender Information Value Date Recorded Sex Assigned at Not on file Legal Sex Female 3:43 AM PARK NATURALIST Gender Identity Female 06/16/2025 8:03 AM PARK NATURALIST Sexual Orientation Not on file documented as of this encounter Plan of Treatment Upcoming Encounters Date Type Department Care Team (Late st Contact Info) Description 10/26/2025 2:40 PM CDT Office Visit [facility], [address] [place] [address] Philipp Pizarro MD [address] [facility] [address] [place] [address] 03/31/2026 1:00 PM CDT Office Visit [facility], [address] [place] [address] Philipp Pizarro MD [address] [facility] [address] [place] [address] documented as [...] classifications for lipids are available on the [facility] Intranet at: [email or web address] Select: Lab Policies and Procedures Select: Reference Ranges - Lipids 05/15/2006 10:5 5 AM CDT us Naldo [...] INTERFACE SYSTEM 05/15/2006 10:5 5 AM CDT Naldo Santos CHEMISTRY ORDERABLES Final Resu lt INTERFACE SYSTEM Refer to clinic/hospital department documented in this encounter Visit Diagnoses Not on filedocumented in this encounter Additional Health Concerns Infection Onset Date Last Indicated Resolved Time R/O COVID-19 03/07/2020 03/07/2020 03/09/2020 4:45 AM CDT COVID-19 07/31/2021 07/31/2021 08/30/2021 1:16 AM PARK NATURALIST documented as of this encounter Care Teams Strategic Client Executive Relationship Specialty Start Date End Date Philipp Pizarro MD [address] [place] [address] PCP - General Internal Medicine 08/21/13 documented as of this encounter
--- OUTSIDE RECORDS SUMMARY | 2025-06-21 19:36 | XMS_ITS | Encounter Summary ---
Author Organization [facility] Address [address] [place] [address] Care Team Providers Care Telephone Claims Representative Name Role Phone Philipp Pizarro MD Primary Care Provid er Encounter Details Date Type Department Care Team (Latest Contact Info) Description 11/13/1999 Outpatient Historical HIS [facility] Naldo Devine Other screening mammogram (Primary Dx) Social History Tobacco Use Types Packs/Day Years Used Date Smoking Tobacco: Never Assessed Comments Unknown Sex and Gender Information Value Date Recorded Sex Assigned at Not on file Legal Sex Female 3:43 AM VOCATIONAL EXAMINER Gender Identity Female 06/16/2025 8:03 AM VOCATIONAL EXAMINER Sexual Orientation Not on file documented as of this encounter Plan of Treatment Upcoming Encounters Date Type Department Care Team (Late st Contact Info) Description 10/26/2025 2:40 PM CDT [facility] Visit [facility], [address] [place] [address] Philipp Pizarro MD [address] [facility] [address] [place] [address] 03/31/2026 1:00 PM CDT Office Visit [facility], [address] [place] [address] Philipp Pizarro MD [address] [place] [address] documented as of this encounter Visit Diagnoses Diagnosis Other screening mammogram- Primary documented in this encounter Additional Health Concerns Infection Onset Date Last Indicated Resolved Time R/O COVID-19 03/07/2020 03/07/2020 03/09/2020 4:45 AM CDT COVID-19 07/31/2021 07/31/2021 08/30/2021 1:16 AM VOCATIONAL EXAMINER documented as of this encounter Care Teams Telephone Claims Representative Relationship Specialty Start Date End Date Philipp Pizarro MD [address] [place] [address] PCP - General Internal Medicine 08/21/13 documented as of this encounter
--- OUTSIDE RECORDS SUMMARY | 2025-06-21 19:36 | XMS_ITS | Encounter Summary ---
Author Organization [facility] Address [address] [facility] Attn: [place] [address] Care Team Providers Care [employer] Assistant Manager Name Role Phone Philipp Pizarro MD Primary Care Provid er Encounter Details Date Type Department Care Team (Late st Contact Info) Description 12/10/1995 Outpatient Historical Naldo Santos Social History Tobacco Use Types Packs/Day Years Used Date Smoking Tobacco: Never Assessed Comments Unknown Sex and Gender Information Value Date Recorded Sex Assigned at Not on file Legal Sex Female 3:43 AM CODING CLERKS SUPERVISOR Gender Identity Female 06/16/2025 8:03 AM CODING CLERKS SUPERVISOR Sexual Orientation Not on file documented as of this encounter Plan of Treatment Upcoming Encounters Date Type Department Care Team (Late st Contact Info) Description 10/26/2025 2:40 PM CDT Office Visit [facility], [address] [place] [address] Philipp Pizarro MD [address] [facility] [address] [place] [address] 03/31/2026 1:00 PM CDT Office Visit [facility], [address] [place] [address] Philipp Pizarro MD [address] [place] [address] documented as of this encounter Visit Diagnoses Not on filedocumented in this encounter Additional Health Concerns Infection Onset Date Last Indicated Resolved Time R/O COVID-19 03/07/2020 03/07/2020 03/09/2020 4:45 AM CDT COVID-19 07/31/2021 07/31/2021 08/30/2021 1:16 AM CODING CLERKS SUPERVISOR documented as of this encounter Care Teams [employer] Assistant Manager Relationship Specialty Start Date End Date Philipp Pizarro MD [address] [place] [address] PCP - General Internal Medicine 08/21/13 documented as of this encounter
--- OUTSIDE RECORDS SUMMARY | 2025-06-21 19:36 | XMS_ITS | Encounter Summary ---
Author Organization [facility] Address [address] [place] [address] Care Team Providers Care Coyote Hunter Name Role Phone Philipp Pizarro MD Primary Care Provid er Encounter Details Date Type Department Care Team (Latest Contact Info) Description 12/20/2000 Outpatient Historical HIS [facility] Naldo Devine Other screening mammogram (Primary Dx) Social History Tobacco Use Types Packs/Day Years Used Date Smoking Tobacco: Never Assessed Comments Unknown Sex and Gender Information Value Date Recorded Sex Assigned at Not on file Legal Sex Female 3:43 AM APARTMENT LEASING CONSULTANT Gender Identity Female 06/16/2025 8:03 AM APARTMENT LEASING CONSULTANT Sexual Orientation Not on file documented as of this encounter Plan of Treatment Upcoming Encounters Date Type Department Care Team (Late st Contact Info) Description 10/26/2025 2:40 PM CDT Office Visit [facility], [address] [place] [address] Philipp Pizarro MD [address] [facility] [address] [place] [address] 03/31/2026 1:00 PM CDT Office Visit [facility], [address] [place] [address] Philipp Pizarro MD [address] [place] [address] documented as of this encounter Visit Diagnoses Diagnosis Other screening mammogram- Primary documented in this encounter Additional Health Concerns Infection Onset Date Last Indicated Resolved Time R/O COVID-19 03/07/2020 03/07/2020 03/09/2020 4:45 AM CDT COVID-19 07/31/2021 07/31/2021 08/30/2021 1:16 AM APARTMENT LEASING CONSULTANT documented as of this encounter Care Teams Coyote Hunter Relationship Specialty Start Date End Date Philipp Pizarro MD [address] [place] [address] PCP - General Internal Medicine 08/21/13 documented as of this encounter
--- OUTSIDE RECORDS SUMMARY | 2025-06-21 19:36 | XMS_ITS | Encounter Summary ---
Author Organization [facility] Address [address] [place] [address] Care Team Providers Care Barrel Endshaker Adjuster Name Role Phone Philipp Pizarro MD Primary Care Provid er Encounter Details Date Type Department Care Team (Latest Contact Info) Description 08/31/1998 Outpatient Historical HIS [facility]ARTOON[facility] [employer] EFFECTS Naldo Santos Other and unspecified hyperlipidemia (Primary Dx) Social History Tobacco Use Types Packs/Day Years Used Date Smoking Tobacco: Never Assessed Comments Unknown Sex and Gender Information Value Date Recorded Sex Assigned at Not on file Legal Sex Female 3:43 AM BOTTOMER OPERATOR Gender Identity Female 06/16/2025 8:03 AM BOTTOMER OPERATOR Sexual Orientation Not on file documented as of this encounter Plan of Treatment Upcoming Encounters Date Type Department Care Team (Late st Contact Info) Description 10/26/2025 2:40 PM CDT Office Visit [facility], [address] [place] [address] [place] [address] Philipp Pizarro MD [address] [facility] [address] [place] [address] 03/31/2026 1:00 PM CDT Office Visit [facility], [address] [place] [address] [place] [address] Philipp Pizarro MD [address] [place] [address] [address] [place] [address] documented as of this encounter Visit Diagnoses Diagnosis Other and unspecified hyperlipidemia- Primary documented in this encounter Additional Health Concerns Infection Onset Date Last Indicated Resolved Time R/O COVID-19 03/07/2020 03/07/2020 03/09/2020 4:45 AM CDT COVID-19 07/31/2021 07/31/2021 08/30/2021 1:16 AM BOTTOMER OPERATOR documented as of this encounter Care Teams Barrel Endshaker Adjuster Relationship Specialty Start Date End Date Philipp Pizarro MD [address] [place] [address] [address] [place] [address] PCP - General Internal Medicine 08/21/13 documented as of this encounter
--- OUTSIDE RECORDS SUMMARY | 2025-06-21 19:36 | XMS_ITS | Encounter Summary ---
Author Organization [facility] Address [address] [place] [address] Care Team Providers Care Director Of Land Name Role Phone Philipp Pizarro MD Primary Care Provid er Encounter Details Date Type Department Care Team (Late st Contact Info) Description 08/20/2006 Outpatient Historical [facility] Support Serv. (Adt Cardiology-[facility]) [address] [place] [address] David Mckeon MD [address] [address] [address] [place] [address] Social History Tobacco Use Types Packs/Day Years Used Date Smoking Tobacco: Never Assessed Comments Unknown Sex and Gender Information Value Date Recorded Sex Assigned at Not on file Legal Sex Female 3:43 AM GAME DESIGN INSTRUCTOR Gender Identity Female 06/16/2025 8:03 AM GAME DESIGN INSTRUCTOR Sexual Orientation Not on file documented as of this encounter Plan of Treatment Upcoming Encounters Date Type Department Care Team (Late st Contact Info) Description 10/26/2025 2:40 PM CDT Office Visit [facility] Primary Care - [facility], [address] [place] [address] Philipp Pizarro MD [address] [facility] [place] [address] [place] [address] 03/31/2026 1:00 PM CDT Office Visit [facility] Primary Care - [facility] [place], [address] [place] [address] Philipp Pizarro MD [address] [facility] [place] [address] [place] [address] documented as of this encounter Visit Diagnoses Not on filedocumented in this encounter Additional Health Concerns Infection Onset Date Last Indicated Resolved Time R/O COVID-19 03/07/2020 03/07/2020 03/09/2020 4:45 AM CDT COVID-19 07/31/2021 07/31/2021 08/30/2021 1:16 AM GAME DESIGN INSTRUCTOR documented as of this encounter Care Teams Director Of Land Relationship Specialty Start Date End Date Philipp Pizarro MD [address] [place] [address] [address] [place] [address] PCP - General Internal Medicine 08/21/13 documented as of this encounter
--- OUTSIDE RECORDS SUMMARY | 2025-06-21 19:36 | XMS_ITS | Encounter Summary ---
Author Organization [facility] Address [address] [place] [address] Care Team Providers Care Automotive Title Clerk Name Role Phone Philipp Pizarro MD Primary Care Provid er Encounter Details Date Type Department Care Team (Late st Contact Info) Description 08/28/2005 Outpatient Historical [facility], [address] Danielle Valeriy Social History Tobacco Use Types Packs/Day Years Used Date Smoking Tobacco: Never Assessed Comments Unknown Sex and Gender Information Value Date Recorded Sex Assigned at Not on file Legal Sex Female 3:43 AM ORGAN RECOVERY COORDINATOR Gender Identity Female 06/16/2025 8:03 AM ORGAN RECOVERY COORDINATOR Sexual Orientation Not on file documented as of this encounter Plan of Treatment Upcoming Encounters Date Type Department Care Team (Late st Contact Info) Description 10/26/2025 2:40 PM CDT Office Visit [facility], [address] [place] [address] Philipp Pizarro MD [address] [facility] [address] [place] [address] 03/31/2026 1:00 PM CDT Office Visit [facility], [address] [place] [address] Philipp Pizarro MD [address] [facility] [address] [place] [address] documented as of this encounter Procedures Procedure Name Priority Date/Time Associated Diagnosis Comments CBC WITH DIFFERENTIAL Routine 08/28/2005 10:45 AM ORGAN RECOVERY COORDINATOR CBC WITH DIFFERENTIAL Routine 08/28/2005 10:45 AM ORGAN RECOVERY COORDINATOR TSH Routine 08/28/2005 10:45 AM ORGAN RECOVERY COORDINATOR LIPID PANEL Routine 08/28/2005 10:45 AM ORGAN RECOVERY COORDINATOR COMPREHENSIVE METABOLIC PANEL Routine 08/28/2005 10:45 AM ORGAN RECOVERY COORDINATOR documented in this encounter Results * CBC WITH DIFFERENTIAL (08/28/2005 10:45 AM ORGAN RECOVERY COORDINATOR) NEUTROPHILS 57 45 - 70 % INTERFAC [...] K/uL INTERFACE SYSTEM 08/28/2005 10:4 5 AM ORGAN RECOVERY COORDINATOR us Naldo Santos HEMATOLOGY ORDERABLES Final Res ult INTERFACE SYSTEM Refer to clinic/hospital department * (ABNORMAL) CBC WITH DIFFERENTIAL (08/28/2005 10:45 AM ORGAN RECOVERY COORDINATOR) WBC 5.7 4.0 - 9.8 K/uL INTERFACE [...] fL INTERFACE SYSTEM 08/28/2005 10:4 5 AM ORGAN RECOVERY COORDINATOR Naldo Santos HEMATOLOGY ORDERABLES Final Res ult Performing Organization Address [facility] de Phone Number INTERFACE SYSTEM Refer to clinic/hospital department * TSH (08/28/2005 10:45 AM ORGAN RECOVERY COORDINATOR) Pathologist [facility] TSH 1.97 0.27 - 4.20 uU/mL INTERFACE SYSTEM 08/28/2005 10:4 5 AM ORGAN RECOVERY COORDINATOR Naldo Santos CHEMISTRY ORDERABLES Final Resu lt Performing Organization Address [facility] Phone Number INTERFACE SYSTEM Refer to clinic/hospital department * (ABNORMAL) LIPID PANEL (08/28/2005 10:45 AM ORGAN RECOVERY COORDINATOR) LIPID PANEL COMMENT See below INTERFACE SYSTEM [...] for risk classifications. 08/28/2005 10:4 5 AM ORGAN RECOVERY COORDINATOR Naldo Moneten CHEMISTRY ORDERABLES Final Resu lt Performing Organization Address [facility] de Phone Number INTERFACE SYSTEM Refer to clinic/hospital department * (ABNORMAL) COMPREHENSIVE METABOLIC PANEL (08/28/2005 10:45 AM ORGAN RECOVERY COORDINATOR) GLUCOSE 117(H) 65 - 109 mg/dL INTERFACE [...] mmol/L INTERFACE SYSTEM 08/28/2005 10:4 5 AM ORGAN RECOVERY COORDINATOR [employer] CHEMISTRY ORDERABLES Final Resu lt Performing Organization Address [facility] de Phone Number INTERFACE SYSTEM Refer to clinic/hospital department documented in this encounter Visit Diagnoses Not on filedocumented in this encounter Additional Health Concerns Infection Onset Date Last Indicated Resolved Time R/O COVID-19 03/07/2020 03/07/2020 03/09/2020 4:45 AM CDT COVID-19 07/31/2021 07/31/2021 08/30/2021 1:16 AM ORGAN RECOVERY COORDINATOR documented as of this encounter Care Teams Automotive Title Clerk Relationship Specialty Start Date End Date Philipp Pizarro MD [address] [place] [phone] PCP - General Internal Medicine 08/21/13 documented as of this encounter
--- OUTSIDE RECORDS SUMMARY | 2025-06-21 19:36 | XMS_ITS | Encounter Summary ---
Author Organization [facility] Address [address] [place] [address] Care Team Providers Care Boiler Tube Reamer Name Role Phone Philipp Pizarro MD Primary Care Provid er Reason for Visit * Reason Onset Date Comments Results 02/01/2017 Encounter Details Date Type Department Care Team (Late st Contact Info) Description 02/01/2017 Telephone [facility] Endocrinology [address] [place] [address] Debra Roe MD [address] [place] [address] Results Social History Tobacco Use Types Packs/Day Years Used Date Smoking Tobacco: Former Cigarettes 0 Q uit: 11/11/1983 Smokeless Tobacco: Never Alcohol Use Standard Drinks/Week Comments No 0 (1 standard drink = 0.6 oz pur e alcohol) Comments No Sex and Gender Information Value Date Recorded Sex Assigned at Not on file Legal Sex Female 3:43 AM COMPRESSOR MECHANIC Gender Identity Female 06/16/2025 8:03 AM COMPRESSOR MECHANIC Sexual Orientation Not on file Occupation Industry Job Start Date Job End Date Not on file Not on file Not on file Not on file documented as of this encounter Miscellaneous Notes * Telephone Encounter - Donna Handley - 02/01/2017 3:41 PM CDT Talked to [...] Description 10/26/2025 2:40 PM CDT Office Visit [facility], [address] [place] [address] [place] [address] Philipp Pizarro MD [address] [place] [address] [address] [place] [address] 03/31/2026 1:00 PM CDT Office Visit [facility], [address] [place] [address] [place] [address] Philipp Pizarro MD [address] [place] [address] [address] [place] [address] documented as of this encounter Visit Diagnoses Not on filedocumented in this encounter Additional Health Concerns Infection Onset Date Last Indicated Resolved Time R/O COVID-19 03/07/2020 03/07/2020 03/09/2020 4:45 AM CDT COVID-19 07/31/2021 07/31/2021 08/30/2021 1:16 AM COMPRESSOR MECHANIC documented as of this encounter Care Teams Boiler Tube Reamer Relationship Specialty Start Date End Date Philipp Pizarro MD [address] [place] [address] [address] [place] [address] PCP - General Internal Medicine 08/21/13 documented as of this encounter
--- OUTSIDE RECORDS SUMMARY | 2025-06-21 19:37 | XMS_ITS | Encounter Summary ---
Author Organization [facility] Address [address] [place] [address] Care Team Providers Care Computer Video Game Designer Name Role Phone Philipp Pizarro MD Primary Care Provid er Encounter Details Date Type Department Care Team (Late st Contact Info) Description 09/30/2007 Outpatient Historical [facility] Pino Parry MD [address] [place] [address] [address] [place] [address] Social History Tobacco Use Types Packs/Day Years Used Date Smoking Tobacco: Never Assessed Comments Unknown Sex and Gender Information Value Date Recorded Sex Assigned at Not on file Legal Sex Female 3:43 AM ROD TAPE OPERATOR Gender Identity Female 06/16/2025 8:03 AM ROD TAPE OPERATOR Sexual Orientation Not on file documented as of this encounter Plan of Treatment Upcoming Encounters Date Type Department Care Team (Late st Contact Info) Description 10/26/2025 2:40 PM CDT Office Visit [facility] Primary Care - [facility], [address] [place] [address] Philipp Pizarro MD [address] [facility] [address] [place] [address] 03/31/2026 1:00 PM CDT Office Visit [facility] Primary Care - [facility], [address] [place] [address] Philipp Pizarro MD [address] [facility] [address] [place] [address] documented as of this encounter Procedures Procedure Name Priority Date/Time Associated Diagnosis Comments POC GLUCOSE Routine 09/30/2007 8:44 AM ROD TAPE OPERATOR documented in this encounter Results * (ABNORMAL) POC GLUCOSE (09/30/2007 8:44 AM ROD TAPE OPERATOR) GLUCOSE POC 158(H) 65 - 99 mg/dL [facility] Venous blood specimen (specimen) 09/30/2007 8:44 AM ROD TAPE OPERATOR 09/30/2007 8:44 AM ROD TAPE OPERATOR us Pino Parry MD POINT OF CARE TESTING Final R esult [facility] [address] [place] [address] documented in this encounter Visit Diagnoses Not on filedocumented in this encounter Additional Health Concerns Infection Onset Date Last Indicated Resolved Time R/O COVID-19 03/07/2020 03/07/2020 03/09/2020 4:45 AM CDT COVID-19 07/31/2021 07/31/2021 08/30/2021 1:16 AM ROD TAPE OPERATOR documented as of this encounter Care Teams Computer Video Game Designer Relationship Specialty Start Date End Date Philipp Pizarro MD [address] [facility] [address] [place] [address] PCP - General Internal Medicine 08/21/13 documented as of this encounter
--- OUTSIDE RECORDS SUMMARY | 2025-06-21 19:37 | XMS_ITS | Encounter Summary ---
Author Organization [facility] Address [address] [place] [address] Care Team Providers Care Instrument Maker Apprentice Name Role Phone Philipp Pizarro MD Primary Care Provid er Encounter Details Date Type Department Care Team (Latest Contact Info) Description 01/09/2002 Outpatient Historical [facility] Naldo Devine SCREENING MAMM-MAILG NEOPL-OTHER (Primary Dx) Social History Tobacco Use Types Packs/Day Years Used Date Smoking Tobacco: Never Assessed Comments Unknown Sex and Gender Information Value Date Recorded Sex Assigned at Not on file Legal Sex Female 3:43 AM TAKE UP SUPERVISOR Gender Identity Female 06/16/2025 8:03 AM TAKE UP SUPERVISOR Sexual Orientation Not on file documented as of this encounter Plan of Treatment Upcoming Encounters Date Type Department Care Team (Late st Contact Info) Description 10/26/2025 2:40 PM CDT Office Visit [facility], [address] [place] [address] Philipp Pizarro MD [address] [place] [address] [place] [address] 03/31/2026 1:00 PM CDT Office Visit [facility], [address] [place] [address] Philipp Pizarro MD [address] [place] [address] [address] [place] [address] documented as of this encounter Visit Diagnoses Diagnosis Other screening mammogram- Primary documented in this encounter Additional Health Concerns Infection Onset Date Last Indicated Resolved Time R/O COVID-19 03/07/2020 03/07/2020 03/09/2020 4:45 AM CDT COVID-19 07/31/2021 07/31/2021 08/30/2021 1:16 AM TAKE UP SUPERVISOR documented as of this encounter Care Teams Instrument Maker Apprentice Relationship Specialty Start Date End Date Philipp Pizarro MD [address] [place] [address] PCP - General Internal Medicine 08/21/13 documented as of this encounter
--- OUTSIDE RECORDS SUMMARY | 2025-06-21 19:37 | XMS_ITS | Encounter Summary ---
Author Organization [facility] Address [address] [place] [address] Care Team Providers Care Security Officers And Guards Name Role Phone Philipp Pizarro MD Primary [...] on file Legal Sex Female 3:43 AM PUBLIC POLICY MEDIATOR Gender Identity Female 06/16/2025 8:03 AM PUBLIC POLICY MEDIATOR Sexual Orientation Not on file documented as of this encounter Plan of Treatment Upcoming Encounters Date Type Department Care Team (Late st Contact Info) Description 10/26/2025 2:40 PM CDT Office Visit [facility], [address] [place] [address] Philipp Pizarro MD [address] [facility] [address] [place] [address] 03/31/2026 1:00 PM CDT Office Visit [facility], [address] [place] [address] Philipp Pizarro MD [address] [facility] [address] [place] [address] documented as of this encounter Procedures Procedure Name Priority Date/Time Associated Diagnosis Comments CBC WITH DIFFERENTIAL Routine 08/20/2006 11:55 AM PUBLIC POLICY MEDIATOR CBC WITH DIFFERENTIAL Routine 08/20/2006 11:55 AM PUBLIC POLICY MEDIATOR TSH Routine 08/20/2006 11:55 AM PUBLIC POLICY MEDIATOR COMPREHENSIVE METABOLIC PANEL Routine 08/20/2006 11:55 AM PUBLIC POLICY MEDIATOR documented in this encounter Results * CBC WITH DIFFERENTIAL (08/20/2006 11:55 AM PUBLIC POLICY MEDIATOR) NEUTROPHILS 60 45 - 70 % INTERFAC [...] K/uL INTERFACE SYSTEM 08/20/2006 11:5 5 AM PUBLIC POLICY MEDIATOR us Naldo Santos HEMATOLOGY ORDERABLES Edited INTERFACE SYSTEM Refer to clinic/hospital department * (ABNORMAL) CBC WITH DIFFERENTIAL (08/20/2006 11:55 AM PUBLIC POLICY MEDIATOR) WBC 6.4 4.0 - 9.8 K/uL INTERFACE [...] fL INTERFACE SYSTEM 08/20/2006 11:5 5 AM PUBLIC POLICY MEDIATOR Naldo Santos HEMATOLOGY ORDERABLES Edited Performing Organization Address City/[facility]/ZIP Co de Phone Number INTERFACE SYSTEM Refer to clinic/hospital department * TSH (08/20/2006 11:55 AM PUBLIC POLICY MEDIATOR) TSH 2.43 0.27 - 4.20 uU/mL INTERFACE SYSTEM 08/20/2006 11:5 5 AM PUBLIC POLICY MEDIATOR Naldo Santos CHEMISTRY ORDERABLES Edited INTERFACE SYSTEM Refer to clinic/hospital department * (ABNORMAL) COMPREHENSIVE METABOLIC PANEL (08/20/2006 11:55 AM PUBLIC POLICY MEDIATOR) GLUCOSE 131(H) 65 - 99 mg/dL INTERFACE [...] and non- Americans is available on the [facility] Intranet at: [email or web address] Select: Lab Policies and Procedures Select: Reference Ranges - GFR 08/20/2006 11:5 5 AM PUBLIC POLICY MEDIATOR us Naldo Santos CHEMISTRY ORDERABLES Edited INTERFACE SYSTEM Refer to clinic/hospital department documented in this encounter Visit Diagnoses Diagnosis Palpitations- Primary documented in this encounter Additional Health Concerns Infection Onset Date Last Indicated Resolved Time R/O COVID-19 03/07/2020 03/07/2020 03/09/2020 4:45 AM CDT COVID-19 07/31/2021 07/31/2021 08/30/2021 1:16 AM PUBLIC POLICY MEDIATOR documented as of this encounter Care Teams Security Officers And Guards Relationship Specialty Start Date End Date Philipp Pizarro MD [address] [place] [address] PCP - General Internal Medicine 08/21/13 documented as of this encounter
--- OUTSIDE RECORDS SUMMARY | 2025-06-21 19:37 | XMS_ITS | Encounter Summary ---
Author Organization [facility] Address [address] [place] [address] Care Team Providers Care Pastoral Assistant Name Role Phone Philipp Pizarro MD Primary Care Provid er Encounter Details Date Type Department Care Team (Latest Contact Info) Description 09/11/2002 Outpatient Historical [facility] Naldo Santos SCREENING FOR OSTEOPOROSIS (Primary Dx) Social History Tobacco Use Types Packs/Day Years Used Date Smoking Tobacco: Never Assessed Comments Unknown Sex and Gender Information Value Date Recorded Sex Assigned at Not on file Legal Sex Female 3:43 AM FRONT LINE LEADER Gender Identity Female 06/16/2025 8:03 AM FRONT LINE LEADER Sexual Orientation Not on file documented as of this encounter Plan of Treatment Upcoming Encounters Date Type Department Care Team (Late st Contact Info) Description 10/26/2025 2:40 PM CDT Office Visit [facility], [address] [place] [address] Philipp Pizarro MD [address] [facility] [address] [place] [address] 03/31/2026 1:00 PM CDT Office Visit [facility], [address] [place] [address] Philipp Pizarro MD [address] [place] [address] documented as of this encounter Visit Diagnoses Diagnosis Special screening for osteoporosis- Primary documented in this encounter Additional Health Concerns Infection Onset Date Last Indicated Resolved Time R/O COVID-19 03/07/2020 03/07/2020 03/09/2020 4:45 AM CDT COVID-19 07/31/2021 07/31/2021 08/30/2021 1:16 AM FRONT LINE LEADER documented as of this encounter Care Teams Pastoral Assistant Relationship Specialty Start Date End Date Philipp Pizarro MD [address] [place] [address] PCP - General Internal Medicine 08/21/13 documented as of this encounter
--- OUTSIDE RECORDS SUMMARY | 2025-06-21 19:37 | XMS_ITS | Encounter Summary ---
Author Organization [facility] Address [address] [place] [address] Care Team Providers Care Warehouse Record Clerk Name Role Phone Philipp Pizarro MD Primary Care Provid er Reason for Visit * Reason Comments Needs Orders Written Encounter Details Date Type Department Care Team (Late st Contact Info) Description 02/07/2024 Telephone [facility] Primary Care - [facility], [address] [place] [address] [place] [address] Philipp Pizarro MD [address] [place] [address] [place] [address] Needs Orders Written Social History Tobacco [...] on file Legal Sex Female 3:43 AM GROUP THERAPY COUNSELOR Gender Identity Female 06/16/2025 8:03 AM GROUP THERAPY COUNSELOR Sexual Orientation Not on file Occupation Industry Job Start Date Job End Date Not on file Not on file Not on file Not on file documented as of this encounter Miscellaneous Notes * Result Encounter Note - Margoth Tinoco FNP - 02/10/2024 3:29 PM CDT [facility] Telephone Encounter - [...] U/A ordered. * Telephone Encounter - Ghazala Plummer RN - 02/07/2024 10:56 AM CDT Spoke [...] 02/07/2024 9:38 AM CDT Copied from [facility] #[id number]. Topic: CPA Information Request - Order or Referral Request >> Feb 07, 2024 9:36 AM Annette Barksdale wrote: Caller is requesting: New Lab Reconciliation Accountant Name: Jessica Saldana Patient/Caregiver Callback Number: [phone] (home) Order: Urinalysis Reason for Request: Patient stated that her UTI came back. Patient stated that she has pressure andfrequent urination. Please advise documented in this encounter Plan of Treatment Upcoming Encounters Date Type Department Care Team (Late st Contact Info) Description 10/26/2025 2:40 PM CDT Office Visit [facility] Care - [facility], [address] [place] [address] [address] [place] [address] Philipp Pizarro MD [address] [place] [address] [address] [place] [address] 03/31/2026 1:00 PM CDT Office Visit [facility] Care - [facility], [address] [facility], [place] [phone] Philipp Pizarro MD [address] [place] [address] [address] [place] [address] documented as of this encounter Procedures Procedure Name Priority Date/Time Associated Diagnosis Comments URINALYSIS WITH REFLEX CULTURE Routine 02/07/2024 2:13 PM CDT UTI symptoms URINE CULTURE Routine 02/07/2024 2:13 PM CDT documented in this encounter Results * URINE CULTURE (02/07/2024 2:13 PM CDT) URINE CULTURE [facility] Comment: CULTURE, URINE, ROUTINE Micro Number: [id number] Test Status: Final Specimen Source: Urine Specimen Quality: Adequate Result: Mixed genital esteban isolated. These superficial bacteria are not indicative of a urinary tract infection. No further organism identification is warranted on this specimen. If clinically indicated, recollect clean-catch, mid-stream urine and transfer immediately to Urine Culture Transport Tube. FASTING:NO FASTING: NO Test Performed at: [facility] [place] [address] [address] [id number] Gayle-Karo Goldberg Vo 02/07/2024 2:13 PM CDT 02/07/2024 2:14 PM CDT Nilsa Singh [facility] MICROBIOLOGY - GENERAL ORDERABLES Final Result [facility] [phone] [place] [address] [address] [id number] * (ABNORMAL) URINALYSIS WITH REFLEX CULTURE (02/07/2024 2:13 PM CDT) COLOR UA YELLOW YELLOW [facility] CLARITY UA CLOUDY(A) CLEAR [facility] SPECIFIC GRAVITY UA 1.017 1.001 - 1.035 [facility] PH UA 6.0 5.0 - 8.0 [facility] GLUCOSE UA 3+(A) NEGATIVE [facility] BILIRUBIN UA NEGATIVE NEGATIVE [facility] KETONES UA NEGATIVE NEGATIVE [facility] BLOOD UA 2+(A) NEGATIVE [facility] PROTEIN UA 1+(A) NEGATIVE [facility] NITRITE UA NEGATIVE NEGATIVE [facility] LEUKOCYTE ESTERASE UA 2+(A) NEGATIVE [facility] WBC UA > OR = 60(A) < OR = 5 /HPF [facility] RBC UA 3-10(A) < OR = 2 /HPF [facility] EPITHELIAL CELLS, URINE 20-40(A) < OR = 5 /HPF [facility] BACTERIA UA NONE SEEN NONE SEEN /HPF [facility] HYALINE CAST NONE SEEN NONE SEEN /LPF [facility] URINE NOTE [facility] Comment: This urine was analyzed for the presence of WBC, RBC, bacteria, casts, and other formed elements. Only those elements seen were reported. URINE CULTURE [facility] Comment: CULTURE INDICATED - RESULTS TO FOLLOW FASTING:NO FASTING: NO LES [address]ESSICA [address] [employer] [place] [address] Urine URINE SPECIMEN OBTAINED BY CLEAN CATCH PROCEDURE / Unknown 02/07/2024 2:13 PM CDT 02/07/2024 2:14 PM CDT Nilsa GARCIAP URINE ORDERABLES Final Result [facility] [phone] [facility] [address] [place] [address] documented in this encounter Visit Diagnoses Diagnosis UTI symptoms- Primary documented in this encounter Additional Health Concerns Assessment Noted Time PHQ-9 Depression Total Score: 1 10/22/19 24 11:05 AM CDT documented as of this encounter Care Teams Warehouse Record Clerk Relationship Specialty Start Date End Date Philipp Pizarro MD [address] [place] [address] [address] [place] [address] PCP - General Internal Medicine 08/21/13 documented as of this encounter
--- OUTSIDE RECORDS SUMMARY | 2025-06-21 19:37 | XMS_ITS | Encounter Summary ---
Author Organization [facility] Address [address] [place] [address] Care Team Providers Care Front Desk Monitor Name Role Phone Philipp Pizarro MD Primary Care Provid er Encounter Details Date Type Department Care Team (Latest Contact Info) Description 12/31/2002 Outpatient Historical [facility] Naldo Devine SCREENING MAMM-MAILG NEOPL-OTHER (Primary Dx) Social History Tobacco Use Types Packs/Day Years Used Date Smoking Tobacco: Never Assessed Comments Unknown Sex and Gender Information Value Date Recorded Sex Assigned at Not on file Legal Sex Female 3:43 AM CARBURETOR REPAIRER Gender Identity Female 06/16/2025 8:03 AM CARBURETOR REPAIRER Sexual Orientation Not on file documented as of this encounter Plan of Treatment Upcoming Encounters Date Type Department Care Team (Late st Contact Info) Description 10/26/2025 2:40 PM CDT Office Visit [facility], [address] [place] [address] Philipp Pizarro MD [address] [place] [address] [place] [address] 03/31/2026 1:00 PM CDT Office Visit [facility], [address] [place] [address] Philipp Pizarro MD [address] [place] [address] [address] [place] [address] documented as of this encounter Visit Diagnoses Diagnosis Other screening mammogram- Primary documented in this encounter Additional Health Concerns Infection Onset Date Last Indicated Resolved Time R/O COVID-19 03/07/2020 03/07/2020 03/09/2020 4:45 AM CDT COVID-19 07/31/2021 07/31/2021 08/30/2021 1:16 AM CARBURETOR REPAIRER documented as of this encounter Care Teams Front Desk Monitor Relationship Specialty Start Date End Date Philipp Pizarro MD [address] [place] [address] PCP - General Internal Medicine 08/21/13 documented as of this encounter
--- OUTSIDE RECORDS SUMMARY | 2025-06-21 19:37 | XMS_ITS | Encounter Summary ---
Author Organization [facility] Address [address] [place] [address] Care Team Providers Care Certified Financial Planner Name Role Phone Philipp Pizarro MD Primary Care Provid er Encounter Details Date Type Department Care Team (Late st Contact Info) Description 09/13/2004 Outpatient Historical [facility], [address] Danielle Valeriy Social History Tobacco Use Types Packs/Day Years Used Date Smoking Tobacco: Never Assessed Comments Unknown Sex and Gender Information Value Date Recorded Sex Assigned at Not on file Legal Sex Female 3:43 AM SENIOR FUNCTIONAL ANALYST Gender Identity Female 06/16/2025 8:03 AM SENIOR FUNCTIONAL ANALYST Sexual Orientation Not on file documented as of this encounter Plan of Treatment Upcoming Encounters Date Type Department Care Team (Late st Contact Info) Description 10/26/2025 2:40 PM CDT Office Visit [facility], [address] [place] [address] [place] [address] Philipp Pizarro MD [address] [facility] [address] [place] [address] 03/31/2026 1:00 PM CDT Office Visit [facility], [address] [address] [place] [address] Philipp Pizarro MD [address] [facility] [address] [place] [address] documented as of this encounter Procedures Procedure Name Priority Date/Time Associated Diagnosis Comments URINALYSIS WITH MICROSCOPIC Routine 09/13/2004 10:55 AM SENIOR FUNCTIONAL ANALYST documented in this encounter Results * (ABNORMAL) URINALYSIS WITH MICROSCOPIC (09/13/2004 10:55 AM SENIOR FUNCTIONAL ANALYST) COLOR UA Yellow INTERFACE SYSTEM CLARITY UA [...] /HPF INTERFACE SYSTEM 09/13/2004 10:5 5 AM SENIOR FUNCTIONAL ANALYST Naldo Santos URINE ORDERABLES Final Result INTERFACE SYSTEM Refer to clinic/hospital department documented in this encounter Visit Diagnoses Not on filedocumented in this encounter Additional Health Concerns Infection Onset Date Last Indicated Resolved Time R/O COVID-19 03/07/2020 03/07/2020 03/09/2020 4:45 AM CDT COVID-19 07/31/2021 07/31/2021 08/30/2021 1:16 AM SENIOR FUNCTIONAL ANALYST documented as of this encounter Care Teams Certified Financial Planner Relationship Specialty Start Date End Date Philipp Pizarro MD [address] [facility] [address] [place] [address] PCP - General Internal Medicine 08/21/13 documented as of this encounter
--- OUTSIDE RECORDS SUMMARY | 2025-06-21 19:37 | XMS_ITS | Encounter Summary ---
Author Organization [facility] Address [address] [place] [address] Care Team Providers Care Roll Clamp Operator Name Role Phone Philipp Pizarro MD Primary Care Provid er Encounter Details Date Type Department Care Team (Late st Contact Info) Description 09/25/2002 Outpatient Historical [facility] Pino Parry MD [address] [place] [address] [address] [place] [address] SCREENING MAL NEOP-COLON (Primary Dx) Social History Tobacco Use Types Packs/Day Years Used Date Smoking Tobacco: Never Assessed Comments Unknown Sex and Gender Information Value Date Recorded Sex Assigned at Not on file Legal Sex Female 3:43 AM OPERATIONS AND MAINTENANCE SPECIALIST Gender Identity Female 06/16/2025 8:03 AM OPERATIONS AND MAINTENANCE SPECIALIST Sexual Orientation Not on file documented as of this encounter Plan of Treatment Upcoming Encounters Date Type Department Care Team (Late st Contact Info) Description 10/26/2025 2:40 PM CDT Office Visit [facility] Primary Care - [facility], [address] [place] [phone] Philipp Pizarro MD [address] [facility] [address] [place] [address] 03/31/2026 1:00 PM CDT Office Visit [facility] Primary Care - [facility], [address] [place] [address] Philipp Pizarro MD [address] [place] [address] [address] [place] [address] documented as of this encounter Visit Diagnoses Diagnosis Special screening for malignant neoplasms, colon- Primary documented in this encounter Additional Health Concerns Infection Onset Date Last Indicated Resolved Time R/O COVID-19 03/07/2020 03/07/2020 03/09/2020 4:45 AM CDT COVID-19 07/31/2021 07/31/2021 08/30/2021 1:16 AM OPERATIONS AND MAINTENANCE SPECIALIST documented as of this encounter Care Teams Roll Clamp Operator Relationship Specialty Start Date End Date Philipp Pizarro MD [address] [place] [address] [address] [place] [address] PCP - General Internal Medicine 08/21/13 documented as of this encounter
--- OUTSIDE RECORDS SUMMARY | 2025-06-21 19:37 | XMS_ITS | Encounter Summary ---
Author Organization [facility] Address [address] [place] [address] Care Team Providers Care Vice President Planning Name Role Phone Philipp Pizarro MD Primary Care Provid er Encounter Details Date Type Department Care Team (Latest Contact Info) Description 09/11/2002 Outpatient Historical HIS [facility] Naldo Devine BACKACHE NOS (Primary Dx) Social History Tobacco Use Types Packs/Day Years Used Date Smoking Tobacco: Never Assessed Comments Unknown Sex and Gender Information Value Date Recorded Sex Assigned at Not on file Legal Sex Female 3:43 AM MOLD SHEET CLEANER Gender Identity Female 06/16/2025 8:03 AM MOLD SHEET CLEANER Sexual Orientation Not on file documented as of this encounter Plan of Treatment Upcoming Encounters Date Type Department Care Team (Late st Contact Info) Description 10/26/2025 2:40 PM CDT Office Visit [facility], [address] [place] [address] [place] [address] Philipp Pizarro MD [address] [facility] [facility] [address] [place] [address] 03/31/2026 1:00 PM CDT Office Visit [facility], [address] [place] [address] [place] [address] Philipp Pizarro MD [address] [place] [address] 310 [place] [address] documented as of this encounter Visit Diagnoses Diagnosis Backache, unspecified- Primary documented in this encounter Additional Health Concerns Infection Onset Date Last Indicated Resolved Time R/O COVID-19 03/07/2020 03/07/2020 03/09/2020 4:45 AM CDT COVID-19 07/31/2021 07/31/2021 08/30/2021 1:16 AM MOLD SHEET CLEANER documented as of this encounter Care Teams Vice President Planning Relationship Specialty Start Date End Date Philipp Pizarro MD [address] [place] [address] [address] [place] [address] PCP - General Internal Medicine 08/21/13 documented as of this encounter
--- OUTSIDE RECORDS SUMMARY | 2025-06-21 19:37 | XMS_ITS | Encounter Summary ---
Author Organization [facility] Address [address] [place] [address] Care Team Providers Care Simulation Developer Name Role Phone Philipp Pizarro MD Primary Care Provid er Encounter Details Date Type Department Care Team (Latest Contact Info) Description 06/29/2004 Outpatient Historical HIS [facility] Naldo Devine SCREENING MAMM-MAILG NEOPL-OTHER (Primary Dx) Social History Tobacco Use Types Packs/Day Years Used Date Smoking Tobacco: Never Assessed Comments Unknown Sex and Gender Information Value Date Recorded Sex Assigned at Not on file Legal Sex Female 3:43 AM CODE ENFORCEMENT INSPECTOR Gender Identity Female 06/16/2025 8:03 AM CODE ENFORCEMENT INSPECTOR Sexual Orientation Not on file documented as of this encounter Plan of Treatment Upcoming Encounters Date Type Department Care Team (Late st Contact Info) Description 10/26/2025 2:40 PM CDT Office Visit [facility], [address] [place] [address] Philipp Pizarro MD [address] [place] [address] [place] [address] 03/31/2026 1:00 PM CDT Office Visit [facility], [address] [place] [address] Philipp Pizarro MD [address] [place] [address] [address] [place] [address] documented as of this encounter Visit Diagnoses Diagnosis Other screening mammogram- Primary documented in this encounter Additional Health Concerns Infection Onset Date Last Indicated Resolved Time R/O COVID-19 03/07/2020 03/07/2020 03/09/2020 4:45 AM CDT COVID-19 07/31/2021 07/31/2021 08/30/2021 1:16 AM CODE ENFORCEMENT INSPECTOR documented as of this encounter Care Teams Simulation Developer Relationship Specialty Start Date End Date Philipp Pizarro MD [address] [place] [address] PCP - General Internal Medicine 08/21/13 documented as of this encounter
--- OUTSIDE RECORDS SUMMARY | 2025-06-21 19:37 | XMS_ITS | Encounter Summary ---
Author Organization [facility] Address [address] [place] [address] Care Team Providers Care Helper Animal Laboratory Name Role Phone Philipp Pizarro MD Primary Care Provid er Encounter Details Date Type Department Care Team (Late st Contact Info) Description 01/09/2002 Outpatient Historical HIS [facility] Naldo Devine Social History Tobacco Use Types Packs/Day Years Used Date Smoking Tobacco: Never Assessed Comments Unknown Sex and Gender Information Value Date Recorded Sex Assigned at Not on file Legal Sex Female 3:43 AM LASER OPERATOR Gender Identity Female 06/16/2025 8:03 AM LASER OPERATOR Sexual Orientation Not on file documented as of this encounter Plan of Treatment Upcoming Encounters Date Type Department Care Team (Late st Contact Info) Description 10/26/2025 2:40 PM CDT Office Visit [facility], [place] [address] [place] [address] Philipp Pizarro MD [address] [facility] [address] [place] [address] 03/31/2026 1:00 PM CDT Office Visit [facility], [address] [place] [address] Philipp Pizarro MD [address] [place] [address] documented as of this encounter Visit Diagnoses Not on filedocumented in this encounter Additional Health Concerns Infection Onset Date Last Indicated Resolved Time R/O COVID-19 03/07/2020 03/07/2020 03/09/2020 4:45 AM CDT COVID-19 07/31/2021 07/31/2021 08/30/2021 1:16 AM LASER OPERATOR documented as of this encounter Care Teams Helper Animal Laboratory Relationship Specialty Start Date End Date Philipp Pizarro MD [address] [place] [address] PCP - General Internal Medicine 08/21/13 documented as of this encounter
--- OUTSIDE RECORDS SUMMARY | 2025-06-21 19:37 | XMS_ITS | Encounter Summary ---
Author Organization [facility] Address [address] [place] [address] Care Team Providers Care Tint Layer Name Role Phone Philipp Pizarro MD Primary Care Provid er Reason for Visit * Reason Comments Medication Assistance Encounter Details Date Type Department Care Team (Late st Contact Info) Description 01/31/2024 Telephone [facility] Primary Care - [facility], [address] [place] [address] Philipp Pizarro MD [address] [place] [address] [place] [address] Medication Assistance Social History Tobacco Use [...] on file Legal Sex Female 3:43 AM STONE GANG SAWYER Gender Identity Female 06/16/2025 8:03 AM STONE GANG SAWYER Sexual Orientation Not on file Occupation Industry [...] CDT Left message on preferred line @ [phone] asking pt to contact office at earliest convenience. * Telephone Encounter - Margoth Tinoco FNP - 01/31/2024 10:52 AM CDT What symptoms is she having? Will send in abx but if no improvement in symptoms, seek care at local near where she is * Telephone Encounter - Sandy Goodwin - 01/31/2024 9:43 AM CDT Copied from [facility] #[id number]. Topic: Medication Request >> Jan 31, 2024 9:40 AM Sandy Ann wrote: Caller is requesting: Medication - New Request (Not Currently Taking) Medication (Ask patient/caregiver to spell if possible): MED FOR UTI Preferred Pharmacy: [facility] [address] [facility] [address] Patient/Caregiver Callback Number: Telephone Information: Call Notes: states she is out of town and cannot come in but wants a prescription sent to pharmacy for uti. documented in this encounter Plan of Treatment Upcoming Encounters Date Type Department Care Team (Late st Contact Info) Description 10/26/2025 2:40 PM CDT Office Visit [facility], [address] [place] [address] Philipp Pizarro MD [address] [place] [address] [address] [place] [address] 03/31/2026 1:00 PM CDT Office Visit [facility], [address] [place] [address] Philipp Pizarro MD [address] [place] [address] [place] [address], [place] [address] documented as of this encounter Visit Diagnoses Not on filedocumented in this encounter Additional Health Concerns Assessment Noted Time PHQ-9 Depression Total Score: 1 10/22/19 24 11:05 AM CDT documented as of this encounter Care Teams Tint Layer Relationship Specialty Start Date End Date Philipp Pizarro MD [address] [facility] [address] [place] [address] PCP - General Internal Medicine 08/21/13 documented as of this encounter
--- OUTSIDE RECORDS SUMMARY | 2025-06-21 19:37 | XMS_ITS | Encounter Summary ---
Author Organization [facility] Address [address] [place] [address] Care Team Providers Care Health Professional Name Role Phone Philipp Pizarro MD Primary Care Provid er Encounter Details Date Type Department Care Team (Late st Contact Info) Description 09/11/2002 Outpatient Historical [facility], [address] Danielle Valeriy Social History Tobacco Use Types Packs/Day Years Used Date Smoking Tobacco: Never Assessed Comments Unknown Sex and Gender Information Value Date Recorded Sex Assigned at Not on file Legal Sex Female 3:43 AM SUBSCRIPTION CLERK Gender Identity Female 06/16/2025 8:03 AM SUBSCRIPTION CLERK Sexual Orientation Not on file documented as of this encounter Plan of Treatment Upcoming Encounters Date Type Department Care Team (Late st Contact Info) Description 10/26/2025 2:40 PM CDT [facility] [address] [place] [address] Philipp Pizarro MD 1000 [facility] [address] [place] [address] 03/31/2026 1:00 PM CDT [facility], [address] [place] [address] Philipp Pizarro MD [address] [place] [address] documented as of this encounter Visit Diagnoses Not on filedocumented in this encounter Additional Health Concerns Infection Onset Date Last Indicated Resolved Time R/O COVID-19 03/07/2020 03/07/2020 03/09/2020 4:45 AM CDT COVID-19 07/31/2021 07/31/2021 08/30/2021 1:16 AM SUBSCRIPTION CLERK documented as of this encounter Care Teams Health Professional Relationship Specialty Start Date End Date Philipp Pizarro MD [address] [place] [address] PCP - General Internal Medicine 08/21/13 documented as of this encounter
--- OUTSIDE RECORDS SUMMARY | 2025-06-21 19:37 | XMS_ITS | Encounter Summary ---
Author Organization [facility] Address [address] [place] [address] Care Team Providers Care Pipe Changer Name Role Phone Philipp Pizarro MD Primary Care Provid er Encounter Details Date Type Department Care Team (Latest Contact Info) Description 12/02/2007 Outpatient Historical HIS [facility] Alma Carvalho, [address] [place] [address] DM w/o Complication Type II (CMS/HCC) Social History Tobacco Use Types Packs/Day Years Used Date Smoking Tobacco: Never Assessed Comments Unknown Sex and Gender Information Value Date Recorded Sex Assigned at Not on file Legal Sex Female 3:43 AM LEATHER GRADER Gender Identity Female 06/16/2025 8:03 AM LEATHER GRADER Sexual Orientation Not on file documented as of this encounter Plan of Treatment Upcoming Encounters Date Type Department Care Team (Late st Contact Info) Description 10/26/2025 2:40 PM CDT Office Visit [facility] Primary Care - [facility], [address] [place] [address] Philipp Pizarro MD [address] [facility] [address] [facility] [address] [place] [address] 03/31/2026 1:00 PM CDT Office Visit [facility] - [facility], [address] [place] [address] Philipp Pizarro MD [address] [place] [address] [address] [place] [address] documented as of this encounter Visit Diagnoses Diagnosis Type II or unspecified type diabetes mellitus without mention of complication, not stated as uncontrolled documented in this encounter Additional Health Concerns Infection Onset Date Last Indicated Resolved Time R/O COVID-19 03/07/2020 03/07/2020 03/09/2020 4:45 AM CDT COVID-19 07/31/2021 07/31/2021 08/30/2021 1:16 AM LEATHER GRADER documented as of this encounter Care Teams Pipe Changer Relationship Specialty Start Date End Date Philipp Pizarro MD [address] [place] [address] [address] [place] [address] PCP - General Internal Medicine 08/21/13 documented as of this encounter
--- OUTSIDE RECORDS SUMMARY | 2025-06-21 19:37 | XMS_ITS | Encounter Summary ---
Author Organization [facility] Address [address] [place] [address] Care Team Providers Care Top Coater Name Role Phone Philipp Pizarro MD Primary Care Provid er Encounter Details Date Type Department Care Team (Latest Contact Info) Description 10/24/2007 Outpatient Historical HIS [facility] [address], [address] [place] [address] DM w/o Complication Type II (CMS/HCC) Social History Tobacco Use Types Packs/Day Years Used Date Smoking Tobacco: Never Assessed Comments Unknown Sex and Gender Information Value Date Recorded Sex Assigned at Not on file Legal Sex Female 3:43 AM ORDER PROCESSOR Gender Identity Female 06/16/2025 8:03 AM ORDER PROCESSOR Sexual Orientation Not on file documented as of this encounter Plan of Treatment Upcoming Encounters Date Type Department Care Team (Late st Contact Info) Description 10/26/2025 2:40 PM CDT Office Visit [facility] Primary Care - [facility], [address] [place] [address] Philipp Pizarro MD [address] [facility] [address] [place] [address] 03/31/2026 1:00 PM CDT Office Visit [facility] Primary Care - [facility], [address] [place] [address] [address] [place] [address] Philipp Pizarro MD [address] [place] [address] [address] [place] [address] documented as of this encounter Visit Diagnoses Diagnosis Type II or unspecified type diabetes mellitus without mention of complication, not stated as uncontrolled documented in this encounter Additional Health Concerns Infection Onset Date Last Indicated Resolved Time R/O COVID-19 03/07/2020 03/07/2020 03/09/2020 4:45 AM CDT COVID-19 07/31/2021 07/31/2021 08/30/2021 1:16 AM ORDER PROCESSOR documented as of this encounter Care Teams Top Coater Relationship Specialty Start Date End Date Philipp Pizarro MD [address] [place] [address] [address] [place] [address] PCP - General Internal Medicine 08/21/13 documented as of this encounter
--- OUTSIDE RECORDS SUMMARY | 2025-06-21 19:37 | XMS_ITS | Encounter Summary ---
Author Organization [facility] Address [address] [place] [address] Care Team Providers Care Dial Equipment Engineer Name Role Phone Philipp Pizarro MD Primary Care Provid er Encounter Details Date Type Department Care Team (Late st Contact Info) Description 09/05/2001 Outpatient Historical HIS [facility] Naldo Devine Social History Tobacco Use Types Packs/Day Years Used Date Smoking Tobacco: Never Assessed Comments Unknown Sex and Gender Information Value Date Recorded Sex Assigned at Not on file Legal Sex Female 3:43 AM STATION EXAMINER Gender Identity Female 06/16/2025 8:03 AM STATION EXAMINER Sexual Orientation Not on file documented as of this encounter Plan of Treatment Upcoming Encounters Date Type Department Care Team (Late st Contact Info) Description 10/26/2025 2:40 PM CDT Office Visit [facility], [address] [place] [address] Philipp Pizarro MD [address] [facility] [address] [place] [address] 03/31/2026 1:00 PM CDT Office Visit [facility], [address] [place] [address] Philipp Pizarro MD [address] [place] [address] documented as of this encounter Visit Diagnoses Not on filedocumented in this encounter Additional Health Concerns Infection Onset Date Last Indicated Resolved Time R/O COVID-19 03/07/2020 03/07/2020 03/09/2020 4:45 AM CDT COVID-19 07/31/2021 07/31/2021 08/30/2021 1:16 AM STATION EXAMINER documented as of this encounter Care Teams Dial Equipment Engineer Relationship Specialty Start Date End Date Philipp Pizarro MD [address] [place] [address] PCP - General Internal Medicine 08/21/13 documented as of this encounter
[2025-06-21 20:04] VITALS: BP 176/65; PULSE 71; RESP 14; TEMP 36.4; O2SAT 99
[2025-06-21 21:29] VITALS: BP 154/64; PULSE 72; RESP 19; O2SAT 97
--- NOTE | 2025-06-21 21:47 | ECG_ITS ---
Test Date: 2025-06-21 22:31:49 Measurements Intervals Carey Rate: 70 P: 61 DC: 160 QRS: -17 QRSD: 146 T: 103 QT: 419 QTc: 454 Interpretive Statements SINUS RHYTHM LEFT BUNDLE BRANCH BLOCK Electronically Signed On 06-22-2025 05:55:54 BRUSH FILLER HAND by Jerry Adrian D.O
--- NOTE | 2025-06-21 21:50 | ED.RECABL ---
HPI - Recheck/Abnormal Lab/Rx General Chief Complaint: Recheck/Abnormal Lab/Rx Stated Complaint: hypertension Time Seen by Provider: 06/21/25 21:30 History of Present Illness HPI narrative: 74-year-old female with a history of hypertension, hyperlipidemia. Patient presents to the emergency department today with elevated blood pressure readings at home. She states she checks her blood pressure 3 times daily and is currently being managed by her PCP with adjustments to her blood pressure regimen. Her blood pressure has been elevated in the 150s to 180s at home and called her doctor who prescribed her b.i.d. dosing of for home medications but she has not filled this prescription yet so she just took an extra medication at home when she knows that was high in the 210 range. Only symptom she was having was a ringing in her ears but no headache, vision changes, neck pain, back pain, chest pain, shortness of breath, syncope, hemoptysis. No stroke symptoms. She took an extra dose of her blood pressure medicine and her blood pressure improved to 154/64. No significant symptoms at this time. Has had an issue with blood pressure management recently as she has missed 3 days of her medications and then restarted them suddenly. She has been in close contact with her PCP about this and already has changes being adjusted there are have not been executed yet. Related Data Home Medications ?Medication ?Instructions ?Recorded ?Confirmed ?Last Taken ?Type alendronate 70 mg-cholecalciferol 1 tablet PO WEEKLY 04/09/20 04/11/25 04/09/25 History (vitamin D3) 2,800 unit tablet hydrochlorothiazide 25 mg tablet 25 mg PO DAILY 04/09/20 04/11/25 04/11/25 History lisinopril 40 mg tablet 40 mg PO DAILY 04/09/20 04/11/25 04/11/25 History magnesium 200 mg tablet 400 mg PO DAILY 04/09/20 04/11/25 04/11/25 History metformin 500 mg tablet,extended 1,000 mg PO BID 04/09/20 04/11/25 04/11/25 History release 24 hr metoprolol succinate 50 mg 50 mg PO DAILY 04/09/20 04/11/25 04/11/25 History tablet,extended release 24 hr pyridoxine (vitamin B6) 100 mg 100 mg PO DAILY 04/09/20 04/11/25 04/10/25 History tablet rosuvastatin 10 mg tablet 10 mg PO .COMPLEX 04/09/20 04/11/25 04/09/25 History vitamin B complex (B 1 tablet PO DAILY 04/09/20 04/11/25 04/11/25 History Complex-Vitamin B12 tablet) aspirin 81 mg tablet,delayed 81 mg PO DAILY 04/11/25 04/11/25 04/11/25 History release (Adult Aspirin Regimen) Allergies Allergy/AdvReac Type Severity Reaction Status Date / Time No Known Allergies Allergy Verified 06/21/25 19:34 Review of Systems Review of Systems: As reviewed above in [facility] Past Medical History Medical History Diabetes Hyperlipidemia Hypertension Family History Family History Mother Acute myocardial infarction Father Cerebrovascular accident Social History Social History Smoking packs per day: 1 Smoking cigarettes per day: 20.0 Years smoked: 15 Smoking pack-years: 15.00 Smoking status: Former smoker Tobacco type: cigarettes Alcohol intake: never Substance use: never Lack of Transportation: No Lack of Food: Never True Current Housing: I Have Housing Concerned About Future Housing: No Difficulty Paying Gas/Electric Bills: No Difficulty Paying for Meds: No Currently Unemployed: No Education: High School Diploma/GED Difficulty w/ Childcare or Family Care: No Spiritual care concerns: No Exam Narrative: GENERAL: [Well-appearing, well-nourished, and in no acute distress.] HEAD: [Normocephalic, atraumatic.] EYES: [PERRLA and EOMI.] ENT: Nares clear, no rhinorrhea or epistaxis. Mucous membranes moist. NECK: Supple. CHEST: [Clear to auscultation. No respiratory distress.] HEART: [Regular rate and rhythm]. No murmur heard. [Normal peripheral pulses.] ABDOMEN: [Soft, nondistended], [nontender], [No rigidity or guarding] EXTREMITIES: Normal range of motion. [No edema.] SKIN: Warm, dry, no rash. NEURO: [No focal deficits]. Alert and oriented [x3.] PSYCH: [Normal mood and affect.] Course Vital Signs Vital signs: Vital Signs Temperature 36.4 C 06/21/25 20:04 Pulse Rate 71 06/21/25 20:04 Respiratory Rate 14 06/21/25 20:04 Blood Pressure 176/65 H 06/21/25 20:04 Pulse Oximetry 99 06/21/25 20:04 Oxygen Delivery Room Air 06/21/25 20:04 Temperature 36.4 C 06/21/25 20:04 Pulse Rate 74 06/22/25 00:00 Respiratory Rate 16 06/22/25 00:00 Blood Pressure 151/67 H 06/22/25 00:00 Pulse Oximetry 97 06/22/25 00:00 Oxygen Delivery Room Air 06/21/25 20:04 MDM - Recheck/Abnormal Lab/Rx MDM Narrative Medical decision making narrative: 74-year-old female with a history of hypertension, hyperlipidemia. Patient presents to the emergency department today with elevated blood pressure readings at home. She states she checks her blood pressure 3 times daily and is currently being managed by her PCP with adjustments to her blood pressure regimen. Her blood pressure has been elevated in the 150s to 180s at home and called her doctor who prescribed her b.i.d. dosing of for home medications but she has not filled this prescription yet so she just took an extra medication at home when she knows that was high in the 210 range. Only symptom she was having was a ringing in her ears but no headache, vision changes, neck pain, back pain, chest pain, shortness of breath, syncope, hemoptysis. No stroke symptoms. She took an extra dose of her blood pressure medicine and her blood pressure improved to 154/64. No significant symptoms at this time. Has had an issue with blood pressure management recently as she has missed 3 days of her medications and then restarted them suddenly. She has been in close contact with her PCP about this and already has changes being adjusted there are have not been executed yet. Patient is hemodynamically stable. Mildly elevated blood pressure 154/64 better than reported at home. No tachycardia, fever, hypoxia. No signs of stroke on exam. Strong symmetric pulses, no symptoms at this time aside from very mild ringing in her ears which is better than it was previously when her blood pressure was higher. Neurovascularly intact. Will obtain basic laboratory studies and a CT of the head although discussed with her about hypertensive urgency and asymptomatic hypertension and if no emergent concerns raised today she already has plans in place for blood pressure control and is safe for discharge with her PCP to follow-up with her. Patient expressed understanding these instructions and will be observed here on hall monitor while workup underway. Blood pressure remained stable 148/68. CT of the head shows no acute intracranial findings. No evidence of stroke. Labs are reassuring. No leukocytosis or anemia. Normal LFTs and renal function. No signs organ dysfunction. EKG with chronic left bundle without any signs of acute disease or change. Safe for discharge with PCP follow-up. Given return precautions Medical Records Attestation: I reviewed the patient's medical records. Lab Data Attestation: I reviewed the patient's lab results. 06/21/25 22:07 06/21/25 22:07 Labs: Lab Results 06/21/25 Range/Units 22:07 WBC 7.0 (4.5-10.0) K/mm3 RBC 4.51 (4.2-5.4) M/mm3 Hgb 13.8 (12.0-15.0) g/dL Hct 40.7 (37.0-47.0) % MCV 90.2 (80-100) fl MCH 30.6 (26-34) pg MCHC 33.9 (32-36) g/dl RDW 12.8 (11.5-14.5) % Plt Count 185 (150-375) k/mm3 MPV 10.1 (7.4-10.4) fl Immature Gran % (Auto) 0.3 (0-0.5) % Neut % (Auto) 52.0 (45.5-73.1) % Lymph % (Auto) 37.6 (18.3-44.2) % [place] % (Auto) 7.5 (2.6-8.5) % Eos % (Auto) 2.2 (0-4.4) % Baso % (Auto) 0.4 (0.2-1.2) % Lymph # (Auto) 2.61 (0.9-3.2) K/mm3 [place] # (Auto) 0.5 (0.1-0.6) K/mm3 Eos # (Auto) 0.2 (0-0.3) K/mm3 Baso # (Auto) 0.0 (0.0-0.1) K/mm3 Abs Immat Gran (auto) 0.02 (0.00-0.031) K/mm3 Absolute Neuts (auto) 3.6 (1.3-6.7) K/mm3 Absolute Nucleated RBC 0.000 (0.0-0.012) K/mm3 Nucleated RBC % 0.0 (0.0-0.2) % Sodium 135 L (137-145) mmol/L Potassium 3.7 (3.4-5.0) mmol/L Chloride 100 (98-107) mmol/L Carbon Dioxide 28 (22-30) mmol/L Anion Gap 7 (4-12) mmol/L BUN 14 (7-17) mg/dL Creatinine 0.54 L (0.7-1.0) mg/dL Estim Creat Clear Calc 70 ml/min Estimated GFR > 60 (59 - ) Glucose 119 H (65-110) mg/dL Calcium 10.5 H (8.4-10.2) mg/dL Total Bilirubin 0.4 (0.2-1.3) mg/dL AST 30 (14-36) U/L ALT 24 (6-35) U/L Alkaline Phosphatase 63 (38-126) U/L Total Protein 7.3 (6.3-8.2) g/dL Albumin 4.4 (3.5-5.1) g/dL Imaging Data Attestation: I personally reviewed and interpreted this imaging study as follows: My impression: No acute findings Discharge Plan Discharge Clinical Impression: Asymptomatic hypertension Patient Disposition: Home Condition: Stable Instructions: Antibiotic Form, Hypertension (ED) Additional Instructions: Your laboratory studies, EKG and CT of the head were all normal in reassuring today. No signs of any acute issues. Your blood pressure needs better control but sounds like her doctors are any making changes with recommendations including twice daily dosing of your medications. Contact them for follow-up appointment. Return with any emergencies such as stroke symptoms, unilateral weakness or numbness, slurring speech, difficulty ambulating, crushing chest pain, difficulty breathing, or any other issues. Patient Language: [place] Prescriptions: No Action aspirin [Adult Aspirin Regimen] 81 mg tablet,delayed release (DR/EC) 81 mg PO DAILY nitroglycerin [Nitrostat] 0.4 mg Tablet, Sublingual 0.4 mg sublingual Q5MIN PRN (Reason: Chest Pain) Qty: 26 0RF cholecalciferol (vitamin D3) 25 mcg (1,000 unit) Tablet 50 mcg PO Fr@0630 Qty: 30 0RF pantoprazole [Protonix] 40 mg tablet,delayed release (DR/EC) 40 mg PO BID Qty: 60 0RF metoprolol succinate 50 mg tablet extended release 24 hr 50 mg PO DAILY vitamin B complex [B Complex-Vitamin B12] Tablet 1 tablet PO DAILY hydrochlorothiazide 25 mg tablet 25 mg PO DAILY lisinopril 40 mg tablet 40 mg PO DAILY metformin 500 mg tablet extended release 24 hr 1,000 mg PO BID magnesium 200 mg Tablet 400 mg PO DAILY rosuvastatin 10 mg Tablet 10 mg PO .COMPLEX Patient Comments: Only takes M, W, F Rx Instructions: 10 mg orally 3 times a week alendronate-vitamin D3 70 mg- 2,800 unit Tablet 1 tablet PO WEEKLY Patient Comments: Fridays pyridoxine (vitamin B6) 100 mg Tablet 100 mg PO DAILY Follow-up/Referrals: PHYSICIAN NOT ON STAFF,NONSTAFF [Primary Care Provider] Time of Disposition: 23:52
--- OUTSIDE RECORDS SUMMARY | 2025-06-21 22:04 | XMS_ITS | Encounter Summary ---
Author Organization [facility] Address [address] [place] [address] Care Team Providers Care Architectural Draftsperson Name Role Phone Philipp Pizarro MD Primary Care Provid er Encounter Details Date Type Department Care Team (Latest Contact Info) Description 09/26/2007 Outpatient Historical HIS [facility] Naldo Devine Other Screening Mammogram Social History Tobacco Use Types Packs/Day Years Used Date Smoking Tobacco: Never Assessed Comments Unknown Sex and Gender Information Value Date Recorded Sex Assigned at Not on file Legal Sex Female 3:43 AM VASCULAR NURSE Gender Identity Female 06/16/2025 8:03 AM VASCULAR NURSE Sexual Orientation Not on file documented as of this encounter Plan of Treatment Upcoming Encounters Date Type Department Care Team (Late st Contact Info) Description 10/26/2025 2:40 PM CDT Office Visit [facility], [address] [place] [address] Philipp Pizarro MD [address] [facility] [address] [place] [address] 03/31/2026 1:00 PM CDT Office Visit [facility], [address] [place] [address] Philipp Pizarro MD [address] [place] [address] [address] [place] [address] documented as of this encounter Procedures Procedure Name Priority Date/Time Associated Diagnosis Comments MAMMO SCREEN BILAT W OR WO CAD Routine 09/26/2007 8:20 AM VASCULAR NURSE documented in this encounter Results * MAMMO DIGITAL SCREEN BILAT (09/26/2007 8:20 AM VASCULAR NURSE) Anatomical Region Laterality Modality Breast Bilateral Other 09/26/2007 8:20 AM VASCULAR NURSE Narrative 09/26/2007 11:09 PM VASCULAR NURSE [address] [address] Admit Date: 09/26/2007 KRISTINA HUTSON Sex: F Admit Prov: NALDO SANTOS Date: 1950 Primary Care Prov: THEA NALDO Harper; CMRN: [id number] THEANALDO SSN: [id number] Room: [facility] Ordering Prov: NALDO SANTOS J Accession Number: [id number] Interpretation BILATERAL SCREENING DIGITAL MAMMOGRAMS WITH COMPUTER [...] Procedure Note Shell Carreno MD - 09/26/[address] [address] Admit Date: 09/26/2007 KRISTINA HUTSON Sex: F Admit Prov: NALDO SANTOS Date: 1950 Primary Care Prov: NALDO SANTOS; CMRN: [id number] NALDO SANTOS SSN: [id number] Room: [facility] Ordering Prov: NALDO SANTOS Interpretation [...] CDT COVID-19 07/31/2021 07/31/2021 08/30/2021 1:16 AM VASCULAR NURSE documented as of this encounter Care Teams Architectural Draftsperson Relationship Specialty Start Date End Date Philipp Pizarro MD [address] [place] [address] PCP - General Internal Medicine 08/21/13 documented as of this encounter
--- OUTSIDE RECORDS SUMMARY | 2025-06-21 22:04 | XMS_ITS | Encounter Summary ---
Author Organization [facility] Address [address] [place] [address] Care Team Providers Care Association Executive Name Role Phone Philipp Pizarro MD Primary Care Provid er Reason for Visit * Reason Onset Date Comments Results 02/01/2017 Encounter Details Date Type Department Care Team (Late st Contact Info) Description 02/01/2017 Telephone [facility] Endocrinology [address] [place] [address] Debra Roe MD [address] [place] [address] Results Social History Tobacco Use Types Packs/Day Years Used Date Smoking Tobacco: Former Cigarettes 0 Q uit: 11/11/1983 Smokeless Tobacco: Never Alcohol Use Standard Drinks/Week Comments No 0 (1 standard drink = 0.6 oz pur e alcohol) Comments No Sex and Gender Information Value Date Recorded Sex Assigned at Not on file Legal Sex Female 3:43 AM INCINERATOR OPERATOR Gender Identity Female 06/16/2025 8:03 AM INCINERATOR OPERATOR Sexual Orientation Not on file Occupation [...] Description 10/26/2025 2:40 PM CDT Office Visit [facility], [address] [place] [address] [place] [address] Philipp Pizarro MD [address] [place] [address] [address] [place] [address] 03/31/2026 1:00 PM CDT Office Visit [facility], [address] [place] [address] Philipp Pizarro MD [address] [place] [address] [address] [place] [address] documented as of this encounter Visit Diagnoses Not on filedocumented in this encounter Additional Health Concerns Infection Onset Date Last Indicated Resolved Time R/O COVID-19 03/07/2020 03/07/2020 03/09/2020 4:45 AM CDT COVID-19 07/31/2021 07/31/2021 08/30/2021 1:16 AM INCINERATOR OPERATOR documented as of this encounter Care Teams Association Executive Relationship Specialty Start Date End Date Philipp Pizarro MD [address] [place] [address] [address] [place] [address] PCP - General Internal Medicine 08/21/13 documented as of this encounter
--- OUTSIDE RECORDS SUMMARY | 2025-06-21 22:04 | XMS_ITS | Encounter Summary ---
Author Organization [facility] Address [address] [place] [address] Care Team Providers Care Retail Office Manager Name Role Phone Philipp Pizarro MD Primary Care Provid er Encounter Details Date Type Department Care Team (Late st Contact Info) Description 09/30/2007 Outpatient Historical [facility] Pino Parry MD [address] [place] [address] [address] [place] [address] Social History Tobacco Use Types Packs/Day Years Used Date Smoking Tobacco: Never Assessed Comments Unknown Sex and Gender Information Value Date Recorded Sex Assigned at Not on file Legal Sex Female 3:43 AM BRICK CHIMNEY SUPERVISOR Gender Identity Female 06/16/2025 8:03 AM BRICK CHIMNEY SUPERVISOR Sexual Orientation Not on file documented as of this encounter Plan of Treatment Upcoming Encounters Date Type Department Care Team (Late st Contact Info) Description 10/26/2025 2:40 PM CDT Office Visit [facility] Primary Care - [facility], [address] [place] [address] Philipp Pizarro MD [address] [facility] [address] [place] [address] 03/31/2026 1:00 PM CDT Office Visit [facility] Primary Care - [facility], [address] [place] [address] Philipp Pizarro MD [address] [facility] [address] [place] [address] documented as of this encounter Procedures Procedure Name Priority Date/Time Associated Diagnosis Comments POC GLUCOSE Routine 09/30/2007 8:44 AM BRICK CHIMNEY SUPERVISOR documented in this encounter Results * (ABNORMAL) POC GLUCOSE (09/30/2007 8:44 AM BRICK CHIMNEY SUPERVISOR) GLUCOSE POC 158(H) 65 - 99 mg/dL [facility] Venous blood specimen (specimen) 09/30/2007 8:44 AM BRICK CHIMNEY SUPERVISOR 09/30/2007 8:44 AM BRICK CHIMNEY SUPERVISOR us Pino Parry MD POINT OF CARE TESTING Final R esult [facility] [address] [place] [address] documented in this encounter Visit Diagnoses Not on filedocumented in this encounter Additional Health Concerns Infection Onset Date Last Indicated Resolved Time R/O COVID-19 03/07/2020 03/07/2020 03/09/2020 4:45 AM CDT COVID-19 07/31/2021 07/31/2021 08/30/2021 1:16 AM BRICK CHIMNEY SUPERVISOR documented as of this encounter Care Teams Retail Office Manager Relationship Specialty Start Date End Date Philipp Pizarro MD [address] [facility] [address] [place] [address] PCP - General Internal Medicine 08/21/13 documented as of this encounter
--- OUTSIDE RECORDS SUMMARY | 2025-06-21 22:04 | XMS_ITS | Encounter Summary ---
Author Organization [facility] Address [address] [place] [address] Care Team Providers Care Market Relationship Manager Name Role Phone Philipp Pizarro MD Primary Care Provid er Encounter Details Date Type Department Care Team (Latest Contact Info) Description 12/02/2007 Outpatient Historical HIS [facility] Naldo Shore Alma Carvalho, [address] [place] [address] DM w/o Complication Type II (CMS/HCC) Social History Tobacco Use Types Packs/Day Years Used Date Smoking Tobacco: Never Assessed Comments Unknown Sex and Gender Information Value Date Recorded Sex Assigned at Not on file Legal Sex Female 3:43 AM DATA ENTRY SUPERVISOR Gender Identity Female 06/16/2025 8:03 AM DATA ENTRY SUPERVISOR Sexual Orientation Not on file documented as of this encounter Plan of Treatment Upcoming Encounters Date Type Department Care Team (Late st Contact Info) Description 10/26/2025 2:40 PM CDT Office Visit [facility] Primary Care - [facility], [address] [place] [address] Philipp Pizarro MD [address] [facility] [address] [place] [address] 03/31/2026 1:00 PM CDT Office Visit [facility] Care - [facility], [address] [place] [address] Philipp Pizarro MD [address] [place] [address] [address] [place] [address] documented as of this encounter Visit Diagnoses Diagnosis Type II or unspecified type diabetes mellitus without mention of complication, not stated as uncontrolled documented in this encounter Additional Health Concerns Infection Onset Date Last Indicated Resolved Time R/O COVID-19 03/07/2020 03/07/2020 03/09/2020 4:45 AM CDT COVID-19 07/31/2021 07/31/2021 08/30/2021 1:16 AM DATA ENTRY SUPERVISOR documented as of this encounter Care Teams Market Relationship Manager Relationship Specialty Start Date End Date Philipp Pizarro MD [address] [place] [address] [address] [place] [address] PCP - General Internal Medicine 08/21/13 documented as of this encounter
--- OUTSIDE RECORDS SUMMARY | 2025-06-21 22:04 | XMS_ITS | Encounter Summary ---
Author Organization [facility] Address [address] [place] [address] Care Team Providers Care Mine Expert Name Role Phone Philipp Pizarro MD Primary [...] Legal Sex Female 3:43 AM VICE PRESIDENT OF PRODUCT MARKETING Gender Identity Female 06/16/2025 8:03 AM VICE PRESIDENT OF PRODUCT MARKETING Sexual Orientation Not on file documented as of this encounter Plan of Treatment Upcoming Encounters Date Type Department Care Team (Late st Contact Info) Description 10/26/2025 2:40 PM CDT Office Visit [facility], [address] [place] [address] Philipp iPzarro MD [address] [facility] [address] [place] [address] 03/31/2026 1:00 PM CDT Office Visit [facility], [address] [place] [address] Philipp Pizarro MD [address] [place] [address] documented as of this encounter Visit Diagnoses Not on filedocumented in this encounter Additional Health Concerns Infection Onset Date Last Indicated Resolved Time R/O COVID-19 03/07/2020 03/07/2020 03/09/2020 4:45 AM CDT COVID-19 07/31/2021 07/31/2021 08/30/2021 1:16 AM VICE PRESIDENT OF PRODUCT MARKETING documented as of this encounter Care Teams Mine Expert Relationship Specialty Start Date End Date Philipp Pizarro MD [address] [place] [address] PCP - General Internal Medicine 08/21/13 documented as of this encounter
--- OUTSIDE RECORDS SUMMARY | 2025-06-21 22:04 | XMS_ITS | Encounter Summary ---
Author Organization [facility] Address [address] [place] [address] Care Team Providers Care Quality Nurse Name Role Phone Philipp Pizarro MD Primary Care Provid er Encounter Details Date Type Department Care Team (Late st Contact Info) Description 01/09/2002 Outpatient Historical HIS [facility] Naldo Devine Social History Tobacco Use Types Packs/Day Years Used Date Smoking Tobacco: Never Assessed Comments Unknown Sex and Gender Information Value Date Recorded Sex Assigned at Not on file Legal Sex Female 3:43 AM DISASSEMBLER PRODUCT Gender Identity Female 06/16/2025 8:03 AM DISASSEMBLER PRODUCT Sexual Orientation Not on file documented as of this encounter Plan of Treatment Upcoming Encounters Date Type Department Care Team (Late st Contact Info) Description 10/26/2025 2:40 PM CDT Office Visit [facility], [address] [place] [address] Philipp Pizarro MD [address] [facility] [address] [place] [address] 03/31/2026 1:00 PM CDT Office Visit [facility], [address] [place] [address] Philipp Pizarro MD [address] [place] [address] documented as of this encounter Visit Diagnoses Not on filedocumented in this encounter Additional Health Concerns Infection Onset Date Last Indicated Resolved Time R/O COVID-19 03/07/2020 03/07/2020 03/09/2020 4:45 AM CDT COVID-19 07/31/2021 07/31/2021 08/30/2021 1:16 AM DISASSEMBLER PRODUCT documented as of this encounter Care Teams Quality Nurse Relationship Specialty Start Date End Date Philipp Pizarro MD [address] [place] [address] PCP - General Internal Medicine 08/21/13 documented as of this encounter
--- OUTSIDE RECORDS SUMMARY | 2025-06-21 22:04 | XMS_ITS | Encounter Summary ---
Author Organization [facility] Address [address] [facility] Attn: [place] [address] Care Team Providers Care Packager Name Role Phone Philipp Pizarro MD Primary Care Provid er Encounter Details Date Type Department Care Team (Late st Contact Info) Description 06/21/1997 Outpatient Historical Conversion, History Naldo Santos Social History Tobacco Use Types Packs/Day Years Used Date Smoking Tobacco: Never Assessed Comments Unknown Sex and Gender Information Value Date Recorded Sex Assigned at Not on file Legal Sex Female 3:43 AM SANITARY LANDFILL OPERATOR Gender Identity Female 06/16/2025 8:03 AM SANITARY LANDFILL OPERATOR Sexual Orientation Not on file documented as of this encounter Plan of Treatment Upcoming Encounters Date Type Department Care Team (Late st Contact Info) Description 10/26/2025 2:40 PM CDT Office Visit [facility], [address] [place] [address] Philipp Pizarro MD [address] [place] [address] 03/31/2026 1:00 PM CDT Office Visit [facility], [address] [place] [address] Philipp Pizarro MD [address] [place] [address] [address] [place] [address] documented as of this encounter Visit Diagnoses Not on filedocumented in this encounter Additional Health Concerns Infection Onset Date Last Indicated Resolved Time R/O COVID-19 03/07/2020 03/07/2020 03/09/2020 4:45 AM CDT COVID-19 07/31/2021 07/31/2021 08/30/2021 1:16 AM SANITARY LANDFILL OPERATOR documented as of this encounter Care Teams Packager Relationship Specialty Start Date End Date Philipp Pizarro MD [address] [place] [phone] PCP - General Internal Medicine 08/21/13 documented as of this encounter
--- OUTSIDE RECORDS SUMMARY | 2025-06-21 22:04 | XMS_ITS | Encounter Summary ---
Author Organization [facility] Address [address] [facility] Attn: [place] [address] Care Team Providers Care Cnc Machinist Name Role Phone Philipp Pizarro MD Primary Care Provid er Encounter Details Date Type Department Care Team (Late st Contact Info) Description 06/21/1998 Outpatient Historical Naldo Santos Social History Tobacco Use Types Packs/Day Years Used Date Smoking Tobacco: Never Assessed Comments Unknown Sex and Gender Information Value Date Recorded Sex Assigned at Not on file Legal Sex Female 3:43 AM FIRST BREAKER FEEDER Gender Identity Female 06/16/2025 8:03 AM FIRST BREAKER FEEDER Sexual Orientation Not on file documented as of this encounter Plan of Treatment Upcoming Encounters Date Type Department Care Team (Late st Contact Info) Description 10/26/2025 2:40 PM CDT Office Visit [facility], [address] [place] [address] Philipp Pizarro MD [address] [facility] [address] [place] [address] 03/31/2026 1:00 PM CDT Office Visit [facility], [address] [place] [address] Philipp Pizarro MD [address] [place] [address] documented as of this encounter Visit Diagnoses Not on filedocumented in this encounter Additional Health Concerns Infection Onset Date Last Indicated Resolved Time R/O COVID-19 03/07/2020 03/07/2020 03/09/2020 4:45 AM CDT COVID-19 07/31/2021 07/31/2021 08/30/2021 1:16 AM FIRST BREAKER FEEDER documented as of this encounter Care Teams Cnc Machinist Relationship Specialty Start Date End Date Philipp Pizarro MD [address] [place] [address] PCP - General Internal Medicine 08/21/13 documented as of this encounter
--- OUTSIDE RECORDS SUMMARY | 2025-06-21 22:04 | XMS_ITS | Encounter Summary ---
Author Organization [facility] Address [address] [place] [address] Care Team Providers Care Loan Documents Closer Name Role Phone Philipp Pizarro MD Primary Care Provid er Encounter Details Date Type Department Care Team (Latest Contact Info) Description 11/21/1999 Outpatient Historical HIS [facility] Naldo Devine Nonspecific abnormal findings on radiological or other examinations of the breast (Primary Dx) Social History Tobacco Use Types Packs/Day Years Used Date Smoking Tobacco: Never Assessed Comments Unknown Sex and Gender Information Value Date Recorded Sex Assigned at Not on file Legal Sex Female 3:43 AM COURTESY VAN DRIVER Gender Identity Female 06/16/2025 8:03 AM COURTESY VAN DRIVER Sexual Orientation Not on file documented as of this encounter Plan of Treatment Upcoming Encounters Date Type Department Care Team (Late st Contact Info) Description 10/26/2025 2:40 PM CDT Office Visit [facility], [address] [place] [address] Philipp Pizarro MD [address] [facility] [address] [place] [address] 03/31/2026 1:00 PM CDT Office Visit [facility], [address] [place] [address] Philipp Pizarro MD [address] [place] [address] [address] [place] [address] documented as of this encounter Visit Diagnoses Diagnosis Nonspecific abnormal findings on radiological or other examinations of the breast- Primary documented in this encounter Additional Health Concerns Infection Onset Date Last Indicated Resolved Time R/O COVID-19 03/07/2020 03/07/2020 03/09/2020 4:45 AM CDT COVID-19 07/31/2021 07/31/2021 08/30/2021 1:16 AM COURTESY VAN DRIVER documented as of this encounter Care Teams Loan Documents Closer Relationship Specialty Start Date End Date Philipp Pizarro MD [address] [place] [address] [address] [place] [address] PCP - General Internal Medicine 08/21/13 documented as of this encounter
--- OUTSIDE RECORDS SUMMARY | 2025-06-21 22:04 | XMS_ITS | Encounter Summary ---
Author Organization [facility] Address [address] [place] [address] Care Team Providers Care Senior Underwriter Name Role Phone Philipp Pizarro MD Primary Care Provid er Encounter Details Date Type Department Care Team (Late st Contact Info) Description 09/11/2002 Outpatient Historical [facility], [address] Danielle Valeriy Social History Tobacco Use Types Packs/Day Years Used Date Smoking Tobacco: Never Assessed Comments Unknown Sex and Gender Information Value Date Recorded Sex Assigned at Not on file Legal Sex Female 3:43 AM PUBLIC HEALTH TECHNOLOGIST Gender Identity Female 06/16/2025 8:03 AM PUBLIC HEALTH TECHNOLOGIST Sexual Orientation Not on file documented as of this encounter Plan of Treatment Upcoming Encounters Date Type Department Care Team (Late st Contact Info) Description 10/26/2025 2:40 PM CDT Office Visit [facility], [address] [place] [address] Philipp Pizarro MD [address] [facility] [address] [place] [address] 03/31/2026 1:00 PM CDT Office Visit [facility], [address] [place] [address] Philipp Pizarro MD [address] [place] [address] documented as of this encounter Visit Diagnoses Not on filedocumented in this encounter Additional Health Concerns Infection Onset Date Last Indicated Resolved Time R/O COVID-19 03/07/2020 03/07/2020 03/09/2020 4:45 AM CDT COVID-19 07/31/2021 07/31/2021 08/30/2021 1:16 AM PUBLIC HEALTH TECHNOLOGIST documented as of this encounter Care Teams Senior Underwriter Relationship Specialty Start Date End Date Philipp Pizarro MD [address] [place] [address] PCP - General Internal Medicine 08/21/13 documented as of this encounter
--- OUTSIDE RECORDS SUMMARY | 2025-06-21 22:04 | XMS_ITS | Encounter Summary ---
Author Organization [facility] Address [address] [facility] Attn: [place] [address] Care Team Providers Care Aircraft Pneudraulic Systems Mechanic Name Role Phone Philipp Pizarro MD Primary Care Provid er Encounter Details Date Type Department Care Team (Late st Contact Info) Description 05/30/1990 Outpatient Historical Naldo Santos Social History Tobacco Use Types Packs/Day Years Used Date Smoking Tobacco: Never Assessed Comments Unknown Sex and Gender Information Value Date Recorded Sex Assigned at Not on file Legal Sex Female 3:43 AM DRYWALL BOARDHANGER Gender Identity Female 06/16/2025 8:03 AM DRYWALL BOARDHANGER Sexual Orientation Not on file documented as of this encounter Plan of Treatment Upcoming Encounters Date Type Department Care Team (Late st Contact Info) Description 10/26/2025 2:40 PM CDT Office Visit [facility], [address] [place] [address] Philipp Pizarro MD [address] [facility] [address] [place] [address] 03/31/2026 1:00 PM CDT Office Visit [facility], [address] [place] [address] Philipp Pizarro MD [address] [place] [address] documented as of this encounter Visit Diagnoses Not on filedocumented in this encounter Additional Health Concerns Infection Onset Date Last Indicated Resolved Time R/O COVID-19 03/07/2020 03/07/2020 03/09/2020 4:45 AM CDT COVID-19 07/31/2021 07/31/2021 08/30/2021 1:16 AM DRYWALL BOARDHANGER documented as of this encounter Care Teams Aircraft Pneudraulic Systems Mechanic Relationship Specialty Start Date End Date Philipp Pizarro MD [address] [place] [address] PCP - General Internal Medicine 08/21/13 documented as of this encounter
--- OUTSIDE RECORDS SUMMARY | 2025-06-21 22:04 | XMS_ITS | Clinical Summary ---
Author Organization [facility] [address] [place] Address [address] [place] [address] Care Team Providers Care Carbon Capture Power Plant Engineer Name Role Phone Philipp Pizarro MD [...] Type Department Care Team Description 04/11/2025 Telephone [facility] at [address] [address] Obinna Sullivan NP from Last 3 Months Social History Tobacco Use Types Packs/Day Years Used Date Smoking Tobacco: Never Assessed Comments Unknown Sex and Gender Information Value Date Recorded Sex Assigned at Not on file Legal Sex Female 5:01 PM SUPERVISOR DENTURE DEPARTMENT Gender Identity Not on file Sexual Orientation [...] 05/18/2024, 03/05/2023, 03/05/2023, Additional history exists Insurance [employer] P[employer] Care Teams Carbon Capture Power Plant Engineer Relationship Specialty Start Date End Date Philipp Pizarro MD [address] [facility] [address] [address] PCP - General Internal Medicine 10/13/23
--- OUTSIDE RECORDS SUMMARY | 2025-06-21 22:04 | XMS_ITS | Encounter Summary ---
Author Organization [facility] Address [address] [place] [address] Care Team Providers Care Icing Coater Name Role Phone Philipp Pizarro MD Primary Care Provid er Encounter Details Date Type Department Care Team (Latest Contact Info) Description 01/09/2002 Outpatient Historical HIS [facility] Naldo Devine SCREENING MAMM-MAILG NEOPL-OTHER (Primary Dx) Social History Tobacco Use Types Packs/Day Years Used Date Smoking Tobacco: Never Assessed Comments Unknown Sex and Gender Information Value Date Recorded Sex Assigned at Not on file Legal Sex Female 3:43 AM GAS LINE SERVICER Gender Identity Female 06/16/2025 8:03 AM GAS LINE SERVICER Sexual Orientation Not on file documented as of this encounter Plan of Treatment Upcoming Encounters Date Type Department Care Team (Late st Contact Info) Description 10/26/2025 2:40 PM CDT Office Visit [facility], [address] [place] [address] Philipp Pizarro MD [address] [place] [address] [place] [address] 03/31/2026 1:00 PM CDT Office Visit [facility], [address] [place] [address] Philipp Pizarro MD [address] [place] [address] [address] [place] [address] documented as of this encounter Visit Diagnoses Diagnosis Other screening mammogram- Primary documented in this encounter Additional Health Concerns Infection Onset Date Last Indicated Resolved Time R/O COVID-19 03/07/2020 03/07/2020 03/09/2020 4:45 AM CDT COVID-19 07/31/2021 07/31/2021 08/30/2021 1:16 AM GAS LINE SERVICER documented as of this encounter Care Teams Icing Coater Relationship Specialty Start Date End Date Philipp Pizarro MD [address] [place] [address] PCP - General Internal Medicine 08/21/13 documented as of this encounter
--- OUTSIDE RECORDS SUMMARY | 2025-06-21 22:04 | XMS_ITS | Encounter Summary ---
Author Organization [facility] Address [address] [place] [address] Care Team Providers Care Assistant Sales Director Name Role Phone Philipp Pizarro MD Primary Care Provid er Encounter Details Date Type Department Care Team (Late st Contact Info) Description 09/13/2004 Outpatient Historical [facility], [address] Danielle Valeriy Social History Tobacco Use Types Packs/Day Years Used Date Smoking Tobacco: Never Assessed Comments Unknown Sex and Gender Information Value Date Recorded Sex Assigned at Not on file Legal Sex Female 3:43 AM INDUSTRIAL SALES ENGINEER Gender Identity Female 06/16/2025 8:03 AM INDUSTRIAL SALES ENGINEER Sexual Orientation Not on file documented as of this encounter Plan of Treatment Upcoming Encounters Date Type Department Care Team (Late st Contact Info) Description 10/26/2025 2:40 PM CDT Office Visit [facility], [address] [place] [address] Philipp Pizarro MD [address] [facility] [address] [place] [address] 03/31/2026 1:00 PM CDT Office Visit [facility], [address] [place] [address] Philipp Pizarro MD [address] [facility] [address] [place] [address] documented as of this encounter Procedures Procedure Name Priority Date/Time Associated Diagnosis Comments CBC WITH DIFFERENTIAL Routine 09/13/2004 10:55 AM INDUSTRIAL SALES ENGINEER CBC WITH DIFFERENTIAL Routine 09/13/2004 10:55 AM INDUSTRIAL SALES ENGINEER LIPID PANEL Routine 09/13/2004 10:55 AM INDUSTRIAL SALES ENGINEER COMPREHENSIVE METABOLIC PANEL Routine 09/13/2004 10:55 AM INDUSTRIAL SALES ENGINEER documented in this encounter Results * CBC WITH DIFFERENTIAL (09/13/2004 10:55 AM INDUSTRIAL SALES ENGINEER) NEUTROPHILS 66 45 - 70 % INTERFAC [...] K/uL INTERFACE SYSTEM 09/13/2004 10:5 5 AM INDUSTRIAL SALES ENGINEER us Naldo Santos HEMATOLOGY ORDERABLES Final Res ult INTERFACE SYSTEM Refer to clinic/hospital department * CBC WITH DIFFERENTIAL (09/13/2004 10:55 AM INDUSTRIAL SALES ENGINEER) WBC 6.8 4.0 - 9.8 K/uL INTERFACE [...] fL INTERFACE SYSTEM 09/13/2004 10:5 5 AM INDUSTRIAL SALES ENGINEER us Naldo Santos HEMATOLOGY ORDERABLES Final Res ult INTERFACE SYSTEM Refer to clinic/hospital department * (ABNORMAL) LIPID PANEL (09/13/2004 10:55 AM INDUSTRIAL SALES ENGINEER) CHOLESTEROL 204(H) 100 - 199 mg/dL INTERFACE [...] 129 High >=130 09/13/2004 10:5 5 AM INDUSTRIAL SALES ENGINEER Naldo Santos CHEMISTRY ORDERABLES Final Resu lt Performing Organization Address City/[facility] Co de Phone Number INTERFACE SYSTEM Refer to clinic/hospital department * (ABNORMAL) COMPREHENSIVE METABOLIC PANEL (09/13/2004 10:55 AM INDUSTRIAL SALES ENGINEER) GLUCOSE 114(H) 65 - 109 mg/dL INTERFACE [...] mmol/L INTERFACE SYSTEM 09/13/2004 10:5 5 AM INDUSTRIAL SALES ENGINEER Naldo Santos CHEMISTRY ORDERABLES Final Resu Performing Organization Address [facility] Co de Phone Number INTERFACE SYSTEM Refer to clinic/hospital department documented in this encounter Visit Diagnoses Not on filedocumented in this encounter Additional Health Concerns Infection Onset Date Last Indicated Resolved Time R/O COVID-19 03/07/2020 03/07/2020 03/09/2020 4:45 AM CDT COVID-19 07/31/2021 07/31/2021 08/30/2021 1:16 AM INDUSTRIAL SALES ENGINEER documented as of this encounter Care Teams Assistant Sales Director Relationship Specialty Start Date End Date Philipp Pizarro MD [address] [place] [address] PCP - General Internal Medicine 08/21/13 documented as of this encounter
--- OUTSIDE RECORDS SUMMARY | 2025-06-21 22:04 | XMS_ITS | Encounter Summary ---
Author Organization [facility] Address [address] [facility] Attn: [place] [address] Care Team Providers Care Pr Specialist Name Role Phone Philipp Pizarro MD Primary Care Provid er Encounter Details Date Type Department Care Team (Late st Contact Info) Description 11/30/1993 Outpatient Historical Naldo Santos Social History Tobacco Use Types Packs/Day Years Used Date Smoking Tobacco: Never Assessed Comments Unknown Sex and Gender Information Value Date Recorded Sex Assigned at Not on file Legal Sex Female 3:43 AM BEARING INSPECTOR Gender Identity Female 06/16/2025 8:03 AM BEARING INSPECTOR Sexual Orientation Not on file documented as of this encounter Plan of Treatment Upcoming Encounters Date Type Department Care Team (Late st Contact Info) Description 10/26/2025 2:40 PM CDT Office Visit [facility], [address] [place] [address] Philipp Pizarro MD [address] [facility] [address] [place] [address] 03/31/2026 1:00 PM CDT Office Visit [facility], [address] [place] [address] Philipp Pizarro MD [address] [place] [address] documented as of this encounter Visit Diagnoses Not on filedocumented in this encounter Additional Health Concerns Infection Onset Date Last Indicated Resolved Time R/O COVID-19 03/07/2020 03/07/2020 03/09/2020 4:45 AM CDT COVID-19 07/31/2021 07/31/2021 08/30/2021 1:16 AM BEARING INSPECTOR documented as of this encounter Care Teams Pr Specialist Relationship Specialty Start Date End Date Philipp Pizarro MD [address] [place] [address] PCP - General Internal Medicine 08/21/13 documented as of this encounter
--- OUTSIDE RECORDS SUMMARY | 2025-06-21 22:04 | XMS_ITS | Encounter Summary ---
Author Organization [facility] Address [address] [place] [address] Care Team Providers Care Green Marketing Specialist Name Role Phone Philipp Pizarro MD Primary Care Provid er Encounter Details Date Type Department Care Team (Latest Contact Info) Description 11/13/1999 Outpatient Historical HIS [facility] Naldo Devine Other screening mammogram (Primary Dx) Social History Tobacco Use Types Packs/Day Years Used Date Smoking Tobacco: Never Assessed Comments Unknown Sex and Gender Information Value Date Recorded Sex Assigned at Not on file Legal Sex Female 3:43 AM NATURAL FABRICATOR Gender Identity Female 06/16/2025 8:03 AM NATURAL FABRICATOR Sexual Orientation Not on file documented as of this encounter Plan of Treatment Upcoming Encounters Date Type Department Care Team (Late st Contact Info) Description 10/26/2025 2:40 PM CDT Office Visit [facility], [address] [place] [address] Philipp Pizarro MD [address] [facility] [address] [place] [address] 03/31/2026 1:00 PM CDT Office Visit [facility], [address] [place] [address] Philipp Pizarro MD [address] [place] [address] documented as of this encounter Visit Diagnoses Diagnosis Other screening mammogram- Primary documented in this encounter Additional Health Concerns Infection Onset Date Last Indicated Resolved Time R/O COVID-19 03/07/2020 03/07/2020 03/09/2020 4:45 AM CDT COVID-19 07/31/2021 07/31/2021 08/30/2021 1:16 AM NATURAL FABRICATOR documented as of this encounter Care Teams Green Marketing Specialist Relationship Specialty Start Date End Date Philipp Pizarro MD [address] [place] [address] PCP - General Internal Medicine 08/21/13 documented as of this encounter
--- OUTSIDE RECORDS SUMMARY | 2025-06-21 22:04 | XMS_ITS | Encounter Summary ---
Author Organization [facility] Address [address] [place] [address] Care Team Providers Care Clinical Specialist Vascular Name Role Phone Philipp Pizarro MD Primary [...] on file Legal Sex Female 3:43 AM ARCHIVES SPECIALIST Gender Identity Female 06/16/2025 8:03 AM ARCHIVES SPECIALIST Sexual Orientation Not on file documented as of this encounter Plan of Treatment Upcoming Encounters Date Type Department Care Team (Late st Contact Info) Description 10/26/2025 2:40 PM CDT Office Visit [facility], [address] [place] [address] Philipp Pizarro MD [address] [facility] [address] [place] [address] 03/31/2026 1:00 PM CDT Office Visit [facility], [address] [place] [address] Philipp Pizarro MD [address] [facility] [address] [place] [address] documented as of this encounter Procedures Procedure Name Priority Date/Time Associated Diagnosis Comments CBC WITH DIFFERENTIAL Routine 08/20/2006 11:55 AM ARCHIVES SPECIALIST CBC WITH DIFFERENTIAL Routine 08/20/2006 11:55 AM ARCHIVES SPECIALIST TSH Routine 08/20/2006 11:55 AM ARCHIVES SPECIALIST COMPREHENSIVE METABOLIC PANEL Routine 08/20/2006 11:55 AM ARCHIVES SPECIALIST documented in this encounter Results * CBC WITH DIFFERENTIAL (08/20/2006 11:55 AM ARCHIVES SPECIALIST) NEUTROPHILS 60 45 - 70 % INTERFAC [...] K/uL INTERFACE SYSTEM 08/20/2006 11:5 5 AM ARCHIVES SPECIALIST us Naldo Santos HEMATOLOGY ORDERABLES Edited INTERFACE SYSTEM Refer to clinic/hospital department * (ABNORMAL) CBC WITH DIFFERENTIAL (08/20/2006 11:55 AM ARCHIVES SPECIALIST) WBC 6.4 4.0 - 9.8 K/uL INTERFACE [...] fL INTERFACE SYSTEM 08/20/2006 11:5 5 AM ARCHIVES SPECIALIST Naldo Santos HEMATOLOGY ORDERABLES Edited Performing Organization Address City/[facility]/ZIP Co de Phone Number INTERFACE SYSTEM Refer to clinic/hospital department * TSH (08/20/2006 11:55 AM ARCHIVES SPECIALIST) TSH 2.43 0.27 - 4.20 uU/mL INTERFACE SYSTEM 08/20/2006 11:5 5 AM ARCHIVES SPECIALIST Naldo Santos CHEMISTRY ORDERABLES Edited INTERFACE SYSTEM Refer to clinic/hospital department * (ABNORMAL) COMPREHENSIVE METABOLIC PANEL (08/20/2006 11:55 AM ARCHIVES SPECIALIST) GLUCOSE 131(H) 65 - 99 mg/dL INTERFACE [...] and non- Americans is available on the [facility] Intranet at: [email or web address] Select: Lab Policies and Procedures Select: Reference Ranges - GFR 08/20/2006 11:5 5 AM ARCHIVES SPECIALIST us Naldo Santos CHEMISTRY ORDERABLES Edited INTERFACE SYSTEM Refer to clinic/hospital department documented in this encounter Visit Diagnoses Diagnosis Palpitations- Primary documented in this encounter Additional Health Concerns Infection Onset Date Last Indicated Resolved Time R/O COVID-19 03/07/2020 03/07/2020 03/09/2020 4:45 AM CDT COVID-19 07/31/2021 07/31/2021 08/30/2021 1:16 AM ARCHIVES SPECIALIST documented as of this encounter Care Teams Clinical Specialist Vascular Relationship Specialty Start Date End Date Philipp Pizarro MD [address] [place] [address] PCP - General Internal Medicine 08/21/13 documented as of this encounter
--- OUTSIDE RECORDS SUMMARY | 2025-06-21 22:04 | XMS_ITS | Encounter Summary ---
Author Organization [facility] Address [address] [place] [address] Care Team Providers Care Staffing Analyst Name Role Phone Philipp Pizarro MD Primary Care Provid er Encounter Details Date Type Department Care Team (Latest Contact Info) Description 09/26/2007 Outpatient Historical [facility], [address] Naldo Santos Mononeuritis of Unspecified Site; Lumbago Social History Tobacco Use Types Packs/Day Years Used Date Smoking Tobacco: Never Assessed Comments Unknown Sex and Gender Information Value Date Recorded Sex Assigned at Not on file Legal Sex Female 3:43 AM ACO COORDINATOR Gender Identity Female 06/16/2025 8:03 AM ACO COORDINATOR Sexual Orientation Not on file documented as of this encounter Plan of Treatment Upcoming Encounters Date Type Department Care Team (Late st Contact Info) Description 10/26/2025 2:40 PM CDT Office Visit [facility], [address] [place] [address] Philipp Pizarro MD [address] [place] [address] [place] [address] 03/31/2026 1:00 PM CDT Office Visit [facility], [address] [place] [address] Philipp Pizarro MD [address] [place] [address] documented as of this encounter Procedures Procedure Name Priority Date/Time Associated Diagnosis Comments CBC WITH DIFFERENTIAL Routine 09/26/2007 10:36 AM ACO COORDINATOR TSH Routine 09/26/2007 10:36 AM ACO COORDINATOR HEMOGLOBIN A1C Routine 09/26/2007 10:36 AM ACO COORDINATOR VITAMIN B12 LEVEL Routine 09/26/2007 10: 36 AM ACO COORDINATOR LIPID PANEL Routine 09/26/2007 10:36 AM ACO COORDINATOR COMPREHENSIVE METABOLIC PANEL Routine 09/26/2007 10:36 AM ACO COORDINATOR documented in this encounter Results * VITAMIN B12 (09/26/2007 10:36 AM ACO COORDINATOR) VITAMIN B12 727 211 - 946 pg/mL [facility] Comment: It has been reported that between 5 to 10% of patients with values between 200 and 400 pg/mL may experience neuropsychiatric and hematologic abnormalities due to occult B12 deficiency. Less than 1% of patients with values above 400 pg/mL will have symptoms. Blood specimen (specimen) 09/26/2007 10:36 AM ACO COORDINATOR 09/26/2007 10:37 AM ACO COORDINATOR us Naldo Santos CHEMISTRY ORDERABLES Edited [facility] [address] [place] [address] * TSH (09/26/2007 10:36 AM ACO COORDINATOR) TSH 2.01 0.27 - 4.20 uU/mL [facility] Blood specimen (specimen) 09/26/2007 10:36 AM ACO COORDINATOR 09/26/2007 10:36 AM ACO COORDINATOR Naldo Santos CHEMISTRY ORDERABLES Final Resu lt Performing Organization Address City/[facility] Co de Phone Number [facility] [address] [place] [address] * (ABNORMAL) HEMOGLOBIN A1C (09/26/2007 10:36 AM ACO COORDINATOR) Pathologist [facility] GLUCOSE, MEAN BLOOD 172 mg/dL [facility] HEMOGLOBIN A1C 7.0(H) 4.1 - 6.1 % of Hgb [facility] Blood specimen (specimen) 09/26/2007 10:36 AM ACO COORDINATOR 09/26/2007 10:36 AM ACO COORDINATOR Naldo Santos Jawbone ORDERABLES Final Resu lt Performing Organization Address City/[facility] Co de Phone Number [facility] [address] [place], [place] [address] * (ABNORMAL) CBC WITH DIFFERENTIAL (09/26/2007 10:36 AM ACO COORDINATOR) RDW-STDEV 38.9 37.1 - 48.7 fL [facility] RBC 5.17(H) 3.90 - 4.90 M/uL [facility] MCHC 35.3 31.5 - 35.5 % [facility] MCV 85.5 82.0 - 99.0 fL [facility] PLATELETS 184 140 - 350 K/uL [facility] HEMOGLOBIN 15.6(H) 11.8 - 14.8 g/dL [facility] RDW 12.7 11.5 - 14.5 % [facility] WBC 5.9 4.0 - 9.8 K/uL [facility] MCH 30.2 27.2 - 32.6 pg [facility] MPV 11.0 9.3 - 12.4 fL [facility] HEMATOCRIT 44.2(H) 35.5 - 44.0 % [facility] MONOCYTES 7 3 - 13 % [facility] MONOCYTE ABSOLUTE 0.39 0.10 - 1.30 K/uL [facility] NEUTROPHILS 55 45 - 70 % [facility] NEUTROPHIL ABSOLUTE 3.23 1.90 - 7.00 K/uL [facility] EOSINOPHILS 2 0 - 7 % [facility] EOSINOPHIL ABSOLUTE 0.09 0.00 - 0.70 K/uL [facility] LYMPHOCYTES 37 16 - 45 % [facility] LYMPHOCYTE ABSOLUTE 2.16 0.70 - 4.50 K/uL [facility] BASOPHILS 0 0 - 2 % [facility] BASOPHILS ABSOLUTE 0.02 0.00 - 0.20 K/uL [facility] Blood specimen (specimen) 09/26/2007 10:36 AM ACO COORDINATOR 09/26/2007 10:36 AM ACO COORDINATOR Naldo Santos HEMATOLOGY ORDERABLES Edited INTERFACE SYSTEM Refer to clinic/hospital department [facility] [address] [place] [address] * (ABNORMAL) LIPID PANEL (09/26/2007 10:36 AM ACO COORDINATOR) CHOL/HDL RATIO 4.5 2.0 - 5.0 [facility] HDL 56 40 - 59 mg/dL [facility] CHOLESTEROL 250(H) 100 - 199 mg/dL [facility] TRIGLYCERIDE 148 10 - 149 mg/dL [facility] LDL CALCULATED 164(H) <=99 mg/dL [facility] LIPID PANEL COMMENT See Below [facility] Comment: The adult ATP and pediatric NCEP classifications for lipids are available on the [facility] Intranet at: [email or web address] Select: Lab Policies and Procedures,Current Select: Lipid Panel Interpretation Blood specimen (specimen) 09/26/2007 10:36 AM ACO COORDINATOR 09/26/2007 10:36 AM ACO COORDINATOR us Naldo Santos CHEMISTRY ORDERABLES Edited [facility] [address] [place] [address] * (ABNORMAL) COMPREHENSIVE METABOLIC PANEL (09/26/2007 10:36 AM ACO COORDINATOR) POTASSIUM 3.7 3.5 - 4.9 mmol/L [facility] TOTAL PROTEIN 7.5 6.3 - 8.6 g/dL [facility] GLUCOSE 160(H) 65 - 99 mg/dL [facility] AST 23 12 - 32 U/L [facility] BUN 12 6 - 20 mg/dL [facility] CALCIUM 8.7 8.4 - 10.2 mg/dL [facility] ALBUMIN 4.6 3.4 - 4.8 g/dL [facility] CHLORIDE 102 96 - 108 mmol/L [facility] CREATININE 0.53 0.51 - 0.95 mg/dL [facility] ALT 35(H) 0 - 31 U/L [facility] SODIUM 138 135 - 145 mmol/L [facility] ALKALINE PHOSPHATASE 63 35 - 104 U/L [facility] CO2 25 22 - 30 mmol/L [facility] BILIRUBIN TOTAL 0.6 0.2 - 1.0 mg/dL [facility] GFR, >60 >=60 mL/min/1. 7 sq meter [facility] GFR >60 >=60 mL/min/1. 7 sq meter [facility] Comment: Estimated GFR rate interpretative information for both Americans and non- Americans is available on the [facility] Intranet at: [email or web address] Select: Lab Policies and Procedures Select: Reference Ranges - GFR Blood specimen (specimen) 09/26/2007 10:36 AM ACO COORDINATOR 09/26/2007 10:36 AM ACO COORDINATOR us Naldo Santos CHEMISTRY ORDERABLES Edited [facility] [address] [place] [address] documented in this encounter Visit Diagnoses Diagnosis Mononeuritis of unspecified site Lumbago documented in this encounter Additional Health Concerns Infection Onset Date Last Indicated Resolved Time R/O COVID-19 03/07/2020 03/07/2020 03/09/2020 4:45 AM CDT COVID-19 07/31/2021 07/31/2021 08/30/2021 1:16 AM ACO COORDINATOR documented as of this encounter Care Teams Staffing Analyst Relationship Specialty Start Date End Date Philipp Pizarro MD [address] [place] [address] [address] [place] [id number] PCP - General Internal Medicine 08/21/13 documented as of this encounter
--- OUTSIDE RECORDS SUMMARY | 2025-06-21 22:04 | XMS_ITS | Clinical Summary ---
Author Organization [facility] Address [address] [place] [address] Phone Care Team Providers Care Fisheries Biologist Name Role Phone Philipp Pizarro MD Primary [...] complication, without long-term current use of insulin ([facility]) Use to monitor glucose continuously. Replace sensor every 10 days. 9 Each 3 Active Additional Information Patient not taking.Reported on 06/16/2025 Blood-Glucose Meter,Continuous (Dexcom G7 Reed Press Feeder)Indicati ons:Type 2 diabetes mellitus without complication, without long-term current use of insulin ([facility]) Use with sensor to monitor glucose continuously. [...] Department Care Team Description 06/21/2025 Nurse Triage [facility] [address] [place] [address] [address] [place] [address] Philipp Pizarro MD HTN (hypertension), benign 06/16/2025 2:00 PM OIL REFINERY PROCESS TECHNICIAN Office Visit [facility], [address] [place] [address] Marck Yanez NP HTN (hypertension), benign (Primary Dx); Mixed hyperlipidemia; Atherosclerosis of aorta 06/16/2025 Orders Only [facility] [address] [place] [address] Aditi Alarcon RN 06/16/2025 Nurse Triage [facility], [address] [place] [address] Philipp Pizarro MD 06/16/2025 Patient Self-Triage [place] [address] [address] [place] [address] 04/30/2025 Abstract STL ABSTRACTION Provider, Abstract 04/27/2025 Results Follow-Up [facility], [address] [place] [address] Philipp Pizarro MD HEMOGLOBIN A1C, COMPREHENSIVE METABOLIC PANEL, CBC WITH DIFFERENTIAL, Additional followed-up results: 4 04/26/2025 1:20 PM CDT Office Visit [facility], [address] [place] [address] Philipp Pizarro MD Encounter for routine adult health examination with abnormal findings (Primary Dx); HTN (hypertension), benign; Type 2 diabetes mellitus without complication, without long-term current use of insulin ([facility]); Age-related osteoporosis without current pathological fracture; Mixed [...] file Legal Sex Female 3:43 AM OIL REFINERY PROCESS TECHNICIAN Gender Identity Female 06/16/2025 8:03 AM OIL REFINERY PROCESS TECHNICIAN Sexual Orientation Not on file Occupation Industry Job Start Date Job End Date Not on file Not on file Not on file Not on file Last Filed Vital Signs Vital Sign Reading Time Taken Comments Blood Pressure 158/82 06/16/2025 2:10 PM OIL REFINERY PROCESS TECHNICIAN Pulse 69 06/16/2025 1:55 PM OIL REFINERY PROCESS TECHNICIAN Temperature 36.6 C (97.9 F) 06/16/2025 1:55 PM OIL REFINERY PROCESS TECHNICIAN Respiratory Rate 12 03/23/2013 12:43 PM CDT Oxygen Saturation 98% 06/16/2025 1:55 PM OIL REFINERY PROCESS TECHNICIAN Inhaled Oxygen Concentration - - Weight 71.7 kg (158 lb) 06/16/2025 1:55 PM OIL REFINERY PROCESS TECHNICIAN Height 160 cm (5' 3) 06/16/2025 1:55 PM OIL REFINERY PROCESS TECHNICIAN Body Mass Index 27.99 06/16/2025 1:55 PM OIL REFINERY PROCESS TECHNICIAN Plan of Treatment Upcoming Encounters Date Type Department Care Team (Late st Contact Info) Description 10/26/2025 2:40 PM CDT Office Visit [facility], [address] [place] [address] Philipp Pizarro MD [address] [place] [address] [place] [address] 03/31/2026 1:00 PM CDT Office Visit [facility], [address] [place] [address] Philipp Pizarro MD [address] [place] [address] [place] [phone] Health Maintenance Due Date Last Done Comments [...] OR MORE SITES Routine 06/02/2024 3:48 PM OIL REFINERY PROCESS TECHNICIAN Age-related osteoporosis without current pathological fracture Encounter [...] within a diagnostic category. Test Performed at: [facility] [address] [address] [facility] [place] [address] Moy Ibarra MD Urine URINE SPECIMEN OBTAINED BY CLEAN CATCH PROCEDURE / Unknown 04/26/2025 2:28 PM CDT 04/26/2025 2:29 PM CDT Philipp Pizarro MD URINE ORDERABLES Fin al Result [facility] [phone] [facility] [address] [place] [address] * TSH REFLEXIVE (04/26/2025 2:25 PM CDT) Pathologist [facility] TSH 1.32 0.40 - 4.50 mIU/L [facility] Comment: FASTING:NO FASTING: NO Test Performed at: [facility] [place] [address] [place] [address] Moy Ibarra Blood 04/26/2025 2:25 PM CDT 04/26/2025 2:27 PM CDT Philipp Pizarro MD CHEMISTRY ORDERABLES Final Result [facility] [phone] [place] [address] [place] [address] * (ABNORMAL) CBC WITH DIFFERENTIAL (04/26/2025 2:25 [...] Comment: FASTING:NO FASTING: NO Test Performed at: [facility] [address] [place] [address] Moy Ibarra Blood 04/26/2025 2:25 PM CDT 04/26/2025 2:27 PM CDT us Philipp Pizarro MD HEMATOLOGY ORDERABLE S Final Result [facility] [phone] [facility] [address] [place] [address] * VITAMIN D 25 HYDROXY (04/26/2025 2:25 PM CDT) VITAMIN D, 25 OH, TOTAL 34 30 - 100 ng/mL [facility] Comment: Vitamin D Status 25-OH Vitamin D: Deficiency: <20 ng/mL Insufficiency: 20 - 29 ng/mL Optimal: > or = 30 ng/mL For 25-OH Vitamin D testing on patients on D2-supplementation and patients for whom quantitation of D2 and D3 fractions is required, the QuestAssureD(TM) 25-OH VIT D, (D2,D3), LC/MS/MS is recommended: order code 29847 (patients >2yrs). See Note 1 Note 1 For additional information, please refer to http://education.[employer]/faq/BMJ326 (This link is being provided for informational/ educational purposes only.) FASTING:NO FASTING: NO Test Performed at: [facility] [address] [place] [address] Moy Ibarra MD Blood 04/26/2025 2:25 PM CDT 04/26/2025 2:27 PM CDT us Philipp Pizarro MD CHEMISTRY ORDERABLES Final Result Performing Organization Address City/State/ZIP [place] Phone Number [facility] [phone] [facility] [address] [address] [place] [address] * (ABNORMAL) HEMOGLOBIN A1C (04/26/2025 2:25 PM CDT) HEMOGLOBIN A1C 6.3(H) <5.7 % of total Hgb [facility] Comment: For someone without known diabetes, [...] children. ESTIMATED AVERAGE GLUCOSE (MG/DL) 134 mg/dL [facility] ESTIMATED AVERAGE GLUCOSE (MMOL/L) 7.4 mmol/L [facility] Comment: FASTING:NO FASTING: NO Test Performed at: [facility] [address] [place] [address] GayelJose Ibarra Blood 04/26/2025 2:25 PM CDT 04/26/2025 2:27 PM CDT us Philipp Pizarro MD CHEMISTRY ORDERABLES Final Result [facility] [phone] [facility] [place] [address] [place] [address] * (ABNORMAL) LIPID PANEL (04/26/2025 2:25 PM CDT) CHOLESTEROL 212(H) <200 mg/dL [facility] HDL 63 > OR = 50 mg/dL [facility] TRIGLYCERIDE 512(H) <150 mg/dL [facility] Comment: If a non-fasting specimen was [...] Lipidol. 2015;9:129-169. LDL CALCULATED mg/dL (calc) [facility] Comment: LDL cholesterol not calculated. Triglyceride [...] LDL-C. Danilo SS et al. MARIEL. 2013;310(19): 8875-7789 (http://education.[employer] Data [employer]/faq/OXY452) CHOL/HDL RATIO 3.4 <5.0 (calc) [facility] NON-HDL CHOLESTEROL 149(H) <130 mg/dL (calc) [facility] Comment: For patients with diabetes plus 1 major ASCVD risk factor, treating to a non-HDL-C goal of <100 mg/dL (LDL-C of <70 mg/dL) is considered a therapeutic option. Test Performed at: [place] [address] [place] [address] Moy Ibarra Blood 04/26/2025 2:25 PM CDT 04/26/2025 2:27 PM CDT us Philipp Pizarro MD CHEMISTRY ORDERABLES Final Result [facility] [phone] [place] [address] [place] [phone] * (ABNORMAL) COMPREHENSIVE METABOLIC PANEL (04/26/2025 2:25 PM CDT) GLUCOSE 180(H) 65 - 139 mg/dL [facility] turntable.fm carlin [place] Comment: Non-fasting reference interval BUN 11 7 - 25 mg/dL [facility] turntable.fm carlin [place] CREATININE 0.52(L) 0.60 - 1.00 mg/dL [facility] GFR 96 > OR = 60 mL/min/1. 73m2 [facility] BUN/CREAT RATIO 21 6 - 22 (calc) [facility] SODIUM 139 135 - 146 mmol/L [facility] POTASSIUM 3.8 3.5 - 5.3 mmol/L [facility] CHLORIDE 101 98 - 110 mmol/L [facility] turntable[facility]fm carlin [place] CO2 29 20 - 32 mmol/L [facility]fm carlin [place] CALCIUM 10.9(H) 8.6 - 10.4 mg/dL [facility] TOTAL PROTEIN 6.9 6.1 - 8.1 g/dL [facility] carlin [place] ALBUMIN 4.8 3.6 - 5.1 g/dL [facility] turntable.fm-[facility] [place] GLOBULIN 2.1 1.9 - 3.7 g/dL (calc) [facility]- carlin [place] ALBUMIN/GLOBULIN RATIO 2.3 1.0 - 2.5 (calc) [facility] turntable[facility]fm-S carlin [place] BILIRUBIN TOTAL 0.3 0.2 - 1.2 mg/dL [facility] turntable.fm carlin [place] ALKALINE PHOSPHATASE 56 37 - 153 U/L [facility] turntable.fm carlin [place] AST 16 10 - 35 U/L [facility] turntable.fm carlin [place] ALT 18 6 - 29 U/L [facility] Comment: FASTING:NO FASTING: NO Test Performed at: [place] [address] [place] [address] Moy Ibarra Blood 04/26/2025 2:25 PM CDT 04/26/2025 2:27 PM CDT Philipp Pizarro MD CHEMISTRY ORDERABLES Final Result Performing Organization Address City/[facility] Phone Number [facility] [phone] [place] [address] [place] [address] * (ABNORMAL) DIABETES EYE EXAM (10/13/2024) DIABETIC RETINOPATHY SCREENING Positive [facility] Abstract Provider HEALTH MAINTENANCE Final Resul t Performing Organization Address City/[facility] Phone Number [facility] [id number] [address] [place] [address], [address] [place] [address] * XR DEXA BONE DENSITY AXIAL 1 OR MORE SITES (06/02/2024 3:48 PM OIL REFINERY PROCESS TECHNICIAN) Anatomical Region Laterality Modality Computed Radiogr aphy Impressions 06/02/2024 3:54 PM OIL REFINERY PROCESS TECHNICIAN : Patient has been on Actonel since [...] Abstract Provider GI PROCEDURE ORDERABLES Final Result [facility] [id number] [address] [place] [address], [address] [place] [phone] from Last 3 Months or Most Recently Relevant to Health Maintenance Insurance [facility] Advance Directives For more information, please contact: [phone] * Full Code (Latest Code Status on File) Date Activated Date Inactivated Comments 02/22/2010 8:28 AM 02/23/2010 2:31 AM Care Teams Fisheries Biologist Relationship Specialty Start Date End Date Philipp Pizarro MD [address] [place] [address] [place] [phone] PCP - General Internal Medicine 08/21/13
--- OUTSIDE RECORDS SUMMARY | 2025-06-21 22:04 | XMS_ITS | Encounter Summary ---
Author Organization [facility] Address [address] [place] [address] Care Team Providers Care Career Technology Teacher Name Role Phone Philipp Pizarro MD Primary Care Provid er Encounter Details Date Type Department Care Team (Latest Contact Info) Description 09/11/2002 Outpatient Historical HIS [facility] Naldo Devine BACKACHE NOS (Primary Dx) Social History Tobacco Use Types Packs/Day Years Used Date Smoking Tobacco: Never Assessed Comments Unknown Sex and Gender Information Value Date Recorded Sex Assigned at Not on file Legal Sex Female 3:43 AM CONTINUITY DIRECTOR Gender Identity Female 06/16/2025 8:03 AM CONTINUITY DIRECTOR Sexual Orientation Not on file documented as of this encounter Plan of Treatment Upcoming Encounters Date Type Department Care Team (Late st Contact Info) Description 10/26/2025 2:40 PM CDT Office Visit [facility], [address] [place] [address] Philipp Pizarro MD [address] [facility] [address] [place] [address] 03/31/2026 1:00 PM CDT Office Visit [facility], [address] [place] [address] Philipp Pizarro MD [address] [place] [address] [address] [place] [address] documented as of this encounter Visit Diagnoses Diagnosis Backache, unspecified- Primary documented in this encounter Additional Health Concerns Infection Onset Date Last Indicated Resolved Time R/O COVID-19 03/07/2020 03/07/2020 03/09/2020 4:45 AM CDT COVID-19 07/31/2021 07/31/2021 08/30/2021 1:16 AM CONTINUITY DIRECTOR documented as of this encounter Care Teams Career Technology Teacher Relationship Specialty Start Date End Date Philipp Pizarro MD [address] [place] [address] [address] [place] [address] PCP - General Internal Medicine 08/21/13 documented as of this encounter
--- OUTSIDE RECORDS SUMMARY | 2025-06-21 22:04 | XMS_ITS | Encounter Summary ---
Author Organization [facility] Address [address] [place] [address] Care Team Providers Care Meat Stuffer Name Role Phone Philipp Pizarro MD Primary Care Provid er Encounter Details Date Type Department Care Team (Latest Contact Info) Description 08/28/2005 Outpatient Historical HIS [facility] Naldo Devine SCREENING MAMM-MALIG NEOPL-HI RISK (Primary Dx) Social History Tobacco Use Types Packs/Day Years Used Date Smoking Tobacco: Never Assessed Comments Unknown Sex and Gender Information Value Date Recorded Sex Assigned at Not on file Legal Sex Female 3:43 AM SUPERVISOR NUCLEAR MEDICINE Gender Identity Female 06/16/2025 8:03 AM SUPERVISOR NUCLEAR MEDICINE Sexual Orientation Not on file documented as of this encounter Plan of Treatment Upcoming Encounters Date Type Department Care Team (Late st Contact Info) Description 10/26/2025 2:40 PM CDT Office Visit [facility], [address] [place] [address] Philipp Pizarro MD [address] [place] [address] [address] [place] [address] 03/31/2026 1:00 PM CDT Office Visit [facility], [address] [place] [address] Philipp Pizarro MD [address] [place] [address] [address] [place] [address] documented as of this encounter Visit Diagnoses Diagnosis Screening mammogram for high-risk patient- Primary documented in this encounter Additional Health Concerns Infection Onset Date Last Indicated Resolved Time R/O COVID-19 03/07/2020 03/07/2020 03/09/2020 4:45 AM CDT COVID-19 07/31/2021 07/31/2021 08/30/2021 1:16 AM SUPERVISOR NUCLEAR MEDICINE documented as of this encounter Care Teams Meat Stuffer Relationship Specialty Start Date End Date Philpip Pizarro MD [address] [place] [address] PCP - General Internal Medicine 08/21/13 documented as of this encounter
--- OUTSIDE RECORDS SUMMARY | 2025-06-21 22:04 | XMS_ITS | Encounter Summary ---
Author Organization [facility] Address [address] [place] [address] Care Team Providers Care Slag Wheeler Name Role Phone Philipp Pizarro MD Primary Care Provid er Encounter Details Date Type Department Care Team (Late st Contact Info) Description 12/20/2000 Outpatient Historical HIS [facility] Naldo Devine Social History Tobacco Use Types Packs/Day Years Used Date Smoking Tobacco: Never Assessed Comments Unknown Sex and Gender Information Value Date Recorded Sex Assigned at Not on file Legal Sex Female 3:43 AM PROBATION AND PATROL AGENT Gender Identity Female 06/16/2025 8:03 AM PROBATION AND PATROL AGENT Sexual Orientation Not on file documented as of this encounter Plan of Treatment Upcoming Encounters Date Type Department Care Team (Late st Contact Info) Description 10/26/2025 2:40 PM CDT Office Visit [facility], [address] [place] [address] Philipp Pizarro MD [address] [facility] [address] [place] [address] 03/31/2026 1:00 PM CDT Office Visit [facility], [address] [place] [address] Philipp Pizarro MD [address] [place] [address] documented as of this encounter Visit Diagnoses Not on filedocumented in this encounter Additional Health Concerns Infection Onset Date Last Indicated Resolved Time R/O COVID-19 03/07/2020 03/07/2020 03/09/2020 4:45 AM CDT COVID-19 07/31/2021 07/31/2021 08/30/2021 1:16 AM PROBATION AND PATROL AGENT documented as of this encounter Care Teams Slag Wheeler Relationship Specialty Start Date End Date Philipp Pizarro MD [address] [place] [address] PCP - General Internal Medicine 08/21/13 documented as of this encounter
--- OUTSIDE RECORDS SUMMARY | 2025-06-21 22:04 | XMS_ITS | Encounter Summary ---
Author Organization [facility] Address [address] [place] [address] Care Team Providers Care Litigation Paralegal Name Role Phone Philipp Pizarro MD Primary Care Provid er Encounter Details Date Type Department Care Team (Late st Contact Info) Description 05/15/2006 Outpatient Historical [facility], [address] Danielle Valeriy Social History Tobacco Use Types Packs/Day Years Used Date Smoking Tobacco: Never Assessed Comments Unknown Sex and Gender Information Value Date Recorded Sex Assigned at Not on file Legal Sex Female 3:43 AM FIELD SAMPLING TECHNICIAN Gender Identity Female 06/16/2025 8:03 AM FIELD SAMPLING TECHNICIAN Sexual Orientation Not on file documented as of this encounter Plan of Treatment Upcoming Encounters Date Type Department Care Team (Late st Contact Info) Description 10/26/2025 2:40 PM CDT Office Visit [facility], [address] [place] [address] Philipp Pizarro MD [address] [facility] [address] [place] [address] 03/31/2026 1:00 PM CDT Office Visit [facility], [address] [place] [address] Philipp Pizarro MD [address] [facility] [address] [place] [address] documented [...] available on the [facility] Intranet at: [email or web address] Select: Lab Policies and Procedures Select: Reference [...] CDT COVID-19 07/31/2021 07/31/2021 08/30/2021 1:16 AM FIELD SAMPLING TECHNICIAN documented as of this encounter Care Teams Litigation Paralegal Relationship Specialty Start Date End Date Philipp Pizarro MD [address] [place] [address] PCP - General Internal Medicine 08/21/13 documented as of this encounter
--- OUTSIDE RECORDS SUMMARY | 2025-06-21 22:04 | XMS_ITS | Encounter Summary ---
Author Organization [facility] Address [address] [place] [address] Care Team Providers Care Aba Therapist Name Role Phone Philipp Pizarro MD Primary Care Provid er Encounter Details Date Type Department Care Team (Latest Contact Info) Description 06/29/2004 Outpatient Historical HIS [facility] Naldo Devine SCREENING MAMM-MAILG NEOPL-OTHER (Primary Dx) Social History Tobacco Use Types Packs/Day Years Used Date Smoking Tobacco: Never Assessed Comments Unknown Sex and Gender Information Value Date Recorded Sex Assigned at Not on file Legal Sex Female 3:43 AM INFANT TEACHER Gender Identity Female 06/16/2025 8:03 AM INFANT TEACHER Sexual Orientation Not on file documented as of this encounter Plan of Treatment Upcoming Encounters Date Type Department Care Team (Late st Contact Info) Description 10/26/2025 2:40 PM CDT Office Visit [facility], [address] [place] [address] Philipp Pizarro MD [address] [place] [address] [place] [address] 03/31/2026 1:00 PM CDT Office Visit [facility], [address] [place] [address] Philipp Pizarro MD [address] [place] [address] [address] [place] [address] documented as of this encounter Visit Diagnoses Diagnosis Other screening mammogram- Primary documented in this encounter Additional Health Concerns Infection Onset Date Last Indicated Resolved Time R/O COVID-19 03/07/2020 03/07/2020 03/09/2020 4:45 AM CDT COVID-19 07/31/2021 07/31/2021 08/30/2021 1:16 AM INFANT TEACHER documented as of this encounter Care Teams Aba Therapist Relationship Specialty Start Date End Date Philipp Pizarro MD [address] [place] [address] PCP - General Internal Medicine 08/21/13 documented as of this encounter
--- OUTSIDE RECORDS SUMMARY | 2025-06-21 22:04 | XMS_ITS | Encounter Summary ---
Author Organization [facility] Address [address] [facility] Attn: [place] [address] Care Team Providers Care Drum Plater Name Role Phone Philipp Pizarro MD Primary Care Provid er Encounter Details Date Type Department Care Team (Late st Contact Info) Description 12/10/1995 Outpatient Historical Naldo Santos Social History Tobacco Use Types Packs/Day Years Used Date Smoking Tobacco: Never Assessed Comments Unknown Sex and Gender Information Value Date Recorded Sex Assigned at Not on file Legal Sex Female 3:43 AM DOCTOR OF NAPRAPATHIC MEDICINE Gender Identity Female 06/16/2025 8:03 AM DOCTOR OF NAPRAPATHIC MEDICINE Sexual Orientation Not on file documented as of this encounter Plan of Treatment Upcoming Encounters Date Type Department Care Team (Late st Contact Info) Description 10/26/2025 2:40 PM CDT Office Visit [facility], [address] [place] [address] Philipp Pizarro MD [address] [facility] [address] [place] [address] 03/31/2026 1:00 PM CDT Office Visit [facility], [address] [place] [address] Philipp Pizarro MD [address] [place] [address] documented as of this encounter Visit Diagnoses Not on filedocumented in this encounter Additional Health Concerns Infection Onset Date Last Indicated Resolved Time R/O COVID-19 03/07/2020 03/07/2020 03/09/2020 4:45 AM CDT COVID-19 07/31/2021 07/31/2021 08/30/2021 1:16 AM DOCTOR OF NAPRAPATHIC MEDICINE documented as of this encounter Care Teams Drum Plater Relationship Specialty Start Date End Date Philipp Pizarro MD [address] [place] [address] PCP - General Internal Medicine 08/21/13 documented as of this encounter
--- OUTSIDE RECORDS SUMMARY | 2025-06-21 22:04 | XMS_ITS | Encounter Summary ---
Author Organization [facility] Address [address] [place] [address] Care Team Providers Care Workers Compensation Claims Examiner Name Role Phone Philipp Pizarro MD Primary Care Provid er Encounter Details Date Type Department Care Team (Late st Contact Info) Description 09/13/2004 Outpatient Historical [facility], [address] Danielle Valeriy Social History Tobacco Use Types Packs/Day Years Used Date Smoking Tobacco: Never Assessed Comments Unknown Sex and Gender Information Value Date Recorded Sex Assigned at Not on file Legal Sex Female 3:43 AM HEALTH INFORMATICS ADVISOR Gender Identity Female 06/16/2025 8:03 AM HEALTH INFORMATICS ADVISOR Sexual Orientation Not on file documented as of this encounter Plan of Treatment Upcoming Encounters Date Type Department Care Team (Late st Contact Info) Description 10/26/2025 2:40 PM CDT Office Visit [facility], [address] [place] [address] Philipp Pizarro MD [address] [facility] [address] [place] [address] 03/31/2026 1:00 PM CDT Office Visit [facility], [address] [place] [address] Philipp Pizarro MD [address] [facility] [address] [place] [address] documented as of this encounter Procedures Procedure Name Priority Date/Time Associated Diagnosis Comments URINALYSIS WITH MICROSCOPIC Routine 09/13/2004 10:55 AM HEALTH INFORMATICS ADVISOR documented in this encounter Results * (ABNORMAL) URINALYSIS WITH MICROSCOPIC (09/13/2004 10:55 AM HEALTH INFORMATICS ADVISOR) COLOR UA Yellow INTERFACE SYSTEM CLARITY UA [...] /HPF INTERFACE SYSTEM 09/13/2004 10:5 5 AM HEALTH INFORMATICS ADVISOR Naldo Santos URINE ORDERABLES Final Result INTERFACE SYSTEM Refer to clinic/hospital department documented in this encounter Visit Diagnoses Not on filedocumented in this encounter Additional Health Concerns Infection Onset Date Last Indicated Resolved Time R/O COVID-19 03/07/2020 03/07/2020 03/09/2020 4:45 AM CDT COVID-19 07/31/2021 07/31/2021 08/30/2021 1:16 AM HEALTH INFORMATICS ADVISOR documented as of this encounter Care Teams Workers Compensation Claims Examiner Relationship Specialty Start Date End Date Philipp Pizarro MD [address] [facility] [address] [place] [address] PCP - General Internal Medicine 08/21/13 documented as of this encounter
--- OUTSIDE RECORDS SUMMARY | 2025-06-21 22:04 | XMS_ITS | Encounter Summary ---
Author Organization [facility] Address [address] [place] [address] Care Team Providers Care Design Engineering Intern Name Role Phone Philipp Pizarro MD Primary Care Provid er Encounter Details Date Type Department Care Team (Latest Contact Info) Description 09/11/2002 Outpatient Historical [facility] Naldo Santos SCREENING FOR OSTEOPOROSIS (Primary Dx) Social History Tobacco Use Types Packs/Day Years Used Date Smoking Tobacco: Never Assessed Comments Unknown Sex and Gender Information Value Date Recorded Sex Assigned at Not on file Legal Sex Female 3:43 AM TOPPIECE CUTTER Gender Identity Female 06/16/2025 8:03 AM TOPPIECE CUTTER Sexual Orientation Not on file documented as of this encounter Plan of Treatment Upcoming Encounters Date Type Department Care Team (Late st Contact Info) Description 10/26/2025 2:40 PM CDT Office Visit [facility], [address] [place] [address] Philipp Pizarro MD [address] [facility] [address] [place] [address] 03/31/2026 1:00 PM CDT Office Visit [facility], [address] [place] [address] Philipp Pizarro MD [address] [place] [address] documented as of this encounter Visit Diagnoses Diagnosis Special screening for osteoporosis- Primary documented in this encounter Additional Health Concerns Infection Onset Date Last Indicated Resolved Time R/O COVID-19 03/07/2020 03/07/2020 03/09/2020 4:45 AM CDT COVID-19 07/31/2021 07/31/2021 08/30/2021 1:16 AM TOPPIECE CUTTER documented as of this encounter Care Teams Design Engineering Intern Relationship Specialty Start Date End Date Philipp Pizarro MD [address] [place] [address] PCP - General Internal Medicine 08/21/13 documented as of this encounter
--- OUTSIDE RECORDS SUMMARY | 2025-06-21 22:04 | XMS_ITS | Encounter Summary ---
Author Organization [facility] Address [address] [facility] Attn: [place] [address] Care Team Providers Care Nursery Hand Name Role Phone Philipp Pizarro MD Primary Care Provid er Encounter Details Date Type Department Care Team (Late st Contact Info) Description 04/18/1995 Outpatient Historical Naldo Santos Social History Tobacco Use Types Packs/Day Years Used Date Smoking Tobacco: Never Assessed Comments Unknown Sex and Gender Information Value Date Recorded Sex Assigned at Not on file Legal Sex Female 3:43 AM SCISSORS SHARPENER Gender Identity Female 06/16/2025 8:03 AM SCISSORS SHARPENER Sexual Orientation Not on file documented as of this encounter Plan of Treatment Upcoming Encounters Date Type Department Care Team (Late st Contact Info) Description 10/26/2025 2:40 PM CDT Office Visit [facility], [address] [place] [address] Philipp Pizarro MD [address] [facility] [address] [place] [address] 03/31/2026 1:00 PM CDT Office Visit [facility], [address] [place] [address] Philipp Pizarro MD [address] [place] [address] documented as of this encounter Visit Diagnoses Not on filedocumented in this encounter Additional Health Concerns Infection Onset Date Last Indicated Resolved Time R/O COVID-19 03/07/2020 03/07/2020 03/09/2020 4:45 AM CDT COVID-19 07/31/2021 07/31/2021 08/30/2021 1:16 AM SCISSORS SHARPENER documented as of this encounter Care Teams Nursery Hand Relationship Specialty Start Date End Date Philipp Pizarro MD [address] [place] [address] PCP - General Internal Medicine 08/21/13 documented as of this encounter
--- OUTSIDE RECORDS SUMMARY | 2025-06-21 22:04 | XMS_ITS | Encounter Summary ---
Author Organization [facility] Address [address] [place] [address] Care Team Providers Care Systems Management Consultant Name Role Phone Philipp Pizarro MD Primary Care Provid er Encounter Details Date Type Department Care Team (Latest Contact Info) Description 10/24/2007 Outpatient Historical [facility] [address] [place] [address] DM w/o Complication Type II (CMS/HCC) Social History Tobacco Use Types Packs/Day Years Used Date Smoking Tobacco: Never Assessed Comments Unknown Sex and Gender Information Value Date Recorded Sex Assigned at Not on file Legal Sex Female 3:43 AM ANALYSIS CONSULTANT Gender Identity Female 06/16/2025 8:03 AM ANALYSIS CONSULTANT Sexual Orientation Not on file documented as of this encounter Plan of Treatment Upcoming Encounters Date Type Department Care Team (Late st Contact Info) Description 10/26/2025 2:40 PM CDT Office Visit [facility] Primary Care - [facility], [address] [place] [address] [place] [address] Philipp Pizarro MD [address] [facility] [address] [place] [address] 03/31/2026 1:00 PM CDT Office Visit [facility] Primary Care - [facility], [address] [place] [address] [address] [place] [address] Philipp Pizarro MD [address] [place] [address] [address] [place] [address] documented as of this encounter Visit Diagnoses Diagnosis Type II or unspecified type diabetes mellitus without mention of complication, not stated as uncontrolled documented in this encounter Additional Health Concerns Infection Onset Date Last Indicated Resolved Time R/O COVID-19 03/07/2020 03/07/2020 03/09/2020 4:45 AM CDT COVID-19 07/31/2021 07/31/2021 08/30/2021 1:16 AM ANALYSIS CONSULTANT documented as of this encounter Care Teams Systems Management Consultant Relationship Specialty Start Date End Date Philipp Pizarro MD [address] [place] [address] [address] [place] [address] PCP - General Internal Medicine 08/21/13 documented as of this encounter
--- OUTSIDE RECORDS SUMMARY | 2025-06-21 22:04 | XMS_ITS | Encounter Summary ---
Author Organization [facility] Address [address] [place] [address] Care Team Providers Care Intervention Specialist Name Role Phone Philipp Pizarro MD Primary Care Provid er Reason for Visit * Reason Comments Clinical Consult Before Scheduling Encounter Details Date Type Department Care Team (Late st Contact Info) Description 06/21/2025 Nurse Triage [facility] Primary Care - [facility], [address] [place] [address] Philipp Pizarro MD [address] [place] [address] [place] [address] HTN (hypertension), benign Social History Tobacco [...] on file Legal Sex Female 3:43 AM APPRENTICE/LINEMAN Gender Identity Female 06/16/2025 8:03 AM APPRENTICE/LINEMAN Sexual Orientation Not on file Occupation Industry Job Start Date Job End Date Not on file Not on file Not on file Not on file documented as of this encounter Miscellaneous Notes * Telephone Encounter - Ghazala Plummer RN - 06/21/2025 3:43 PM CST 06/21/2025 3:43 PM Returned call and spoke with patient. Discussed provider notes. Voiced understanding. Ghazala DAVEY ENTICE/LINEMAN * Telephone Encounter - Marck Yanez NP - 06/21/2025 3:06 PM APPRENTICE/LINEMAN Increase hctz to 50mg ENTICE/LINEMAN * Telephone Encounter - Misty Jha RN [...] medication (name and dose): Other pertinent information: [facility] 06/16/25 for elevated BP. She had [...] SELF MEASURED BLOOD PRESSURE (SMBP) REPORTING THROUGH [facility] (aka [facility]). Additional notes for Phone Management by [...] - schedule OV ALEJO Patient develops symptoms ENTICE/LINEMAN * Telephone Encounter - Melva Booth - 06/21/2025 1:51 PM CST Copied from [facility] #[id number]. Topic: Symptomatic Care >> Jun 21, 2025 [...] there an encounter open? No Transferred to [facility] Jose answered call. ENTICE/LINEMAN documented in this encounter Plan of Treatment Upcoming Encounters Date Type Department Care Team (Late st Contact Info) Description 10/26/2025 2:40 PM CDT Office Visit [facility] Primary Care - [facility], [address] [place] [address] Philipp Pizarro MD [address] [facility] [address] [place] [address] 03/31/2026 1:00 PM CDT Office Visit [facility] Primary Care - [facility], [address] [place] [address] Philipp Pizarro MD [address] [place] [address] [place] [address] documented as of this encounter Visit Diagnoses Diagnosis HTN (hypertension), benign Essential hypertension, benign documented in this encounter Care Teams Intervention Specialist Relationship Specialty Start Date End Date Philipp Pizarro MD [address] [place] [address] PCP - General Internal Medicine 08/21/13 documented as of this encounter
--- OUTSIDE RECORDS SUMMARY | 2025-06-21 22:04 | XMS_ITS | Encounter Summary ---
Author Organization [facility] Address [address] [address] Attn: [place] [address] Care Team Providers Care Deaf And Hard Of Hearing Teacher Name Role Phone Philipp Pizarro MD [...] file Legal Sex Female 3:43 AM SAP GATHERER Gender Identity Female 06/16/2025 8:03 AM SAP GATHERER Sexual Orientation Not on file documented as of this encounter Plan of Treatment Upcoming Encounters Date Type Department Care Team (Late st Contact Info) Description 10/26/2025 2:40 PM CDT Office Visit [facility], [address] [place] [address] [place] [address] Philipp Pizarro MD [address] [place] [address] [place] [address] 03/31/2026 1:00 PM CDT Office Visit [facility], [address] [place] [address] Philipp Pizarro MD [address] [place] [address] [address] [place] [address] documented as of this encounter Visit Diagnoses Not on filedocumented in this encounter Additional Health Concerns Infection Onset Date Last Indicated Resolved Time R/O COVID-19 03/07/2020 03/07/2020 03/09/2020 4:45 AM CDT COVID-19 07/31/2021 07/31/2021 08/30/2021 1:16 AM SAP GATHERER documented as of this encounter Care Teams Deaf And Hard Of Hearing Teacher Relationship Specialty Start Date End Date Philipp Pizarro MD [address] [place] [address] PCP - General Internal Medicine 08/21/13 documented as of this encounter
--- OUTSIDE RECORDS SUMMARY | 2025-06-21 22:04 | XMS_ITS | Encounter Summary ---
Author Organization [facility] Address [address] [place] [address] Care Team Providers Care Parcel Contractor Name Role Phone Philipp Pizarro MD Primary Care Provid er Encounter Details Date Type Department Care Team (Latest Contact Info) Description 08/31/1998 Outpatient Historical [facility] [employer] DEPARTMENT CHAIR Naldo Santos Other and unspecified hyperlipidemia (Primary Dx) Social History Tobacco Use Types Packs/Day Years Used Date Smoking Tobacco: Never Assessed Comments Unknown Sex and Gender Information Value Date Recorded Sex Assigned at Not on file Legal Sex Female 3:43 AM ASSISTANT BOILER OPERATOR Gender Identity Female 06/16/2025 8:03 AM ASSISTANT BOILER OPERATOR Sexual Orientation Not on file documented as of this encounter Plan of Treatment Upcoming Encounters Date Type Department Care Team (Late st Contact Info) Description 10/26/2025 2:40 PM CDT Office Visit [facility], [address] [place] [address] [place] [address] Philipp Pizarro MD [address] [facility] [address] [place] [address] 03/31/2026 1:00 PM CDT Office Visit [facility], [address] [place] [address] Philipp Pizarro MD [address] [place] [address] [address] [place] [address] documented as of this encounter Visit Diagnoses Diagnosis Other and unspecified hyperlipidemia- Primary documented in this encounter Additional Health Concerns Infection Onset Date Last Indicated Resolved Time R/O COVID-19 03/07/2020 03/07/2020 03/09/2020 4:45 AM CDT COVID-19 07/31/2021 07/31/2021 08/30/2021 1:16 AM ASSISTANT BOILER OPERATOR documented as of this encounter Care Teams Parcel Contractor Relationship Specialty Start Date End Date Philipp Pizarro MD [address] [place] [address] [address] [place] [address] PCP - General Internal Medicine 08/21/13 documented as of this encounter
--- OUTSIDE RECORDS SUMMARY | 2025-06-21 22:04 | XMS_ITS | Encounter Summary ---
Author Organization [facility] Address [address] [place] [address] Care Team Providers Care Plastic Parts Fabricator Trimmer Name Role Phone Philipp Pizarro MD Primary Care Provid er Encounter Details Date Type Department Care Team (Late st Contact Info) Description 09/26/2007 Outpatient Historical [facility] Naldo Devine Lumbago Social History Tobacco Use Types Packs/Day Years Used Date Smoking Tobacco: Never Assessed Comments Unknown Sex and Gender Information Value Date Recorded Sex Assigned at Not on file Legal Sex Female 3:[address] Gender Identity Female 06/16/2025 8:[address] MAN Sexual Orientation Not on file documented as of this encounter Plan of Treatment Upcoming Encounters Date Type Department Care Team (Late st Contact Info) Description 10/26/2025 2:40 PM CDT Office Visit [facility], [address] [place] [address] Philipp Pizarro MD [address] [facility] [address] [place] [address] 03/31/2026 1:00 PM CDT Office Visit [facility], [address] [place] [address] Philipp Pizarro MD [address] [facility] [address] [place] [address] documented as of this encounter Procedures Procedure Name Priority Date/Time Associated Diagnosis Comments XR LUMBAR SPINE 4+ VW Routine 09/26/2007 9:[address] documented in this encounter Results * XR LUMBAR SPINE 4+ VW (09/26/2007 9:[address] MAN) Anatomical Region Laterality Modality Spine Other 09/26/2007 9:[address] Narrative 09/26/2007 10:[address] [address] Admit Date: 09/26/2007 KRISTINA HUTSON Sex: F Admit Prov: NALDO SANTOS Date: 1950 Primary Care Prov: NALDO SANTOS; CMRN: [id number] NALDO SANTOS SSN: [id number] Room: [facility] Ordering Prov: N/A Accession Number: [id number] Interpretation Examination: Lumbar spine 5 views Clinical History: Back pain. Findings: Examination of the lumbar spine fails to demonstrate fracture, dislocation, or subluxation. The disk spaces are preserved. The posterior elements are normal. Impression: Radiographically normal lumbar spine. . Dictated by: David RAIN 09/26/2007 10:10 Electronically signed by: David RAIN 09/26/2007 10:10 Procedure Note Provider, Historical - 09/26/[address] [address] Admit Date: 09/26/2007 KRISTINA HUTSON Sex: F Admit Prov: NALDO SANTOS Date: 1950 Primary Care Prov: NALDO SANTOS; CMRN: [id number] NALDO SANTOS SSN: [id number] Room: [facility] Ordering Prov: N/A [...] CDT COVID-19 07/31/2021 07/31/2021 08/30/2021 1:[address] documented as of this encounter Care Teams Plastic Parts Fabricator Trimmer Relationship Specialty Start Date End Date Philipp Pizarro MD [address] [place] [address] PCP - General Internal Medicine 08/21/13 documented as of this encounter
--- OUTSIDE RECORDS SUMMARY | 2025-06-21 22:04 | XMS_ITS | Encounter Summary ---
Author Organization [facility] Address [address] [place] [address] Care Team Providers Care Hims Coder Name Role Phone Philipp Pizarro MD Primary Care Provid er Encounter Details Date Type Department Care Team (Late st Contact Info) Description 08/28/2005 Outpatient Historical [facility], [address] Danielle Valeriy Social History Tobacco Use Types Packs/Day Years Used Date Smoking Tobacco: Never Assessed Comments Unknown Sex and Gender Information Value Date Recorded Sex Assigned at Not on file Legal Sex Female 3:43 AM REGIONAL COMPANY TRUCK DRIVER Gender Identity Female 06/16/2025 8:03 AM REGIONAL COMPANY TRUCK DRIVER Sexual Orientation Not on file documented as of this encounter Plan of Treatment Upcoming Encounters Date Type Department Care Team (Late st Contact Info) Description 10/26/2025 2:40 PM CDT Office Visit [facility], [address] [place] [address] Philipp Pizarro MD [address] [facility] [address] [place] [address] 03/31/2026 1:00 PM CDT Office Visit [facility], [address] [place] [address] Philipp Pizarro MD [address] [facility] [address] [place] [address] documented as of this encounter Procedures Procedure Name Priority Date/Time Associated Diagnosis Comments CBC WITH DIFFERENTIAL Routine 08/28/2005 10:45 AM REGIONAL COMPANY TRUCK DRIVER CBC WITH DIFFERENTIAL Routine 08/28/2005 10:45 AM REGIONAL COMPANY TRUCK DRIVER TSH Routine 08/28/2005 10:45 AM REGIONAL COMPANY TRUCK DRIVER LIPID PANEL Routine 08/28/2005 10:45 AM REGIONAL COMPANY TRUCK DRIVER COMPREHENSIVE METABOLIC PANEL Routine 08/28/2005 10:45 AM REGIONAL COMPANY TRUCK DRIVER documented in this encounter Results * CBC WITH DIFFERENTIAL (08/28/2005 10:45 AM REGIONAL COMPANY TRUCK DRIVER) NEUTROPHILS 57 45 - 70 % INTERFAC [...] K/uL INTERFACE SYSTEM 08/28/2005 10:4 5 AM REGIONAL COMPANY TRUCK DRIVER us Naldo Santos HEMATOLOGY ORDERABLES Final Res ult INTERFACE SYSTEM Refer to clinic/hospital department * (ABNORMAL) CBC WITH DIFFERENTIAL (08/28/2005 10:45 AM REGIONAL COMPANY TRUCK DRIVER) WBC 5.7 4.0 - 9.8 K/uL INTERFACE [...] fL INTERFACE SYSTEM 08/28/2005 10:4 5 AM [employer] TRUCK DRIVER Naldo Santos HEMATOLOGY ORDERABLES Final Res ult Performing Organization Address [facility] de Phone Number INTERFACE SYSTEM Refer to clinic/hospital department * TSH (08/28/2005 10:45 AM [employer] TRUCK DRIVER) Pathologist [facility] TSH 1.97 0.27 - 4.20 uU/mL INTERFACE SYSTEM 08/28/2005 10:4 5 AM [employer] TRUCK DRIVER Naldo Santos CHEMISTRY ORDERABLES Final Resu lt Performing Organization Address [facility] Phone Number INTERFACE SYSTEM Refer to clinic/hospital department * (ABNORMAL) LIPID PANEL (08/28/2005 10:45 AM [employer] TRUCK DRIVER) LIPID PANEL COMMENT See below INTERFACE SYSTEM [...] for risk classifications. 08/28/2005 10:4 5 AM [employer] TRUCK DRIVER Naldo Moneten CHEMISTRY ORDERABLES Final Resu lt Performing Organization Address [facility] de Phone Number INTERFACE SYSTEM Refer to clinic/hospital department * (ABNORMAL) COMPREHENSIVE METABOLIC PANEL (08/28/2005 10:45 AM [employer] TRUCK DRIVER) GLUCOSE 117(H) 65 - 109 mg/dL INTERFACE [...] mmol/L INTERFACE SYSTEM 08/28/2005 10:4 5 AM [employer] TRUCK DRIVER Cloneless CHEMISTRY ORDERABLES Final Resu lt Performing Organization Address [facility] de Phone Number INTERFACE SYSTEM Refer to clinic/hospital department documented in this encounter Visit Diagnoses Not on filedocumented in this encounter Additional Health Concerns Infection Onset Date Last Indicated Resolved Time R/O COVID-19 03/07/2020 03/07/2020 03/09/2020 4:45 AM CDT COVID-19 07/31/2021 07/31/2021 08/30/2021 1:16 AM REGIONAL COMPANY TRUCK DRIVER documented as of this encounter Care Teams Hims Coder Relationship Specialty Start Date End Date Philipp Pizarro MD [address] [place] [id number] PCP - General Internal Medicine 08/21/13 documented as of this encounter
--- OUTSIDE RECORDS SUMMARY | 2025-06-21 22:04 | XMS_ITS | Encounter Summary ---
Author Organization [facility] Address [address] [place] [address] Care Team Providers Care Food And Drug Inspector Name Role Phone Philipp Pizarro MD Primary [...] on file Legal Sex Female 3:43 AM FORECLOSURE CLERK Gender Identity Female 06/16/2025 8:03 AM FORECLOSURE CLERK Sexual Orientation Not on file documented as of this encounter Plan of Treatment Upcoming Encounters Date Type Department Care Team (Late st Contact Info) Description 10/26/2025 2:40 PM CDT Office Visit [facility], [address] [place] [address] Philipp Pizarro MD [address] [facility] [address] [place] [address] 03/31/2026 1:00 PM CDT Office Visit [facility], [address] [place] [address] Phliipp Pizarro MD [address] [place] [address] 310 [place] [address] documented as of this encounter Visit Diagnoses Diagnosis Goiter, unspecified- Primary documented in this encounter Additional Health Concerns Infection Onset Date Last Indicated Resolved Time R/O COVID-19 03/07/2020 03/07/2020 03/09/2020 4:45 AM CDT COVID-19 07/31/2021 07/31/2021 08/30/2021 1:16 AM FORECLOSURE CLERK documented as of this encounter Care Teams Food And Drug Inspector Relationship Specialty Start Date End Date Philipp Pizarro MD [address] [place] [address] PCP - General Internal Medicine 08/21/13 documented as of this encounter
--- OUTSIDE RECORDS SUMMARY | 2025-06-21 22:04 | XMS_ITS | Encounter Summary ---
Author Organization [facility] Address [address] [place] [address] Care Team Providers Care Superintendent Meter Tests Name Role Phone Philipp Pizarro MD Primary [...] on file Legal Sex Female 3:43 AM BRIDGE PAINTER Gender Identity Female 06/16/2025 8:03 AM BRIDGE PAINTER Sexual Orientation Not on file Occupation Industry [...] Pizarro <<<<<<<< TRIAGE NOTE >>>>>>>> Triage Note: Church Business Administrator Petty Rueda added this note on Apr [...] still this patients PCP at [facility]. Resend and they will fill. <<<<<<<< [...] 10/26/2025 2:40 PM CDT Office Visit [facility], [address] [place] [address] Philipp Pizarro MD [address] [place] [address] [place] [address] 03/31/2026 1:00 PM CDT Office Visit [facility], [address] [place] [address] Philipp Pizarro MD [address] [place] [address] [place] [phone] documented as of this encounter Visit Diagnoses Not on filedocumented in this encounter Additional Health Concerns Infection Onset Date Last Indicated Resolved Time R/O COVID-19 03/07/2020 03/07/2020 03/09/2020 4:45 AM CDT COVID-19 07/31/2021 07/31/2021 08/30/2021 1:16 AM BRIDGE PAINTER documented as of this encounter Care Teams Superintendent Meter Tests Relationship Specialty Start Date End Date Philipp Pizarro MD [address] [place] [address] [place] [address] PCP - General Internal Medicine 08/21/13 documented as of this encounter
--- OUTSIDE RECORDS SUMMARY | 2025-06-21 22:04 | XMS_ITS | Encounter Summary ---
Author Organization [facility] Address [address] [facility] Attn: [place] [address] Care Team Providers Care Undercover Operator Name Role Phone Philipp Pizarro MD Primary Care Provid er Encounter Details Date Type Department Care Team (Late st Contact Info) Description 02/19/1992 Outpatient Historical [facility] Social History Tobacco Use Types Packs/Day Years Used Date Smoking Tobacco: Never Assessed Comments Unknown Sex and Gender Information Value Date Recorded Sex Assigned at Not on file Legal Sex Female 3:43 AM PAPER MACHINE TENDER Gender Identity Female 06/16/2025 8:03 AM PAPER MACHINE TENDER Sexual Orientation Not on file documented as of this encounter Plan of Treatment Upcoming Encounters Date Type Department Care Team (Late st Contact Info) Description 10/26/2025 2:40 PM CDT Office Visit [facility], [address] [place] [address] Philipp Pizarro MD 1000 [facility] [address] [place] [address] 03/31/2026 1:00 PM CDT Office Visit [facility], [address] [place] [address] Philipp Pizarro MD [address] [place] [address] documented as of this encounter Visit Diagnoses Not on filedocumented in this encounter Additional Health Concerns Infection Onset Date Last Indicated Resolved Time R/O COVID-19 03/07/2020 03/07/2020 03/09/2020 4:45 AM CDT COVID-19 07/31/2021 07/31/2021 08/30/2021 1:16 AM PAPER MACHINE TENDER documented as of this encounter Care Teams Undercover Operator Relationship Specialty Start Date End Date Philipp Pizarro MD [address] [place] [address] PCP - General Internal Medicine 08/21/13 documented as of this encounter
--- OUTSIDE RECORDS SUMMARY | 2025-06-21 22:04 | XMS_ITS | Encounter Summary ---
Author Organization [facility] Address [address] [facility] Attn: [place] [address] Care Team Providers Care Bi Developer Name Role Phone Philipp Pizarro MD Primary Care Provid er Encounter Details Date Type Department Care Team (Late st Contact Info) Description 03/11/1989 Outpatient Historical [facility]do Santos Social History Tobacco Use Types Packs/Day Years Used Date Smoking Tobacco: Never Assessed Comments Unknown Sex and Gender Information Value Date Recorded Sex Assigned at Not on file Legal Sex Female 3:43 AM APPLICATION SUPPORT ADMINISTRATOR Gender Identity Female 06/16/2025 8:03 AM APPLICATION SUPPORT ADMINISTRATOR Sexual Orientation Not on file documented as of this encounter Plan of Treatment Upcoming Encounters Date Type Department Care Team (Late st Contact Info) Description 10/26/2025 2:40 PM CDT Office Visit [facility], [address] [place] [address] Philipp Pizarro MD 1000 [facility] [address] [place] [address] 03/31/2026 1:00 PM CDT Office Visit [facility], [address] [place] [address] Philipp Pizarro MD [address] [place] [address] documented as of this encounter Visit Diagnoses Not on filedocumented in this encounter Additional Health Concerns Infection Onset Date Last Indicated Resolved Time R/O COVID-19 03/07/2020 03/07/2020 03/09/2020 4:45 AM CDT COVID-19 07/31/2021 07/31/2021 08/30/2021 1:16 AM APPLICATION SUPPORT ADMINISTRATOR documented as of this encounter Care Teams Bi Developer Relationship Specialty Start Date End Date Philipp Pizarro MD [address] [place] [address] PCP - General Internal Medicine 08/21/13 documented as of this encounter
--- OUTSIDE RECORDS SUMMARY | 2025-06-21 22:04 | XMS_ITS | Encounter Summary ---
Author Organization [facility] Address [address] [place] [address] Care Team Providers Care Butcher Or Smallgoods Maker Name Role Phone Philipp Pizarro MD Primary Care Provid er Reason for Visit * Reason Comments Medication Assistance Encounter Details Date Type Department Care Team (Late st Contact Info) Description 01/31/2024 Telephone [facility] Primary Care - [facility], [address] [place] [address] Philipp Pizarro MD [address] [place] [address] [place] [address] Medication Assistance Social History Tobacco Use [...] on file Legal Sex Female 3:43 AM RABBET OPERATOR Gender Identity Female 06/16/2025 8:03 AM RABBET OPERATOR Sexual Orientation Not on file Occupation [...] CDT Left message on preferred line @ [phone] asking pt to contact office at earliest convenience. * Telephone Encounter - Margoth Tinoco FNP - 01/31/2024 10:52 AM CDT What symptoms is she having? Will send in abx but if no improvement in symptoms, seek care at local near where she is * Telephone Encounter - Sandy Goodwin - 01/31/2024 9:43 AM CDT Copied from [facility] #[id number]. Topic: Medication Request >> Jan 31, 2024 9:40 AM Sandy Ann wrote: Caller is requesting: Medication - New Request (Not Currently Taking) Medication (Ask patient/caregiver to spell if possible): MED FOR UTI Preferred Pharmacy: [facility] [address] [facility] [address] Patient/Caregiver Callback Number: Telephone Information: Call Notes: states she is out of town and cannot come in but wants a prescription sent to pharmacy for uti. documented in this encounter Plan of Treatment Upcoming Encounters Date Type Department Care Team (Late st Contact Info) Description 10/26/2025 2:40 PM CDT Office Visit [facility], [address] [place] [place] [address] Philipp Pizarro MD [address] [place] [address] [address] [place] [address] 03/31/2026 1:00 PM CDT Office Visit [facility], [address] [facility] [place] [address] Philipp Pizarro MD [address] [place] [address] [place] [address], [place] [address] documented as of this encounter Visit Diagnoses Not on filedocumented in this encounter Additional Health Concerns Assessment Noted Time PHQ-9 Depression Total Score: 1 10/22/19 24 11:05 AM CDT documented as of this encounter Care Teams Butcher Or Smallgoods Maker Relationship Specialty Start Date End Date Philipp Pizarro MD 1000 [facility] [address] [place] [address] PCP - General Internal Medicine 08/21/13 documented as of this encounter
--- OUTSIDE RECORDS SUMMARY | 2025-06-21 22:04 | XMS_ITS | Encounter Summary ---
Author Organization [facility] Address [address] [place] [address] Care Team Providers Care Burner Technician Name Role Phone Philipp Pizarro MD Primary Care Provid er Reason for Visit * Reason Comments Needs Orders Written Encounter Details Date Type Department Care Team (Late st Contact Info) Description 02/07/2024 Telephone [facility] Primary Care - [facility], [address], [address] [place] [address] Philipp Pizarro MD [address] [place] [address] [place] [address] Needs Orders Written Social History Tobacco [...] on file Legal Sex Female 3:43 AM USED BUILDING MATERIALS YARD WORKER Gender Identity Female 06/16/2025 8:03 AM USED BUILDING MATERIALS YARD WORKER Sexual Orientation Not on file Occupation Industry [...] 9:38 AM CDT Copied from [facility] #[id number]. Topic: CPA Information Request - Order or Referral Request >> Feb 07, 2024 9:36 AM Annette Barksdale wrote: Caller is requesting: New Lab Vascular Sonographer Name: Jessica Saldana Patient/Caregiver Callback Number: [phone] (home) Order: Urinalysis Reason for Request: Patient stated that her UTI came back. Patient stated that she has pressure andfrequent urination. Please advise documented in this encounter Plan of Treatment Upcoming Encounters Date Type Department Care Team (Late st Contact Info) Description 10/26/2025 2:40 PM CDT Office Visit [facility] Care - [facility], [address] [place] [address] [address] [place] [address] Philipp Pizarro MD [address] [place] [address] [address] [place] [address] 03/31/2026 1:00 PM CDT Office Visit [facility] Care - [facility], [address] [facility] [place] [phone] Philipp Pizarro MD [address] [place] [address] [address] [place] [address] documented as of this encounter Procedures Procedure Name Priority Date/Time Associated Diagnosis Comments URINALYSIS WITH REFLEX CULTURE Routine 02/07/2024 2:13 PM CDT UTI symptoms URINE CULTURE Routine 02/07/2024 2:13 PM CDT documented in this encounter Results * URINE CULTURE (02/07/2024 2:13 PM CDT) [facility] CULTURE [facility] Comment: CULTURE, URINE, ROUTINE Micro Number: [id number] Test Status: Final Specimen Source: Urine Specimen Quality: Adequate Result: Mixed genital esteban isolated. These superficial bacteria are not indicative of a urinary tract infection. No further organism identification is warranted on this specimen. If clinically indicated, recollect clean-catch, mid-stream urine and transfer immediately to Urine Culture Transport Tube. FASTING:NO FASTING: NO Test Performed at: [facility] [place] [address] [address] [place] [id number] Gayle-Karo Goldberg Vo 02/07/2024 2:13 PM CDT 02/07/2024 2:14 PM CDT Nilsa Singh [facility] MICROBIOLOGY - GENERAL ORDERABLES Final Result [facility] [phone] [place] [address] [address] [place] [id number] * (ABNORMAL) URINALYSIS WITH REFLEX CULTURE (02/07/2024 2:13 PM CDT) COLOR UA YELLOW YELLOW [facility] CLARITY UA CLOUDY(A) CLEAR [facility] SPECIFIC GRAVITY UA 1.017 1.001 - 1.035 [facility] PH UA 6.0 5.0 - 8.0 [facility] GLUCOSE UA 3+(A) NEGATIVE [facility] BILIRUBIN UA NEGATIVE NEGATIVE [facility] KETONES UA NEGATIVE NEGATIVE [facility] BLOOD UA 2+(A) NEGATIVE [facility] PROTEIN UA 1+(A) NEGATIVE [facility] NITRITE UA NEGATIVE NEGATIVE [facility] LEUKOCYTE ESTERASE UA 2+(A) NEGATIVE [facility] WBC UA > OR = 60(A) < OR = 5 /HPF [facility] RBC UA 3-10(A) < OR = 2 /HPF [facility] EPITHELIAL CELLS, URINE 20-40(A) < OR = 5 /HPF [facility] BACTERIA UA NONE SEEN NONE SEEN /HPF [facility] HYALINE CAST NONE SEEN NONE SEEN /LPF [facility] URINE NOTE [facility] Comment: This urine was analyzed for the presence of WBC, RBC, bacteria, casts, and other formed elements. Only those elements seen were reported. URINE CULTURE [facility] Comment: CULTURE INDICATED - RESULTS TO FOLLOW FASTING:NO FASTING: NO LES JESSICA [address] [place] [address] Urine URINE SPECIMEN OBTAINED BY CLEAN CATCH PROCEDURE / Unknown 02/07/2024 2:13 PM CDT 02/07/2024 2:14 PM CDT Nilsa GARCIAP URINE ORDERABLES Final Result [facility] [phone] [facility] [address] [place] [address] documented in this encounter Visit Diagnoses Diagnosis UTI symptoms- Primary documented in this encounter Additional Health Concerns Assessment Noted Time PHQ-9 Depression Total Score: 1 10/22/19 24 11:05 AM CDT documented as of this encounter Care Teams Burner Technician Relationship Specialty Start Date End Date Philipp Pizarro MD [address] [place] [address] [address] [place] [address] PCP - General Internal Medicine 08/21/13 documented as of this encounter
--- OUTSIDE RECORDS SUMMARY | 2025-06-21 22:04 | XMS_ITS | Encounter Summary ---
Author Organization [facility] Address [address] [facility] Attn: [place] [address] Care Team Providers Care Motorcycle Police Officer Name Role Phone Philipp Pizarro MD [...] file Legal Sex Female 3:43 AM DIE SINKER APPRENTICE Gender Identity Female 06/16/2025 8:03 AM DIE SINKER APPRENTICE Sexual Orientation Not on file documented as of this encounter Plan of Treatment Upcoming Encounters Date Type Department Care Team (Late st Contact Info) Description 10/26/2025 2:40 PM CDT Office Visit [facility], [address] [place] [address] Philipp Pizarro MD [address] [place] [address] 03/31/2026 1:00 PM CDT Office Visit [facility], [address] [place] [address] Philipp Pizarro MD [address] [place] [address] 310 [place] [address] documented as of this encounter Visit Diagnoses Not on filedocumented in this encounter Additional Health Concerns Infection Onset Date Last Indicated Resolved Time R/O COVID-19 03/07/2020 03/07/2020 03/09/2020 4:45 AM CDT COVID-19 07/31/2021 07/31/2021 08/30/2021 1:16 AM DIE SINKER APPRENTICE documented as of this encounter Care Teams Motorcycle Police Officer Relationship Specialty Start Date End Date Philipp Pizarro MD [address] [place] [address] PCP - General Internal Medicine 08/21/13 documented as of this encounter
--- OUTSIDE RECORDS SUMMARY | 2025-06-21 22:04 | XMS_ITS | Encounter Summary ---
Author Organization [facility] Address [address] [place] [address] Care Team Providers Care Project Estimator Name Role Phone Philipp Pizarro MD Primary Care Provid er Encounter Details Date Type Department Care Team (Late st Contact Info) Description 09/25/2002 Outpatient Historical [facility] Pino Parry MD [address] [place] [address] [address] [place] [address] SCREENING MAL NEOP-COLON (Primary Dx) Social History Tobacco Use Types Packs/Day Years Used Date Smoking Tobacco: Never Assessed Comments Unknown Sex and Gender Information Value Date Recorded Sex Assigned at Not on file Legal Sex Female 3:43 AM SCHOOL OFFICE ASSISTANT Gender Identity Female 06/16/2025 8:03 AM SCHOOL OFFICE ASSISTANT Sexual Orientation Not on file documented as of this encounter Plan of Treatment Upcoming Encounters Date Type Department Care Team (Late st Contact Info) Description 10/26/2025 2:40 PM CDT Office Visit [facility] Primary Care - [facility], [address] [place] [address] Philipp Pizarro MD [address] [facility] [address] [place] [address] 03/31/2026 1:00 PM CDT Office Visit [facility] Primary Care - [facility], [address] [place] [address] Philipp Pizarro MD [address] [place] [address] [address] [place] [address] documented as of this encounter Visit Diagnoses Diagnosis Special screening for malignant neoplasms, colon- Primary documented in this encounter Additional Health Concerns Infection Onset Date Last Indicated Resolved Time R/O COVID-19 03/07/2020 03/07/2020 03/09/2020 4:45 AM CDT COVID-19 07/31/2021 07/31/2021 08/30/2021 1:16 AM SCHOOL OFFICE ASSISTANT documented as of this encounter Care Teams Project Estimator Relationship Specialty Start Date End Date Philipp Pizarro MD [address] [place] [address] [address] [place] [address] PCP - General Internal Medicine 08/21/13 documented as of this encounter
--- OUTSIDE RECORDS SUMMARY | 2025-06-21 22:04 | XMS_ITS | Encounter Summary ---
Author Organization [facility] Address [address] [place] [address] Care Team Providers Care Master Dyer Name Role Phone Philipp Pizarro MD Primary Care Provid er Encounter Details Date Type Department Care Team (Late st Contact Info) Description 08/20/2006 Outpatient Historical [facility] ([facility]) [address] [place] [address] David Mckeon MD [address] [address] [address] [place] [address] Social History Tobacco Use Types Packs/Day Years Used Date Smoking Tobacco: Never Assessed Comments Unknown Sex and Gender Information Value Date Recorded Sex Assigned at Not on file Legal Sex Female 3:43 AM SAMPLE PASTER Gender Identity Female 06/16/2025 8:03 AM SAMPLE PASTER Sexual Orientation Not on file documented as of this encounter Plan of Treatment Upcoming Encounters Date Type Department Care Team (Late st Contact Info) Description 10/26/2025 2:40 PM CDT Office Visit [facility] Primary Care - [facility], [address] [place] [address] [place] [address] Philipp Pizarro MD [address] [facility] [address] [place] [address] 03/31/2026 1:00 PM CDT Office Visit [facility] Primary Care - [facility], [address] [facility] [address] Philipp Pizarro MD [address] [facility] [address] [place] [address] documented as of this encounter Visit Diagnoses Not on filedocumented in this encounter Additional Health Concerns Infection Onset Date Last Indicated Resolved Time R/O COVID-19 03/07/2020 03/07/2020 03/09/2020 4:45 AM CDT COVID-19 07/31/2021 07/31/2021 08/30/2021 1:16 AM SAMPLE PASTER documented as of this encounter Care Teams Master Dyer Relationship Specialty Start Date End Date Philipp Pizarro MD [address] [place] [address] [address] [place] [address] PCP - General Internal Medicine 08/21/13 documented as of this encounter
--- OUTSIDE RECORDS SUMMARY | 2025-06-21 22:04 | XMS_ITS | Encounter Summary ---
Author Organization [facility] Address [address] [place] [address] Care Team Providers Care Furniture Fabricator Name Role Phone Philipp Pizarro MD Primary Care Provid er Encounter Details Date Type Department Care Team (Latest Contact Info) Description 12/20/2000 Outpatient Historical [facility] Naldo Devine Other screening mammogram (Primary Dx) Social History Tobacco Use Types Packs/Day Years Used Date Smoking Tobacco: Never Assessed Comments Unknown Sex and Gender Information Value Date Recorded Sex Assigned at Not on file Legal Sex Female 3:43 AM TRUCK DRIVER TEAMSTER Gender Identity Female 06/16/2025 8:03 AM TRUCK DRIVER TEAMSTER Sexual Orientation Not on file documented as of this encounter Plan of Treatment Upcoming Encounters Date Type Department Care Team (Late st Contact Info) Description 10/26/2025 2:40 PM CDT Office Visit [facility], [address] [place] [address] Philipp Pizarro MD [address] [facility] [address] [place] [address] 03/31/2026 1:00 PM CDT Office Visit [facility], [address] [place] [address] Philipp Pizarro MD [address] [place] [address] documented as of this encounter Visit Diagnoses Diagnosis Other screening mammogram- Primary documented in this encounter Additional Health Concerns Infection Onset Date Last Indicated Resolved Time R/O COVID-19 03/07/2020 03/07/2020 03/09/2020 4:45 AM CDT COVID-19 07/31/2021 07/31/2021 08/30/2021 1:16 AM TRUCK DRIVER TEAMSTER documented as of this encounter Care Teams Furniture Fabricator Relationship Specialty Start Date End Date Philipp Pizarro MD [address] [place] [address] PCP - General Internal Medicine 08/21/13 documented as of this encounter
--- OUTSIDE RECORDS SUMMARY | 2025-06-21 22:04 | XMS_ITS | Encounter Summary ---
Author Organization [facility] Address [address] [place] [address] Care Team Providers Care Industry Segment Specialist Name Role Phone Philipp Pizarro MD Primary Care Provid er Encounter Details Date Type Department Care Team (Late st Contact Info) Description 09/05/2001 Outpatient Historical HIS [facility] Naldo Devine Social History Tobacco Use Types Packs/Day Years Used Date Smoking Tobacco: Never Assessed Comments Unknown Sex and Gender Information Value Date Recorded Sex Assigned at Not on file Legal Sex Female 3:43 AM CHLORINATOR Gender Identity Female 06/16/2025 8:03 AM CHLORINATOR Sexual Orientation Not on file documented as of this encounter Plan of Treatment Upcoming Encounters Date Type Department Care Team (Late st Contact Info) Description 10/26/2025 2:40 PM CDT Office Visit [facility], [address] [place] [address] Philipp Pizarro MD [address] [facility] [address] [place] [address] 03/31/2026 1:00 PM CDT Office Visit [facility], [address] [place] [address] Philipp Pizarro MD [address] [place] [phone] documented as of this encounter Visit Diagnoses Not on filedocumented in this encounter Additional Health Concerns Infection Onset Date Last Indicated Resolved Time R/O COVID-19 03/07/2020 03/07/2020 03/09/2020 4:45 AM CDT COVID-19 07/31/2021 07/31/2021 08/30/2021 1:16 AM CHLORINATOR documented as of this encounter Care Teams Industry Segment Specialist Relationship Specialty Start Date End Date Philipp Pizarro MD [address] [place] [phone] PCP - General Internal Medicine 08/21/13 documented as of this encounter
--- OUTSIDE RECORDS SUMMARY | 2025-06-21 22:04 | XMS_ITS | Encounter Summary ---
Author Organization [facility] Address [address] [place] [address] Care Team Providers Care Manager Metal Name Role Phone Philipp Pizarro MD Primary Care Provid er Encounter Details Date Type Department Care Team (Latest Contact Info) Description 12/31/2002 Outpatient Historical HIS [facility] Naldo Devine SCREENING MAMM-MAILG NEOPL-OTHER (Primary Dx) Social History Tobacco Use Types Packs/Day Years Used Date Smoking Tobacco: Never Assessed Comments Unknown Sex and Gender Information Value Date Recorded Sex Assigned at Not on file Legal Sex Female 3:43 AM SECURITY PUBLIC SAFETY OFFICER Gender Identity Female 06/16/2025 8:03 AM SECURITY PUBLIC SAFETY OFFICER Sexual Orientation Not on file documented as of this encounter Plan of Treatment Upcoming Encounters Date Type Department Care Team (Late st Contact Info) Description 10/26/2025 2:40 PM CDT Office Visit [facility], [address] [place] [address] Philipp Pizarro MD [address] [place] [address] [place] [phone] 03/31/2026 1:00 PM CDT Office Visit [facility], [address] [place] [address] Philipp Pizarro MD [address] [place] [address] [address] [place] [address] documented as of this encounter Visit Diagnoses Diagnosis Other screening mammogram- Primary documented in this encounter Additional Health Concerns Infection Onset Date Last Indicated Resolved Time R/O COVID-19 03/07/2020 03/07/2020 03/09/2020 4:45 AM CDT COVID-19 07/31/2021 07/31/2021 08/30/2021 1:16 AM SECURITY PUBLIC SAFETY OFFICER documented as of this encounter Care Teams Manager Metal Relationship Specialty Start Date End Date Philipp Pizarro MD [address] [place] [phone] PCP - General Internal Medicine 08/21/13 documented as of this encounter
[2025-06-21 22:17] LABS: Hematocrit 40.7 % (37.0-47.0); Hemoglobin 13.8 g/dL (12.0-15.0); Immature Granulocyte Percent A 0.3 % (0-0.5); Lymphocytes Absolute Auto 2.61 K/mm3 (0.9-3.2); Mean Corpuscular HGB Conc 33.9 g/dl (32-36); Mean Corpuscular Hemoglobin 30.6 pg (26-34); Mean Corpuscular Volume 90.2 fl (80-100); Nucleated Red Blood Cells Absolute Auto 0.000 K/mm3 (0.0-0.012); Nucleated Red Blood Cells Perc 0.0 % (0.0-0.2); Platelet Count Result 185 k/mm3 (150-375); Red Blood Count 4.51 M/mm3 (4.2-5.4); White Blood Count 7.0 K/mm3 (4.5-10.0)
[2025-06-21 22:33] LABS: Alanine Aminotransferase 24 U/L (6-35); Albumin Level 4.4 g/dL (3.5-5.1); Alkaline Phosphatase 63 U/L (38-126); Anion Gap 7 mmol/L (4-12); Aspartate Amino Transferase 30 U/L (14-36); Bilirubin,Total 0.4 mg/dL (0.2-1.3); Blood Urea Nitrogen 14 mg/dL (7-17); Calcium 10.5 mg/dL (8.4-10.2); Carbon Dioxide 28 mmol/L (22-30); Chloride 100 mmol/L (98-107); Estimated CRCL calculation 70 ml/min; Estimated Glomerular Filt Rate > 60; Glucose 119 mg/dL (65-110); Potassium 3.7 mmol/L (3.4-5.0); Sodium 135 mmol/L (137-145); Total Protein 7.3 g/dL (6.3-8.2)
[2025-06-21 23:12] VITALS: BP 148/68; PULSE 69; RESP 19; O2SAT 98
[2025-06-22] VITALS: BP 151/67; PULSE 74; RESP 16; O2SAT 97
== END 2025-06-22 | disposition home or self-care (01) ==
PROVIDERS: Emergency Provider Student in an Organized Health Care Education/Training Program
DX: I10 Essential (primary) hypertension (principal); I44.7 Left bundle-branch block, unspecified; E78.5 Hyperlipidemia, unspecified; E11.9 Type 2 diabetes mellitus without complications; Z79.82 Long term (current) use of aspirin; Z79.84 Long term (current) use of oral hypoglycemic drugs
CPT/HCPCS: 36415; 70450; 80053; 85025; 93005; 99284